=== PATIENT | female | born 1950 | race Hispanic/Latino ===

== ENCOUNTER 2017-09-07 07:54 | Day surgery (SDC) | payer MEDICARE ==
[2017-09-03 07:12] VITALS: BMI 34.3
[2017-09-07 08:35] LABS: BASO # 0.03 K/mm3 (0.0-2.0); BASO % 0.4 % (0.0-3.0); EOS # 0.1 (0.0-0.7); EOS % 1.8 % (1.5-5.0); GRAN # 5.49 (1.4-6.5); GRAN % 69.8 % (50.0-68.0); HEMOGLOBIN 11.2 g/dL (12.0-16.0); LYMPH # 1.8 (1.2-3.4); LYMPH % 22.8 % (22.0-35.0); MEAN CELL VOLUME 88.3 fl (80.0-105.0); MEAN CORPUSCULAR HEMOGLOBIN 29.2 pg (25.0-35.0); MEAN CORPUSCULAR HGB CONC 33.1 g/dl (31.0-37.0); MEAN PLATELET VOLUME 10.2 fl (7.0-11.0); MONO # 0.4 (0.1-0.6); MONO % 5.2 % (1.0-6.0); RBC 3.83 10^6/uL (3.5-6.1); RED CELL DISTRIBUTION WIDTH 14.6 % (11.5-14.5); WHITE BLOOD COUNT 7.9 10^3/ul (4.5-11.0)
[2017-09-07 08:39] VITALS: TEMP 97.7
[2017-09-07 08:47] LABS: CALCIUM 9.6 mg/dL (8.4-10.5)
[2017-09-07 08:57] LABS: INR 1.03 (0.93-1.08); PARTIAL THROMBOPLASTIN TIME 46.1 Seconds (25.1-36.5); PROTHROMBIN TIME 11.8 SECONDS (9.4-12.5)
[2017-09-07] MEDS ORDERED: Lidocaine 2% Inj (20ml) ONE (10:14)
[2017-09-07] MEDS ORDERED: Midazolam 2 MG/2 ML VIAL ONE ×2 (10:15→11:12)
[2017-09-07] MEDS ORDERED: Iodixanol 320 MG/ML 100 ML BOTTLE IV ONE (10:15)
[2017-09-07] MEDS ORDERED: Oxycodone/Acetaminophen 5/325 mg Tab PO PRN (11:51)
[2017-09-07] MEDS ORDERED: Sodium Chloride 0.45% 1,000 ML IV SCH (12:00)
[2017-09-07] MEDS ORDERED: Oxycodone/Acetaminophen 5/325 mg Tab ONE (12:54)
[2017-09-07 13:09] VITALS: RESP 18
[2017-09-07 14:09] VITALS: BP 148/78; PULSE 84; O2SAT 98
--- NOTE | 2017-09-07 18:20 | VASCULAR ---
PROCEDURE: Ultrasound and fluoroscopic right internal jugular venous access port. CLINICAL HISTORY: Gallbladder carcinoma.Venous port for chemotherapy. PHYSICIAN(S): Chintan Ashley M.D. TECHNIQUE: The relative risks and indications of the procedure were explained to the patient and consent obtained. The patient was placed supine on the arteriogram table and the right neck and chest prepped and draped in the usual sterile fashion. Conscious sedation monitoring was provided throughout the procedure by a nurse. Under direct ultrasound guidance, the right internal jugular vein was punctured with a micro-puncture set. A 0.035 angled Glidewire was advanced into the IVC. A 4 cm incision was made below the right clavicle and the pocket blunted dissected. A 8 [place] single-lumen catheter, 21 cm long, was advanced to the SVC/RA junction. The catheter was trimmed and attached to the port. The port aspirates and injects easily. The port was placed in the pocket and closed in 2 layers. The patient tolerated the procedure well. IMPRESSION: Ultrasound and fluoroscopically placed right internal jugular venous access port.
== END 2017-09-07 14:30 | disposition home or self-care (01) ==
LOC: SDSVAS 07:54
PROVIDERS: ATTEND Radiology Vascular & Interventional Radiology
DX: C23 Malignant neoplasm of gallbladder (principal); I10 Essential (primary) hypertension; E11.9 Type 2 diabetes mellitus without complications
CPT/HCPCS: 36415; 36561; 76937; 77001; 80048; 85025; 85610; 85730; 99152; C1769; C1788; J1644; J2250; J2405; J3010; J7030; Q9967

== ENCOUNTER 2017-11-18 14:28 | Inpatient (IN) | payer MEDICARE ==
--- NOTE | 2017-11-18 14:58 | ED PDOC ---
Arrival/HPI - General Time Seen by Provider: 11/18/17 14:54 Historian: Patient - History of Present Illness Narrative History of Present Illness (Text): 11/18/17 14:55 67 year old female, whose past medical history includes gallbladder disease and renal stones, who presents to the ED complaining of headache, neck pain, and an unsteady gate. Patient notes associated nausea and vomiting. Patient saw PMD, Dr. Leyva, who sent her to ED for further evaluation due to worsening pain. Patient denies any chest pain, back pain, SOB, abdominal pain, or any other complaints. Symptom Onset: Gradual Symptom Course: Unchanged Activities at Onset: Light Context: Home Past Medical History - Provider Review Nursing Documentation Reviewed: Yes - Infectious Disease Hx of Infectious Diseases: None - Cardiac Hx Pacemaker: No - Pulmonary Hx Respiratory Disorders: No - Neurological Hx Paralysis: No - HEENT Hx HEENT Disorder: No - Renal Hx Kidney Stones: Yes - Endocrine/Metabolic Hx Endocrine Disorders: Yes Hx Diabetes Mellitus Type 2: Yes - Hematological/Oncological Hx Blood Transfusions: No - Integumentary Hx Dermatological Disorder: No - Musculoskeletal/Rheumatological Hx Musculoskeletal Disorders: No - Gastrointestinal Hx Gastrointestinal Disorders: Yes 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) - Genitourinary/Gynecological Hx Genitourinary Disorders: Yes (abn pap cone bx) - Psychiatric Hx Emotional Abuse: No Hx Physical Abuse: No Hx Substance Use: No - Surgical History Hx Cholecystectomy: Yes Other/Comment: cervical biopsy - Anesthesia Hx Anesthesia Reactions: No Hx Malignant Hyperthermia: No - Suicidal Assessment Feels Threatened In Home Enviroment: No Family/Social History - Physician Review Nursing Documentation Reviewed: Yes Family/Social History: Unknown Family HX Smoking Status: Never Smoked Hx Alcohol Use: No Hx Substance Use: No Allergies/Home Meds Allergies/Adverse Reactions: Allergies Penicillins Allergy (Severe, Verified 08/05/17 12:09) RASH Home Medications: Home Meds Medication Instructions Recorded Confirmed GlipiZIDE [Glucotrol] 5 mg PO DAILY 08/05/17 09/06/17 Losartan [Cozaar] 25 mg PO DAILY 08/05/17 09/07/17 Docusate [Colace] 100 mg PO DAILY 09/06/17 09/07/17 levoFLOXacin [Levaquin] 500 mg PO DAILY 09/06/17 09/07/17 Review of Systems - Physician Review All systems were reviewed & negative as marked: Yes - Review of Systems Constitutional: Normal Eyes: Normal ENT: Normal Respiratory: Normal. absent: SOB, Cough Cardiovascular: Normal. absent: Chest Pain Gastrointestinal: Nausea, Vomiting. absent: Abdominal Pain Genitourinary Female: Normal. absent: Dysuria, Frequency Musculoskeletal: Neck Pain. absent: Back Pain Skin: Normal. absent: Rash Neurological: Headache Endocrine: Normal Hemo/Lymphatic: Normal Psychiatric: Normal Physical Exam Vital Signs Temp Pulse Resp BP Pulse Ox 11/18/17 17:55 98.2 F 78 18 99 11/18/17 16:05 98.2 F 90 18 130/80 97 11/18/17 14:35 98.1 F 97 H 18 139/70 98 - Systems Exam Head: Present: Atraumatic, Normocephalic Pupils: Present: PERRL Extroacular Muscles: Present: EOMI Conjunctiva: Present: Normal Mouth: Present: Moist Mucous Membranes Neck: Present: Normal Range of Motion Respiratory/Chest: Present: Clear to Auscultation, Good Air Exchange. No: Respiratory Distress, Accessory Muscle Use Cardiovascular: Present: Regular Rate and Rhythm, Normal S1, S2. No: Murmurs Abdomen: No: Tenderness, Distention, Peritoneal Signs Back: Present: Normal Inspection Upper Extremity: Present: Normal Inspection. No: Cyanosis, Edema Lower Extremity: Present: Normal Inspection. No: Edema Neurological: Present: GCS=15, CN II-XII Intact, Speech Normal Skin: Present: Warm, Dry, Normal Color. No: Rashes Psychiatric: Present: Alert, Oriented x 3, Normal Insight, Normal Concentration Medical Decision Making ED Course and Treatment: 11/18/17 14:58 Impression: 67 y/o female presents to the ED c/o headache, neck pain, unsteady gate, nausea , and vomiting. Plan: -- CT Head -- CT Neck -- Reglan -- Benadryl Progress Notes: 11/18/17 18:21: On re-evaluation, patient's headache is better, but is still complaining of neck pain. Pending MRI results. 11/18/17 18:58: Case discussed in detail with Dr. Leyva who wants patient to be admitted for observation. MR Angiography Head Without Intravenous Contrast Dictated and Authenticated by: Milton Prieto MD 11/18/2017 6:39 PM Eastern Time ([place] & [place]) IMPRESSION: Normal head/brain MRA. MR Head Without Intravenous Contrast Dictated and Authenticated by: Milton Prieto MD 11/18/2017 6:37 PM Eastern Time ([place] & [place]) IMPRESSION: Age-related atrophy and chronic white matter ischemic changes, with no evidence of an acute intracranial abnormality. 11/18/17 19:09: Case discussed in detail with Dr. Wm Matta who accepts patient to his service. - Lab Interpretations Lab Results: 11/19/17 06:30 11/19/17 06:30 Lab Results 11/19/17 11:30: POC Glucose (mg/dL) 235 H 11/19/17 06:35: POC Glucose (mg/dL) 185 H 11/19/17 06:30: Carcinoembryonic Ag 26.6 H 11/19/17 06:30: Hemoglobin A1c 5.8 11/19/17 06:30: Sodium 138, Potassium 4.4, Chloride 98, Carbon Dioxide 27, Anion Gap 17, BUN 19, Creatinine 0.9, Est GFR ( Amer) > 60, Est GFR (Non- Af Amer) > 60, Random Glucose 196 H, Calcium 9.5, Total Bilirubin 1.3, AST 24, ALT 30, Alkaline Phosphatase 78, Total Protein 7.4, Albumin 4.4, Globulin 3.0, Albumin/Globulin Ratio 1.5, CA 19-9 Antigen 134 H 11/19/17 06:30: WBC 14.0 H D, RBC 3.51, Hgb 10.7 L, Hct 31.9 L, MCV 90.9, MCH 30.5, MCHC 33.5, RDW 16.7 H, Plt Count 252, MPV 9.9, Gran % 91.9 H, Lymph % ( Auto) 5.9 L, [place] % (Auto) 2.1, Eos % (Auto) 0.0 L, Baso % (Auto) 0.1, Gran # 12.83 H, Lymph # (Auto) 0.8 L, [place] # (Auto) 0.3, Eos # (Auto) 0.0, Baso # (Auto ) 0.01 11/18/17 21:24: POC Glucose (mg/dL) 175 H - RAD Interpretation Radiology Orders: 11/18/17 15:24 MRA HEAD WITHOUT CONTRAST [MRI] Stat 11/18/17 15:28 BRAIN WITHOUT CONTRAST [MRI] Stat 11/19/17 09:45 BRAIN W & WO CONTRAST [MRI] Stat 11/19/17 13:27 SPINAL CANAL CERVICAL W/WO LINDA [MRI] Stat - Medication Orders Current Medication Orders: Acetaminophen (Tylenol 325mg Tab) 650 mg PO Q4H PRN PRN Reason: Mild pain (1-3) or temp > 100F Last Admin: 11/20/17 13:25 Dose: 650 mg Amlodipine Besylate (Norvasc) 5 mg PO DAILY [facility] Last Admin: 11/21/17 14:26 Dose: Not Given Non-Admin Reason: Allergy Clonidine HCl (Catapres) 0.1 mg PO Q6 PRN PRN Reason: Systolic Blood Pressure > 160 Last Admin: 11/20/17 13:24 Dose: 0.1 mg MAR Pulse and Blood Pressure Document 11/20/17 13:24 MV (Rec: 11/20/17 13:24 MV [facility] Pulse Pulse Rate (60-90 beats/min) 78 Blood Pressure Blood Pressure (100/60-150/90 mm Hg) 190/83 Heparin Sodium (Porcine) (Heparin) 5,000 units SC Q12 [facility] PRN Reason: Protocol Last Admin: 11/23/17 10:06 Dose: 5,000 units Subcutaneous Administrations Document 11/23/17 10:06 RAMOM (Rec: 11/23/17 10:06 RAMOM [id number]) Injection Site MAR Injection Site Right Abdomen Charges for Administration # of Subcutaneous Administrations 1 Hydralazine HCl (Apresoline) 10 mg IVP Q6 PRN PRN Reason: for sbp greater than 160 Last Admin: 11/20/17 06:12 Dose: 10 mg IVP Administration Document 11/20/17 06:12 RM (Rec: 11/20/17 06:12 RM BMCKOSTENDORFLP) Charges for Administration # of IVP Administrations 1 MAR Pulse and Blood Pressure Document 11/20/17 06:12 RM (Rec: 11/20/17 06:12 RM BMCKOSTENDORFLP) Blood Pressure Blood Pressure (100/60-150/90 mm Hg) 195/95 Hydrocortisone Sodium Succinate (Solu-Cortef) 50 mg IVP Q6H LEMUEL Last Admin: 11/23/17 14:17 Dose: 50 mg IVP Administration Document 11/23/17 14:17 RAMOM (Rec: 11/23/17 14:17 RAMOM [id number]) Charges for Administration # of IVP Administrations 1 Hydromorphone HCl (Dilaudid) 0.5 mg IVP Q4H PRN PRN Reason: Pain, severe (8-10) Last Admin: 11/21/17 03:08 Dose: 0.5 mg [facility] Pain Assessment Document 11/21/17 03:08 B.P (Rec: 11/21/17 03:09 B.P [id number]) Pain Reassessment Is this a pain reassessment? No Presence of Pain Presence of Pain Yes Description Intensity of Pain at present 8 IVP Administration Document 11/21/17 03:08 B.P (Rec: 11/21/17 03:09 B.P [id number]) Charges for Administration # of IVP Administrations 1 Re-Assess: [facility] Pain Assessment Document 11/21/17 04:08 B.P (Rec: 11/21/17 05:17 B.P [id number]) Pain Reassessment Is this a pain reassessment? Yes Sleep Is patient sleeping during reassessment? Yes Nicardipine HCl (Cardene Iv Premix) 20 mg in 200 mls @ 50 mls/hr IV .Q4H PRN; Protocol; 5 MG/HR PRN Reason: TITRATE PER MD ORDER Last Titration: 11/21/17 09:00 Dose: 0 mg/hr, 0 mls/hr Titration Intervention Document 11/21/17 09:00 IGOR (Rec: 11/21/17 11:15 IGOR [facility] [id number]) Titration Intake Titration Intake 140 Cumulative Intake 185 Cumulative Intake (Rx) 585 Waste Amount 0 Container Volume 15 Titration Dosing Titration Dose 0 IV Rate 0 Intake/Decrease Paused Cumulative Dose 58.5 Midazolam 100 mg/100ml in NS (Midazolam 100 Mg/100ml In Ns) 100 mg in 100 mls @ 1 mls/hr IV .Q24H PRN; Protocol; 1 MG/HR PRN Reason: Seizure activity Last Titration: 11/22/17 14:00 Dose: 0 mg/hr, 0 mls/hr Ma Agitation Sedation Document 11/22/17 14:00 [facility] (Rec: 11/22/17 20:28 [facility] [id number]) Ma Agitation Sedation Scale Ma Agitation Sedation Scale Score -5 Unarousable: No response to voice or physical stimulation Titration Intervention Document 11/22/17 14:00 KEITH (Rec: 11/22/17 20:28 [facility] [id number]) Titration Intake Titration Intake 24 Cumulative Intake 24 Cumulative Intake (Rx) 24 Waste Amount 0 Container Volume 76 Titration Dosing Titration Dose 0 IV Rate 0 Intake/Decrease Paused Cumulative Dose 24 Valproate Sodium 1,000 mg/ (Sodium Chloride) 110 mls @ 100 mls/hr IVPB 0700, 1900 LEMUEL Last Admin: 11/23/17 09:00 Dose: 100 mls/hr eMAR Start Stop Document 11/23/17 09:00 RAMOM (Rec: 11/23/17 09:42 RAMOM [id number]) Intravenous Solution Start Date 11/23/17 Start Time 09:00 End Date 11/23/17 End time 10:00 Total Infusion Time 60 Norepinephrine Bitartrate 8 mg (/ Sodium Chloride) 258 mls @ 48.37 mls/hr IV .Q5H21M PRN; Protocol; 25 MCG/MIN PRN Reason: TITRATE PER MD ORDER Last Titration: 11/23/17 14:11 Dose: 15 mcg/min, 29.02 mls/hr Titration Intervention Document 11/23/17 14:11 RAMOM (Rec: 11/23/17 14:11 RAMOM [id number]) Titration Intake Titration Intake 38 Cumulative Intake 228 Cumulative Intake (Rx) 2,034 Waste Amount 0 Container Volume 30 Titration Dosing Titration Dose 15 IV Rate 29.02 Intake/Decrease Decreased Cumulative Dose 63.0683 Vasopressin 20 units/ Sodium (Chloride) 101 mls @ 9.09 mls/hr IV .Q11H7M LEMUEL; 0.03 U/MIN PRN Reason: Protocol Last Admin: 11/23/17 01:44 Dose: 0.03 u/min, 9.09 mls/hr eMAR Start Stop Document 11/23/17 01:44 PD (Rec: 11/23/17 01:45 PD [facility] [id number]) Intravenous Solution Start Date 11/23/17 Start Time 01:45 [facility] Blood Pressure Document 11/23/17 01:44 PD (Rec: 11/23/17 01:45 PD [facility] [place]-RENW) Blood Pressure Blood Pressure (100/60-150/90 mm Hg) 103/56 Titration Intervention Document 11/23/17 01:44 PD (Rec: 11/23/17 01:45 PD [facility] [place]-R[facility]) Titration Intake Waste Amount 0 Container Volume 101 Titration Dosing Titration Dose 0.03 IV Rate 9.09 Intake/Decrease Started Acetaminophen (Ofirmev) 1,000 mg in 100 mls @ 0 mls/hr IVPB Q6H PRN; Titrate PRN Reason: Temperature Stop: 11/25/17 04:31 Last Admin: 11/23/17 05:33 Dose: 400 mls/hr eMAR Start Stop Document 11/23/17 05:33 PD (Rec: 11/23/17 05:38 PD [facility] [place]-[facility]) Intravenous Solution Start Date 11/23/17 Start Time 05:33 [facility] Pain Assessment Document 11/23/17 05:33 PD (Rec: 11/23/17 05:38 PD [facility] [place]) Pain Reassessment Is this a pain reassessment? No Sleep Is patient sleeping during reassessment? No Presence of Pain Presence of Pain No Pain Scale Used Pain Scale Used Numeric Re-Assess: [facility] Pain Assessment Document 11/23/17 06:33 PD (Rec: 11/23/17 07:26 PD [facility] [place]) Pain Reassessment Is this a pain reassessment? No Presence of Pain Presence of Pain No Cefepime HCl 0.5 gm/ Sodium (Chloride) 100 mls @ 100 mls/hr IVPB Q12H LEMUEL PRN Reason: Protocol Stop: 12/02/17 13:01 Last Admin: 11/23/17 15:02 Dose: 100 mls/hr eMAR Start Stop Document 11/23/17 15:02 RAMOM (Rec: 11/23/17 15:03 RAMOM [id number]) Intravenous Solution Start Date 11/23/17 Start Time 15:00 End Date 11/23/17 End time 16:00 Total Infusion Time 60 Acyclovir 250 mg/ Sodium (Chloride) 100 mls @ 100 mls/hr IV Q12 LEMUEL PRN Reason: Protocol Stop: 01/07/19 22:01 Ibuprofen (Motrin Tab) 600 mg PO Q8H PRN PRN Reason: Pain, moderate (4-7) Last Admin: 11/20/17 10:44 Dose: 600 mg Insulin Human Regular (Humulin R Low) 0 units SC Q4H LEMUEL PRN Reason: Protocol Last Admin: 11/23/17 17:53 Dose: Losartan Potassium (Cozaar) 100 mg PO DAILY [facility] Last Admin: 11/21/17 11:16 Dose: Not Given Non-Admin Reason: BP Parameters Not Met Ondansetron HCl (Zofran Inj) 4 mg IVP Q8H PRN PRN Reason: Nausea/Vomiting Last Admin: 11/20/17 15:00 Dose: 4 mg IVP Administration Document 11/20/17 15:00 MV (Rec: 11/20/17 16:28 MV [id number]) Charges for Administration # of IVP Administrations 1 Pantoprazole Sodium (Protonix Inj) 40 mg IVP Q12 [facility] Last Admin: 11/23/17 10:06 Dose: 40 mg IVP Administration Document 11/23/17 10:06 RAMOM (Rec: 11/23/17 10:06 RAMOM [id number]) Charges for Administration # of IVP Administrations 1 Sucralfate (Carafate Oral Susp) 1 gm PO 0600,1600 [facility] Last Admin: 11/23/17 15:03 Dose: Not Given Non-Admin Reason: NPO Discontinued Medications Clonidine HCl (Catapres) 0.1 mg PO ONCE ONE Stop: 11/20/17 06:02 Last Admin: 11/20/17 06:12 Dose: 0.1 mg MAR Pulse and Blood Pressure Document 11/20/17 06:12 RM (Rec: 11/20/17 06:12 BMCKOSTENDORFLP) Blood Pressure Blood Pressure (100/60-150/90 mm Hg) 195/95 Cyclobenzaprine HCl (Flexeril) 15 mg PO STAT STA Stop: 11/19/17 13:27 Last Admin: 11/19/17 13:59 Dose: 15 mg Diazepam (Valium) 5 mg PO ONCE ONE PRN Reason: Protocol Stop: 11/18/17 15:24 Last Admin: 11/18/17 16:49 Dose: 5 mg Diphenhydramine HCl (Benadryl) 25 mg IVP STAT STA Stop: 11/18/17 15:24 Last Admin: 11/18/17 16:50 Dose: 25 mg IVP Administration Document 11/18/17 16:50 [email or web address] (Rec: 11/18/17 16:50 [email or web address] [id number]) Charges for Administration # of IVP Administrations 1 Diphenhydramine HCl (Benadryl) 25 mg IVP STAT STA Stop: 11/19/17 04:23 Last Admin: 11/19/17 04:39 Dose: Not Given Non-Admin Reason: Patient Refused Comments: Patient earlier agreed, then refused Hydralazine HCl (Apresoline) 10 mg IVP ONCE ONE Stop: 11/19/17 15:04 Last Admin: 11/19/17 15:26 Dose: 10 mg IVP Administration Document 11/19/17 15:26 SES (Rec: 11/19/17 15:27 [id number]) Charges for Administration # of IVP Administrations 1 MAR Pulse and Blood Pressure Document 11/19/17 15:26 SES (Rec: 11/19/17 15:27 SES [facility] [id number]) Pulse Pulse Rate (60-90 beats/min) 72 Blood Pressure Blood Pressure (100/60-150/90 mm Hg) 198/85 Hydralazine HCl (Apresoline) 10 mg IVP Q6 LEMUEL Hydralazine HCl (Apresoline) 10 mg IVP ONCE ONE Stop: 11/20/17 02:42 Last Admin: 11/20/17 02:55 Dose: 10 mg IVP Administration Document 11/20/17 02:55 RM (Rec: 11/20/17 02:56 [facility] Charges for Administration # of IVP Administrations 1 MAR Pulse and Blood Pressure Document 11/20/17 02:55 RM (Rec: 11/20/17 02:56 RM [facility]) Blood Pressure Blood Pressure (100/60-150/90 mm Hg) 195/91 Hydromorphone HCl (Dilaudid) 0.5 mg IVP ONCE ONE Stop: 11/19/17 19:01 Last Admin: 11/19/17 19:08 Dose: 0.5 mg MAR Pain Assessment Document 11/19/17 19:08 SOUSV (Rec: 11/19/17 19:08 SOUSV BMCKOSTENDORFLP) Pain Reassessment Is this a pain reassessment? No Presence of Pain Presence of Pain Yes Pain Scale Used Pain Scale Used Numeric Location Pain Location Body Site Neck Description Description Constant Intensity of Pain at present 12 Alleviating Factors Medication IVP Administration Document 11/19/17 19:08 SOUSV (Rec: 11/19/17 19:08 SOUSV BMCKOSTENDORFLP) Charges for Administration # of IVP Administrations 1 Re-Assess: MAR Pain Assessment Document 11/19/17 20:08 RM (Rec: 11/19/17 21:34 RM [id number]) Pain Reassessment Is this a pain reassessment? Yes Sleep Is patient sleeping during reassessment? Yes Hydromorphone HCl (Dilaudid) 0.5 mg IVP ONCE ONE Stop: 11/20/17 01:19 Last Admin: 11/20/17 01:38 Dose: 0.5 mg DAR Pain Assessment Document 11/20/17 01:38 RM (Rec: 11/20/17 01:38 RM BMCKOSTENDORFLP) Pain Reassessment Is this a pain reassessment? No Sleep Is patient sleeping during reassessment? No Presence of Pain Presence of Pain Yes IVP Administration Document 11/20/17 01:38 RM (Rec: 11/20/17 01:38 RM BMCKOSTENDORFLP) Charges for Administration # of IVP Administrations 1 Sodium Chloride (Sodium Chloride 0.9%) 1,000 mls @ 80 mls/hr IV .[id number] ONE Stop: 11/19/17 09:57 Last Admin: 11/18/17 22:45 Dose: 80 mls/hr eMAR Start Stop Document 11/18/17 22:45 MAD (Rec: 11/18/17 22:45 MAD [id number]) Intravenous Solution Start Date 11/18/17 Start Time 22:45 Sodium Chloride (Sodium Chloride 0.45%) 1,000 mls @ 80 mls/hr IV .[id number] [facility] Last Admin: 11/19/17 11:26 Dose: 80 mls/hr eMAR Start Stop Document 11/19/17 11:26 SES (Rec: 11/19/17 11:26 SES [id number]) Intravenous Solution Start Date 11/19/17 Start Time 11:26 Sodium Chloride (Sodium Chloride 0.45%) 1,000 mls @ 140 mls/hr IV .Q7H9M LEMUEL Sodium Chloride (Sodium Chloride 0.45%) 1,000 mls @ 80 mls/hr IV .[id number] LEMUEL Fosaprepitant 150 mg/ Sodium (Chloride) 150 mls @ 290 mls/hr IVPB ONCE ONE Stop: 11/19/17 19:17 Last Admin: 11/19/17 20:16 Dose: 290 mls/hr eMAR Start Stop Document 11/19/17 20:16 RM (Rec: 11/19/17 20:17 [facility] Intravenous Solution Start Date 11/19/17 Start Time 20:16 End Date 11/19/17 End time 20:47 Total Infusion Time 31 Valproate Sodium / Sodium (Chloride) 100 mls @ 100 mls/hr IVPB Q8 LEMUEL Valproate Sodium 1,000 mg/ (Sodium Chloride) 110 mls @ 100 mls/hr IVPB 0300, 1100,1900 LEMUEL Valproate Sodium 1,000 mg/ (Sodium Chloride) 110 mls @ 100 mls/hr IVPB 0300, 1100,1900 LEMUEL Valproate Sodium 750 mg/ (Sodium Chloride) 107.5 mls @ 100 mls/hr IVPB 0700, 1900 LEMUEL Last Admin: 11/21/17 06:07 Dose: 100 mls/hr eMAR Start Stop Document 11/21/17 06:07 B.P (Rec: 11/21/17 06:08 B.P [id number]) Intravenous Solution Start Date 11/21/17 Start Time 06:08 Valproate Sodium 1,000 mg/ (Sodium Chloride) 110 mls @ 100 mls/hr IVPB 0300, 1100,1900 ONE Stop: 11/20/17 20:06 Valproate Sodium 1,000 mg/ (Sodium Chloride) 110 mls @ 100 mls/hr IVPB ONCE ONE Stop: 11/20/17 20:09 Last Admin: 11/20/17 20:23 Dose: 100 mls/hr eMAR Start Stop Document 11/20/17 20:23 B.P (Rec: 11/20/17 20:23 B.P [id number]) Intravenous Solution Start Date 11/20/17 Start Time 20:23 Potassium Chloride (Potassium Chloride 10 Meq/100 Ml) 10 meq in 100 mls @ 50 mls/hr IVPB Q2H LEMUEL Stop: 11/21/17 10:44 Last Admin: 11/21/17 08:31 Dose: 50 mls/hr eMAR Start Stop Document 11/21/17 08:31 JFG (Rec: 11/21/17 08:31 JFG [facility] [id number]) Intravenous Solution Start Date 11/21/17 Start Time 08:31 End Date 11/21/17 End time 10:31 Total Infusion Time 120 Meropenem (Merrem Iv 1 Gm Premix) 50 mls @ 100 mls/hr IVPB Q8 LEMUEL PRN Reason: Protocol Stop: 11/30/17 08:05 Last Admin: 11/22/17 05:14 Dose: 100 mls/hr eMAR Start Stop Document 11/22/17 05:14 B.P (Rec: 11/22/17 05:14 B.P [facility] [id number]) Intravenous Solution Start Date 11/22/17 Start Time 05:14 Vancomycin HCl (Vancomycin 1gm) 1 gm in 250 mls @ 167 mls/hr IVPB DAILY LEMUEL PRN Reason: Protocol Stop: 11/30/17 10:01 Last Admin: 11/23/17 10:06 Dose: 167 mls/hr eMAR Start Stop Document 11/23/17 10:06 RAMOM (Rec: 11/23/17 10:06 RAMOM [id number]) Intravenous Solution Start Date 11/23/17 Start Time 12:00 End Date 11/23/17 End time 13:30 Total Infusion Time 90 Levetiracetam 1,000 mg/ Sodium (Chloride) 110 mls @ 440 mls/hr IV ONCE ONE Stop: 11/21/17 09:55 Last Admin: 11/21/17 12:06 Dose: 440 mls/hr Comments: just got back from CT scan and MRI eMAR Start Stop Document 11/21/17 12:06 JFG (Rec: 11/21/17 12:06 JFG [id number]) Intravenous Solution Start Date 11/21/17 Start Time 12:06 End Date 11/21/17 End time 12:21 Total Infusion Time 15 Sodium Chloride (Sodium Chloride 0.9%) 1,000 mls @ 999 mls/hr IV .Q1H1M STA Stop: 11/21/17 13:10 Last Admin: 11/21/17 12:10 Dose: 999 mls/hr eMAR Start Stop Document 11/21/17 12:10 JFG (Rec: 11/21/17 14:28 [id number]-[id number]) Intravenous Solution Start Date 11/21/17 Start Time 12:10 End Date 11/21/17 End time 13:11 Total Infusion Time 61 NOREPINEPHRINE BIT/0.9 % NACL (Levophed 4 Mg/ 250 Ml Ns Premixed) 4 mg in 250 mls @ 15 mls/hr IV .[id number] PRN; Protocol; 4 MCG/MIN PRN Reason: TITRATE PER MD ORDER NOREPINEPHRINE BIT/0.9 % NACL (Levophed 4 Mg/ 250 Ml Ns Premixed) 4 mg in 250 mls @ 15 mls/hr IV .H37S95O PRN; Protocol; 4 MCG/MIN PRN Reason: TITRATE PER MD ORDER Last Admin: 11/21/17 18:56 Dose: 25 mcg/min, 93.75 mls/hr eMAR Start Stop Document 11/21/17 18:56 JFG (Rec: 11/21/17 18:57 [id number]) Intravenous Solution Start Date 11/21/17 Start Time 18:57 Titration Intervention Document 11/21/17 18:56 IGOR (Rec: 11/21/17 18:57 [facility]) Titration Intake Cumulative Intake (Rx) 750 Waste Amount 0 Container Volume 250 Titration Dosing Titration Dose 25 IV Rate 93.75 Intake/Decrease Started/Running Cumulative Dose 12 Sodium Chloride (Sodium Chloride 0.9%) 1,000 mls @ 999 mls/hr IV .Q1H1M STA Stop: 11/21/17 10:07 Last Admin: 11/21/17 09:07 Dose: 999 mls/hr eMAR Start Stop Document 11/21/17 09:07 KEITHG (Rec: 11/21/17 14:21 [facility]-[id number]) Intravenous Solution Start Date 11/21/17 Start Time 09:07 End Date 11/21/17 End time 10:07 Total Infusion Time 60 Acyclovir 750 mg/ Sodium (Chloride) 100 mls @ 100 mls/hr IV Q12 LEMUEL PRN Reason: Protocol Last Admin: 11/22/17 09:31 Dose: 100 mls/hr eMAR Start Stop Document 11/22/17 09:31 JFG (Rec: 11/22/17 09:31 JFG [id number]) Intravenous Solution Start Date 11/22/17 Start Time 09:31 End Date 11/22/17 End time 10:31 Total Infusion Time 60 Levetiracetam 1,000 mg/ Sodium (Chloride) 110 mls @ 440 mls/hr IV BID ONE Stop: 11/21/17 18:14 Last Admin: 11/21/17 18:31 Dose: 440 mls/hr eMAR Start Stop Document 11/21/17 18:31 JFG (Rec: 11/21/17 18:31 JFG [id number]) Intravenous Solution Start Date 11/21/17 Start Time 18:31 End Date 11/21/17 End time 18:46 Total Infusion Time 15 Potassium Chloride (Potassium Chloride 20 Meq/100 Ml) 20 meq in 100 mls @ 50 mls/hr IVPB Q2H LEMUEL Stop: 11/22/17 00:59 Last Admin: 11/21/17 22:41 Dose: 50 mls/hr eMAR Start Stop Document 11/21/17 22:41 B.P (Rec: 11/21/17 22:41 B.P [id number]) Intravenous Solution Start Date 11/21/17 Start Time 22:41 Sodium Chloride (Sodium Chloride 0.9%) 1,000 mls @ 175 mls/hr IV .Q5H43M LEMUEL Last Admin: 11/22/17 03:43 Dose: 175 mls/hr eMAR Start Stop Document 11/22/17 03:43 B.P (Rec: 11/22/17 03:43 B.P [id number]) Intravenous Solution Start Date 11/22/17 Start Time 03:43 Vasopressin 20 units/ Sodium (Chloride) 101 mls @ 9.09 mls/hr IV .Q11H7M LEMUEL; 0.03 U/MIN PRN Reason: Protocol Last Admin: 11/22/17 04:04 Dose: 9.09 mls/hr eMAR Start Stop Document 11/22/17 04:04 B.P (Rec: 11/22/17 04:05 B.P [id number] [id number]) Intravenous Solution Start Date 11/22/17 Start Time 04:04 MAR Blood Pressure Document 11/22/17 04:04 B.P (Rec: 11/22/17 04:05 B.P [id number]) Blood Pressure Blood Pressure (100/60-150/90 mm Hg) 85/48 Sodium Chloride (Sodium Chloride 0.9%) 1,000 mls @ 175 mls/hr IV .[id number] LEMUEL Last Admin: 11/22/17 05:55 Dose: 175 mls/hr eMAR Start Stop Document 11/22/17 05:55 B.P (Rec: 11/22/17 05:55 B.P [id number]) Intravenous Solution Start Date 11/22/17 Start Time 05:55 Meropenem (Merrem Iv 1 Gm Premix) 50 mls @ 100 mls/hr IVPB Q12 LEMUEL PRN Reason: Protocol Stop: 12/01/17 22:01 Last Admin: 11/23/17 10:05 Dose: 100 mls/hr eMAR Start Stop Document 11/23/17 10:05 RAMOM (Rec: 11/23/17 10:05 RAMOM [id number]) Intravenous Solution Start Date 11/23/17 Start Time 11:30 End Date 11/23/17 End time 12:00 Total Infusion Time 30 Sodium Chloride (Hypertonic Saline 3%) 500 mls @ 30 mls/hr IV .[id number] [facility] Last Admin: 11/22/17 13:35 Dose: 30 mls/hr eMAR Start Stop Document 11/22/17 13:35 JFG (Rec: 11/22/17 14:47 JFG [id number]) Intravenous Solution Start Date 11/22/17 Start Time 13:35 End Date 11/23/17 Doxycycline Hyclate 100 mg/ (Sodium Chloride) 100 mls @ 100 mls/hr IVPB Q12 LEMUEL PRN Reason: Protocol Last Admin: 11/23/17 09:59 Dose: 100 mls/hr eMAR Start Stop Document 11/23/17 09:59 RAMOM (Rec: 11/23/17 10:00 RAMOM [id number]) Intravenous Solution Start Date 11/23/17 Start Time 10:00 End Date 11/23/17 End time 11:00 Total Infusion Time 60 Acyclovir 750 mg/ Sodium (Chloride) 250 mls @ 100 mls/hr IV Q12 LEMUEL PRN Reason: Protocol Last Admin: 11/23/17 10:02 Dose: 100 mls/hr eMAR Start Stop Document 11/23/17 10:02 RAMOM (Rec: 11/23/17 10:03 RAMOM [id number]) Intravenous Solution Start Date 11/23/17 Start Time 11:00 End Date 11/23/17 End time 13:30 Total Infusion Time 150 Trimethoprim/Sulfamethoxazole (300 mg/ Dextrose) 500 mls @ 250 mls/hr IVPB Q6 LEMUEL Trimethoprim/Sulfamethoxazole (160 mg/ Dextrose) 250 mls @ 250 mls/hr IVPB Q6 LEMUEL Trimethoprim/Sulfamethoxazole (160 mg/ Dextrose) 250 mls @ 250 mls/hr IVPB Q6 LEMUEL Last Admin: 11/23/17 12:31 Dose: 250 mls/hr eMAR Start Stop Document 11/23/17 12:31 RAMOM (Rec: 11/23/17 12:31 RAMOM [id number]) Intravenous Solution Start Date 11/23/17 Start Time 13:30 End Date 11/23/17 End time 14:30 Total Infusion Time 60 Ganciclovir 200 mg/ Sodium (Chloride) 100 mls @ 100 mls/hr IV DAILY LEMUEL PRN Reason: Protocol Ganciclovir 200 mg/ Sodium (Chloride) 100 mls @ 100 mls/hr IV DAILY LEMUEL Last Admin: 11/23/17 10:00 Dose: 100 mls/hr eMAR Start Stop Document 11/23/17 10:00 RAMOM (Rec: 11/23/17 10:00 RAMOM [id number]) Intravenous Solution Start Date 11/23/17 Start Time 10:30 End Date 11/23/17 End time 11:30 Total Infusion Time 60 Amphotericin B 300 mg/ (Dextrose) 250 mls @ 125 mls/hr IV ONCE ONE Stop: 11/22/17 17:29 Last Admin: 11/22/17 19:02 Dose: 125 mls/hr eMAR Start Stop Document 11/22/17 19:02 JF (Rec: 11/22/17 19:03 [id number]) Intravenous Solution Start Date 11/22/17 Start Time 19:03 End Date 11/22/17 End time 21:03 Total Infusion Time 120 Sodium Chloride (Hypertonic Saline 3%) 500 mls @ 30 mls/hr IV .[id number] [facility] Last Admin: 11/23/17 02:50 Dose: 30 mls/hr eMAR Start Stop Document 11/23/17 02:50 PD (Rec: 11/23/17 02:51 PD [facility]-RENW) Intravenous Solution Start Date 11/23/17 Start Time 02:51 End Date 11/23/17 End time 15:00 Total Infusion Time 729 Insulin Human Regular (Humulin R Low) 0 units SC ACHS LEMUEL PRN Reason: Protocol Last Admin: 11/22/17 22:01 Dose: 2 units Subcutaneous Administrations Document 11/22/17 22:01 PD (Rec: 11/22/17 22:01 PD [facility]-W) Charges for Administration # of Subcutaneous Administrations 1 Lorazepam (Ativan) 3 mg IVP ONCE ONE PRN Reason: Protocol Stop: 11/21/17 12:12 Last Admin: 11/21/17 12:11 Dose: 3 mg IVP Administration Document 11/21/17 12:11 [facility] (Rec: 11/21/17 14:24 [id number]) Charges for Administration # of IVP Administrations 1 Behavioural Document 11/21/17 12:11 KEITH (Rec: 11/21/17 14:24 [facility]-W) Maintenance Maintenance Dose No Nonmedicinal Nonmedicinal Interventions See nurse's notes Behavior Behavior for Medication: Dangers to self/others Behavior Comment per neurologist give for seizures Losartan Potassium (Cozaar) 25 mg PO DAILY [facility] Last Admin: 11/19/17 14:38 Dose: Losartan Potassium (Cozaar) 25 mg PO STAT STA Stop: 11/18/17 22:20 Last Admin: 11/18/17 22:42 Dose: 25 mg MAR Pulse and Blood Pressure Document 11/18/17 22:42 MAD (Rec: 11/18/17 22:43 MAD [id number]) Pulse Pulse Rate (60-90 beats/min) 73 Blood Pressure Blood Pressure (100/60-150/90 mm Hg) 180/82 Losartan Potassium (Cozaar) 25 mg PO STAT STA Stop: 11/19/17 10:45 Last Admin: 11/19/17 11:25 Dose: 25 mg MAR Pulse and Blood Pressure Document 11/19/17 11:25 SES (Rec: 11/19/17 11:26 SES [id number]) Blood Pressure Blood Pressure (100/60-150/90 mm Hg) 182/88 Losartan Potassium (Cozaar) 50 mg PO DAILY LEMUEL Mannitol (Mannitol) 25 gm IV ONCE ONE Stop: 11/21/17 09:43 Last Admin: 11/21/17 16:01 Dose: 25 gm Comments: give now per servicenow administrator. mannitol was on hold earlier per ICU doctor eMAR Start Stop Document 11/21/17 16:01 KEITH (Rec: 11/21/17 16:01 [id number]) Intravenous Solution Start Date 11/21/17 Start Time 16:01 End Date 11/21/17 Mannitol (Mannitol) 25 gm IV Q12 LEMUEL Last Admin: 11/21/17 22:12 Dose: 25 gm Metoclopramide HCl (Reglan) 10 mg IVP STAT STA Stop: 11/18/17 15:23 Last Admin: 11/18/17 16:50 Dose: 10 mg IVP Administration Document 11/18/17 16:50 CASTS1 (Rec: 11/18/17 16:50 [email or web address] [id number]) Charges for Administration # of IVP Administrations 1 Morphine Sulfate (Morphine) 4 mg IVP STAT STA Stop: 11/18/17 15:25 Last Admin: 11/18/17 16:49 Dose: 4 mg MAR Pain Assessment Document 11/18/17 16:49 CASTS1 (Rec: 11/18/17 16:50 [email or web address] [id number]) Pain Reassessment Is this a pain reassessment? No Sleep Is patient sleeping during reassessment? No Presence of Pain Presence of Pain Yes Pain Scale Used Pain Scale Used Numeric Location Pain Location [employer] Officer Description Description Constant Intensity of Pain at present 7 Pain Behavior Facial Grimacing Aggravating Factors Changing Position Alleviating Factors/Management Medication Techniques Alleviating Factors Medication IVP Administration Document 11/18/17 16:49 CASTS1 (Rec: 11/18/17 16:50 [email or web address] [id number]) Charges for Administration # of IVP Administrations 1 Morphine Sulfate (Morphine) 4 mg IVP STAT STA Stop: 11/18/17 15:53 Last Admin: 11/18/17 16:50 Dose: Morphine Sulfate (Morphine) 2 mg IVP STAT STA Stop: 11/23/17 17:52 Naloxone HCl (Narcan) 0.4 mg IVP ONCE ONE Stop: 11/20/17 17:49 Last Admin: 11/20/17 18:21 Dose: 0.4 mg IVP Administration Document 11/20/17 18:21 MMA (Rec: 11/20/17 18:21 MMA [id number]) Charges for Administration # of IVP Administrations 1 Naloxone HCl (Narcan) 0.4 mg IVP ONCE ONE Stop: 11/21/17 05:14 Last Admin: 11/21/17 05:20 Dose: 0.4 mg IVP Administration Document 11/21/17 05:20 B.P (Rec: 11/21/17 05:21 B.P [id number]) Charges for Administration # of IVP Administrations 1 Naloxone HCl (Narcan) 0.4 mg IVP ONCE ONE Stop: 11/21/17 05:25 Last Admin: 11/21/17 05:40 Dose: 0.4 mg IVP Administration Document 11/21/17 05:40 B.P (Rec: 11/21/17 05:40 B.P [id number]) Charges for Administration # of IVP Administrations 1 Naloxone HCl (Narcan) 0.04 mg IV ONCE ONE Stop: 11/21/17 05:30 Naloxone HCl (Narcan) 0.4 mg IV ONCE ONE Stop: 11/21/17 05:30 Last Admin: 11/21/17 05:48 Dose: 0.4 mg eMAR Start Stop Document 11/21/17 05:48 B.P (Rec: 11/21/17 05:48 B.P [id number]) Intravenous Solution Start Date 11/21/17 Start Time 05:48 Naloxone HCl (Narcan) 0.4 mg IVP ONCE ONE Stop: 11/21/17 10:24 Last Admin: 11/21/17 10:30 Dose: 0.4 mg IVP Administration Document 11/21/17 10:30 JUR (Rec: 11/21/17 13:58 JUR [id number]) Charges for Administration # of IVP Administrations 1 Ondansetron HCl (Zofran Inj) 4 mg IVP STAT STA Stop: 11/19/17 13:27 Last Admin: 11/19/17 13:37 Dose: 4 mg IVP Administration Document 11/19/17 13:37 SES (Rec: 11/19/17 13:37 SES [id number]) Charges for Administration # of IVP Administrations 1 Oxycodone/Acetaminophen (Percocet 5/325 Mg Tab) 2 tab PO STAT STA Stop: 11/18/17 18:41 Last Admin: 11/18/17 19:15 Dose: 2 tab [facility] Pain Assessment Document 11/18/17 19:15 [email or web address] (Rec: 11/18/17 19:19 [email or web address] [id number]) Pain Reassessment Is this a pain reassessment? No Sleep Is patient sleeping during reassessment? No Presence of Pain Presence of Pain Yes Pain Scale Used Pain Scale Used Numeric Location Pain Location [employer] Officer Description Description Constant Intensity of Pain at present 7 Pain Behavior Facial Grimacing Aggravating Factors Changing Position Alleviating Factors/Management Medication Techniques Alleviating Factors Medication Re-Assess: [facility] Pain Assessment Document 11/18/17 20:15 MAD (Rec: 11/19/17 06:15 MAD [id number]) Pain Reassessment Is this a pain reassessment? Yes Sleep Is patient sleeping during reassessment? Yes Oxycodone/Acetaminophen (Percocet 5/325 Mg Tab) 1 tab PO Q4H PRN PRN Reason: Pain, severe (8-10) Stop: 11/21/17 21:29 Oxycodone/Acetaminophen (Percocet 5/325 Mg Tab) 1 tab PO Q4H PRN PRN Reason: Pain, severe (8-10) Stop: 11/21/17 21:29 Last Admin: 11/19/17 09:38 Dose: 1 tab [facility] Pain Assessment Document 11/19/17 09:38 SES (Rec: 11/19/17 09:39 SES [id number]) Pain Reassessment Is this a pain reassessment? No Sleep Is patient sleeping during reassessment? No Presence of Pain Presence of Pain Yes Pain Scale Used Pain Scale Used Numeric Location Pain Location Body Site Neck Description Intensity of Pain at present 10 Pain Behavior Guarding Alleviating Factors/Management Medication Techniques Alleviating Factors Medication Pantoprazole Sodium (Protonix Ec Tab) 20 mg PO 0600 LEMUEL Last Admin: 11/19/17 06:13 Dose: 20 mg Sodium Chloride (Hypertonic Saline 3%) 150 ml IV STAT STA Stop: 11/22/17 18:27 Last Admin: 11/22/17 18:30 Dose: 150 ml eMAR Start Stop Document 11/22/17 18:30 PD (Rec: 11/23/17 02:47 PD [id number]) Intravenous Solution Start Date 11/22/17 Start Time 18:30 Sucralfate (Carafate Oral Susp) 1 gm PO STAT STA Stop: 11/19/17 15:05 Last Admin: 11/19/17 15:20 Dose: 1 gm Sumatriptan Succinate (Imitrex Inj) 6 mg SC STAT STA Stop: 11/18/17 18:39 Last Admin: 11/18/17 19:19 Dose: 6 mg Subcutaneous Administrations Document 11/18/17 19:19 [email or web address] (Rec: 11/18/17 19:19 [email or web address] [id number]) Injection Site MAR Injection Site Left Deltoid Charges for Administration # of Subcutaneous Administrations 1 Tramadol HCl (Ultram) 50 mg PO TID PRN PRN Reason: Pain, moderate (4-7) Last Admin: 11/18/17 22:44 Dose: 50 mg MAR Pain Assessment Document 11/18/17 22:44 MAD (Rec: 11/18/17 22:45 MAD [id number]) Pain Reassessment Is this a pain reassessment? Yes Sleep Is patient sleeping during reassessment? No Presence of Pain Presence of Pain Yes Pain Scale Used Pain Scale Used Numeric Location Pain Location Body Site Neck Description Description Constant Intensity of Pain at present 9 Acceptable Level of Pain 3 Alleviating Factors/Management Medication Techniques Alleviating Factors Medication Re-Assess: DAR Pain Assessment Document 11/18/17 23:44 MAD (Rec: 11/19/17 01:09 MAD [id number]) Pain Reassessment Is this a pain reassessment? Yes Sleep Is patient sleeping during reassessment? Yes - Scribe Statement The provider has reviewed the documentation as recorded by the Mary Alice Charles All medical record entries made by the Mary Alice were at my direction and personally dictated by me. I have reviewed the chart and agree that the record accurately reflects my personal performance of the history, physical exam, medical decision making, and the department course for this patient. I have also personally directed, reviewed, and agree with the discharge instructions and disposition. Disposition/Present on Arrival - Present on Arrival Any Indicators Present on Arrival: No History of DVT/PE: No History of Uncontrolled Diabetes: No Urinary Catheter: No History Surgical Site Infection Following: None - Disposition Have Diagnosis and Disposition been Completed?: Yes Diagnosis: Intractable headache Disposition: HOSPITALIZED Disposition Time: 19:06 Condition: GOOD
[2017-11-18 15:22] VITALS: BMI 32.5
[2017-11-18] MEDS ORDERED: DiphenhydrAMINE 50 mg/ml Inj IVP STA (15:23)
[2017-11-18] MEDS ORDERED: Morphine 4 mg/ml ISec IVP STA ×2 (15:24→15:52)
--- NOTE | 2017-11-18 18:22 | MRI ---
Date of service: 11/18/2017 PROCEDURE: MRI BRAIN WITHOUT CONTRAST HISTORY: headache COMPARISON: None. TECHNIQUE: Multiplanar, multisequence MR images of the brain were obtained without intravenous contrast enhancement. FINDINGS: HEMORRHAGE: None DWI: No evidence of an acute or early subacute infarction. BRAIN PARENCHYMA: No mass effect or edema. Xxoy-gv-gcfkznwp atrophy is noted. Mild periventricular white matter changes likely represent chronic microvascular ischemic disease. VENTRICLES: The ventricles are dilated out of proportion of the dilated sulci which could be due to central atrophy or mild normal pressure hydrocephalus. CRANIUM: Unremarkable. ORBITS: Grossly unremarkable. PARANASAL SINUSES/MASTOIDS: Clear VASCULAR SYSTEM: Skull base flow voids intact. OTHER FINDINGS: None. IMPRESSION: No evidence of acute infarction or acute intracranial hemorrhage. No evidence of mass lesion mass effect or midline shift. Uwou-uf-zrryqhhd atrophy and mild chronic microvascular white matter ischemic disease.
[2017-11-18] MEDS ORDERED: Oxycodone/Acetaminophen 5/325 mg Tab PO STA (18:40)
[2017-11-18] MEDS ORDERED: Sodium Chloride 0.9% 1,000 ML IV ONE (21:28)
[2017-11-18] MEDS ORDERED: Oxycodone/Acetaminophen 5/325 mg Tab PO PRN ×2 (21:28→21:31)
[2017-11-18] MEDS ORDERED: Morphine 4 mg/ml ISec IVP PRN (21:31)
[2017-11-18] MEDS: Insulin Reg-LOW-Coverage SC SCH (22:00)
--- NOTE | 2017-11-18 23:44 | HP ---
This is [facility] admission to the medical floor. For Dr. Leyva. CHIEF COMPLAINT: Severe headache, neck pain. HISTORY OF PRESENT ILLNESS: The patient is a 67-year-old female seen lying awake in bed, admitted by the emergency room by Dr. Leyva after she was evaluated here in the office earlier today with report of severe headache for the past 3 days, reporting that the pain is 10/10 with the patient also complaining of nausea and vomiting, unable to keep foods down. She was then advised to come to the emergency room for which she was given medicines will be listed and now is seen on the medical floor. 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 She had a subtotal cholecystectomy done on 08/05/[address] Khan with Dr. Cain, her attending doctor at that time. The patient has recently been treated here by Dr. Leyva with 2 cycles of carboplatin, Gemzar with a PET scan done on 11/04/2017 at [facility] showing progression in some areas with dilatation with possible colitis. With this, the patient now is reporting that her headache in the frontal part of her head is now significantly improved; however, her posterior neck pain is still present with ice alternating with moist heat helping her pain. In the emergency room, she received morphine 4 mg 2 doses, which caused her weakness of her legs. Percocet was also given without significant improvement in her posterior neck pain. She was also given Reglan, Valium, Benadryl and Imitrex, all without relief of her posterior neck pain; however, her head pain is now improved. At present, the patient reports that her nauseous sensation and vomiting are now gone; however, she is not hungry. The patient is otherwise resting comfortably with a Neurology consult pending. She reports she has not taken her blood pressure pills nor her diabetic medication recently. She was scheduled for surgical evaluation again to gallbladder as the original procedure was not definitive with her cholecystectomy at that time with Dr. Christina with recommendation to have Dr. Christina do her surgery on Wednesday, which is n 5 days' time. However, she is now admitted for above findings. ALLERGIES: TO PENICILLIN. MEDICATIONS: The patient's medicines include Cozaar, metformin which is not taking due to loose stool prescribed by Dr. Mary Jo Sanders and Matt sanders. PAST MEDICAL HISTORY: The patient's past medical history is that of locally advanced cancer of the gallbladder, hyperuricemia, diabetes mellitus, recent kidney stones, hypertension. 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 The tumor is pT3, pNX, pMX. FAMILY HISTORY AND SOCIAL HISTORY: The patient is a nonsmoker, nonethanol. She has one daughter alive and well. 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 REVIEW OF SYSTEMS: A 12-point review of systems is done, which was negative to questioning except for items mentioned in the history of present illness. PHYSICAL EXAMINATION: HEENT: Unremarkable; however, there is neck stiffness with tenderness to gentle palpation of the posterior neck. Tongue is dry. HEART: Regular rate. LUNGS: Clear. ABDOMEN: Obese, soft, nontender. EXTREMITIES: No edema. SKIN: Warm and dry. NEUROLOGIC: Awake, alert and oriented x3. LABORATORY DATA: The patient's labs were done in the office today. White blood cell count of 11.1, hemoglobin 11.1, hematocrit 33.5, platelet count of 269,000 with a chem metabolic panel showing a normal chem panel with a nonfasting glucose of 177, T bili of 1.4, iron percent saturation of 11%. The patient did have an MRI of her brain, originally ordered with contrast; however, it was done without contrast. The MRI of the brain was read as no evidence of acute infarction or acute intracranial hemorrhage. No evidence of mass lesion, mass effect reva midline shift, mild to moderate atrophy, mild chronic microvascular white matter ischemic disease. MRA of the head was also done, it has not been read yet. ASSESSMENT: The assessment for this patient is that of severe headache, intractable pain of the neck, recent surgery for gallbladder, porcelain gallbladder with mucinous signet ring cell carcinoma moderate to poorly differentiated, diabetes mellitus, hypertension, recent hyperuricemia, kidney stones. PLAN: Plan for this patient will be to ask for a consult with Dr. Broussard, Neurology with considerations for evaluation for meningismus with lumbar puncture should be indicated. We will also ask for consult with Dr. Martinez for her nausea and vomiting, which is modest to have been improved. We will restart her hypertensive medication, Cozaar as the blood pressure was reported to be elevated with vital signs taken earlier today, temperature 98.2, pulse 73, respirations 18, blood pressure 132/72 with a repeat of 180/82, pulse ox is 100% on room air. The plan will also be to have a consult with Dr. Martinez, gastrointestinal sr solutions consultant. We will give IV fluids in the interim, 80 mL an hour of normal saline. We will check her labs again in the morning. We will offer tramadol for her pain as she reports the Percocet did not help. Nonsteroidals are contraindicated. She reports that she was anticipating surgery, so we will not give those medications at present. Her morphine caused weakness of her legs, this way we will not renew her morphine as reports it did not help her headache and neck pain. We will ask for her CA and CA 19-9 to be done in the morning with her other labs. We will ask for fingerstick blood testing to be done with sliding scale insulin coverage should it be necessary. We will also offer ice versus warm compresses for her posterior neck discomfort as she reports this does help her pain. We will also check a glycosylated hemoglobin A1c. This is a complex patient with a comprehensive medically necessary and appropriate visit carried out in excess of 90 minutes in [id number]-[id number] time with the patient. She was also evaluated by emergency room doctor, also with nursing staff discussing her case with recommendations as above. Prognosis for this patient is guarded and further workup as per Dr. Broussard, Neurology as indicated. Kenny Matta MD
[2017-11-19] MEDS: Oxycodone/Acetaminophen 5/325 mg Tab PO PRN ×2 (03:42→09:38)
[2017-11-19] MEDS ORDERED: DiphenhydrAMINE 50 mg/ml Inj IVP PRN (04:22)
[2017-11-19] MEDS ORDERED: DiphenhydrAMINE 50 mg/ml Inj IVP STA (04:22)
[2017-11-19] MEDS ORDERED: Pantoprazole 20 mg EC Tab PO SCH (06:00)
[2017-11-19 06:59] LABS: ALB/GLOB RATIO 1.5 (1.1-1.8); ALBUMIN 4.4 g/dL (3.0-4.8); ALT/SGPT 30 U/L (7-56); AST/SGOT 24 U/L (14-36); BASO # 0.01 K/mm3 (0.0-2.0); BASO % 0.1 % (0.0-3.0); BLOOD UREA NITROGEN 19 mg/dL (7-21); CALCIUM 9.5 mg/dL (8.4-10.5); GFR AFRICAN-AMERICAN > 60; GFR NON-AFRICAN AMERICAN > 60; GRAN # 12.83 (1.4-6.5); GRAN % 91.9 % (50.0-68.0); HEMOGLOBIN 10.7 g/dL (12.0-16.0); LYMPH # 0.8 (1.2-3.4); LYMPH % 5.9 % (22.0-35.0); MEAN CELL VOLUME 90.9 fl (80.0-105.0); MEAN CORPUSCULAR HEMOGLOBIN 30.5 pg (25.0-35.0); MEAN CORPUSCULAR HGB CONC 33.5 g/dl (31.0-37.0); MEAN PLATELET VOLUME 9.9 fl (7.0-11.0); MONO # 0.3 (0.1-0.6); MONO % 2.1 % (1.0-6.0); RBC 3.51 10^6/uL (3.5-6.1); RED CELL DISTRIBUTION WIDTH 16.7 % (11.5-14.5)
--- NOTE | 2017-11-19 07:52 | CP.PCM.PN ---
Subjective - Date & Time of Evaluation Date of Evaluation: 11/19/17 Time of Evaluation: 07:25 - Subjective Subjective: Sil Kapoor DO, PGY-2: Hematology and Oncology Progress Note for Dr. Leyva Patient was seen and examined at bedside. She reports having two episodes of vomiting overnight. She was unable to sleep overnight. She reports the headache is improved, but the neck pain is worse. She reports intermittent blurry vision that she attributes to her sugar. She was refusing her insulin, but after discussing the need for her to take insulin as an inpatient she agreed to taking it. We also discussed the case with infectious disease. Patient was unable to tolerate the MRI. Neurology was consulted and recommended MRI brain with contrast and MRI of the cervical spine with and without contrast. Objective - Vital Signs/Intake and Output Vital Signs (last 24 hours): Temp Pulse Resp BP Pulse Ox 97.8 F 67 20 182/88 H 98 11/19/17 06:00 11/19/17 06:31 11/19/17 06:00 11/19/17 06:31 11/19/17 06:00 Intake and Output: 11/19/17 11/19/17 06:59 18:59 Intake Total 120 Output Total 400 Balance -280 - Medications Medications: Current Medications Acetaminophen (Tylenol 325mg Tab) 650 mg PO Q4H PRN PRN Reason: Mild pain (1-3) or temp > 100F Sodium Chloride (Sodium Chloride 0.9%) 1,000 mls @ 80 mls/hr IV .[id number] Stop: 11/19/17 09:57 Last Admin: 11/18/17 22:45 Dose: 80 mls/hr Insulin Human Regular (Humulin R Low) 0 units SC ACHS [facility] PRN Reason: Protocol Last Admin: 11/18/17 22:00 Dose: Not Given Losartan Potassium (Cozaar) 25 mg PO DAILY [facility] Last Admin: 11/19/17 06:31 Dose: 25 mg Ondansetron HCl (Zofran Inj) 4 mg IVP Q8H PRN PRN Reason: Nausea/Vomiting Last Admin: 11/19/17 01:08 Dose: 4 mg Oxycodone/Acetaminophen (Percocet 5/325 Mg Tab) 1 tab PO Q4H PRN PRN Reason: Pain, severe (8-10) Stop: 11/21/17 21:29 Last Admin: 11/19/17 03:42 Dose: 1 tab Pantoprazole Sodium (Protonix Ec Tab) 20 mg PO 0600 [facility] Last Admin: 11/19/17 06:13 Dose: 20 mg Tramadol HCl (Ultram) 50 mg PO TID PRN PRN Reason: Pain, moderate (4-7) Last Admin: 11/18/17 22:44 Dose: 50 mg - Labs Labs: 11/19/17 06:30 11/19/17 06:30 - Head Exam Head Exam: ATRAUMATIC, NORMOCEPHALIC - Eye Exam Eye Exam: EOMI, Normal appearance - ENT Exam ENT Exam: Mucous Membranes Moist - Neck Exam Neck Exam: Tenderness Additional comments: at insertion of the posterior strap muscles - Respiratory Exam Respiratory Exam: Clear to Ausculation Bilateral, NORMAL BREATHING PATTERN - Cardiovascular Exam Cardiovascular Exam: RRR, +S1, +S2 - GI/Abdominal Exam GI & Abdominal Exam: Soft, Normal Bowel Sounds - Extremities Exam Extremities Exam: Normal Inspection. 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 She underwent MRI of the brain without contrast showed that the ventricles are dilated out of proportion of the dilated sulci which could be due to central atrophy or mild normal pressure hydrocephalus. MRA of the head and neck was interpreted as unremarkable. Neurology was consulted and recommended Flexeril and Zofran and to discontinue Tramadol and Percocet. We will continue her current medications and follow up with consultants recommendations. Also, given her blood pressure is elevated despite being on her home medications she is will be getting Hydralazine 10 mg IVP q6h PRN for SBP greater than 160. She is on insulin sliding scale for her diabetes with fingerstick blood glucose ACHS. Her HgbA1c was 5.8, CEA 26.6, and Ca 19-9 was 134. She is pending MRI of the brain with contrast and MRI of the cervical spine with and without contrast. We are keeping the patient on 1/2 NS to prevent any sort of Contrast associated nephropathy.
[2017-11-19] MEDS: Insulin Reg-LOW-Coverage SC SCH ×4 (08:07→22:12)
--- NOTE | 2017-11-19 09:56 | MRI ---
Date of service: 11/18/2017 PROCEDURE: Magnetic Resonance Angiography Brain HISTORY: headache COMPARISON: None available. TECHNIQUE: 3D time of flight MR angiography of the intracranial arteries was performed. Rotating maximum intensity projection images were generated. FINDINGS: INTERNAL CAROTID ARTERIES: Unremarkable. The skull base, petrous, cavernous and supraclinoid segments are bilaterally widely patient. ANTERIOR CEREBRAL ARTERIES: Unremarkable. A1 and A2 segments are widely patent. Smaller distal branches unremarkable, as visualized. MIDDLE CEREBRAL ARTERIES: Unremarkable. M1 and M2 segments are widely patent. Perisylvian branches grossly symmetric. POSTERIOR CIRCULATION: Basilar Artery: Unremarkable. Distal Vertebral Arteries: Unremarkable. Posterior Cerebral Arteries: Unremarkable. Posterior Inferior Cerebellar Arteries: Unremarkable. ANEURYSM/ VASCULAR MALFORMATIONS: None. OTHER FINDINGS: The report concurs with the preliminary [facility] report IMPRESSION: Unremarkable MR angiography of the brain.
[2017-11-19] MEDS ORDERED: Sodium Chloride 0.9% 1,000 ML IV SCH (10:30)
[2017-11-19] MEDS ORDERED: Sodium Chloride 0.45% 1,000 ML IV SCH ×4 (10:45→17:15)
--- NOTE | 2017-11-19 11:19 | CP.PCM.CON ---
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) - INTEGUMENTARY Hx Dermatological Problems: No - MUSCULOSKELETAL/RHEUMATOLOGICAL Hx Falls: Yes - GASTROINTESTINAL Hx Gastrointestinal Disorders: Yes 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) - GENITOURINARY/GYNECOLOGICAL Hx Genitourinary Disorders: Yes (abn pap cone bx) - PSYCHIATRIC Hx Emotional Abuse: No Hx Physical Abuse: No Hx Substance Use: No - SURGICAL HISTORY Hx Surgeries: Yes Hx Cholecystectomy: Yes Other/Comment: cervical biopsy - ANESTHESIA Hx Anesthesia Reactions: No Hx Malignant Hyperthermia: No Meds Allergies/Adverse Reactions: Allergies Allergy/AdvReac Type Severity Reaction Status Date / Time Penicillins Allergy Severe RASH Verified 08/05/17 12:09 - Medications Medications: Current Medications Acetaminophen (Tylenol 325mg Tab) 650 mg PO Q4H PRN PRN Reason: Mild pain (1-3) or temp > 100F Sodium Chloride (Sodium Chloride 0.45%) 1,000 mls @ 80 mls/hr IV .[id number] [facility] Insulin Human Regular (Humulin R Low) 0 units SC ACHS [facility] PRN Reason: Protocol Last Admin: 11/19/17 08:07 Dose: Not Given Losartan Potassium (Cozaar) 25 mg PO DAILY [facility] Last Admin: 11/19/17 06:31 Dose: 25 mg Ondansetron HCl (Zofran Inj) 4 mg IVP Q8H PRN PRN Reason: Nausea/Vomiting Last Admin: 11/19/17 09:32 Dose: 4 mg Oxycodone/Acetaminophen (Percocet 5/325 Mg Tab) 1 tab PO Q4H PRN PRN Reason: Pain, severe (8-10) Stop: 11/21/17 21:29 Last Admin: 11/19/17 09:38 Dose: 1 tab Pantoprazole Sodium (Protonix Ec Tab) 20 mg PO 0600 [facility] Last Admin: 11/19/17 06:13 Dose: 20 mg Tramadol HCl (Ultram) 50 mg PO TID PRN PRN Reason: Pain, moderate (4-7) Last Admin: 11/18/17 22:44 Dose: 50 mg Results - Vital Signs Recent Vital Signs: Last Vital Signs Temp 97.8 F 11/19/17 06:00 Pulse 67 11/19/17 06:31 Resp 20 11/19/17 06:00 BP 182/88 H 11/19/17 06:31 Pulse Ox 98 11/19/17 06:00 - Labs Result Diagrams: 11/19/17 06:30 11/19/17 06:30 Labs: Laboratory Results - last 24 hr 11/18/17 11/19/17 11/19/17 21:24 06:30 06:30 WBC 14.0 H D RBC 3.51 Hgb 10.7 L Hct 31.9 L MCV 90.9 MCH 30.5 MCHC 33.5 RDW 16.7 H Plt Count 252 MPV 9.9 Gran % 91.9 H Lymph % (Auto) 5.9 L [place] % (Auto) 2.1 Eos % (Auto) 0.0 L Baso % (Auto) 0.1 Gran # 12.83 H Lymph # (Auto) 0.8 L [place] # (Auto) 0.3 Eos # (Auto) 0.0 Baso # (Auto) 0.01 Sodium 138 Potassium 4.4 Chloride 98 Carbon Dioxide 27 Anion Gap 17 BUN 19 Creatinine 0.9 Est GFR ( Amer) > 60 Est GFR (Non-Af Amer) > 60 POC Glucose (mg/dL) 175 H Random Glucose 196 H Calcium 9.5 Total Bilirubin 1.3 AST 24 ALT 30 Alkaline Phosphatase 78 Total Protein 7.4 Albumin 4.4 Globulin 3.0 Albumin/Globulin Ratio 1.5 Carcinoembryonic Ag 11/19/17 11/19/17 06:30 06:35 WBC RBC Hgb Hct MCV MCH MCHC RDW Plt Count MPV Gran % Lymph % (Auto) [place] % (Auto) Eos % (Auto) Baso % (Auto) Gran # Lymph # (Auto) [place] # (Auto) Eos # (Auto) Baso # (Auto) Sodium Potassium Chloride Carbon Dioxide Anion Gap BUN Creatinine Est GFR ( Amer) Est GFR (Non-Af Amer) POC Glucose (mg/dL) 185 H Random Glucose Calcium Total Bilirubin AST ALT Alkaline Phosphatase Total Protein Albumin Globulin Albumin/Globulin Ratio Carcinoembryonic Ag 26.6 H
--- NOTE | 2017-11-19 11:50 | CP.PCM.CON ---
<Dany Oh - Last Filed: 11/19/17 13:07> Meds Allergies/Adverse Reactions: Allergies Allergy/AdvReac Type Severity Reaction Status Date / Time Penicillins Allergy Severe RASH Verified 08/05/17 12:09 - Medications Medications: Current Medications Acetaminophen (Tylenol 325mg Tab) 650 mg PO Q4H PRN PRN Reason: Mild pain (1-3) or temp > 100F Sodium Chloride (Sodium Chloride 0.45%) 1,000 mls @ 80 mls/hr IV .[id number] [facility] Last Admin: 11/19/17 11:26 Dose: 80 mls/hr Insulin Human Regular (Humulin R Low) 0 units SC ACHS [facility] PRN Reason: Protocol Last Admin: 11/19/17 08:07 Dose: Not Given Losartan Potassium (Cozaar) 25 mg PO DAILY [facility] Last Admin: 11/19/17 06:31 Dose: 25 mg Ondansetron HCl (Zofran Inj) 4 mg IVP Q8H PRN PRN Reason: Nausea/Vomiting Last Admin: 11/19/17 09:32 Dose: 4 mg Oxycodone/Acetaminophen (Percocet 5/325 Mg Tab) 1 tab PO Q4H PRN PRN Reason: Pain, severe (8-10) Stop: 11/21/17 21:29 Last Admin: 11/19/17 09:38 Dose: 1 tab Pantoprazole Sodium (Protonix Ec Tab) 20 mg PO 0600 [facility] Last Admin: 11/19/17 06:13 Dose: 20 mg Tramadol HCl (Ultram) 50 mg PO TID PRN PRN Reason: Pain, moderate (4-7) Last Admin: 11/18/17 22:44 Dose: 50 mg Results - Vital Signs Recent Vital Signs: Last Vital Signs Temp 97.8 F 11/19/17 06:00 Pulse 67 11/19/17 06:31 Resp 20 11/19/17 06:00 BP 182/88 H 11/19/17 11:25 Pulse Ox 98 11/19/17 06:00 - Labs Result Diagrams: 11/19/17 06:30 11/19/17 06:30 Labs: Laboratory Results - last 24 hr 11/18/17 11/19/17 11/19/17 21:24 06:30 06:30 WBC 14.0 H D RBC 3.51 Hgb 10.7 L Hct 31.9 L MCV 90.9 MCH 30.5 MCHC 33.5 RDW 16.7 H Plt Count 252 MPV 9.9 Gran % 91.9 H Lymph % (Auto) 5.9 L [place] % (Auto) 2.1 Eos % (Auto) 0.0 L Baso % (Auto) 0.1 Gran # 12.83 H Lymph # (Auto) 0.8 L [place] # (Auto) 0.3 Eos # (Auto) 0.0 Baso # (Auto) 0.01 Sodium 138 Potassium 4.4 Chloride 98 Carbon Dioxide 27 Anion Gap 17 BUN 19 Creatinine 0.9 Est GFR ( Amer) > 60 Est GFR (Non-Af Amer) > 60 POC Glucose (mg/dL) 175 H Random Glucose 196 H Hemoglobin A1c Calcium 9.5 Total Bilirubin 1.3 AST 24 ALT 30 Alkaline Phosphatase 78 Total Protein 7.4 Albumin 4.4 Globulin 3.0 Albumin/Globulin Ratio 1.5 Carcinoembryonic Ag CA 19-9 Antigen 134 H 11/19/17 11/19/17 11/19/17 06:30 06:30 06:35 WBC RBC Hgb Hct MCV MCH MCHC RDW Plt Count MPV Gran % Lymph % (Auto) [place] % (Auto) Eos % (Auto) Baso % (Auto) Gran # Lymph # (Auto) [place] # (Auto) Eos # (Auto) Baso # (Auto) Sodium Potassium Chloride Carbon Dioxide Anion Gap BUN Creatinine Est GFR ( Amer) Est GFR (Non-Af Amer) POC Glucose (mg/dL) 185 H Random Glucose Hemoglobin A1c 5.8 Calcium Total Bilirubin AST ALT Alkaline Phosphatase Total Protein Albumin Globulin Albumin/Globulin Ratio Carcinoembryonic Ag 26.6 H CA 19-9 Antigen 11/19/17 11:30 WBC RBC Hgb Hct MCV MCH MCHC RDW Plt Count MPV Gran % Lymph % (Auto) [place] % (Auto) Eos % (Auto) Baso % (Auto) Gran # Lymph # (Auto) [place] # (Auto) Eos # (Auto) Baso # (Auto) Sodium Potassium Chloride Carbon Dioxide Anion Gap BUN Creatinine Est GFR ( Amer) Est GFR (Non-Af Amer) POC Glucose (mg/dL) 235 H Random Glucose Hemoglobin A1c Calcium Total Bilirubin AST ALT Alkaline Phosphatase Total Protein Albumin Globulin Albumin/Globulin Ratio Carcinoembryonic Ag CA 19-9 Antigen <Gene Doran - Last Filed: 11/19/17 14:30> History of Present Illness - History of Present Illness History of Present Illness: Rodger Doran PGY2 - Neurology Consult Note for Dr. Oh Consultation reason: HPI: Patient is a 67 year old female with past medical history of DM2, HTN, dyslipidemia, nephrolithiasis, porcelain gallbladder s/p chemotherapy and cholecystectomy who presented to [facility] for intractable nausea, vomiting, and neck pain. Patient indicates she has been having these symptoms starting about 5-6 days prior to admission. Patient indicates headache is located on the top of her head with associated neck pain. She described pain as dull and constant without changes in vision or mentation. She indicates her neck pain is on both sides starting at C5-C6 to T1-T2. Patient indicates her headache is improved since admission. She describes her nausea and vomiting as being associated with her neck/back pain as well as her inability to tolerate PO intake. She denies any numbness, tingling, focal weakness, fever, chills. She does admit to limited ROM with lateral turning of her head and indicates some discomfort with flexion and extension of neck for which she accredits to the tightness and pain associated with her paraspinal muscles of her mid to upper back. Patient denies sick contacts, elevated temperature, history of IVDA. Patient has been evaluated since admission 11/18 with MRI without contrast of head showed mild to moderate atrophy and chronic microvascular white matter changes. Denies chest pain, shortness of breath, abdominal pain. PMH: As above PSH: Cholecystectomy, SOChx: Tobacco: negative ETOH: negative ID: negative, denies IVDA - Works as nurse in Psych department at [employer] ALL: PCN MEDS: - Cozaar 25mg PO Daily - Colace 100mg PO Daily - Glipizide 5mg PO Daily - Levaquin 500mg PO Daily Pharmacy: [facility] - [facility] Oncologist: Dr. Leyva Review of Systems - Review of Systems All systems: reviewed and no additional remarkable complaints except (as mentioned in HPI) 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) - INTEGUMENTARY Hx Dermatological Problems: No - MUSCULOSKELETAL/RHEUMATOLOGICAL Hx Falls: Yes - GASTROINTESTINAL Hx Gastrointestinal Disorders: Yes 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) - GENITOURINARY/GYNECOLOGICAL Hx Genitourinary Disorders: Yes (abn pap cone bx) - PSYCHIATRIC Hx Emotional Abuse: No Hx Physical Abuse: No Hx Substance Use: No - SURGICAL HISTORY Hx Surgeries: Yes Hx Cholecystectomy: Yes Other/Comment: cervical biopsy - ANESTHESIA Hx Anesthesia Reactions: No Hx Malignant Hyperthermia: No Meds - Medications Medications: Current Medications Acetaminophen (Tylenol 325mg Tab) 650 mg PO Q4H PRN PRN Reason: Mild pain (1-3) or temp > 100F Sodium Chloride (Sodium Chloride 0.45%) 1,000 mls @ 80 mls/hr IV .[id number] [facility] Last Admin: 11/19/17 11:26 Dose: 80 mls/hr Insulin Human Regular (Humulin R Low) 0 units SC ACHS [facility] PRN Reason: Protocol Last Admin: 11/19/17 08:07 Dose: Not Given Losartan Potassium (Cozaar) 25 mg PO DAILY [facility] Last Admin: 11/19/17 06:31 Dose: 25 mg Ondansetron HCl (Zofran Inj) 4 mg IVP Q8H PRN PRN Reason: Nausea/Vomiting Last Admin: 11/19/17 09:32 Dose: 4 mg Oxycodone/Acetaminophen (Percocet 5/325 Mg Tab) 1 tab PO Q4H PRN PRN Reason: Pain, severe (8-10) Stop: 11/21/17 21:29 Last Admin: 11/19/17 09:38 Dose: 1 tab Pantoprazole Sodium (Protonix Ec Tab) 20 mg PO 0600 [facility] Last Admin: 11/19/17 06:13 Dose: 20 mg Tramadol HCl (Ultram) 50 mg PO TID PRN PRN Reason: Pain, moderate (4-7) Last Admin: 11/18/17 22:44 Dose: 50 mg Physical Exam - Constitutional Appears: No Acute Distress - Head Exam Head Exam: ATRAUMATIC, NORMAL INSPECTION, NORMOCEPHALIC - Eye Exam Eye Exam: EOMI, PERRL. absent: Conjunctival injection, Nystagmus, Scleral icterus Pupil Exam: absent: Irregular, Unequal - ENT Exam ENT Exam: Mucous Membranes Dry - Neck Exam Neck exam: Positive for: Tenderness (posterior neck bilaterally to palpation C5- T3,). Negative for: Full Rom (Limited lateral rotation and flexion, extension ) , Lymphadenopathy, Meningismus - Respiratory Exam Respiratory Exam: Clear to Auscultation Bilateral, NORMAL BREATHING PATTERN - Cardiovascular Exam Cardiovascular Exam: REGULAR RHYTHM, +S1, +S2 - GI/Abdominal Exam GI & Abdominal Exam: Soft. absent: Distended, Firm, Guarding - Extremities Exam Extremities exam: Positive for: normal capillary refill. Negative for: calf tenderness, pedal edema, tenderness - Back Exam Additional comments: pain associated with neck flexion and lateral movement, patient noted to be gaurding during exam process, unable to completely relax secondary to pain - Neurological Exam Neurological exam: Alert, CN II-XII Intact, Oriented x3, Reflexes Normal Additional comments: AAOx3, normal speech pattern, no difficulty understanding conversation Coordination intact, no dysmetria Strength 5/5 in all four extremities DTR 2/4 Negative Rhomberg Negative Brudzinski and Kernig sign - Expanded Neurological Exam Expanded Patient oriented to: person, place, time Speech: Fluid Speech Cranial nerves: EOM's Intact: Normal, Facial Palsey w/Forehead Movement: Normal , Facial Palsey w/o Forehead Movement: Normal, Facial Sensation: Normal, Gag Reflex: Normal, Nystagmus: Normal, Tongue Deviation: Normal Ataxia: No Cerebellar Function: Finger to Nose: Normal, Heel to [place]: Normal, Romberg: Normal Upper motor neuron: Babinski Sign: Normal, Pronator Drift: Normal Neuro motor strength exam: Left Upper Extremity: 5, Right Upper Extremity: 5, Left Lower Extremity: 5, Right Lower Extremity: 5 DTR: Bicep Left: 2+, Bicep Right: 2+, Patellar Left: 2+, Patellar Right: 2+ Coma Scale Eye Opening: SPONTANEOUS Coma Scale Motor Response: OBEYS COMMANDS Coma Scale Verbal: Oriented Coma Scale Total: 15 - Psychiatric Exam Psychiatric exam: Normal Affect, Normal Mood - Skin Skin Exam: Dry, Intact Results - Vital Signs Recent Vital Signs: Last Vital Signs Temp 97.8 F 11/19/17 06:00 Pulse 67 11/19/17 06:31 Resp 20 11/19/17 06:00 BP 182/88 H 11/19/17 11:25 Pulse Ox 98 11/19/17 06:00 - Labs Result Diagrams: 11/19/17 06:30 11/19/17 06:30 Labs: Laboratory Results - last 24 hr 11/18/17 11/19/17 11/19/17 21:24 06:30 06:30 WBC 14.0 H D RBC 3.51 Hgb 10.7 L Hct 31.9 L MCV 90.9 MCH 30.5 MCHC 33.5 RDW 16.7 H Plt Count 252 MPV 9.9 Gran % 91.9 H Lymph % (Auto) 5.9 L [place] % (Auto) 2.1 Eos % (Auto) 0.0 L Baso % (Auto) 0.1 Gran # 12.83 H Lymph # (Auto) 0.8 L [place] # (Auto) 0.3 Eos # (Auto) 0.0 Baso # (Auto) 0.01 Sodium 138 Potassium 4.4 Chloride 98 Carbon Dioxide 27 Anion Gap 17 BUN 19 Creatinine 0.9 Est GFR ( Amer) > 60 Est GFR (Non-Af Amer) > 60 POC Glucose (mg/dL) 175 H Random Glucose 196 H Calcium 9.5 Total Bilirubin 1.3 AST 24 ALT 30 Alkaline Phosphatase 78 Total Protein 7.4 Albumin 4.4 Globulin 3.0 Albumin/Globulin Ratio 1.5 Carcinoembryonic Ag 11/19/17 11/19/17 06:30 06:35 WBC RBC Hgb Hct MCV MCH MCHC RDW Plt Count MPV Gran % Lymph % (Auto) [place] % (Auto) Eos % (Auto) Baso % (Auto) Gran # Lymph # (Auto) [place] # (Auto) Eos # (Auto) Baso # (Auto) Sodium Potassium Chloride Carbon Dioxide Anion Gap BUN Creatinine Est GFR ( Amer) Est GFR (Non-Af Amer) POC Glucose (mg/dL) 185 H Random Glucose Calcium Total Bilirubin AST ALT Alkaline Phosphatase Total Protein Albumin Globulin Albumin/Globulin Ratio Carcinoembryonic Ag 26.6 H Assessment & Plan - Assessment and Plan (Free Text) Assessment: 67 year old female with past medical history of DM2, nephrolithiasis, porcelain gallbladder s/p chemotherapy and cholecystectomy who presented to [facility] for intractable nausea, vomiting, and neck pain. Patient has been stabilized and evaluated with MRA head found to be negative, MRI head without contrast found to have no acute intracranial abnormalties. Patient continues to complain of headache, nausea, vomiting. Plan: Headache associated with neck/mid thoracic pain and nausea, vomiting - Likely etiology Cluster headache - Other possible etiologies: cervical herniated disc vs. normal pressure hydrocephalus vs. migraine vs. tension headache - Less likely etiology: Meningitis vs. encephalitis - Brain MRI w/o contrast: Mild to moderate atrophy and chronic microvascular white matter changes, dilation of ventricles out of proportion of the dilated sulci - Afebrile, no change in mentation - Negative Brudzinski, Kernig sign - Leukocytosis 14, no change in vision, associated nausea and vomiting - Given Valium, benadryl, morphine, percocet, imitrex and tramadol or symptoms with some improvement in headache - Patient refusing lumbar puncture at this time - MRI brain with contrast to evaluate for midbrain lesions - Cervical spine with contrast to evaluate for herniated discs - Flexeril 15mg PO Stat for neck pain, add 5mg PO TID standing starting tomorrow - Zofran Q4h PRN nausea - Discontinue Percocet and tramadol at this time - PT - Further recs per Dr. Oh Case and plan discussed with attending, Dr. Adriano Doran PGY2 - Date & Time Date: 11/19/17 Time: 09:30
[2017-11-19] MEDS ORDERED: Sucralfate 1 gm/10 ml Oral Susp UD PO STA (15:04)
--- NOTE | 2017-11-19 15:08 | CP.PCM.CON ---
<Ashley Doyle - Last Filed: 11/19/17 15:06> History of Present Illness - History of Present Illness History of Present Illness: Seen and examined at bedside, chart reviewed. Request for GI consult is for N/V headache. 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 She is scheduled for further surgery with Dr. Christina in [place] next week. She was sent to the ER by her oncologist Dr. Leyva for severe headache with c/o N/V. She last had chemotherapy October 15, 2017. Patient states that she started having nausea 1 1/2 weeks after chemo, she had intermittent times of being able to tolerated oral intake and not. Had 2 episodes of vomiting last night, but denies hematemesis. She denies symptoms of heartburn, endorses a 3-4 lbs weight loss the past 6 days. She reports that the headache had been for 3 days now, she complaint more of neck pain and at times radiates to her shoulders. She does report some blurry vision contributing it to her blood surgar. MRI brain did not show acute infarct, bleeding or shifting. Showed mild to moderate atrophy , mild chronic microvascular white matter changes. Patient has had EGD/colon in the past 2007 most recent and found to have gastritis and 2 colon polyps, this was done at [facility] by Dr. Elizabeth. Currently she has been able to tolerated some clear liquid, headache is a bit better except for neck pain. She reports that she has occasional loose Bm, but more so now without her gallbladder and contributes it to post chemo, but states that she has always had some loose BM. PMH: Advanced gallbladder cancer, diabetes mellitus,HTN, renal stones PSH: subtotal cholecystectomy, denies cardiac procedure Family HX: brother: Pancreatic cancer, dx 7 years ago,had Whipple ,doing well. Social HX: denies tobacco, etoh, illicit drugs, Nurse at [employer] Allergies: PCN Meds:reviewed was per JUN ROS: systems reviewed with positive findings, see HPI 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) - INTEGUMENTARY Hx Dermatological Problems: No - MUSCULOSKELETAL/RHEUMATOLOGICAL Hx Falls: Yes - GASTROINTESTINAL Hx Gastrointestinal Disorders: Yes 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) - GENITOURINARY/GYNECOLOGICAL Hx Genitourinary Disorders: Yes (abn pap cone bx) - PSYCHIATRIC Hx Emotional Abuse: No Hx Physical Abuse: No Hx Substance Use: No - SURGICAL HISTORY Hx Surgeries: Yes Hx Cholecystectomy: Yes Other/Comment: cervical biopsy - ANESTHESIA Hx Anesthesia Reactions: No Hx Malignant Hyperthermia: No Meds Allergies/Adverse Reactions: Allergies Allergy/AdvReac Type Severity Reaction Status Date / Time Penicillins Allergy Severe RASH Verified 08/05/17 12:09 - Medications Medications: Current Medications Acetaminophen (Tylenol 325mg Tab) 650 mg PO Q4H PRN PRN Reason: Mild pain (1-3) or temp > 100F Sodium Chloride (Sodium Chloride 0.45%) 1,000 mls @ 80 mls/hr IV .[id number] [facility] Last Admin: 11/19/17 11:26 Dose: 80 mls/hr Insulin Human Regular (Humulin R Low) 0 units SC ACHS [facility] PRN Reason: Protocol Last Admin: 11/19/17 08:07 Dose: Not Given Losartan Potassium (Cozaar) 25 mg PO DAILY [facility] Last Admin: 11/19/17 06:31 Dose: 25 mg Ondansetron HCl (Zofran Inj) 4 mg IVP Q8H PRN PRN Reason: Nausea/Vomiting Last Admin: 11/19/17 09:32 Dose: 4 mg Oxycodone/Acetaminophen (Percocet 5/325 Mg Tab) 1 tab PO Q4H PRN PRN Reason: Pain, severe (8-10) Stop: 11/21/17 21:29 Last Admin: 11/19/17 09:38 Dose: 1 tab Pantoprazole Sodium (Protonix Ec Tab) 20 mg PO 0600 [facility] Last Admin: 11/19/17 06:13 Dose: 20 mg Tramadol HCl (Ultram) 50 mg PO TID PRN PRN Reason: Pain, moderate (4-7) Last Admin: 11/18/17 22:44 Dose: 50 mg Physical Exam - Constitutional Appears: No Acute Distress - Head Exam Head Exam: NORMOCEPHALIC - Eye Exam Eye Exam: Normal appearance. absent: Scleral icterus - ENT Exam ENT Exam: Mucous Membranes Moist - Respiratory Exam Respiratory Exam: Clear to Auscultation Bilateral, NORMAL BREATHING PATTERN. absent: Respiratory Distress - Cardiovascular Exam Cardiovascular Exam: +S1, +S2 - GI/Abdominal Exam GI & Abdominal Exam: Normal Bowel Sounds, Soft. absent: Guarding, Rebound, Tenderness - Extremities Exam Extremities exam: Positive for: pedal pulses present. Negative for: calf tenderness, pedal edema - Neurological Exam Neurological exam: Alert, Oriented x3 - Skin Skin Exam: Dry, Warm Results - Vital Signs Recent Vital Signs: Last Vital Signs Temp 97.8 F 11/19/17 06:00 Pulse 67 11/19/17 06:31 Resp 20 11/19/17 06:00 BP 182/88 H 11/19/17 11:25 Pulse Ox 98 11/19/17 06:00 - Labs Result Diagrams: 11/19/17 06:30 11/19/17 06:30 Labs: Laboratory Results - last 24 hr 11/18/17 11/19/17 11/19/17 21:24 06:30 06:30 WBC 14.0 H D RBC 3.51 Hgb 10.7 L Hct 31.9 L MCV 90.9 MCH 30.5 MCHC 33.5 RDW 16.7 H Plt Count 252 MPV 9.9 Gran % 91.9 H Lymph % (Auto) 5.9 L [place] % (Auto) 2.1 Eos % (Auto) 0.0 L Baso % (Auto) 0.1 Gran # 12.83 H Lymph # (Auto) 0.8 L [place] # (Auto) 0.3 Eos # (Auto) 0.0 Baso # (Auto) 0.01 Sodium 138 Potassium 4.4 Chloride 98 Carbon Dioxide 27 Anion Gap 17 BUN 19 Creatinine 0.9 Est GFR ( Amer) > 60 Est GFR (Non-Af Amer) > 60 POC Glucose (mg/dL) 175 H Random Glucose 196 H Calcium 9.5 Total Bilirubin 1.3 AST 24 ALT 30 Alkaline Phosphatase 78 Total Protein 7.4 Albumin 4.4 Globulin 3.0 Albumin/Globulin Ratio 1.5 Carcinoembryonic Ag 11/19/17 11/19/17 06:30 06:35 WBC RBC Hgb Hct MCV MCH MCHC RDW Plt Count MPV Gran % Lymph % (Auto) [place] % (Auto) Eos % (Auto) Baso % (Auto) Gran # Lymph # (Auto) [place] # (Auto) Eos # (Auto) Baso # (Auto) Sodium Potassium Chloride Carbon Dioxide Anion Gap BUN Creatinine Est GFR ( Amer) Est GFR (Non-Af Amer) POC Glucose (mg/dL) 185 H Random Glucose Calcium Total Bilirubin AST ALT Alkaline Phosphatase Total Protein Albumin Globulin Albumin/Globulin Ratio Carcinoembryonic Ag 26.6 H Assessment & Plan - Assessment and Plan (Free Text) Assessment: ASSESSMENT: Severe headache with N/V, differential to consider is esophagitis/gastritis Neck Pain Advanced Cholangiocarcinoma, 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 Seen and discussed w/ Dr. Martinez. <Florecita Martinez V - Last Filed: 11/21/17 19:09> Meds - Medications Medications: Current Medications Acetaminophen (Tylenol 325mg Tab) 650 mg PO Q4H PRN PRN Reason: Mild pain (1-3) or temp > 100F Hydralazine HCl (Apresoline) 10 mg IVP Q6 PRN PRN Reason: for sbp greater than 160 Last Admin: 11/19/17 23:49 Dose: 10 mg Hydromorphone HCl (Dilaudid) 0.5 mg IVP Q4H PRN PRN Reason: Pain, severe (8-10) Last Admin: 11/19/17 23:59 Dose: 0.5 mg Sodium Chloride (Sodium Chloride 0.45%) 1,000 mls @ 80 mls/hr IV .[id number] [facility] Ibuprofen (Motrin Tab) 600 mg PO Q8H PRN PRN Reason: Pain, moderate (4-7) Insulin Human Regular (Humulin R Low) 0 units SC ACHS [facility] PRN Reason: Protocol Last Admin: 11/19/17 22:12 Dose: Not Given Losartan Potassium (Cozaar) 25 mg PO DAILY [facility] Last Admin: 11/19/17 14:38 Dose: Not Given Losartan Potassium (Cozaar) 50 mg PO DAILY [facility] Ondansetron HCl (Zofran Inj) 4 mg IVP Q8H PRN PRN Reason: Nausea/Vomiting Last Admin: 11/19/17 09:32 Dose: 4 mg Pantoprazole Sodium (Protonix Inj) 40 mg IVP Q12 [facility] Last Admin: 11/19/17 22:12 Dose: 40 mg Sucralfate (Carafate Oral Susp) 1 gm PO 0600,1600 [facility] Last Admin: 11/19/17 16:24 Dose: Not Given Results - Vital Signs Recent Vital Signs: Last Vital Signs Temp 98.6 F 11/19/17 19:44 Pulse 83 11/19/17 23:49 Resp 19 11/19/17 19:44 BP 192/87 H 11/19/17 23:49 Pulse Ox 97 11/19/17 19:44 - Labs Result Diagrams: 11/21/17 06:00 11/21/17 06:00 Labs: Laboratory Results - last 24 hr 11/19/17 11/19/17 16:21 18:56 POC Glucose (mg/dL) 228 H Procalcitonin < 0.05 L Attending/Attestation - Attestation I have personally seen and examined this patient.: Yes I have fully participated in the care of the patient.: Yes I have reviewed all pertinent clinical information: Yes Notes (Text): This is an addendum to GI consult report dictated by the Ashley Doyle APN. .The patient was seen and examined earlier. Medical records, lab studies, imagings were reviewed. Last 24 hours events reviewed. Agreed with the above treatment plan as outlined in Ashley Doyle's 's notes the with the addition of the following this 67-year-old patient awaiting for surgery for cholangiocarcinoma now admitted with nausea vomiting dizziness Status post chemo The cause for symptoms most likely appear to be neurological rather than GI etiology however in view of the patid a recent chemo possibility of esophagitis andtritis to be considered at as an additional contributory factor Would recommend Carafate and also PPI. Zofran when necessary Would avoid Reglan 11/20/17 00:46 11/21/17 19:06
--- NOTE | 2017-11-19 15:44 | CP.PCM.CON ---
History of Present Illness - History of Present Illness History of Present Illness: 67 year old female with PMH of cholangiocarcinoma S/P subtotal cholecystectomy, DM, HTN, nephrolithiasis, obesity with BMI [address] Leyva because of headache for the past 3-4 days, associated with nausea and vomiting. She is also complaining of neck pain worsened by movement. Her headache is mostly frontal and is worsened by straining. She denies photophobia, denies blurring of vision, no cough, no fever or chills, no rhinorrhea, no sore throat , no chest pain or palpitations, no diarrhea, no dysuria. She was given opioid meds yesterday which improved her headache but worsened her nausea. CBC is showing leukocytosis and Infectious diseases consult is requested to further evaluate and manage. Review of Systems - Review of Systems All systems: reviewed and no additional remarkable complaints except (as per HPI ) 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) - INTEGUMENTARY Hx Dermatological Problems: No - MUSCULOSKELETAL/RHEUMATOLOGICAL Hx Falls: Yes - GASTROINTESTINAL Hx Gastrointestinal Disorders: Yes 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) - GENITOURINARY/GYNECOLOGICAL Hx Genitourinary Disorders: Yes (abn pap cone bx) - PSYCHIATRIC Hx Emotional Abuse: No Hx Physical Abuse: No Hx Substance Use: No - SURGICAL HISTORY Hx Surgeries: Yes Hx Cholecystectomy: Yes Other/Comment: cervical biopsy - ANESTHESIA Hx Anesthesia Reactions: No Hx Malignant Hyperthermia: No Meds Allergies/Adverse Reactions: Allergies Allergy/AdvReac Type Severity Reaction Status Date / Time Penicillins Allergy Severe RASH Verified 08/05/17 12:09 - Medications Medications: Current Medications Acetaminophen (Tylenol 325mg Tab) 650 mg PO Q4H PRN PRN Reason: Mild pain (1-3) or temp > 100F Cyclobenzaprine HCl (Flexeril) 5 mg PO TID [facility] Hydralazine HCl (Apresoline) 10 mg IVP Q6 [facility] Sodium Chloride (Sodium Chloride 0.45%) 1,000 mls @ 140 mls/hr IV .Q7H9M [facility] Insulin Human Regular (Humulin R Low) 0 units SC ACHS [facility] PRN Reason: Protocol Last Admin: 11/19/17 14:37 Dose: Not Given Losartan Potassium (Cozaar) 25 mg PO DAILY [facility] Last Admin: 11/19/17 14:38 Dose: Not Given Losartan Potassium (Cozaar) 50 mg PO DAILY [facility] Ondansetron HCl (Zofran Inj) 4 mg IVP Q8H PRN PRN Reason: Nausea/Vomiting Last Admin: 11/19/17 09:32 Dose: 4 mg Pantoprazole Sodium (Protonix Ec Tab) 20 mg PO 0600 [facility] Last Admin: 11/19/17 06:13 Dose: 20 mg Sucralfate (Carafate Oral Susp) 1 gm PO 0600,1600 [facility] Physical Exam - Constitutional Appears: Chronically Ill - Head Exam Head Exam: NORMAL INSPECTION - ENT Exam ENT Exam: Mucous Membranes Moist - Neck Exam Neck exam: Negative for: Lymphadenopathy, Meningismus Additional comments: negative Brudzinski and negative Kernig skin - Respiratory Exam Respiratory Exam: Decreased Breath Sounds - Cardiovascular Exam Cardiovascular Exam: +S1, +S2 - GI/Abdominal Exam GI & Abdominal Exam: Soft. absent: Tenderness Results - Vital Signs Recent Vital Signs: Last Vital Signs Temp 97.7 F 11/19/17 14:00 Pulse 72 11/19/17 15:26 Resp 20 11/19/17 14:00 BP 198/85 H 11/19/17 15:26 Pulse Ox 95 11/19/17 14:00 - Labs Result Diagrams: 11/19/17 06:30 11/19/17 06:30 Labs: Laboratory Results - last 24 hr 11/18/17 11/19/17 11/19/17 21:24 06:30 06:30 WBC 14.0 H D RBC 3.51 Hgb 10.7 L Hct 31.9 L MCV 90.9 MCH 30.5 MCHC 33.5 RDW 16.7 H Plt Count 252 MPV 9.9 Gran % 91.9 H Lymph % (Auto) 5.9 L [place] % (Auto) 2.1 Eos % (Auto) 0.0 L Baso % (Auto) 0.1 Gran # 12.83 H Lymph # (Auto) 0.8 L [place] # (Auto) 0.3 Eos # (Auto) 0.0 Baso # (Auto) 0.01 Sodium 138 Potassium 4.4 Chloride 98 Carbon Dioxide 27 Anion Gap 17 BUN 19 Creatinine 0.9 Est GFR ( Amer) > 60 Est GFR (Non-Af Amer) > 60 POC Glucose (mg/dL) 175 H Random Glucose 196 H Hemoglobin A1c Calcium 9.5 Total Bilirubin 1.3 AST 24 ALT 30 Alkaline Phosphatase 78 Total Protein 7.4 Albumin 4.4 Globulin 3.0 Albumin/Globulin Ratio 1.5 Carcinoembryonic Ag CA 19-9 Antigen 134 H 11/19/17 11/19/17 11/19/17 06:30 06:30 06:35 WBC RBC Hgb Hct MCV MCH MCHC RDW Plt Count MPV Gran % Lymph % (Auto) [place] % (Auto) Eos % (Auto) Baso % (Auto) Gran # Lymph # (Auto) [place] # (Auto) Eos # (Auto) Baso # (Auto) Sodium Potassium Chloride Carbon Dioxide Anion Gap BUN Creatinine Est GFR ( Amer) Est GFR (Non-Af Amer) POC Glucose (mg/dL) 185 H Random Glucose Hemoglobin A1c 5.8 Calcium Total Bilirubin AST ALT Alkaline Phosphatase Total Protein Albumin Globulin Albumin/Globulin Ratio Carcinoembryonic Ag 26.6 H CA 19-9 Antigen 11/19/17 11:30 WBC RBC Hgb Hct MCV MCH MCHC RDW Plt Count MPV Gran % Lymph % (Auto) [place] % (Auto) Eos % (Auto) Baso % (Auto) Gran # Lymph # (Auto) [place] # (Auto) Eos # (Auto) Baso # (Auto) Sodium Potassium Chloride Carbon Dioxide Anion Gap BUN Creatinine Est GFR ( Amer) Est GFR (Non-Af Amer) POC Glucose (mg/dL) 235 H Random Glucose Hemoglobin A1c Calcium Total Bilirubin AST ALT Alkaline Phosphatase Total Protein Albumin Globulin Albumin/Globulin Ratio Carcinoembryonic Ag CA 19-9 Antigen Assessment & Plan - Assessment and Plan (Free Text) Plan: Assessment systemic inflammatory response syndrome probably due to headache, etiology to be determined, more likely migraine or cluster headache and is less likely meningitis (since the patient does not have fever or meningeal signs on physical exam), R/O intra-cranial mass cholangiocarcinoma S/P subtotal cholecystectomy DM HTN nephrolithiasis obesity with BMI 33 Plan follow up blood cx; reviewed MRI brain which does not show acute pathology - will need MRI brain with IV contrast - discussed with Dr. Oh (Neurology) and we both agree that this is unlikely meningitis - will monitor off antibiotics and patient to be given pain meds for headache discussed with Dr. Leyva will monitor clinically
[2017-11-19] MEDS: Sucralfate 1 gm/10 ml Oral Susp UD PO SCH (16:24)
[2017-11-19] MEDS ORDERED: HYDROmorphone 0.5 mg/0.5 ml ISec IVP ONE (19:00)
[2017-11-19] MEDS ORDERED: Iohexol 350 MG/100 ML VIAL ONE (20:53)
[2017-11-19] MEDS: HYDROmorphone 0.5 mg/0.5 ml ISec IVP PRN (23:59)
[2017-11-20] MEDS ORDERED: HYDROmorphone 0.5 mg/0.5 ml ISec IVP ONE (01:18)
[2017-11-20] MEDS: Sucralfate 1 gm/10 ml Oral Susp UD PO SCH ×2 (06:12→16:21)
[2017-11-20 06:36] LABS: GRAN # 21.32 (1.4-6.5); GRAN % 93.6 % (50.0-68.0); HEMOGLOBIN 11.6 g/dL (12.0-16.0); LYMPH # 0.6 (1.2-3.4); LYMPH % 2.8 % (22.0-35.0); MEAN CELL VOLUME 90.3 fl (80.0-105.0); MEAN CORPUSCULAR HEMOGLOBIN 30.5 pg (25.0-35.0); MEAN CORPUSCULAR HGB CONC 33.8 g/dl (31.0-37.0); MONO # 0.8 (0.1-0.6); MONO % 3.6 % (1.0-6.0); PLATELET COUNT 306 10^3/uL (120.0-450.0); RED CELL DISTRIBUTION WIDTH 16.8 % (11.5-14.5); WHITE BLOOD COUNT 22.8 10^3/ul (4.5-11.0)
[2017-11-20] MEDS: Insulin Reg-LOW-Coverage SC SCH ×4 (07:30→22:35)
[2017-11-20 07:34] LABS: ALB/GLOB RATIO 1.4 (1.1-1.8); ALBUMIN 4.3 g/dL (3.0-4.8); ALT/SGPT 25 U/L (7-56); AST/SGOT 33 U/L (14-36); BLOOD UREA NITROGEN 17 mg/dL (7-21); CALCIUM 9.3 mg/dL (8.4-10.5); GFR AFRICAN-AMERICAN > 60; GFR NON-AFRICAN AMERICAN > 60
--- NOTE | 2017-11-20 09:22 | CT ---
Date of service: 11/19/2017 PROCEDURE: CT Cervical Spine without contrast HISTORY: headache COMPARISON: None available. TECHNIQUE: Axial computed tomography images were obtained of the cervical spine without the use of intravenous contrast. Coronal and sagittal reformatted images were created and reviewed. Radiation dose: Total exam DLP = 509.94 mGy-cm. This CT exam was performed using one or more of the following dose reduction techniques: Automated exposure control, adjustment of the mA and/or kV according to patient size, and/or use of iterative reconstruction technique. FINDINGS: VERTEBRAE: No fracture. Rotary scoliosis, mild. No destructive bony lesion. DISCS/SPINAL CANAL/NEURAL FORAMINA: No significant central canal or neural foraminal stenosis. Multilevel cervical spondylotic change from C3-4 to C6-7. PARASPINAL SOFT TISSUES: Unremarkable. OTHER FINDINGS: None. IMPRESSION: No acute findings related to/accounting for the clinical presentation. Additional benign and/or incidental findings described above. Concordant results (preliminary interpretation) provided by [facility]. Procedure Completed: 21:57. Preliminary ([facility]) Report: Dictated and Authenticated: 22:37. Final Interpretation: 09:20. November 20, 2017.
--- NOTE | 2017-11-20 10:00 | PN ---
DATE: 11/20/2017 SUBJECTIVE: The patient is in bed, in no acute distress, nontoxic. PHYSICAL EXAMINATION: VITAL SIGNS: Temperature is 98, blood pressure is 170/80, respiratory rate of 18, heart rate of 91. HEENT: Examination of HEENT is unremarkable. NECK: Supple. LUNGS: Have decreased breath sounds. HEART: Normal S1, S2. ABDOMEN: Soft, nontender. LABORATORY DATA: Laboratory examination reveals a white count of 22. Chemistries reveals a BUN of 17, creatinine of 0.8, procalcitonin is 0.05. Microbiology is pending. Review of orders reveals the patient to be on no antibiotics. The patient had been on no antibiotics . CT of the head and spine were done and pending. ASSESSMENT AND PLAN: This is a 67-year-old female with past history of cholangiocarcinoma, subtotal cholecystectomy, diabetes, hypertension, nephrolithiasis, obesity, body mass index of 33, admitted with nausea and vomiting, neck pain and found to have leukocytosis. #1 is systemic inflammatory response syndrome, headache, migraine versus cluster headache, less likely meningitis and diabetic. Will need MRI of the head. Currently off of antibiotics. The patient has been afebrile and the patient's white count of 22,000 this morning. Clinically nontoxic. We will check on the laboratories. The patient is allergic to penicillin. Dr. Kenny Matta's note is reviewed. Ike Ramirez MD
[2017-11-20 10:01] LABS: ANISOCYTOSIS 1+; BAND 1 % (0-2); HYPOCHROMIA 1+; LYMPHOCYTE 4 % (22.0-35.0); MONOCYTE 1 % (1.0-6.0); NEUTROPHIL 94 % (50.0-70.0); PLATELET ESTIMATE NORMAL (NORMAL)
--- NOTE | 2017-11-20 10:37 | CT ---
Date of service: 11/19/2017 PROCEDURE: CT HEAD WITH CONTRAST HISTORY: unrelenting headache COMPARISON: None available. TECHNIQUE: Axial computed tomography images were obtained through the head/brain with intravenous contrast. Contrast dose: 100 cc Omnipaque 300. Radiation dose: Total exam DLP = 953.32 mGy-cm. This CT exam was performed using one or more of the following dose reduction techniques: Automated exposure control, adjustment of the mA and/or kV according to patient size, and/or use of iterative reconstruction technique. FINDINGS: HEMORRHAGE: No intracranial hemorrhage. BRAIN: No mass, mass effect or edema. No abnormal intracranial enhancement. No atrophy or chronic microvascular ischemic changes. VENTRICLES: Unremarkable. No hydrocephalus. CALVARIUM: Unremarkable. PARANASAL SINUSES: Unremarkable as visualized. No significant inflammatory changes. MASTOID AIR CELLS: Unremarkable as visualized. No mastoid effusion. OTHER FINDINGS: None. IMPRESSION: Normal contrast enhanced CT of the head. Concordant results (preliminary interpretation) provided by [facility]. Procedure Completed: 22:00 Preliminary ([facility]) Report: Dictated and Authenticated: 22:39. Final Interpretation: 10:35. November 20, 2017.
--- NOTE | 2017-11-20 13:25 | CP.PCM.PN ---
<Flaca Leon - Last Filed: 11/20/17 13:26> Subjective - Date & Time of Evaluation Date of Evaluation: 11/20/17 Time of Evaluation: 07:30 - Subjective Subjective: PGY5 GI Consult Note Pt seen and examined bedside denies any abd pain tolerating diet no overnight events ROS: 12 pointROS conducted, neg other than above Objective - Vital Signs/Intake and Output Vital Signs (last 24 hours): Temp Pulse Resp BP Pulse Ox 98.3 F 81 18 182/80 H 94 L 11/20/17 08:24 11/20/17 10:57 11/20/17 08:24 11/20/17 10:57 11/20/17 08:24 Intake and Output: 11/20/17 11/20/17 06:59 18:59 Intake Total 380 Output Total 250 Balance 130 - Medications Medications: Current Medications Acetaminophen (Tylenol 325mg Tab) 650 mg PO Q4H PRN PRN Reason: Mild pain (1-3) or temp > 100F Amlodipine Besylate (Norvasc) 5 mg PO DAILY [facility] Last Admin: 11/20/17 10:57 Dose: 5 mg Clonidine HCl (Catapres) 0.1 mg PO Q6 PRN PRN Reason: Systolic Blood Pressure > 160 Last Admin: 11/20/17 02:56 Dose: 0.1 mg Hydralazine HCl (Apresoline) 10 mg IVP Q6 PRN PRN Reason: for sbp greater than 160 Last Admin: 11/20/17 06:12 Dose: 10 mg Hydromorphone HCl (Dilaudid) 0.5 mg IVP Q4H PRN PRN Reason: Pain, severe (8-10) Last Admin: 11/19/17 23:59 Dose: 0.5 mg Sodium Chloride (Sodium Chloride 0.45%) 1,000 mls @ 80 mls/hr IV .[id number] [facility] Ibuprofen (Motrin Tab) 600 mg PO Q8H PRN PRN Reason: Pain, moderate (4-7) Last Admin: 11/20/17 10:44 Dose: 600 mg Insulin Human Regular (Humulin R Low) 0 units SC ACHS [facility] PRN Reason: Protocol Last Admin: 11/20/17 07:30 Dose: 2 units Losartan Potassium (Cozaar) 100 mg PO DAILY [facility] Ondansetron HCl (Zofran Inj) 4 mg IVP Q8H PRN PRN Reason: Nausea/Vomiting Last Admin: 11/19/17 09:32 Dose: 4 mg Pantoprazole Sodium (Protonix Inj) 40 mg IVP Q12 [facility] Last Admin: 11/20/17 10:44 Dose: 40 mg Sucralfate (Carafate Oral Susp) 1 gm PO 0600,1600 [facility] Last Admin: 11/20/17 06:12 Dose: 1 gm - Labs Labs: 11/20/17 05:30 11/20/17 05:30 - Constitutional Appears: Well, No Acute Distress - Head Exam Head Exam: ATRAUMATIC, NORMOCEPHALIC - Eye Exam Eye Exam: Normal appearance - ENT Exam ENT Exam: Mucous Membranes Moist, Normal Exam - Neck Exam Neck Exam: Normal Inspection - Respiratory Exam Respiratory Exam: Clear to Ausculation Bilateral, NORMAL BREATHING PATTERN. absent: Rhonchi, Wheezes, Respiratory Distress - Cardiovascular Exam Cardiovascular Exam: REGULAR RHYTHM, +S1, +S2 - GI/Abdominal Exam GI & Abdominal Exam: Soft, Normal Bowel Sounds. 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 Seen and discussed w/ Dr. Martinez. <Florecita Martinez V - Last Filed: 11/20/17 21:09> Objective - Vital Signs/Intake and Output Vital Signs (last 24 hours): Temp Pulse Resp BP Pulse Ox 98.3 F 83 18 189/84 H 94 L 11/20/17 08:24 11/20/17 15:03 11/20/17 08:24 11/20/17 15:03 11/20/17 08:24 Intake and Output: 11/20/17 11/21/17 18:59 06:59 Intake Total 50.0 30 Balance 50.0 30 - Medications Medications: Current Medications Acetaminophen (Tylenol 325mg Tab) 650 mg PO Q4H PRN PRN Reason: Mild pain (1-3) or temp > 100F Last Admin: 11/20/17 13:25 Dose: 650 mg Amlodipine Besylate (Norvasc) 5 mg PO DAILY [facility] Last Admin: 11/20/17 10:57 Dose: 5 mg Clonidine HCl (Catapres) 0.1 mg PO Q6 PRN PRN Reason: Systolic Blood Pressure > 160 Last Admin: 11/20/17 13:24 Dose: 0.1 mg Hydralazine HCl (Apresoline) 10 mg IVP Q6 PRN PRN Reason: for sbp greater than 160 Last Admin: 11/20/17 06:12 Dose: 10 mg Hydromorphone HCl (Dilaudid) 0.5 mg IVP Q4H PRN PRN Reason: Pain, severe (8-10) Last Admin: 11/20/17 15:00 Dose: 0.5 mg Sodium Chloride (Sodium Chloride 0.45%) 1,000 mls @ 80 mls/hr IV .[id number] [facility] Nicardipine HCl (Cardene Iv Premix) 20 mg in 200 mls @ 50 mls/hr IV .Q4H PRN; Protocol; 5 MG/HR PRN Reason: TITRATE PER MD ORDER Last Titration: 11/20/17 20:00 Dose: 4.5 mg/hr, 45 mls/hr Valproate Sodium 750 mg/ (Sodium Chloride) 107.5 mls @ 100 mls/hr IVPB 0700, 1900 [facility] Ibuprofen (Motrin Tab) 600 mg PO Q8H PRN PRN Reason: Pain, moderate (4-7) Last Admin: 11/20/17 10:44 Dose: 600 mg Insulin Human Regular (Humulin R Low) 0 units SC ACHS [facility] PRN Reason: Protocol Last Admin: 11/20/17 18:24 Dose: Not Given Losartan Potassium (Cozaar) 100 mg PO DAILY [facility] Ondansetron HCl (Zofran Inj) 4 mg IVP Q8H PRN PRN Reason: Nausea/Vomiting Last Admin: 11/20/17 15:00 Dose: 4 mg Pantoprazole Sodium (Protonix Inj) 40 mg IVP Q12 [facility] Last Admin: 11/20/17 10:44 Dose: 40 mg Sucralfate (Carafate Oral Susp) 1 gm PO 0600,1600 [facility] Last Admin: 11/20/17 16:21 Dose: Not Given - Labs Labs: 11/20/17 05:30 11/20/17 05:30 PT 11.6 SECONDS (9.4-12.5) 11/20/17 14:40 INR 1.02 (0.93-1.08) 11/20/17 14:40 APTT 32.8 Seconds (25.1-36.5) 11/20/17 14:40 Attending/Attestation - Attestation I have personally seen and examined this patient.: Yes I have fully participated in the care of the patient.: Yes I have reviewed all pertinent clinical information, including history, physical exam and plan: Yes Notes (Text): This is an addendum to GI progress report dictated by the GI Fellow.The patient was seen and examined earlier. Medical records, lab studies, imagings were reviewed. Last 24 hours events reviewed. Agreed with the above treatment plan as outlined in GI Fellow 's notes the with the addition of the following this patient was seen earlier today Symptoms more attributable to neurological rather than GI Would however continue Carafate and PPI for possible esophagitis and peptic ulcer disease h/o recent chemo Would avoid Reglan Rec to use Zofran if needed continue clear liquid diet As per neurology Later events noted 11/20/17 21:04
[2017-11-20] MEDS: HYDROmorphone 0.5 mg/0.5 ml ISec IVP PRN ×2 (15:00→21:39)
[2017-11-20 15:15] LABS: INR 1.02 (0.93-1.08); PARTIAL THROMBOPLASTIN TIME 32.8 Seconds (25.1-36.5); PROTHROMBIN TIME 11.6 SECONDS (9.4-12.5)
--- NOTE | 2017-11-20 16:32 | CP.PCM.CON ---
<Marcus Plascencia - Last Filed: 11/20/17 17:04> History of Present Illness - History of Present Illness History of Present Illness: Marcus Plascencia, PGY1 ICU Consult Note for Dr. Sidhu Patient is a 67 y/o F with PMHx of Porcelain gallbladder (s/p chemo and cholecystectomy), DM, HTN, and Nephrolithiasis who presented to the ED on 11/18 for headache, neck pain, and weakness for 5 days in duration. Patient also had associated nausea and vomiting. Patient has limited ROM of the neck, with lateral neck turning. Patient has denied fevers and sick contacts. Patient was following up with Dr. Galvan (heme/onc) who sent her to the ED for further evaluation. MRA brain showed mild-mod atrophy and chronic microvascular white matter changes. Brain MRI showed no evidence of infarct or acute intracranial hemorrhage. Patient also has limited ROM of the neck, with lateral turning. Patient has denied fevers and sick contacts. On the floor, patient had episodes of hypertension. As per nurse, patient's BP was 190/83, patient given clonidine , however, repeat BP was still elevated and patient had severe headache. ICU consulted. Patient was examined at bedside; she was covering her eyes with a piece of cloth; she said her left eye was aching. Patient said that she was having 10/10 pain at the frontal region with pain at her left orbital region. Now, her pain level has dropped to 8/10. It is associated with neck pain. She also feels nauseous and is sensitive to loud noise and and bright lights. Manual blood pressure was repeated and it was 190/90. A Full 12 point ROS was conducted and unremarkable except as stated above. PMHx: Porcelain gallbladder (s/p chemo and cholecystectomy), DM, HTN, Nephrolithiasis PSHx: cholecystectomy Allergies: Penicillins Meds: cozaar, colace, glipizide, levaquin SocialHx: negative for EtOH, tobacco, drug use. Works as nurse in psych department of [employer] FamilyHx: non-contributory Review of Systems - Review of Systems All systems: reviewed and no additional remarkable complaints except (as per HPI.) Past Patient History - Infectious Disease Hx of Infectious Diseases: None - Past Medical History & Family History Past Medical History?: Yes Past Family History: Reviewed and not pertinent - Past Social History Smoking Status: Never Smoked - CARDIAC Hx Cardiac Disorders: Yes Hx Hypertension: Yes Hx Pacemaker: No - PULMONARY Hx Respiratory Disorders: No - NEUROLOGICAL Hx Neurological Disorder: No - HEENT Hx HEENT Problems: No - RENAL Hx Kidney Stones: Yes - ENDOCRINE/METABOLIC Hx Endocrine Disorders: Yes Hx Diabetes Mellitus Type 2: Yes - HEMATOLOGICAL/ONCOLOGICAL Hx Blood Disorders: Yes 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) - INTEGUMENTARY Hx Dermatological Problems: No - MUSCULOSKELETAL/RHEUMATOLOGICAL Hx Falls: Yes - GASTROINTESTINAL Hx Gastrointestinal Disorders: Yes 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) - GENITOURINARY/GYNECOLOGICAL Hx Genitourinary Disorders: Yes (abn pap cone bx) - PSYCHIATRIC Hx Emotional Abuse: No Hx Physical Abuse: No Hx Substance Use: No - SURGICAL HISTORY Hx Surgeries: Yes Hx Cholecystectomy: Yes Other/Comment: cervical biopsy - ANESTHESIA Hx Anesthesia Reactions: No Hx Malignant Hyperthermia: No Meds Allergies/Adverse Reactions: Allergies Allergy/AdvReac Type Severity Reaction Status Date / Time Penicillins Allergy Severe RASH Verified 08/05/17 12:09 - Medications Medications: Current Medications Acetaminophen (Tylenol 325mg Tab) 650 mg PO Q4H PRN PRN Reason: Mild pain (1-3) or temp > 100F Last Admin: 11/20/17 13:25 Dose: 650 mg Amlodipine Besylate (Norvasc) 5 mg PO DAILY [facility] Last Admin: 11/20/17 10:57 Dose: 5 mg Clonidine HCl (Catapres) 0.1 mg PO Q6 PRN PRN Reason: Systolic Blood Pressure > 160 Last Admin: 11/20/17 13:24 Dose: 0.1 mg Hydralazine HCl (Apresoline) 10 mg IVP Q6 PRN PRN Reason: for sbp greater than 160 Last Admin: 11/20/17 06:12 Dose: 10 mg Hydromorphone HCl (Dilaudid) 0.5 mg IVP Q4H PRN PRN Reason: Pain, severe (8-10) Last Admin: 11/19/17 23:59 Dose: 0.5 mg Sodium Chloride (Sodium Chloride 0.45%) 1,000 mls @ 80 mls/hr IV .[id number] [facility] Ibuprofen (Motrin Tab) 600 mg PO Q8H PRN PRN Reason: Pain, moderate (4-7) Last Admin: 11/20/17 10:44 Dose: 600 mg Insulin Human Regular (Humulin R Low) 0 units SC ACHS [facility] PRN Reason: Protocol Last Admin: 11/20/17 13:24 Dose: 2 units Losartan Potassium (Cozaar) 100 mg PO DAILY [facility] Ondansetron HCl (Zofran Inj) 4 mg IVP Q8H PRN PRN Reason: Nausea/Vomiting Last Admin: 11/19/17 09:32 Dose: 4 mg Pantoprazole Sodium (Protonix Inj) 40 mg IVP Q12 [facility] Last Admin: 11/20/17 10:44 Dose: 40 mg Sucralfate (Carafate Oral Susp) 1 gm PO 0600,1600 [facility] Last Admin: 11/20/17 06:12 Dose: 1 gm Physical Exam - Constitutional Appears: Other (Weak) - Head Exam Head Exam: ATRAUMATIC, NORMOCEPHALIC - Eye Exam Additional comments: Patient experiencing photophobia: unable to examine eyes. Covering eyes with a piece of cloth. - ENT Exam ENT Exam: Normal Exam - Neck Exam Neck exam: Positive for: Normal Inspection, Tenderness. Negative for: Full Rom Additional comments: Limited range of motion to side bending. No nuchal rigidity. Negative Brudzinski sign. - Respiratory Exam Respiratory Exam: Clear to Auscultation Bilateral. absent: Accessory Muscle Use , Chest Wall Tenderness, Decreased Breath Sounds, Rales, Rhonchi, Wheezes, Respiratory Distress, Stridor - Cardiovascular Exam Cardiovascular Exam: RRR, +S1, +S2 - GI/Abdominal Exam GI & Abdominal Exam: Normal Bowel Sounds, Soft. absent: Hernia, Hypoactive Bowel Sounds, Mass, Organomegaly, Pulsatile Mass, Rebound, Rigid - Extremities Exam Extremities exam: Positive for: full ROM, normal capillary refill, normal inspection, pedal pulses present. Negative for: joint swelling, pedal edema, tenderness - Back Exam Back exam: NORMAL INSPECTION - Neurological Exam Neurological exam: Alert, Oriented x3 - Skin Skin Exam: Normal Color Results - Vital Signs Recent Vital Signs: Last Vital Signs Temp 98.3 F 11/20/17 08:24 Pulse 83 11/20/17 15:03 Resp 18 11/20/17 08:24 BP 189/84 H 11/20/17 15:03 Pulse Ox 94 L 07/28/18 08:24 - Labs Result Diagrams: 11/20/17 05:30 11/20/17 05:30 Labs: Laboratory Results - last 24 hr 11/19/17 11/19/17 11/19/17 16:21 18:56 21:33 WBC RBC Hgb Hct MCV MCH MCHC RDW Plt Count MPV Gran % Lymph % (Auto) Norman % (Auto) Eos % (Auto) Baso % (Auto) Gran # Lymph # (Auto) Norman # (Auto) Eos # (Auto) Baso # (Auto) Neutrophils % (Manual) Band Neutrophils % Lymphocytes % (Manual) Monocytes % (Manual) Platelet Evaluation Hypochromasia Anisocytosis (manual) PT INR APTT Sodium Potassium Chloride Carbon Dioxide Anion Gap BUN Creatinine Est GFR ( Amer) Est GFR (Non-Af Amer) POC Glucose (mg/dL) 228 H 213 H Random Glucose Calcium Total Bilirubin AST ALT Alkaline Phosphatase Total Protein Albumin Globulin Albumin/Globulin Ratio Procalcitonin < 0.05 L 11/20/17 11/20/17 11/20/17 05:30 05:30 14:40 WBC 22.8 H D RBC 3.80 Hgb 11.6 L Hct 34.3 L MCV 90.3 MCH 30.5 MCHC 33.8 RDW 16.8 H Plt Count 306 MPV 10.0 Gran % 93.6 H Lymph % (Auto) 2.8 L Norman % (Auto) 3.6 Eos % (Auto) 0.0 L Baso % (Auto) 0.0 Gran # 21.32 H Lymph # (Auto) 0.6 L Norman # (Auto) 0.8 H Eos # (Auto) 0.0 Baso # (Auto) 0.00 Neutrophils % (Manual) 94 H Band Neutrophils % 1 Lymphocytes % (Manual) 4 L Monocytes % (Manual) 1 Platelet Evaluation Normal Hypochromasia 1+ Anisocytosis (manual) 1+ PT 11.6 INR 1.02 APTT 32.8 Sodium 133 Potassium 4.0 Chloride 94 L Carbon Dioxide 27 Anion Gap 17 BUN 17 Creatinine 0.8 Est GFR ( Amer) > 60 Est GFR (Non-Af Amer) > 60 POC Glucose (mg/dL) Random Glucose 280 H Calcium 9.3 Total Bilirubin 1.7 H AST 33 ALT 25 Alkaline Phosphatase 83 Total Protein 7.4 Albumin 4.3 Globulin 3.0 Albumin/Globulin Ratio 1.4 Procalcitonin Assessment & Plan - Assessment and Plan (Free Text) Assessment: Patient is a 67 y/o F with PMHx of Porcelain gallbladder (s/p chemo and cholecystectomy), DM, HTN, and Nephrolithiasis who presented to the ED on 11/18 for headache, neck pain, and weakness for 5 days in duration. Patient was following up with heme/onc (Dr. Galvan) and she started having mod-severe headache, as a result, she arrived to the ED. Patient's MRA Brain and Brain MRI were unremarkable. On the floor, patient was experiencing episodes of hypertension: BP noted to be 190/83 as per floor nurse. She also had worsening of her headache. ICU consulted for management. Patient's BP was repeated and was still elevated. She will be admitted to the unit for monitoring. Plan: 1. Hypertension - started on cardene gtt - BP was 190/93 on manual exam - Will continue to monitor for BP changes - No chest pain or shortness of breath on exam - Cardiology following, appreciate recs 2. Headache likely due to Migraine vs tension headache - Defer to neurology for plan/management - Frontal headache with unilateral ocular pain, associated with blurry vision, sensitive to bright lights and loud noises - c/w pain control - Low suspicion for meningitis: chronicity of headache (5-6 days), afebrile, no nuchal rigidity, infection etiology less likely - ID following case; appreciate recs - Neurology is following, appreciate recs - MRA brain: mild-mod atrophy and chronic microvascular white matter changes. - Brain MRI: no evidence of infarct or acute intracranial hemorrhage. 3. DM - Maintain euglycemia - ISS - Accucheks 4. Porcelain Gallbladder - f/u with Heme/onc (Dr. Galvan Dispo: Patient will be monitored in the ICU. Case was discussed and reviewed with Attending Physician Dr. Sidhu. <Sudeep Sidhu - Last Filed: 11/20/17 17:33> Meds - Medications Medications: Current Medications Acetaminophen (Tylenol 325mg Tab) 650 mg PO Q4H PRN PRN Reason: Mild pain (1-3) or temp > 100F Last Admin: 11/20/17 13:25 Dose: 650 mg Amlodipine Besylate (Norvasc) 5 mg PO DAILY [facility] Last Admin: 11/20/17 10:57 Dose: 5 mg Clonidine HCl (Catapres) 0.1 mg PO Q6 PRN PRN Reason: Systolic Blood Pressure > 160 Last Admin: 11/20/17 13:24 Dose: 0.1 mg Hydralazine HCl (Apresoline) 10 mg IVP Q6 PRN PRN Reason: for sbp greater than 160 Last Admin: 11/20/17 06:12 Dose: 10 mg Hydromorphone HCl (Dilaudid) 0.5 mg IVP Q4H PRN PRN Reason: Pain, severe (8-10) Last Admin: 11/20/17 15:00 Dose: 0.5 mg Sodium Chloride (Sodium Chloride 0.45%) 1,000 mls @ 80 mls/hr IV .[id number] [facility] Nicardipine HCl (Cardene Iv Premix) 20 mg in 200 mls @ 50 mls/hr IV .Q4H PRN; Protocol; 5 MG/HR PRN Reason: TITRATE PER MD ORDER Last Titration: 11/20/17 17:11 Dose: 7.5 mg/hr, 75 mls/hr Ibuprofen (Motrin Tab) 600 mg PO Q8H PRN PRN Reason: Pain, moderate (4-7) Last Admin: 11/20/17 10:44 Dose: 600 mg Insulin Human Regular (Humulin R Low) 0 units SC ACHS [facility] PRN Reason: Protocol Last Admin: 11/20/17 13:24 Dose: 2 units Losartan Potassium (Cozaar) 100 mg PO DAILY [facility] Ondansetron HCl (Zofran Inj) 4 mg IVP Q8H PRN PRN Reason: Nausea/Vomiting Last Admin: 11/20/17 15:00 Dose: 4 mg Pantoprazole Sodium (Protonix Inj) 40 mg IVP Q12 [facility] Last Admin: 11/20/17 10:44 Dose: 40 mg Sucralfate (Carafate Oral Susp) 1 gm PO 0600,1600 [facility] Last Admin: 11/20/17 16:21 Dose: Not Given Results - Vital Signs Recent Vital Signs: Last Vital Signs Temp 98.3 F 11/20/17 08:24 Pulse 83 11/20/17 15:03 Resp 18 11/20/17 08:24 BP 189/84 H 11/20/17 15:03 Pulse Ox 94 L 11/20/17 08:24 - Labs Result Diagrams: 11/20/17 05:30 11/20/17 05:30 Labs: Laboratory Results - last 24 hr 11/19/17 11/19/17 11/20/17 18:56 21:33 05:30 WBC 22.8 H D RBC 3.80 Hgb 11.6 L Hct 34.3 L MCV 90.3 MCH 30.5 MCHC 33.8 RDW 16.8 H Plt Count 306 MPV 10.0 Gran % 93.6 H Lymph % (Auto) 2.8 L Norman % (Auto) 3.6 Eos % (Auto) 0.0 L Baso % (Auto) 0.0 Gran # 21.32 H Lymph # (Auto) 0.6 L Norman # (Auto) 0.8 H Eos # (Auto) 0.0 Baso # (Auto) 0.00 Neutrophils % (Manual) 94 H Band Neutrophils % 1 Lymphocytes % (Manual) 4 L Monocytes % (Manual) 1 Platelet Evaluation Normal Hypochromasia 1+ Anisocytosis (manual) 1+ PT INR APTT Sodium Potassium Chloride Carbon Dioxide Anion Gap BUN Creatinine Est GFR ( Amer) Est GFR (Non-Af Amer) POC Glucose (mg/dL) 213 H Random Glucose Calcium Total Bilirubin AST ALT Alkaline Phosphatase Total Protein Albumin Globulin Albumin/Globulin Ratio Procalcitonin < 0.05 L 11/20/17 11/20/17 11/20/17 05:30 07:34 11:25 WBC RBC Hgb Hct MCV MCH MCHC RDW Plt Count MPV Gran % Lymph % (Auto) Norman % (Auto) Eos % (Auto) Baso % (Auto) Gran # Lymph # (Auto) Norman # (Auto) Eos # (Auto) Baso # (Auto) Neutrophils % (Manual) Band Neutrophils % Lymphocytes % (Manual) Monocytes % (Manual) Platelet Evaluation Hypochromasia Anisocytosis (manual) PT INR APTT Sodium 133 Potassium 4.0 Chloride 94 L Carbon Dioxide 27 Anion Gap 17 BUN 17 Creatinine 0.8 Est GFR ( Amer) > 60 Est GFR (Non-Af Amer) > 60 POC Glucose (mg/dL) 230 H 250 H Random Glucose 280 H Calcium 9.3 Total Bilirubin 1.7 H AST 33 ALT 25 Alkaline Phosphatase 83 Total Protein 7.4 Albumin 4.3 Globulin 3.0 Albumin/Globulin Ratio 1.4 Procalcitonin 11/20/17 14:40 WBC RBC Hgb Hct MCV MCH MCHC RDW Plt Count MPV Gran % Lymph % (Auto) Norman % (Auto) Eos % (Auto) Baso % (Auto) Gran # Lymph # (Auto) Norman # (Auto) Eos # (Auto) Baso # (Auto) Neutrophils % (Manual) Band Neutrophils % Lymphocytes % (Manual) Monocytes % (Manual) Platelet Evaluation Hypochromasia Anisocytosis (manual) PT 11.6 INR 1.02 APTT 32.8 Sodium Potassium Chloride Carbon Dioxide Anion Gap BUN Creatinine Est GFR ( Amer) Est GFR (Non-Af Amer) POC Glucose (mg/dL) Random Glucose Calcium Total Bilirubin AST ALT Alkaline Phosphatase Total Protein Albumin Globulin Albumin/Globulin Ratio Procalcitonin Assessment & Plan - Assessment and Plan (Free Text) Plan: Patient seen and examined on rounds with resident, agree with note with following additions/exceptions: Patient is 67yo female with PMHx of Porcelain gallbladder (s/p chemo and cholecystectomy), DM, HTN, and Nephrolithiasis who presented to the ED on 11/18 for headache, neck pain, and weakness for 5 days in duration. Currently the patient is hypertensive on cardene drip. BP readings reviewed, imaging, labs, chart reviewed. Persistent refractory headache, in setting of elevated BP, which I do not believe is cause of the headaches. Pt denies fever, chills, photophobia, nuchal rigidity. ID and neurology following. LP when BP is more acceptable, although doubt meningitis. MRI Brain with contrast. BP control, Cardene Follow neuro and ID, heme Onc GI ppx DVT ppx Monitor in MICU
--- NOTE | 2017-11-20 16:52 | CP.PCM.PN ---
Subjective - Date & Time of Evaluation Date of Evaluation: 11/20/17 Time of Evaluation: 16:00 - Subjective Subjective: Patient is slumped in bed, having received dilaudid recently and is now extremely hypertensive at 200/100. There is no meningismus, no Kernigs or Brudszinskis sign, and the patient has no signs of increased intracranial pressure. She is quite lethargic but opens eyes, follows commands, and is able to withdraw hand from sternal rub, with corneals, dolls eyes, and gag present. In addition, her crm architect is 5/5 bilaterally. In brief, Miss Lo has a pmh of cholangiocarcinoma, DM, severe migraine history and cervical disc disease as well. During this hospital admission, she is afebrile, hypertensive (most likely secondary to pain), and now is mounting a white count. However, we have not investigated the urine and blood cultures at this time, which are being done today. On exam: AAOX3. PERRL. CN 2-12 normal. speech slurred but patient has been given dilaudid. However, she can follow commands, name and repeat. Moving all extremities equally. Sensory exam is not accurate. Gait not tested. + 2 dtr ul and ll bl. Toes downgoing. No clonus. Objective - Vital Signs/Intake and Output Vital Signs (last 24 hours): Temp Pulse Resp BP Pulse Ox 98.3 F 83 18 189/84 H 94 L 11/20/17 08:24 11/20/17 15:03 11/20/17 08:24 11/20/17 15:03 11/20/17 08:24 Intake and Output: 11/20/17 11/20/17 06:59 18:59 Intake Total 380 Output Total 250 Balance 130 - Medications Medications: Current Medications Acetaminophen (Tylenol 325mg Tab) 650 mg PO Q4H PRN PRN Reason: Mild pain (1-3) or temp > 100F Last Admin: 11/20/17 13:25 Dose: 650 mg Amlodipine Besylate (Norvasc) 5 mg PO DAILY [facility] Last Admin: 11/20/17 10:57 Dose: 5 mg Clonidine HCl (Catapres) 0.1 mg PO Q6 PRN PRN Reason: Systolic Blood Pressure > 160 Last Admin: 11/20/17 13:24 Dose: 0.1 mg Hydralazine HCl (Apresoline) 10 mg IVP Q6 PRN PRN Reason: for sbp greater than 160 Last Admin: 11/20/17 06:12 Dose: 10 mg Hydromorphone HCl (Dilaudid) 0.5 mg IVP Q4H PRN PRN Reason: Pain, severe (8-10) Last Admin: 11/19/17 23:59 Dose: 0.5 mg Sodium Chloride (Sodium Chloride 0.45%) 1,000 mls @ 80 mls/hr IV .[id number] [facility] Nicardipine HCl (Cardene Iv Premix) 20 mg in 200 mls @ 50 mls/hr IV .Q4H PRN; Protocol; 5 MG/HR PRN Reason: TITRATE PER MD ORDER Ibuprofen (Motrin Tab) 600 mg PO Q8H PRN PRN Reason: Pain, moderate (4-7) Last Admin: 11/20/17 10:44 Dose: 600 mg Insulin Human Regular (Humulin R Low) 0 units SC ACHS [facility] PRN Reason: Protocol Last Admin: 11/20/17 13:24 Dose: 2 units Losartan Potassium (Cozaar) 100 mg PO DAILY [facility] Ondansetron HCl (Zofran Inj) 4 mg IVP Q8H PRN PRN Reason: Nausea/Vomiting Last Admin: 11/19/17 09:32 Dose: 4 mg Pantoprazole Sodium (Protonix Inj) 40 mg IVP Q12 [facility] Last Admin: 11/20/17 10:44 Dose: 40 mg Sucralfate (Carafate Oral Susp) 1 gm PO 0600,1600 [facility] Last Admin: 11/20/17 16:21 Dose: Not Given - Labs Labs: 11/20/17 05:30 11/20/17 05:30 PT 11.6 SECONDS (9.4-12.5) 11/20/17 14:40 INR 1.02 (0.93-1.08) 11/20/17 14:40 APTT 32.8 Seconds (25.1-36.5) 11/20/17 14:40 Assessment and Plan - Assessment and Plan (Free Text) Assessment: 67 yr old woman with probable severe migraine, with history of cholangiocarcinoma, and now white count, who presented without fever initially, and no cranial nerve deficits. For these reasons, combined with her lack of meningismus and in agreement with ID, meningitis is unlikely. However, LP was attempted today but due to high blood pressure that required transfer to the ICU , it could nto be done. LP would have elevated bp to more than 200 systolic which would have put her at risk for intracranial hemorrhage. Neurology recommendations are as follows: 1. MRI Brain with haydee when patient can tolerate 2. After blood pressure is controlled, LP can be done 3. MRI C spine with haydee to assess spondlylosis. 4. Transfer to ICU for blood pressure management. 5. Migraine management with toradol, benadryl, and magnesium. Thank you Dr. dickens
[2017-11-20] MEDS: Nicardipine 20 MG/200 ML 20 MG/200 ML BAG IV PRN ×2 (16:57→23:51)
[2017-11-20] MEDS ORDERED: Naloxone 0.4 mg/ml Inj (Adult) ONE (17:47)
[2017-11-20] MEDS ORDERED: Naloxone 0.4 mg/ml Inj (Adult) IVP ONE (17:48)
[2017-11-20] MEDS ORDERED: Valproate 1,000 MG in Sodium Chloride 0.9% 100 ML IVPB SCH ×2 (18:32→19:00)
--- NOTE | 2017-11-20 18:33 | CP.PCM.PN ---
Subjective - Date & Time of Evaluation Date of Evaluation: 11/20/17 Time of Evaluation: 18:29 - Subjective Subjective: EVENT NOTE Called by house staff for AMS. Upon arrival, patient was obtunded, diaphoretic, with mild twitching of the R arm, L arm, NO tonic clonic activityFS 239 Given Narcan 0.4mg x 1, with no response Physical exam, minimal response to sternal rub, +corneal reflex , + dolls eyes STAT CT head without contrast, prelim read, no acute ischemic/hemorrhagic stroke , midline shift (formal radiology read pending) Dr Oh contacted via phone, recommended Depakote 1000mg x 1, then 750mg BID starting tomorrow After 15 minutes patient became more responsive, currently opening eyes, protecting airway Will continue to monitor MRI Brain with contrast Objective - Vital Signs/Intake and Output Vital Signs (last 24 hours): Temp Pulse Resp BP Pulse Ox 98.3 F 83 18 189/84 H 94 L 11/20/17 08:24 11/20/17 15:03 11/20/17 08:24 11/20/17 15:03 11/20/17 08:24 Intake and Output: 11/20/17 11/20/17 06:59 18:59 Intake Total 380 50.0 Output Total 250 Balance 130 50.0 - Medications Medications: Current Medications Acetaminophen (Tylenol 325mg Tab) 650 mg PO Q4H PRN PRN Reason: Mild pain (1-3) or temp > 100F Last Admin: 11/20/17 13:25 Dose: 650 mg Amlodipine Besylate (Norvasc) 5 mg PO DAILY [facility] Last Admin: 11/20/17 10:57 Dose: 5 mg Clonidine HCl (Catapres) 0.1 mg PO Q6 PRN PRN Reason: Systolic Blood Pressure > 160 Last Admin: 11/20/17 13:24 Dose: 0.1 mg Hydralazine HCl (Apresoline) 10 mg IVP Q6 PRN PRN Reason: for sbp greater than 160 Last Admin: 11/20/17 06:12 Dose: 10 mg Hydromorphone HCl (Dilaudid) 0.5 mg IVP Q4H PRN PRN Reason: Pain, severe (8-10) Last Admin: 11/20/17 15:00 Dose: 0.5 mg Sodium Chloride (Sodium Chloride 0.45%) 1,000 mls @ 80 mls/hr IV .[id number] [facility] Nicardipine HCl (Cardene Iv Premix) 20 mg in 200 mls @ 50 mls/hr IV .Q4H PRN; Protocol; 5 MG/HR PRN Reason: TITRATE PER MD ORDER Last Titration: 11/20/17 18:21 Dose: 0 mg/hr, 0 mls/hr Valproate Sodium 1,000 mg/ (Sodium Chloride) 110 mls @ 100 mls/hr IVPB Q8 [facility] Ibuprofen (Motrin Tab) 600 mg PO Q8H PRN PRN Reason: Pain, moderate (4-7) Last Admin: 11/20/17 10:44 Dose: 600 mg Insulin Human Regular (Humulin R Low) 0 units SC ACHS [facility] PRN Reason: Protocol Last Admin: 11/20/17 18:24 Dose: Not Given Losartan Potassium (Cozaar) 100 mg PO DAILY [facility] Ondansetron HCl (Zofran Inj) 4 mg IVP Q8H PRN PRN Reason: Nausea/Vomiting Last Admin: 11/20/17 15:00 Dose: 4 mg Pantoprazole Sodium (Protonix Inj) 40 mg IVP Q12 [facility] Last Admin: 11/20/17 10:44 Dose: 40 mg Sucralfate (Carafate Oral Susp) 1 gm PO 0600,1600 [facility] Last Admin: 11/20/17 16:21 Dose: Not Given - Labs Labs: 11/20/17 05:30 11/20/17 05:30 PT 11.6 SECONDS (9.4-12.5) 11/20/17 14:40 INR 1.02 (0.93-1.08) 11/20/17 14:40 APTT 32.8 Seconds (25.1-36.5) 11/20/17 14:40
[2017-11-20] MEDS ORDERED: Valproate 1,000 MG in Sodium Chloride 0.9% 100 ML IVPB ONE ×2 (19:04→19:06)
[2017-11-20] MEDS ORDERED: Valproate 0 MG in Sodium Chloride 0.9% 100 ML IVPB SCH (22:00)
--- NOTE | 2017-11-20 23:56 | CON ---
DATE: 11/20/2017 REASON FOR CONSULTATION: Hypertensive urgency. 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 The patient also complains of nausea and vomiting at home. She was advised to come to the emergency room from Dr. Leyva's office. 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 The patient denies any history of hypertension. She was on Cozaar 25 mg daily for renal protection. At the time of consultation, the patient is still complaining of severe headache and back pain, neck pain. She denies any vomiting today. She has some nausea. Her latest blood pressure is 177/85. Her latest WBC count is 23,000, it was 14,000 at the time of presentation with 94% polys and 1 band. PAST MEDICAL AND SURGICAL HISTORY: NIDDM; nephrolithiasis; subtotal cholecystectomy; cholangiocarcinoma, poorly differentiated, recent chemotherapy. FAMILY HISTORY: Noncontributory. SOCIAL HISTORY: No smoking, no alcohol use, no IV drug abuse. ALLERGIES: PENICILLIN. MEDICATIONS: Levaquin 500, Cozaar 25, glipizide 5, Colace 100 at home. REVIEW OF SYSTEMS: All systems are reviewed, pertinent positives as mentioned in the history of presenting illness, rest unremarkable. PHYSICAL EXAMINATION: GENERAL: Elderly lady, lying in bed. VITAL SIGNS: Blood pressure 177/85, heart rate 91, respiratory rate 18, temperature 98.3. HEENT: Normocephalic, atraumatic, positive pallor. NECK: Supple, no JVD. LUNGS: Bilateral equal entry, bilaterally equal expansion. CARDIAC: S1 and S2, regular rate rhythm, no murmur, no rub. ABDOMEN: Obese, distended, soft, nontender, bowel sounds present. EXTREMITIES: No lower extremity edema. INTAKE AND OUTPUT: Not charted. LABORATORY DATA: WBC 22.8, hemoglobin 11.6, hematocrit 34, platelets 306, neutrophils 94%, band 1%. Sodium 133, potassium 4, chloride 94, CO2 of 27, BUN 17, creatinine 0.8, glucose 280, calcium 9.3, total bili 1.7. CURRENT MEDICATIONS: 1. Hydralazine 10 mg IV push every 6 p.r.n. systolic blood pressure greater than 160. 2. Carafate. 3. Clonidine 0.1 mg p.o. every 6 p.r.n. 4. Cozaar 100, increased from 50 today. 5. Dilaudid. 6. Insulin. 7. Motrin. 8. Norvasc 5, 9. Protonix 40 every 12, 10. Half normal saline at 80. 11. Tylenol. 12. Zofran. ASSESSMENT: 1. Severe headache. 2. Hypertensive emergency. 3. Leukocytosis with bandemia. 4. ? meningitis. 5. Fxe-yyhmjjq-tttogovpm diabetes mellitus. 6. History of cholangiocarcinoma. 7. Recent chemotherapy with carboplatin and Gemzar. PLAN: 1. Increase losartan to 100 mg daily. 2. Add amlodipine 10 mg daily. 3. Continue 10 mg of hydralazine IV push every 6 hours p.r.n. for blood pressure greater than 160. 4. Continue clonidine p.r.n. 5. ? consider spinal taps. 6. ICU evaluation. Ivone Garcia MD
[2017-11-21] MEDS: HYDROmorphone 0.5 mg/0.5 ml ISec IVP PRN (03:08)
[2017-11-21] MEDS: Nicardipine 20 MG/200 ML 20 MG/200 ML BAG IV PRN (04:12)
[2017-11-21] MEDS ORDERED: Naloxone 0.4 mg/ml Inj (Adult) IVP ONE ×3 (05:13→10:23)
[2017-11-21] MEDS ORDERED: Naloxone 0.4 mg/ml Inj (Adult) IV ONE (05:29)
[2017-11-21] MEDS ORDERED: Naloxone 0.02 mg/ml Inj (Neonatal) IV ONE (05:29)
[2017-11-21 05:40] LABS: ARTERIAL BLOOD GAS HCO3 27.7 mmol/L (21-28); ARTERIAL BLOOD GAS O2 SAT 96.3 % (95-98); ARTERIAL BLOOD GAS PCO2 49 mm/Hg (35-45); ARTERIAL BLOOD GAS PH 7.36 (7.35-7.45); ARTERIAL BLOOD GAS TCO2 29.2 mmol.L (22-28)
[2017-11-21 06:17] LABS: GRAN # 22.28 (1.4-6.5); GRAN % 93.5 % (50.0-68.0); HEMOGLOBIN 11.5 g/dL (12.0-16.0); LYMPH # 0.6 (1.2-3.4); LYMPH % 2.4 % (22.0-35.0); MEAN CELL VOLUME 89.5 fl (80.0-105.0); MEAN CORPUSCULAR HEMOGLOBIN 30.8 pg (25.0-35.0); MEAN CORPUSCULAR HGB CONC 34.4 g/dl (31.0-37.0); MEAN PLATELET VOLUME 9.4 fl (7.0-11.0); MONO % 4.1 % (1.0-6.0); RBC 3.73 10^6/uL (3.5-6.1); RED CELL DISTRIBUTION WIDTH 16.6 % (11.5-14.5); WHITE BLOOD COUNT 23.8 10^3/ul (4.5-11.0)
[2017-11-21] MEDS: Sucralfate 1 gm/10 ml Oral Susp UD PO SCH ×2 (06:24→17:09)
[2017-11-21 06:35] LABS: ALB/GLOB RATIO 1.5 (1.1-1.8); CALCIUM 9.2 mg/dL (8.4-10.5)
[2017-11-21] MEDS ORDERED: Valproate 750 MG in Sodium Chloride 0.9% 100 ML IVPB SCH (07:00)
[2017-11-21 07:31] LABS: URINE BILIRUBIN NEGATIVE (NEGATIVE); URINE BLOOD MODERATE (NEGATIVE); URINE GLUCOSE (UA) >=1000 mg/dL (NEGATIVE); URINE LEUKOCYTE ESTERASE MODERATE Leu/uL (NEGATIVE); URINE PROTEIN 100 mg/dL (<30 mg/dL); URINE UROBILINOGEN 0.2 E.U./dL (<1 E.U./dL)
[2017-11-21 08:02] LABS: URINE APPEARANCE CLOUDY (CLEAR); URINE COLOR YELLOW (YELLOW)
[2017-11-21] MEDS ORDERED: Iohexol 240 (50 ml) ONE (08:09)
[2017-11-21 08:16] LABS: URINE WBC TNTC /hpf (0-6)
[2017-11-21 08:17] LABS: URINE BACTERIA MANY (NEG); URINE EPITHELIAL CELLS 0 - 2 /hpf (0-5); URINE URIC ACID CRYSTALS MOD /hpf
[2017-11-21] MEDS: Insulin Reg-LOW-Coverage SC SCH ×4 (08:23→22:23)
[2017-11-21] MEDS: Meropenem IV 1 gm in NS 50 ML IVPB SCH ×3 (08:32→22:14)
[2017-11-21] MEDS ORDERED: Etomidate 20 mg/10ml Inj IV ONE (08:59)
[2017-11-21] MEDS ORDERED: Sodium Chloride 0.9% 1,000 ML IV STA ×2 (09:07→12:10)
[2017-11-21] MEDS ORDERED: NOREPINEPHRINE BIT/0.9 % NACL 4 MG/250 ML BAG IV ONE ×2 (09:12→13:03)
[2017-11-21] MEDS: NOREPINEPHRINE BIT/0.9 % NACL 4 MG/250 ML BAG IV PRN ×4 (09:12→18:56)
[2017-11-21] MEDS ORDERED: Iohexol 350 MG/100 ML VIAL ONE (09:37)
[2017-11-21] MEDS ORDERED: levETIRAcetam 1,000 MG in Sodium Chloride 0.9% 100 ML IV ONE ×2 (09:41→18:00)
[2017-11-21] MEDS ORDERED: Mannitol 12.5 gm/50 ml Inj IV ONE (09:42)
--- NOTE | 2017-11-21 10:03 | CT ---
Date of service: 11/20/2017 PROCEDURE: CT HEAD WITHOUT CONTRAST. HISTORY: possible stroke COMPARISON: 11/19/2017 CT head. 11/18/2017 MRI brain and MRA head TECHNIQUE: Axial computed tomography images were obtained through the head/brain without intravenous contrast. Coronal and sagittal reconstructed images. Radiation dose: Total exam DLP = 1012.31 mGy-cm. This CT exam was performed using one or more of the following dose reduction techniques: Automated exposure control, adjustment of the mA and/or kV according to patient size, and/or use of iterative reconstruction technique. FINDINGS: HEMORRHAGE: No intracranial hemorrhage. BRAIN: No mass effect or edema. No atrophy or chronic microvascular ischemic changes. VENTRICLES: Unremarkable. No hydrocephalus. CALVARIUM: Unremarkable. PARANASAL SINUSES: Unremarkable as visualized. No significant inflammatory changes. MASTOID AIR CELLS: Unremarkable as visualized. No inflammatory changes. OTHER FINDINGS: None. IMPRESSION: No acute intracranial abnormalities. No significant findings to account for the clinical presentation. No significant interval change compared to the prior examination(s). Concordant results (preliminary interpretation) provided by [employer]. Procedure Completed: 18:03 Preliminary ([facility]) Report: Dictated and Authenticated: 18:13 Final Interpretation: 10:02. November 21, 2017.
--- NOTE | 2017-11-21 10:11 | CT ---
Date of service: 11/21/2017 PROCEDURE: CT HEAD WITH AND WITHOUT CONTRAST HISTORY: r/o stroke COMPARISON: None available. TECHNIQUE: Axial computed tomography images were obtained through the head/brain with and without intravenous contrast enhancement. Contrast dose: 100 cc Omnipaque 350 Radiation dose: Total exam DLP = mGy-cm. This CT exam was performed using one or more of the following dose reduction techniques: Automated exposure control, adjustment of the mA and/or kV according to patient size, and/or use of iterative reconstruction technique. FINDINGS: HEMORRHAGE: No intracranial hemorrhage. BRAIN: No mass, mass effect or edema. No abnormal intracranial enhancement. No atrophy or chronic microvascular ischemic changes. VENTRICLES: Unremarkable. No hydrocephalus. CALVARIUM: Unremarkable. SINUSES: Unremarkable as visualized. No significant inflammatory changes. MASTOID AIR CELLS: Unremarkable as visualized. No mastoid effusion. OTHER FINDINGS: None. IMPRESSION: Normal pre and post contrast enhanced CT of the head. No significant interval change compared to the prior examination(s).
[2017-11-21] MEDS ORDERED: Naloxone 0.4 mg/ml Inj (Adult) ONE (10:25)
--- NOTE | 2017-11-21 10:44 | CP.PCM.PN ---
Subjective - Date & Time of Evaluation Date of Evaluation: 11/21/17 Time of Evaluation: 07:30 - Subjective Subjective: On morning rounds, patient found to be obtunded, unresponsive, FS 330, desaturating pulse ox 80%. Patient was intubated emergently using glidescope (please see procedure note), confirmed with B/L breath sounds, capnography. On exam patient obtunded, non responsive to painful/verbal stimuli, pupils 5mm bilateral fixed, no corneal reflex Seizure, vs Meningitis vs CVA (?brainstem, ?ICH) Patient became hypotensive, SBP 70s, given 2L NS Bolus, placed on Levophed drip. BP improved 120/59 P 100, sinus Patient went down for STAT CT Head with/without contrast MRI Brain to be done Will perform LP once imaging completed. Will start on broad spectrum antibiotics. Case d/w Dr Leyva who spoke to family, and Dr Oh. Will load with Keppra 1g x 1 Will discuss with family Continue to monitor closely Objective - Vital Signs/Intake and Output Vital Signs (last 24 hours): Temp Pulse Resp BP Pulse Ox 98.3 F 123 H 21 152/84 H 100 11/20/17 08:24 11/21/17 09:19 11/21/17 09:12 11/21/17 09:19 11/21/17 09:02 Intake and Output: 11/21/17 11/21/17 06:59 18:59 Intake Total 815 Output Total 800 Balance 15 - Medications Medications: Current Medications Acetaminophen (Tylenol 325mg Tab) 650 mg PO Q4H PRN PRN Reason: Mild pain (1-3) or temp > 100F Last Admin: 11/20/17 13:25 Dose: 650 mg Amlodipine Besylate (Norvasc) 5 mg PO DAILY [facility] Last Admin: 11/20/17 10:57 Dose: 5 mg Clonidine HCl (Catapres) 0.1 mg PO Q6 PRN PRN Reason: Systolic Blood Pressure > 160 Last Admin: 11/20/17 13:24 Dose: 0.1 mg Hydralazine HCl (Apresoline) 10 mg IVP Q6 PRN PRN Reason: for sbp greater than 160 Last Admin: 11/20/17 06:12 Dose: 10 mg Hydromorphone HCl (Dilaudid) 0.5 mg IVP Q4H PRN PRN Reason: Pain, severe (8-10) Last Admin: 11/21/17 03:08 Dose: 0.5 mg Sodium Chloride (Sodium Chloride 0.45%) 1,000 mls @ 80 mls/hr IV .[id number] COUNTS [facility]CLUDE 234 BEDS AT THE [facility] Nicardipine HCl (Cardene Iv Premix) 20 mg in 200 mls @ 50 mls/hr IV .Q4H PRN; Protocol; 5 MG/HR PRN Reason: TITRATE PER MD ORDER Last Titration: 11/21/17 05:00 Dose: 3.5 mg/hr, 35 mls/hr Valproate Sodium 750 mg/ (Sodium Chloride) 107.5 mls @ 100 mls/hr IVPB 0700, 1900 COUNTS INCLUDE 234 BEDS AT THE [facility] Last Admin: 11/21/17 06:07 Dose: 100 mls/hr Potassium Chloride (Potassium Chloride 10 Meq/100 Ml) 10 meq in 100 mls @ 50 mls/hr IVPB Q2H COUNTS INCLUDE 234 BEDS AT THE [facility] Stop: 11/21/17 10:44 Last Admin: 11/21/17 08:31 Dose: 50 mls/hr Meropenem (Merrem Iv 1 Gm Premix) 50 mls @ 100 mls/hr IVPB Q8 [facility] PRN Reason: Protocol Stop: 11/30/17 08:05 Last Admin: 11/21/17 08:32 Dose: 100 mls/hr Vancomycin HCl (Vancomycin 1gm) 1 gm in 250 mls @ 167 mls/hr IVPB DAILY [facility] PRN Reason: Protocol Stop: 11/30/17 10:01 Ibuprofen (Motrin Tab) 600 mg PO Q8H PRN PRN Reason: Pain, moderate (4-7) Last Admin: 11/20/17 10:44 Dose: 600 mg Insulin Human Regular (Humulin R Low) 0 units SC ACHS [facility] PRN Reason: Protocol Last Admin: 11/21/17 08:23 Dose: 4 units Losartan Potassium (Cozaar) 100 mg PO DAILY [facility]S [facility]CLUDE 234 BEDS AT [facility] Ondansetron HCl (Zofran Inj) 4 mg IVP Q8H PRN PRN Reason: Nausea/Vomiting Last Admin: 11/20/17 15:00 Dose: 4 mg Pantoprazole Sodium (Protonix Inj) 40 mg IVP Q12 [facility] Last Admin: 11/20/17 21:35 Dose: 40 mg Sucralfate (Carafate Oral Susp) 1 gm PO 0600,1600 [facility] Last Admin: 11/21/17 06:24 Dose: Not Given - Labs Labs: 11/21/17 06:00 11/21/17 06:00 PT 11.6 SECONDS (9.4-12.5) 11/20/17 14:40 INR 1.02 (0.93-1.08) 11/20/17 14:40 APTT 32.8 Seconds (25.1-36.5) 11/20/17 14:40
--- NOTE | 2017-11-21 10:44 | PCM.PROC ---
Procedures Attestation:: I certify that I have explained the specified Operation(s) or Procedure(s), risks, benefits and reasonable alternatives to the Patient and/or other person responsible. The opportunity was given to ask questions and all questions answered - Intubation Time Out Performed: Yes Sedative: None Laryngoscope: Glidescope ET Tube Size: 7.5 ET Tube Secured at Depth: 23 ET Tube Secured Locarion: Teeth ET Tube Placement Confirmation: Visualized Passing Through Cords, Breath Sounds Equal Bilaterally, No Breath Sounds Over Epigastrum, Confirmation w/Capnometry Patient Tolerated Procedure: Well Procedure Immediate Complications: None
[2017-11-21] MEDS ORDERED: Gadodiamide 287 MG/ML VIAL (15ML) IV ONE (10:53)
--- NOTE | 2017-11-21 11:02 | RAD ---
Date of service: 11/21/2017 HISTORY: s/p intubated; check ET tube COMPARISON: No prior. FINDINGS: LUNGS: No active pulmonary disease. PLEURA: No significant pleural effusion identified, no pneumothorax apparent. CARDIOVASCULAR: No radiographic findings to suggest acute or significant cardiovascular disease. Venous access catheter in satisfactory position. OSSEOUS STRUCTURES: No significant abnormalities. VISUALIZED UPPER ABDOMEN: Normal. OTHER FINDINGS: Satisfactory position of recently placed endotracheal tube. IMPRESSION: No active pulmonary disease. Satisfactory position of support apparatus.
[2017-11-21] MEDS ORDERED: Midazolam 100 mg/100ml in NS 100 MG/100 ML SOL IV PRN (12:11)
--- NOTE | 2017-11-21 12:18 | PN ---
DATE: 11/21/2017 SUBJECTIVE: The patient is seen this morning. The patient was transferred to the unit yesterday. This morning, I am unable to speak to the patient. The patient was awake and alert yesterday; in fact, nurse states that the patient was awake and alert earlier today. She was given Dilaudid for pain and nurse states that the patient was completely awake and alert until up to the time that Dilaudid was given. At this time, I am unable to awake the patient. She is not arousable this morning. I had a discussion with the nurse. The nurse states that the patient was completely awake and alert before the Dilaudid. PHYSICAL EXAMINATION: VITAL SIGNS: On exam, temperature is 98, blood pressure is 170/60, respiratory rate of 18, heart rate of 102. HEENT: Examination is unremarkable. NECK: Supple. LUNGS: Have decreased breath sounds. HEART: Normal S1, S2. ABDOMEN: Soft, nontender. DATA: Laboratory examination reveals the white count of 23,800, hemoglobin 11, platelets of 280. The patient has 93% granulocytes and no bandemia. Coagulation is noted. BUN of 29, creatinine of 1.1. Procalcitonin is less than 0.05. Microbiology reveals the blood cultures are negative. Review of orders reveals the patient to be off of antibiotics. The patient is scheduled for MRI of the brain with contrast. The patient had a cervical spine CAT scan on 11/19/2017. As noted, the patient also had a CAT scan of the head on 11/19/2017, which is normal. The patient had an MRI of the brain on 11/18/2017 without any contrast, which was negative. Dr. Oh's progress note from yesterday is reviewed and Dr. Oh states in brief that the patient has cholangiocarcinoma, diabetes, severe migraine history, cervical disk disease, however, she has been afebrile, hypertensive. She the patient's hypertension is most likely secondary to pain and with leukocytosis. ASSESSMENT AND PLAN: This is a 67-year-old female with history of cholangiocarcinoma, status post subtotal cholecystectomy with diabetes mellitus, hypertension, nephrolithiasis, obesity and was admitted with systemic inflammatory response syndrome, headaches may be secondary to migraine headache since she has a history of migraine headaches, however, the leukocytosis is not accounted for. Thus far, the blood cultures are negative. Urine cultures are pending and we do need a spinal tap, we will discuss with Oncology, had extensive discussion with Dr. Leyva yesterday. I have ordered a serum cryptococcal antigen. We will check on the final blood cultures. The urine cultures are pending and review of previous admission reveals the patient had a CAT scan of the abdomen and pelvis on 08/05/2017. This showed a calculous obstruction in distal ureter gallbladder, partially calcified and sludge. The patient had the surgery on 09/08/2017, insertion of a venous port and the patient had surgery by Dr. Milagros Buenrostro, cystoscopy and removal of ureteral stent and also had robotic subtotal cholecystectomy done on 08/06/2017. We will order a CAT scan of the abdomen and pelvis, agree with a spinal tap. If unable to do, would recommend Interventional Radiology-guided spinal tap. Initial blood cultures are negative. We will give a dose of vancomycin. The patient has had renal insufficiency in the past and start meropenem and check on the cryptococcal antigen. We will make further recommendations, pending initial workup results. Since the patient is compromised, the patient's presentation may vary both for sepsis and meningitis and central nervous system involvement, must rule out opportunistic infections. We will follow with you. Ike Ramirez MD
[2017-11-21 12:22] LABS: ARTERIAL BLOOD GAS HCO3 18.4 mmol/L (21-28); ARTERIAL BLOOD GAS HEMOGLOBIN 10.6 g/dL (11.7-17.4); ARTERIAL BLOOD GAS O2 CAPACITY 15.5 mL/dl (16-24); ARTERIAL BLOOD GAS O2 CONTENT 15.2 ML/dl (15-23); ARTERIAL BLOOD GAS O2 SAT 98.1 % (95-98); ARTERIAL BLOOD GAS PCO2 23 mm/Hg (35-45); ARTERIAL BLOOD GAS PH 7.51 (7.35-7.45); ARTERIAL BLOOD GAS TCO2 19.1 mmol.L (22-28)
--- NOTE | 2017-11-21 13:14 | CP.PCM.PN ---
<Flaca Leon - Last Filed: 11/21/17 13:15> Subjective - Date & Time of Evaluation Date of Evaluation: 11/21/17 Time of Evaluation: 07:30 - Subjective Subjective: PGY5 GI Follow-up Pt seen and examined bedside obtunded transfered to ICU overnight for uncontrolled HTN and AMS ROS: could not be conducted 2/2 AMS Objective - Vital Signs/Intake and Output Vital Signs (last 24 hours): Temp Pulse Resp BP Pulse Ox 98.3 F 86 21 152/84 H 100 11/20/17 08:24 11/21/17 09:30 11/21/17 09:12 11/21/17 09:19 11/21/17 09:02 Intake and Output: 11/21/17 11/21/17 06:59 18:59 Intake Total 815 140 Output Total 800 Balance 15 140 - Medications Medications: Current Medications Acetaminophen (Tylenol 325mg Tab) 650 mg PO Q4H PRN PRN Reason: Mild pain (1-3) or temp > 100F Last Admin: 11/20/17 13:25 Dose: 650 mg Amlodipine Besylate (Norvasc) 5 mg PO DAILY [facility] Last Admin: 11/20/17 10:57 Dose: 5 mg Clonidine HCl (Catapres) 0.1 mg PO Q6 PRN PRN Reason: Systolic Blood Pressure > 160 Last Admin: 11/20/17 13:24 Dose: 0.1 mg Hydralazine HCl (Apresoline) 10 mg IVP Q6 PRN PRN Reason: for sbp greater than 160 Last Admin: 11/20/17 06:12 Dose: 10 mg Hydromorphone HCl (Dilaudid) 0.5 mg IVP Q4H PRN PRN Reason: Pain, severe (8-10) Last Admin: 11/21/17 03:08 Dose: 0.5 mg Sodium Chloride (Sodium Chloride 0.45%) 1,000 mls @ 80 mls/hr IV .[id number] [facility] Nicardipine HCl (Cardene Iv Premix) 20 mg in 200 mls @ 50 mls/hr IV .Q4H PRN; Protocol; 5 MG/HR PRN Reason: TITRATE PER MD ORDER Last Titration: 11/21/17 09:00 Dose: 0 mg/hr, 0 mls/hr Valproate Sodium 750 mg/ (Sodium Chloride) 107.5 mls @ 100 mls/hr IVPB 0700, 1900 [facility] Last Admin: 11/21/17 06:07 Dose: 100 mls/hr Meropenem (Merrem Iv 1 Gm Premix) 50 mls @ 100 mls/hr IVPB Q8 [facility] PRN Reason: Protocol Stop: 11/30/17 08:05 Last Admin: 11/21/17 08:32 Dose: 100 mls/hr Vancomycin HCl (Vancomycin 1gm) 1 gm in 250 mls @ 167 mls/hr IVPB DAILY [facility] PRN Reason: Protocol Stop: 11/30/17 10:01 Midazolam 100 mg/100ml in NS (Midazolam 100 Mg/100ml In Ns) 100 mg in 100 mls @ 1 mls/hr IV .Q24H PRN; Protocol; 1 MG/HR PRN Reason: Seizure activity Ibuprofen (Motrin Tab) 600 mg PO Q8H PRN PRN Reason: Pain, moderate (4-7) Last Admin: 11/20/17 10:44 Dose: 600 mg Insulin Human Regular (Humulin R Low) 0 units SC ACHS [facility] PRN Reason: Protocol Last Admin: 11/21/17 08:23 Dose: 4 units Losartan Potassium (Cozaar) 100 mg PO DAILY [facility] Last Admin: 11/21/17 11:16 Dose: Not Given Ondansetron HCl (Zofran Inj) 4 mg IVP Q8H PRN PRN Reason: Nausea/Vomiting Last Admin: 11/20/17 15:00 Dose: 4 mg Pantoprazole Sodium (Protonix Inj) 40 mg IVP Q12 [facility] Last Admin: 11/20/17 21:35 Dose: 40 mg Sucralfate (Carafate Oral Susp) 1 gm PO 0600,1600 [facility] Last Admin: 11/21/17 06:24 Dose: Not Given - Labs Labs: 11/21/17 06:00 11/21/17 06:00 PT 11.6 SECONDS (9.4-12.5) 11/20/17 14:40 INR 1.02 (0.93-1.08) 11/20/17 14:40 APTT 32.8 Seconds (25.1-36.5) 11/20/17 14:40 - Constitutional Appears: No Acute Distress - Head Exam Head Exam: ATRAUMATIC, NORMOCEPHALIC - Eye Exam Eye Exam: Normal appearance - ENT Exam ENT Exam: Mucous Membranes Moist, Normal Exam - Neck Exam Neck Exam: Normal Inspection. absent: Tenderness - Respiratory Exam Respiratory Exam: Clear to Ausculation Bilateral, NORMAL BREATHING PATTERN. absent: Prolonged Expiratory Phase, Rales, Rhonchi, Wheezes, Respiratory Distress - Cardiovascular Exam Cardiovascular Exam: REGULAR RHYTHM, +S1, +S2 - GI/Abdominal Exam GI & Abdominal Exam: Soft, Normal Bowel Sounds. absent: Distended, Firm, Guarding, Rigid, Tenderness, Organomegaly, Rebound - Extremities Exam Extremities Exam: absent: Joint Swelling - Neurological Exam Neurological Exam: Altered - Psychiatric Exam Additional comments: could not assess 2/2 AMS - Skin Skin Exam: Dry, Intact, Normal Color, Warm Assessment and Plan - Assessment and Plan (Free Text) Assessment: Severe headache with N/V, differential to consider is esophagitis/gastritis ( improved) AMS, 2/2 narcotics? 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 Seen and discussed w/ Dr. Martinez. <Florecita Martinez V - Last Filed: 11/21/17 18:19> Objective - Vital Signs/Intake and Output Vital Signs (last 24 hours): Temp Pulse Resp BP Pulse Ox 97 F L 125 H 16 133/75 94 L 11/21/17 18:00 11/21/17 17:20 11/21/17 17:20 11/21/17 17:20 11/21/17 17:20 Intake and Output: 11/21/17 11/21/17 06:59 18:59 Intake Total 815 640 Output Total 800 Balance 15 640 - Medications Medications: Current Medications Acetaminophen (Tylenol 325mg Tab) 650 mg PO Q4H PRN PRN Reason: Mild pain (1-3) or temp > 100F Last Admin: 11/20/17 13:25 Dose: 650 mg Amlodipine Besylate (Norvasc) 5 mg PO DAILY [facility] Last Admin: 11/21/17 14:26 Dose: Not Given Clonidine HCl (Catapres) 0.1 mg PO Q6 PRN PRN Reason: Systolic Blood Pressure > 160 Last Admin: 11/20/17 13:24 Dose: 0.1 mg Hydralazine HCl (Apresoline) 10 mg IVP Q6 PRN PRN Reason: for sbp greater than 160 Last Admin: 11/20/17 06:12 Dose: 10 mg Hydromorphone HCl (Dilaudid) 0.5 mg IVP Q4H PRN PRN Reason: Pain, severe (8-10) Last Admin: 11/21/17 03:08 Dose: 0.5 mg Sodium Chloride (Sodium Chloride 0.45%) 1,000 mls @ 80 mls/hr IV .[id number] [facility] Nicardipine HCl (Cardene Iv Premix) 20 mg in 200 mls @ 50 mls/hr IV .Q4H PRN; Protocol; 5 MG/HR PRN Reason: TITRATE PER MD ORDER Last Titration: 11/21/17 09:00 Dose: 0 mg/hr, 0 mls/hr Meropenem (Merrem Iv 1 Gm Premix) 50 mls @ 100 mls/hr IVPB Q8 [facility] PRN Reason: Protocol Stop: 11/30/17 08:05 Last Admin: 11/21/17 15:42 Dose: 100 mls/hr Vancomycin HCl (Vancomycin 1gm) 1 gm in 250 mls @ 167 mls/hr IVPB DAILY [facility] PRN Reason: Protocol Stop: 11/30/17 10:01 Last Admin: 11/21/17 14:28 Dose: 167 mls/hr Midazolam 100 mg/100ml in NS (Midazolam 100 Mg/100ml In Ns) 100 mg in 100 mls @ 1 mls/hr IV .Q24H PRN; Protocol; 1 MG/HR PRN Reason: Seizure activity Last Admin: 11/21/17 13:51 Dose: 1 mg/hr, 1 mls/hr NOREPINEPHRINE BIT/0.9 % NACL (Levophed 4 Mg/ 250 Ml Ns Premixed) 4 mg in 250 mls @ 15 mls/hr IV .[id number] PRN; Protocol; 4 MCG/MIN PRN Reason: TITRATE PER MD ORDER Last Admin: 11/21/17 16:00 Dose: 25 mcg/min, 93.75 mls/hr Acyclovir 750 mg/ Sodium (Chloride) 100 mls @ 100 mls/hr IV Q12 [facility] PRN Reason: Protocol Last Admin: 11/21/17 17:13 Dose: 100 mls/hr Valproate Sodium 1,000 mg/ (Sodium Chloride) 110 mls @ 100 mls/hr IVPB 0700, 1900 [facility] Ibuprofen (Motrin Tab) 600 mg PO Q8H PRN PRN Reason: Pain, moderate (4-7) Last Admin: 11/20/17 10:44 Dose: 600 mg Insulin Human Regular (Humulin R Low) 0 units SC ACHS [facility] PRN Reason: Protocol Last Admin: 11/21/17 14:48 Dose: 3 units Losartan Potassium (Cozaar) 100 mg PO DAILY [facility] Last Admin: 11/21/17 11:16 Dose: Not Given Mannitol (Mannitol) 25 gm IV Q12 [facility] Ondansetron HCl (Zofran Inj) 4 mg IVP Q8H PRN PRN Reason: Nausea/Vomiting Last Admin: 11/20/17 15:00 Dose: 4 mg Pantoprazole Sodium (Protonix Inj) 40 mg IVP Q12 [facility] Last Admin: 11/21/17 14:25 Dose: 40 mg Sucralfate (Carafate Oral Susp) 1 gm PO 0600,1600 [facility] Last Admin: 11/21/17 17:09 Dose: Not Given - Labs Labs: 11/21/17 06:00 11/21/17 06:00 PT 11.6 SECONDS (9.4-12.5) 11/20/17 14:40 INR 1.02 (0.93-1.08) 11/20/17 14:40 APTT 32.8 Seconds (25.1-36.5) 11/20/17 14:40 Attending/Attestation - Attestation I have personally seen and examined this patient.: Yes I have fully participated in the care of the patient.: Yes I have reviewed all pertinent clinical information, including history, physical exam and plan: Yes Notes (Text): This is an addendum to GI progress report dictated by the GI Fellow.The patient was seen and examined earlier. Medical records, lab studies, imagings were reviewed. Last 24 hours events reviewed. Agreed with the above treatment plan as outlined in GI Fellow 's notes the with the addition of the following Previous events noted ICU care in neurological follow-up Nausea probably secondary to neurological etiology However we will continue IV Protonix in view of the possible PUD ER esophagitis secondary to status post chemo Avoid Reglan 11/21/17 18:17
--- NOTE | 2017-11-21 13:41 | CP.PCM.PN ---
Subjective - Date & Time of Evaluation Date of Evaluation: 11/21/17 Time of Evaluation: 12:30 - Subjective Subjective: Josse was responsive and following commands with some lethargy at 8:20 am, and then at 9 am, she was found to have fixed and dilated pupils with no brainstem reflexes. MRI with haydee was done immediately and 1 gm keppra IV, mannitol weight based, and ativan was ordered. At 12:30 pm, MRI haydee results showed that the patient has meningoencephaitis with cerebral edema, compared to initial MRI brain that did not show this finding. Of note, patient and family refused MRI brain repeatedly yesterday. LP was attempted and it was not able to be done to habitus and djd. Patient is now intubated, on versed drip, on keppra 1000 mg iv and mannitol about 200 grams iv stat. Transfer has been arranged to [facility] for continous video EEG monitoring, and ICP monitoring. DR rust and DR montilla epileptologist are accepting physicians. Plan discussed with family. on exam: Pupils 6mm fixed and dilated. no corneals, no gag, no spontaneous movement. prognosis: poor. dr dickens Objective - Vital Signs/Intake and Output Vital Signs (last 24 hours): Temp Pulse Resp BP Pulse Ox 98.3 F 86 21 152/84 H 100 11/20/17 08:24 11/21/17 09:30 11/21/17 09:12 11/21/17 09:19 11/21/17 09:02 Intake and Output: 11/21/17 11/21/17 06:59 18:59 Intake Total 815 140 Output Total 800 Balance 15 140 - Medications Medications: Current Medications Acetaminophen (Tylenol 325mg Tab) 650 mg PO Q4H PRN PRN Reason: Mild pain (1-3) or temp > 100F Last Admin: 11/20/17 13:25 Dose: 650 mg Amlodipine Besylate (Norvasc) 5 mg PO DAILY [facility] Last Admin: 11/20/17 10:57 Dose: 5 mg Clonidine HCl (Catapres) 0.1 mg PO Q6 PRN PRN Reason: Systolic Blood Pressure > 160 Last Admin: 11/20/17 13:24 Dose: 0.1 mg Hydralazine HCl (Apresoline) 10 mg IVP Q6 PRN PRN Reason: for sbp greater than 160 Last Admin: 11/20/17 06:12 Dose: 10 mg Hydromorphone HCl (Dilaudid) 0.5 mg IVP Q4H PRN PRN Reason: Pain, severe (8-10) Last Admin: 11/21/17 03:08 Dose: 0.5 mg Sodium Chloride (Sodium Chloride 0.45%) 1,000 mls @ 80 mls/hr IV .[id number] [facility] Nicardipine HCl (Cardene Iv Premix) 20 mg in 200 mls @ 50 mls/hr IV .Q4H PRN; Protocol; 5 MG/HR PRN Reason: TITRATE PER MD ORDER Last Titration: 11/21/17 09:00 Dose: 0 mg/hr, 0 mls/hr Valproate Sodium 750 mg/ (Sodium Chloride) 107.5 mls @ 100 mls/hr IVPB 0700, 1900 [facility] Last Admin: 11/21/17 06:07 Dose: 100 mls/hr Meropenem (Merrem Iv 1 Gm Premix) 50 mls @ 100 mls/hr IVPB Q8 [facility] PRN Reason: Protocol Stop: 11/30/17 08:05 Last Admin: 11/21/17 08:32 Dose: 100 mls/hr Vancomycin HCl (Vancomycin 1gm) 1 gm in 250 mls @ 167 mls/hr IVPB DAILY [facility] PRN Reason: Protocol Stop: 11/30/17 10:01 Sodium Chloride (Sodium Chloride 0.9%) 1,000 mls @ 999 mls/hr IV .Q1H1M [facility] Stop: 11/21/17 13:10 Midazolam 100 mg/100ml in NS (Midazolam 100 Mg/100ml In Ns) 100 mg in 100 mls @ 1 mls/hr IV .Q24H PRN; Protocol; 1 MG/HR PRN Reason: Seizure activity Ibuprofen (Motrin Tab) 600 mg PO Q8H PRN PRN Reason: Pain, moderate (4-7) Last Admin: 11/20/17 10:44 Dose: 600 mg Insulin Human Regular (Humulin R Low) 0 units SC ACHS [facility] PRN Reason: Protocol Last Admin: 11/21/17 08:23 Dose: 4 units Losartan Potassium (Cozaar) 100 mg PO DAILY [facility] Last Admin: 11/21/17 11:16 Dose: Not Given Ondansetron HCl (Zofran Inj) 4 mg IVP Q8H PRN PRN Reason: Nausea/Vomiting Last Admin: 11/20/17 15:00 Dose: 4 mg Pantoprazole Sodium (Protonix Inj) 40 mg IVP Q12 [facility] Last Admin: 11/20/17 21:35 Dose: 40 mg Sucralfate (Carafate Oral Susp) 1 gm PO 0600,1600 [facility] Last Admin: 11/21/17 06:24 Dose: Not Given - Labs Labs: 11/21/17 06:00 11/21/17 06:00 PT 11.6 SECONDS (9.4-12.5) 11/20/17 14:40 INR 1.02 (0.93-1.08) 11/20/17 14:40 APTT 32.8 Seconds (25.1-36.5) 11/20/17 14:40
--- NOTE | 2017-11-21 13:43 | MRI ---
Date of service: 11/21/2017 PROCEDURE: MRI BRAIN WITH AND WITHOUT CONTRAST HISTORY: Headache COMPARISON: None. TECHNIQUE: Multiplanar, multisequence MR images of the brain were obtained with and without intravenous contrast enhancement. FINDINGS: HEMORRHAGE: None DWI: No evidence of an acute or early subacute infarction. BRAIN PARENCHYMA: No mass,mass effect or edema. No atrophy or chronic microvascular ischemic changes. ENHANCEMENT: No abnormal intracranial enhancement. VENTRICLES: Unremarkable. No hydrocephalus. CRANIUM: Unremarkable. ORBITS: Grossly unremarkable. PARANASAL SINUSES/MASTOIDS: Clear VASCULAR SYSTEM: Skull base flow voids intact. OTHER FINDINGS: None . IMPRESSION: Unremarkable pre and post contrast enhanced MRI of the brain.
[2017-11-21] MEDS ORDERED: NOREPINEPHRINE BIT/0.9 % NACL 4 MG/250 ML BAG IV PRN (13:45)
--- NOTE | 2017-11-21 14:03 | PN ---
DATE: 11/21/2017 SUBJECTIVE: The patient is seen in the ICU, she is on mechanical ventilation. Events of early this morning are noted. The patient was found to be unresponsive this morning. She had received Dilaudid for pain prior to that. Subsequently, she was unresponsive. Subsequently, the patient was intubated. The patient had been transferred to the ICU yesterday because of hypertensive emergency. The patient was started on a Cardizem drip. Overnight, the blood pressure has been very labile. Pressure was 177/85 at the time of initial consultation. The patient was sent to the ICU. She was started on a Cardizem drip. Early this morning, pressure dropped to 106/60 and it went as low as 60/32. The patient has remained afebrile. Her WBC count has risen to 24,000 from 14,000 at initial presentation. She is currently undergoing a spinal tap. The thought is that she has meningoencephalitis. PHYSICAL EXAMINATION: GENERAL: Obese elderly lady lying in bed on mechanical ventilation. VITAL SIGNS: Blood pressure 152/84, heart rate 123, respiratory rate 20-21, temperature 98.3. HEENT: Normocephalic, atraumatic, pupils fixed, not reactive to light. NECK: Supple, no JVD. LUNGS: Bilateral equal air entry, bilateral equal expansion, no rales appreciated. CARDIAC: S1 and S2, regular rate and rhythm, no murmur, no rub. ABDOMEN: Obese, distended, soft, nontender, bowel sounds present. EXTREMITIES: No lower extremity edema. INTAKE AND OUTPUT: 865/800. LABORATORY DATA: WBC 24, hemoglobin 11.5, hematocrit 33, platelets 280. Sodium 130, potassium 3.4, chloride 90, CO2 of 23, BUN 29, creatinine 1.1, glucose 368, calcium 9.2, phosphorus 3.7, magnesium 1.9, total bili 1.7, ammonia less than 9, albumin is 4. Urinalysis: Yellow, cloudy, pH 6, specific gravity greater than 1.030, protein 100, glucose greater than 1000, blood moderate, leukocyte esterase moderate. CT scan of the cervical spine: No acute findings. MRI of the brain from 11/18/2017 showed no acute infarction or intracranial hemorrhage, no evidence of mass lesion or midline shift. CT of the head from yesterday: No acute intracranial abnormalities. CT of the head from this morning: Normal pre and postcontrast enhanced CT. No significant interval change. CURRENT MEDICATIONS: Carafate 5 mg/hour, Catapres, Cozaar 100 not given today, Dilaudid 0.5 given at 03:00 a.m., Merrem 1 g every 8, ibuprofen, valproate 750 given at 06:00 a.m., Zofran. 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 Leyva's office because of elevated blood pressure. The patient was found to have hypertensive urgency. The patient was transferred to the Intensive Care Unit yesterday because of severe hypertension, hypertensive emergency. The patient was started on IV Cardene. Subsequently, the patient was thought to have seizures. This morning, the patient received a dose of Dilaudid at 03:00 a.m. After that, she became unresponsive?, obtunded. She was intubated. She became hypotensive. Her WBC count has risen from 14,000 to 24,000. Multiple imaging from the brain has shown no intracranial abnormalities. At this time, she appears to be In shock. Suspicion is meningoencephalitis. Spinal tap was done. The patient is being followed by ID and Neurology. She remains on a Cardene drip. Blood pressure is improved. At this time, continue Cardene. Continue antibiotics to cover for meningoencephalitis. Continue to monitor in the ICU. The patient remains critically ill. Case is discussed with Dr. Leyva, Dr. Oh and Dr. Sidhu. More than 35 minutes spent in the care of this critically ill patient. Ivone Garica MD
[2017-11-21] MEDS: Vancomycin 1gm in NS 250ml 1 GM/250 ML BAG IVPB SCH (14:28)
--- NOTE | 2017-11-21 15:51 | CP.PCM.PN ---
Subjective - Date & Time of Evaluation Date of Evaluation: 11/21/17 Time of Evaluation: 08:40 - Subjective Subjective: Patient seen and examined. On initial examination today patient was obtunded, non responsive to painful, intubated for airway protection. Patient then had CT brain with and without contrast which was rnomal, MRI brain showed meningeoencephalitis Multiple attempts at LP was attempted with no success 2/2 body habitus and djd Neurlogy, ID following Dr Leyva informed family of updates Objective - Vital Signs/Intake and Output Vital Signs (last 24 hours): Temp Pulse Resp BP Pulse Ox 98.3 F 86 20 152/84 H 100 11/20/17 08:24 11/21/17 09:30 11/21/17 09:30 11/21/17 09:19 11/21/17 09:30 Intake and Output: 11/21/17 11/21/17 06:59 18:59 Intake Total 815 140 Output Total 800 Balance 15 140 - Medications Medications: Current Medications Acetaminophen (Tylenol 325mg Tab) 650 mg PO Q4H PRN PRN Reason: Mild pain (1-3) or temp > 100F Last Admin: 11/20/17 13:25 Dose: 650 mg Amlodipine Besylate (Norvasc) 5 mg PO DAILY [facility] Last Admin: 11/21/17 14:26 Dose: Not Given Clonidine HCl (Catapres) 0.1 mg PO Q6 PRN PRN Reason: Systolic Blood Pressure > 160 Last Admin: 11/20/17 13:24 Dose: 0.1 mg Hydralazine HCl (Apresoline) 10 mg IVP Q6 PRN PRN Reason: for sbp greater than 160 Last Admin: 11/20/17 06:12 Dose: 10 mg Hydromorphone HCl (Dilaudid) 0.5 mg IVP Q4H PRN PRN Reason: Pain, severe (8-10) Last Admin: 11/21/17 03:08 Dose: 0.5 mg Sodium Chloride (Sodium Chloride 0.45%) 1,000 mls @ 80 mls/hr IV .[id number] [facility] Nicardipine HCl (Cardene Iv Premix) 20 mg in 200 mls @ 50 mls/hr IV .Q4H PRN; Protocol; 5 MG/HR PRN Reason: TITRATE PER MD ORDER Last Titration: 11/21/17 09:00 Dose: 0 mg/hr, 0 mls/hr Valproate Sodium 750 mg/ (Sodium Chloride) 107.5 mls @ 100 mls/hr IVPB 0700, 1900 [facility] Last Admin: 11/21/17 06:07 Dose: 100 mls/hr Meropenem (Merrem Iv 1 Gm Premix) 50 mls @ 100 mls/hr IVPB Q8 [facility] PRN Reason: Protocol Stop: 11/30/17 08:05 Last Admin: 11/21/17 08:32 Dose: 100 mls/hr Vancomycin HCl (Vancomycin 1gm) 1 gm in 250 mls @ 167 mls/hr IVPB DAILY [facility] PRN Reason: Protocol Stop: 11/30/17 10:01 Last Admin: 11/21/17 14:28 Dose: 167 mls/hr Midazolam 100 mg/100ml in NS (Midazolam 100 Mg/100ml In Ns) 100 mg in 100 mls @ 1 mls/hr IV .Q24H PRN; Protocol; 1 MG/HR PRN Reason: Seizure activity Last Admin: 11/21/17 13:51 Dose: 1 mg/hr, 1 mls/hr NOREPINEPHRINE BIT/0.9 % NACL (Levophed 4 Mg/ 250 Ml Ns Premixed) 4 mg in 250 mls @ 15 mls/hr IV .[id number] PRN; Protocol; 4 MCG/MIN PRN Reason: TITRATE PER MD ORDER Last Admin: 11/21/17 09:12 Dose: 4 mcg/min, 15 mls/hr Ibuprofen (Motrin Tab) 600 mg PO Q8H PRN PRN Reason: Pain, moderate (4-7) Last Admin: 11/20/17 10:44 Dose: 600 mg Insulin Human Regular (Humulin R Low) 0 units SC ACHS [facility] PRN Reason: Protocol Last Admin: 11/21/17 14:48 Dose: 3 units Losartan Potassium (Cozaar) 100 mg PO DAILY [facility] Last Admin: 11/21/17 11:16 Dose: Not Given Ondansetron HCl (Zofran Inj) 4 mg IVP Q8H PRN PRN Reason: Nausea/Vomiting Last Admin: 11/20/17 15:00 Dose: 4 mg Pantoprazole Sodium (Protonix Inj) 40 mg IVP Q12 [facility] Last Admin: 11/21/17 14:25 Dose: 40 mg Sucralfate (Carafate Oral Susp) 1 gm PO 0600,1600 [facility] Last Admin: 11/21/17 06:24 Dose: Not Given - Labs Labs: 11/21/17 06:00 11/21/17 06:00 PT 11.6 SECONDS (9.4-12.5) 11/20/17 14:40 INR 1.02 (0.93-1.08) 11/20/17 14:40 APTT 32.8 Seconds (25.1-36.5) 11/20/17 14:40 - Constitutional Appears: No Acute Distress - Head Exam Head Exam: NORMAL INSPECTION - Eye Exam Pupil Exam: Fixed Additional comments: dilated - ENT Exam ENT Exam: Mucous Membranes Moist - Respiratory Exam Respiratory Exam: Clear to Ausculation Bilateral, NORMAL BREATHING PATTERN - Cardiovascular Exam Cardiovascular Exam: REGULAR RHYTHM, +S1, +S2 - GI/Abdominal Exam GI & Abdominal Exam: Soft, Normal Bowel Sounds - Neurological Exam Neurological Exam: Altered Additional comments: pupils fixed dilated 6mm bilateral no response to verbal painful stimuli reflexes absent bilateral no gag reflex Assessment and Plan - Assessment and Plan (Free Text) Assessment: 67yo female a/w respiratory failure, headache, meningeoencephalitis [place] AMS Coma Meningeoencephalitis Hx of Cholang[place] Respiratory failure Recommend: - cont with vent support, low tidal ventilation, check daily abg, cxr - Abx Merrem, Vanco, Acyclovir - LP by IR - Check procal - BCx, UCx - ID follow up - VEEG, continuous - Neurology follow up - Tylor Marte Depakote - mannitol about 200 grams iv stat - monitor LFTs - FS control - GI ppx - DVT ppx - Patient to be transferred to [facility] patient at high risk for morbidity and mortality critical care time 60 minutes
--- NOTE | 2017-11-21 16:59 | CON ---
DATE: 11/21/2017 NEUROLOGICAL CONSULTATION - SECOND OPINION ATTENDING PHYSICIAN: Ronna Leyva MD. LOCATION: The patient's room number, ICU bed 7. Second opinion for neurology because of worsening neuro status. HISTORY OF PRESENT ILLNESS: The patient was admitted on 11/18/2017 with history of progressive headache 3 days prior to the admission. From the history, the patient was stated 10/10 scale headache presenting over her occipital region with tinnitus versus hissing sound in her both ears. The patient also stated with nausea, vomiting associating with losing balance at the time of admission. The patient was recently diagnosed gallbladder poorly differentiated tumor, being operated and chemotherapy was given (cisplatin and Gemzar). Following admission, because of her headache, the patient was seen by neurologist, Dr. Oh and symptomatically treated her with hydration, Depakote and antinausea medication. The patient was found to have significant blood pressure and the patient was given Cardizem drip to bring down the blood pressure. In spite of the treatment, the patient was not getting better. The patient was also sent for MRI of the brain, MR angiogram and CAT scan was done. All reports were showing unremarkable findings, which substantially showed any cause for her current problem. The patient was advised to have a spinal tap at this point as per Dr. Oh's statement and documentation. The patient was refused. The patient also advised to have MRI of the brain with contrast. Because of renal impairment, that was not performed. Because the blood pressure was high and persistent headache, I was called in to see her to give a second opinion for further management. This morning, the patient found to be unresponsive with pupils were dilated and fixed. The patient was brought in, immediate attention done, electively intubated without any anesthesia. Later, her blood pressure was substantially dropped down and the patient required Levophed to bring up her blood pressure. The patient did have some twitching movements and rolling eyes been documented and witnessed by the nurse and the patient was given Keppra in addition to Depakote considering the probable diagnosis of seizures. The patient was sent down for further evaluation of MRI of the brain with and without Gadolinium. PAST MEDICAL HISTORY: Poorly-controlled [id number] diabetes mellitus; hypertension; gallbladder cancer, status post cholecystectomy and chemotherapy. PERSONAL HISTORY: Denies smoking or alcohol use. ALLERGIES: PENICILLIN. REVIEW OF SYSTEMS: A 12-point systems had been reviewed. From neuro, change in mental status with headache. CURRENT MEDICATIONS: Levophed, insulin, meropenem, midazolam, ibuprofen, amlodipine, pantoprazole, acetaminophen, Depakote, vancomycin and Zofran. PHYSICAL EXAMINATION: VITAL SIGNS: Her current vital signs; BP 102/84, respiration under ventilation, the patient has normal temperature. NECK: Supple. No Brudzinski sign. No Kernig sign. The patient was comatose. The patient not on sedation at the time of the examination. NEUROLOGICAL: Mental status examination: The patient is comatose. Eyes are closed. Cranial nerve examination: On passive opening of the eyelid, pupil nonreactive, 5 mm on both sides. No corneal reflex. No oculocephalic response noted. No facial asymmetry. On manipulating the endotracheal tube, no gag is elicited. Motor examination: No spontaneous movement noted. The patient is flaccid, quadriplegic. Both lower extremities are externally rotated. Deep tendon reflexes absent throughout. Plantars are mute. Sensory examination: The patient does not show any noxious stimuli on painful stimuli. LABORATORY DATA: Her recent MRI of the brain with Gadolinium: No parenchymal lesion noted as per the report. However, the patient does show meningeal enhancement consistent with meningoencephalitis. Blood workup: WBC 23.8, hemoglobin 11.5, hematocrit 33.4, platelet 280. ABG: pH 7.51, pCO2 of 23, pO2 of 287, bicarbonate 19.1 with saturation 98.1. Sodium 130, potassium 3.4, chloride 90, bicarbonate 23, GFR 49, glucose 306. Urine shows moderate amount of blood and leukocytes. CONCLUSION: Ms. Cathryn Lo as per neurological examination presenting with global cerebral as well as brainstem dysfunction. No physiological reflexes are elicited. The patient also found to be quadriplegic with sign of upper motor neuron findings. On reviewing medical reports as well as discussing with Dr. Oh and Dr. 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 However, the other possible causes of nonconvulsive status should be ruled out. The patient is already on 3 antiepileptic drugs, which could control her sub clinical seizures. The patient should have spinal tap and cerebrospinal fluid analysis is very important at this time to rule in or out infectious sources. The patient already covered with appropriate antibiotics. I agree with Dr. Oh's recommendation at present. Because of complicated neurological status, the patient should be transferred to the [facility] for further management. The patient's condition has been well discussed with all physicians including director of digital marketing and her . Overall prognosis is poor. Marck Anderson MD MTDD
[2017-11-21] MEDS: Mannitol 12.5 gm/50 ml Inj IV SCH ×2 (18:32→22:12)
[2017-11-21 19:02] LABS: OSMOLALITY,URINE 203 mosm/kg (300-1000)
[2017-11-21 19:05] LABS: URINE BILIRUBIN NEGATIVE (NEGATIVE); URINE BLOOD SMALL (NEGATIVE); URINE GLUCOSE (UA) 100 mg/dL (NEGATIVE); URINE LEUKOCYTE ESTERASE MODERATE Leu/uL (NEGATIVE); URINE PROTEIN TRACE mg/dL (<30 mg/dL); URINE UROBILINOGEN 0.2 E.U./dL (<1 E.U./dL)
[2017-11-21 19:13] LABS: URINE APPEARANCE CLEAR (CLEAR); URINE COLOR LIGHT YELLOW (YELLOW)
[2017-11-21 19:51] LABS: ALB/GLOB RATIO 1.3 (1.1-1.8); ALBUMIN 3.5 g/dL (3.0-4.8); BILIRUBIN,DIRECT 0.1 mg/dL (0.0-0.4)
[2017-11-21 19:59] LABS: URINE WBC 20 - 25 /hpf (0-6)
[2017-11-21] MEDS: Valproate 1,000 MG in Sodium Chloride 0.9% 100 ML IVPB SCH (20:00)
[2017-11-21 20:01] LABS: URINE EPITHELIAL CELLS 0 - 2 /hpf (0-5)
[2017-11-21 20:02] LABS: URINE BACTERIA MOD (NEG); URINE URIC ACID CRYSTALS SMALL /hpf
[2017-11-21] MEDS ORDERED: Sodium Chloride 0.9% 1,000 ML IV SCH (20:30)
[2017-11-22] MEDS ORDERED: Sodium Chloride 0.9% 1,000 ML IV SCH ×2 (03:30→05:48)
[2017-11-22] MEDS: Sucralfate 1 gm/10 ml Oral Susp UD PO SCH ×2 (05:14→16:31)
[2017-11-22] MEDS: Meropenem IV 1 gm in NS 50 ML IVPB SCH ×2 (05:14→22:01)
[2017-11-22] MEDS: Valproate 1,000 MG in Sodium Chloride 0.9% 100 ML IVPB SCH ×2 (06:01→20:41)
[2017-11-22] MEDS: Insulin Reg-LOW-Coverage SC SCH ×4 (06:31→22:01)
[2017-11-22 07:29] LABS: BASO # 0.01 K/mm3 (0.0-2.0); EOS # 0.1 (0.0-0.7); EOS % 0.2 % (1.5-5.0); GRAN # 20.2 (1.4-6.5); GRAN % 89.2 % (50.0-68.0); HEMOGLOBIN 11.4 g/dL (12.0-16.0); LYMPH % 4.5 % (22.0-35.0); MEAN CORPUSCULAR HEMOGLOBIN 30.8 pg (25.0-35.0); MEAN CORPUSCULAR HGB CONC 33.2 g/dl (31.0-37.0); MEAN PLATELET VOLUME 9.8 fl (7.0-11.0); MONO # 1.4 (0.1-0.6); MONO % 6.1 % (1.0-6.0); RBC 3.7 10^6/uL (3.5-6.1); RED CELL DISTRIBUTION WIDTH 16.9 % (11.5-14.5); WHITE BLOOD COUNT 22.7 10^3/ul (4.5-11.0)
[2017-11-22 08:08] LABS: MEAN CELL VOLUME 92.7 fl (80.0-105.0)
--- NOTE | 2017-11-22 08:37 | PN ---
DATE: 11/21/2017 SUBJECTIVE: The patient is seen sitting in chair. She is awake, she is alert, and she is comfortable. She denies any fever, chills. PHYSICAL EXAMINATION: GENERAL: Elderly lady sitting in bed. VITAL SIGNS: Blood pressure 139/80, heart rate 76, respiratory rate 18, and temperature 99.3. HEENT: Normocephalic, atraumatic, positive pallor. NECK: Supple, no JVD. LUNGS: Bilateral equal air entry, bilateral equal expansion. EXTREMITIES: No lower extremity edema. LABORATORY DATA: WBC 9, hemoglobin 12, hematocrit 37, and platelets 265. Sodium 143, potassium 3.7, chloride 107, CO2 of 26. BUN 14, creatinine 1. Glucose 80. INR 1.2. MEDICATIONS: List reviewed. ASSESSMENT: 1. Hypertension, well controlled. 2. Systemic lupus erythematosus. 3. History of deep venous thrombosis, restarted on Coumadin. 4. Mild hypokalemia. 5. Mild hypernatremia. PLAN: 1. Monitor INR. 2. Continue Coumadin. 3. Continue cyclosporin and prednisone. 4. Continue current antihypertensives. 5. Discharge planning. Ivone Garcia MD
--- NOTE | 2017-11-22 08:45 | PN ---
DATE: 11/21/2017 LOCATION: The patient is in ICU, bed 7. PROBLEM: This is a 67-year-old female, who was admitted on 11/19/2017 with progressively worsening and intractable headaches initiated initially in the nape of the neck, radiating forward to involve by the entire head, associated with some vertigo, some changes in the ears consisting of whooshing sounds in ears, associated with nausea and vomiting. The patient was seen in the office and advised admission. At that point in time, the working diagnosis was to rule out intracranial pathology. The patient rapidly had MRI of the brain and MRA done without contrast, but we are waiting for contrast kidney functions to be ascertained with blood work. MRI failed to reveal any major pathology such as space occupying lesion or intracerebral bleed a this time. The patient was admitted on the floor and was being monitored for headaches. Pain got worse by Wednesday, which was yesterday on 11/20/2017. The patient is yet to receive IV Dilaudid for relief of pain. She could not even lay down because of the headaches, and persistent nausea and vomiting. She got Emend IV to help up with the nausea and vomiting. Neurology was consulted at that time. The patient was also noted to have now fluctuating hypertension, for which she was put on multiple medicines, Nephrology was called to make sure the pressure could be better controlled. During this time, the patient felt a little bit better with the headaches, still had headache in the frontal aspect of the head, on the scale of 0 to 10, pain was at least 9/10, and pain in the nape of the neck had gone down to 5/10. She also had intermittent episodes of nausea, was unable to keep anything down. She is getting IV fluids, which had to cut back because the pressure was elevated. The patient received medications on the floor to keep the pressure down below 160 systolic and at least diastolic to be less than 85. The patient received Dilaudid 0.5 mg IV for the pain in the head. Neurology had also seen her and had started her on a combination of medicines, for her headaches at that point in time, she also received Imitrex and also she received Flexeril for the headaches, none of which really helped her. Because her pressures were fluctuating and on the high side, after speaking to the various exceptionalities teacher, we planned to transfer the patient down to the ICU for closer management. Also we felt that if the pressure came down, the patient may be amenable for a spinal tap. During this whole process, the patient's white count was also steadily rising. The patient's urine analysis showed bacteria but she dose have history of urinary stones and stents in the past for which she had to have both the laser treatment for the stones, she has had stent placed in the right kidney in the recent past. The patient was sent to the ICU on 11/19/2017, early in the evening of 11/19/2017 she had an episode where she became unresponsive, thought was she may have had a seizure, she was started on antiseizure medicines. She improved as per my last talk with the steam conditioner operator last night on 11/20/2017. The patient was relatively well till the morning of 11/21/2017 and she became again unresponsive for a brief moment when the pressure also dropped into the 70s. The patient was given IV fluid challenge. She was started on Levophed drip, went on to have another CAT scan of the head, which revealed no major pathology, and she was set up for an MRI of the brain with and without contrast. In the meantime, blood work showed that the white blood count had risen to 24,000 from 14,000 at initial presentation. We started her on a Cardizem drip and over the night, the patient's blood pressure was very labile, and at the initial time of evaluation by Nephrology, pressure was 177/85. Plans were made for the patient to be evaluated for a spinal tap, while we were also assessing the patient to be transferred to [facility]. The patient was also seen in consultation in second opinion by Dr. Anderson upon my request and she was also seen by a primary doctor, Dr. Cain, and they made a special trip to come and see her at [facility]. Both were of the feeling that the patient definitely had an acute [employer] event that will be best managed in a tertiary center. One of the differential diagnosis was evolving meningoencephalitis that could be another possibility, especially given the fact that this MRI and the 3 CAT scans have failed to show any acute pathology such as stroke, bleed or tumor. The patient does have history of locally advanced carcinoma of the gallbladder for which she was undergoing surgery, which was planned for next Wednesday at [facility]. She is status post 2 cycles of neoadjuvant chemotherapy prior to initiation of the plans for surgery. Subjectively, the patient now currently is in the unit on a mechanical ventilator. She is unresponsive and she is not responsive to any other noxious stimuli without being on any narcotics, without being on any suppressants such as propofol or versed. Currently the patient is on vancomycin and Merrem, and she is also going to be initiated on broad spectrum antiviral drug with acyclovir. I did speak to Dr. Ramirez as well, prior to my seeing the patient in the ICU. PHYSICAL EXAMINATION GENERAL: The patient is in bed, obese lady, who is currently in bed on mechanical ventilation. VITAL SIGNS: Revealed a blood pressure of 152/84, heart rate is 123, respiration is 20 to 21, T-max is 98.3. The patient's current blood pressure is maintained on low doses of Levophed. She also got IV fluids. HEENT: Normocephalic, atraumatic. Pupils are dilated and not reactive to light. The patient does not respond to any noxious stimuli as well. Corneal reflexes appear to be absent. Examination of the oropharynx reveals no oropharyngeal lesions. Tongue is dry. NECK: Supple. There is no adenopathy. No jugular venous distention noted. LUNGS: Reveal bilateral equal air entry without any rales or rhonchi appreciated. HEART: Reveals PMI to be in the fifth intercostal space, inside of the midclavicular line. S1 and S2 are normal. No gallop or murmur is heard. ABDOMEN: Obese distended, soft, nontender. No rebound, rigidity or guarding is noted. EXTREMITIES: There was no cyanosis, clubbing or edema. SKIN: Turgor is normal. No skin lesions are noted. NEUROLOGIC: The patient has flaccid limbs, both upper and lower limbs, along with absence of refluxes which is of concerning to me that this is all related to status epilepticus while the patient in acute [employer] event in the mid brain. LABORATORY DATA: From today reveals the white count of 24, hemoglobin 11.5, hematocrit 33, platelets count of 280,000. Sodium is 130, K is 3.5, chloride is 90, CO2 is 23, BUN is 29, creatinine 1.1. Glucose is 368, calcium is 9.2, phosphorous 3.7, magnesium is 1.9, total bili is 1.7, ammonia is less than 9, albumin is 4. Urine analysis shows it to be yellow cloudy, pH is 6, specific gravity greater than 1.030. Protein is 100. Glucose greater than 100, moderate leukocyte esterase is noted. CAT scan of the cervical spine shows no acute findings. MRI of the brain showed an acute infarction with intracranial hemorrhage. No evidence of mass lesion. There is no midline shift. No intracranial abnormalities. CAT scan of the head this morning, normal pre and post 920 images. MRI is suggestive of changes in the gyri consistent with probably myeloencephalitis. CURRENT MEDICATIONS: The patient's current medications were reviewed. The patient is on Apresoline 10 mg IV every 6 hours p.r.n., Carafate 1 g oral suspension every 6 hours. She is on Cardene 20 mg in 200 mL every 4 hours for blood pressure control. She is on clonidine 0.1 mg every 6 p.r.n., losartan 100 mg daily. She is on Dilaudid 0.5 mg every 4 hours p.r.n. for severe pain which is on hold. She is on insulin coverage. She is on Levophed just to titrate to keep the blood pressure in the systolic which is on hold right now, the pressures have risen. She is on Merrem 1 g IV every 8 hours. She is on midazolam 100 mg in 100 mL of normal saline IV every 24 hours for seizure activities. She is on Norvasc 5 mg daily and Protonix 40 mg IV every 12 hours. She is on ibuprofen 600 mg every 8 hours p.r.n. for headaches which is on hold. She is on IV fluid at 80 mL an hour half normal saline. She is on valproate sodium 750 mg IV piggyback. She is on vancomycin 1 g IV one dose now and then every 12 hours. She is on Zofran 4 mg IV every 8 hours p.r.n. for nausea. The patient has been seen by all the consultants including the ID, Renal, Nephrology and Neurology as well along with the steam conditioner operator. We also had Dr. Anderson who will see the patient in second opinion from Neurology and a primary doctor who is also an steam conditioner operator, Dr. Cain. ASSESSMENT NOTES AND PLAN: The patient has multiple comorbid acute medical issues currently occurring. The patient is on a vent, had an episode of hypotension, became unresponsive, and then now pressures have normalized, but this is of concern as to why she became unresponsive. The thought was patient is status post epilepticus and she could have still minor seizures going on, which will be difficult to ascertain as bedside EEG currently is not available. After speaking to all the consultants involved and speaking to Dr. Oh, patient is being transferred to the ICU at [facility] for further management, so they can monitor her more carefully as to what needs to be done. Attempts at spinal tap x3 were unsuccessful because the patient having advanced discogenic disease and significant kyphoscoliosis as well. Suspicion is very strongly for meningoencephalitis, though hepatic encephalopathy with a West Nile virus is also in the differential diagnosis. Spinal tap may have to be done at [place] under Interventional Radiology of fluoroscopic control. The patient currently appears to have blood pressure improved, though neurologically she has not improved. Condition of the patient is guarded at best, the patient is on multiple antibiotics now. I had talk with the patient's family including the and daughter, and the various in-laws that are very close to the patient. Detailed discussion with them, explained them and appraised them of the prognosis and what we are planning to do. Plan is to transfer the patient to [facility] which is a tertiary center where she could be managed better and the patient will need possibly an IR guided interventional spinal tap to further ascertain if any other pathology could be on the spinal tap at this point in time. Even though over all prognosis is guarded I have tried to be cautiously optimist with the patient's family. Plan, the patient remains critically ill and we are planning to transfer the patient to the ICU of [facility], so that further care can be administered. Dr. Oh has been in touch with the accepting neurologist and the accepting steam conditioner operator at [facility]. Time spent with the family was greater than 2 hours, correlating all the acts, discussing with the family, discussing with the various consultants as to the management of this very complex patient with multiple comorbid medical issues. Please make a note, it took more than 2 hours to get all the facts together and put them in order and then explained to the patient and the family as to what needs to be done and what the overall prognosis is. I spoke to the steam conditioner operator at great length as well. has been very helpful in the management of this patient. Ronna Leyva MD
[2017-11-22 08:46] LABS: ALB/GLOB RATIO 1.2 (1.1-1.8); ALBUMIN 3.1 g/dL (3.0-4.8); CALCIUM 8.4 mg/dL (8.4-10.5)
--- NOTE | 2017-11-22 08:47 | PN ---
DATE: 11/20/2017 LOCATION: Patient is currently in room 378, bed 2. PROBLEM: This is a 67-year-old female was admitted on 11/19/2017 with progressive headaches mostly in the nape of the neck radiating to the frontal aspect of the head. Pain on pain scale of 0-10 being at least 10 or maybe even 12/10 associated with nausea, vomiting. The pain and the symptoms of the headache with nausea and vomiting started about five days prior to the admission. Initially thought to be probably a migraine variant even though the patient does not have prior history of migraines or cluster headaches. Patient was given Imitrex and given Valium and told to keep an eye on the headaches and if there is no improvement, then we would see her again in few days. Patient had blood cultures drawn at that time, which were negative. White count was normal at that time and she was seen in the office. Three days later on the date of admission, the patient was seen, the patient was complaining of severe headaches, now associated with nausea and vomiting, could not lay down flat in her bed, had to sleep in the long chair and even they had a fitful night with extreme episodes of nausea, retching and vomiting. Patient tells me that she threw up at least 7-10 times. In view of this, the patient was advised to come to the emergency room and be admitted. Initial testing was to make sure, the patient did not have a space occupying lesion or a bleed or a subarachnoid hemorrhage. Patient was rapidly scanned, had an MRI and MRA without contrast, did not show any significant amount of bleed or any space occupying lesion. Pain continued. In fact, the pain last night at 7:30 was excruciating. Despite patient having gotten several medicines including Reglan, Ativan, Valium and she was also given Flexeril without much improvement. She was throwing up several times. So by the time I saw her at 7:30 last night, we had end up giving her small amount of IV Dilaudid, she got 0.5 mg and then 15 minutes later, she started feeling better. She went off to sleep and she was able to lay down flat. She was also given one dose of Emend IV to help her with nausea and vomiting along with Zofran that she was getting over every 6-8 hours up to a total of 16-24 mg. Patient was also noted to be hypertensive during this whole episode with a systolic pressure being between 160 and 170, sometimes up to 180 and the diastolic between 84, 87 and even 90. Patient does have history of hypertension. Patient's recent past medical history consist of the fact that she was diagnosed to have local advanced carcinoma of the gallbladder few months ago when she was admitted to [facility] with sudden onset of abdominal pain. 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 She was told that she may need to take allopurinol for stones which were mostly uric acid and part of which was also oxalate. Patient was also recommended dietary modification at that time. Simultaneously with the kidney issue, the patient was also noted to have a porcelain gallbladder, so she had back to back surgery on the same day after removal of the stone with laser and placement of a stent. Patient also had a robotic assessment of the gallbladder for surgical resection. Unfortunately, a portion of the gallbladder was left behind and the pathology came back showing carcinoma of the gallbladder invading through and through and that she would need additional surgery. Patient actually was discharged with cholecystotomy tube several weeks went by. A month later, the patient was seen in second opinion by Dr. Christina who is the chief of the Surgical Oncology at [facility] who ordered another CAT scan of the abdomen and pelvis for surgery about a month later and found to have locally advanced disease in the form of adenopathy in the area where the gallbladder fossa would be plus in the ric hepatis plus lymph nodes in the local regional area around the peripancreatic poornima bearing area as well. It was unclear at this time whether this was reactive or persistent or progressive disease. Patient was recommended to get two cycles of neoadjuvant chemotherapy for which she came to see me. We gave her two cycles of carboplatin and gemcitabine chemotherapy which she completed and she was so being pepped for surgical assessment and resection, which was scheduled for next week at [place] when she had the above aforementioned symptoms and had to be admitted to [facility]. The most recent CAT scan done at [facility] as an outpatient does reveal that the patient has persistent disease in and around the gallbladder area and the local regional area without any distant metastatic. PET scan also does not show any distant disease. Patient is examined by the bedside. Subjectively, the patient tells me she has frontal headaches today which on a scale of 0-10 is 9, pain in the nape of the neck is at least is 4/10. Patient has been having blurring of vision in the right eye, which is new. We do a direct visual exam with face to face confrontation. It appears the upper edges of the images are being cutoff like when I was pointing my fingers towards her eye with her left eye closed. The top portions on my fingers were not properly visualized when she just tired to see with her right eye. Left eye seems to be okay. We have not done an ophthalmoscopic exam at this time for lack of the instrument. Patient also has been having intermittent nausea, though she was able to keep the jello down this morning when her came to feed her. Patient has been having no fevers or chills. She tells me that the pain is still there, but not as significant. She is able to lay down flat. PHYSICAL EXAMINATION: VITAL SIGNS: Noted. Patient's blood pressure is still running high, 189/84, mean blood pressure is 119, pulse rate is 83, pO2 sat of 94% on room air. HEENT: Head is normocephalic, atraumatic. Patient definitely has blurring vision of the right eye with upper visual mejia of vision appears to be impaired. Left eye appears to be okay. There is no paralysis of any of the muscles on gross examination of the right eye. Examination of the oropharynx reveals tongue to be coated and dry. No mucositis is noted. NECK: Supple. Patient is complaining of nuchal pain, still there is no adenopathy. No jugular venous distention noted. LUNGS: Relatively clear to percussion and auscultation. HEART: Reveals PMI to be in the fifth intercostal space inside the midclavicular line. S1 and S2 are normal. No gallop or murmur is heard. ABDOMEN: Soft, nontender. Bowel sounds are present. No rebound, rigidity or guarding is noted. EXTREMITIES: Reveals no cyanosis, clubbing or edema. GENITOURINARY: Deferred. RECTAL: Deferred. NEUROLOGIC: Patient is able to move all four extremities. Principal complaint is progressive unrelenting headaches specifically in the frontal head. In addition to that she still has pain in nape of the neck ,which on a scale of 0-10 is 4/10, frontal headaches is 9/10. Intermittent episodes of nausea and now blurring of vision in the right eye. SKIN: Turgor is normal. No skin lesions are noted. LABORATORY DATA: From today were reviewed. White count is 22.8, hemoglobin 11.6, hematocrit 34.3, platelet count of 306,000. Chemistry revealed sodium of 133, K is 4, chloride 94, CO2 of 27, BUN is 17, creatinine 0.8, creatinine clearance is greater than 60. Blood sugars have been running high at 280. Procalcitonin is less than 0.05, which was done yesterday on 11/19/2017. MEDICATIONS: Reviewed. She is on hydralazine 10 mg IV every 6 hours p.r.n. for blood pressure systolic greater than 150, diastolic greater than 90. She is on Carafate 1 g b.i.d. She is on Cardene IV premixed 20 mg in 200 mL every 4 hours p.r.n. for blood pressure. She is on clonidine 0.1 mg p.o. every 6 hours p.r.n. for blood pressure, Cozaar 100 mg p.o. daily. She is on Dilaudid 0.5 mg IV every 4 hours p.r.n. She is on insulin coverage, low dose algorithm. She is also on Motrin 600 mg every 8 hours as needed along with amlodipine 5 mg p.o. daily. ASSESSMENT NOTES AND PLAN: A 67-year-old female with history of locally advanced carcinoma of the gallbladder, being assessed recently for additional surgical resection, post two cycles of chemotherapy, now in the hospital with new onset of frontal headaches, also headaches in the base of the occiput radiating anteriorly, unable to keep food down, nausea, vomiting which is intermittent. Pain on a pain scale of 0-10 is at least 9/10, requiring IV narcotics with Dilaudid, which seems to be helping her. At this point in time with an elevated white count with normal CAT scan of the head and not much obvious pathology on the x-ray of the cervical spine of the CAT scan, one would be still concerned about underlying pathology in the central nervous system especially with the patient being compromised because of her underlying malignancy. My first differential diagnosis was still being infectious and will request Neurology to assess the patient as the patient may need to be assessed for spinal tap. Urine cultures have been drawn. PT/INR has been drawn. IV fluid is on hold right now because of the blood pressure. We will continue to monitor it. Told the patient's to give her small amounts of sips of water, so that she can keep sipping it as the mouth is very dry. Input from Neurology, input from Nephrology for blood pressure control and now input from hand brim ironer is all appreciated. Patient may need to go to the Intensive Care Unit for further intensive monitoring. Patient may need a spinal tap and we will have to keep a close eye on her. Differential diagnoses would also include subarachnoid hemorrhage, that may not be evident on the scans in addition to the possibility of an infection. The patient is very critical. Time spent with the patient was greater than an hour, out of which more than 90% of the time was spent in [id number] contact with the patient, time spent also in collating the facts and discussing with the family and also speaking to the hand brim ironer and to the other people involved in the care of the patient. Please make a note, this is a medically necessary and comprehensive visit for this patient with multiple comorbid medical issues. Time spent with the patient again is about an hour or more. Ronna Leyva MD
[2017-11-22] MEDS: Vancomycin 1gm in NS 250ml 1 GM/250 ML BAG IVPB SCH (09:31)
--- NOTE | 2017-11-22 10:51 | CP.PCM.PN ---
<Bon Barriga - Last Filed: 11/22/17 21:42> Subjective - Date & Time of Evaluation Date of Evaluation: 11/22/17 Time of Evaluation: 08:50 - Subjective Subjective: Bon Barriga PGY2 Neurology Progress Note for Dr. Daniels Patient was seen and examined at bedside in ICU. She remains intubated, and on Levophed, vasopressin and Versed drips. Patient has no response to sternal rub , no corneal or gag reflexes, and pupils are dilated and fixed. Overnight, the patient was noted to be hypothermic and is receiving a bear hugger as needed. EEG and MRI brain are planned for today. Pending transport to [facility] per ICU and prior neurology notes. ROS was limited due to intubation. [facility] transport office contacted ([phone]) and they state that request is pending bed availability. MRI of brain was done today and official reading is consistent with encephalitis. ID was strongly recommending lumbar puncture. We conducted a cisternal tap and could only retrieve less than 0.5 cc of fluid, that seemed slightly cloudy but nonbloody. Objective - Vital Signs/Intake and Output Vital Signs (last 24 hours): Temp Pulse Resp BP Pulse Ox 99.9 F H 115 H 16 85/48 L 97 11/22/17 06:00 11/22/17 07:00 11/21/17 18:40 11/22/17 04:04 11/22/17 03:10 Intake and Output: 11/22/17 11/22/17 06:59 18:59 Intake Total 3752 158 Output Total 900 Balance 2852 158 - Medications Medications: Current Medications Acetaminophen (Tylenol 325mg Tab) 650 mg PO Q4H PRN PRN Reason: Mild pain (1-3) or temp > 100F Last Admin: 11/20/17 13:25 Dose: 650 mg Amlodipine Besylate (Norvasc) 5 mg PO DAILY LEMUEL Last Admin: 11/21/17 14:26 Dose: Not Given Clonidine HCl (Catapres) 0.1 mg PO Q6 PRN PRN Reason: Systolic Blood Pressure > 160 Last Admin: 11/20/17 13:24 Dose: 0.1 mg Hydralazine HCl (Apresoline) 10 mg IVP Q6 PRN PRN Reason: for sbp greater than 160 Last Admin: 11/20/17 06:12 Dose: 10 mg Hydromorphone HCl (Dilaudid) 0.5 mg IVP Q4H PRN PRN Reason: Pain, severe (8-10) Last Admin: 11/21/17 03:08 Dose: 0.5 mg Nicardipine HCl (Cardene Iv Premix) 20 mg in 200 mls @ 50 mls/hr IV .Q4H PRN; Protocol; 5 MG/HR PRN Reason: TITRATE PER MD ORDER Last Titration: 11/21/17 09:00 Dose: 0 mg/hr, 0 mls/hr Vancomycin HCl (Vancomycin 1gm) 1 gm in 250 mls @ 167 mls/hr IVPB DAILY LEMUEL PRN Reason: Protocol Stop: 11/30/17 10:01 Last Admin: 11/22/17 09:31 Dose: 167 mls/hr Midazolam 100 mg/100ml in NS (Midazolam 100 Mg/100ml In Ns) 100 mg in 100 mls @ 1 mls/hr IV .Q24H PRN; Protocol; 1 MG/HR PRN Reason: Seizure activity Last Admin: 11/21/17 13:51 Dose: 1 mg/hr, 1 mls/hr Acyclovir 750 mg/ Sodium (Chloride) 100 mls @ 100 mls/hr IV Q12 LEMUEL PRN Reason: Protocol Last Admin: 11/22/17 09:31 Dose: 100 mls/hr Valproate Sodium 1,000 mg/ (Sodium Chloride) 110 mls @ 100 mls/hr IVPB 0700, 1900 [facility] Last Admin: 11/22/17 06:01 Dose: 100 mls/hr Norepinephrine Bitartrate 8 mg (/ Sodium Chloride) 258 mls @ 48.37 mls/hr IV .Q5H21M PRN; Protocol; 25 MCG/MIN PRN Reason: TITRATE PER MD ORDER Last Titration: 11/22/17 07:32 Dose: 30 mcg/min, 58.05 mls/hr Sodium Chloride (Sodium Chloride 0.9%) 1,000 mls @ 175 mls/hr IV .Q5H43M LEMUEL Last Admin: 11/22/17 05:55 Dose: 175 mls/hr Vasopressin 20 units/ Sodium (Chloride) 101 mls @ 9.09 mls/hr IV .Q11H7M LEMUEL; 0.03 U/MIN PRN Reason: Protocol Last Admin: 11/22/17 07:30 Dose: Not Given Meropenem (Merrem Iv 1 Gm Premix) 50 mls @ 100 mls/hr IVPB Q12 LEMUEL PRN Reason: Protocol Stop: 12/01/17 22:01 Ibuprofen (Motrin Tab) 600 mg PO Q8H PRN PRN Reason: Pain, moderate (4-7) Last Admin: 11/20/17 10:44 Dose: 600 mg Insulin Human Regular (Humulin R Low) 0 units SC ACHS LEMUEL PRN Reason: Protocol Last Admin: 11/22/17 06:31 Dose: Not Given Losartan Potassium (Cozaar) 100 mg PO DAILY [facility] Last Admin: 11/21/17 11:16 Dose: Not Given Mannitol (Mannitol) 25 gm IV Q12 [facility] Last Admin: 11/21/17 22:12 Dose: 25 gm Ondansetron HCl (Zofran Inj) 4 mg IVP Q8H PRN PRN Reason: Nausea/Vomiting Last Admin: 11/20/17 15:00 Dose: 4 mg Pantoprazole Sodium (Protonix Inj) 40 mg IVP Q12 [facility] Last Admin: 11/22/17 09:30 Dose: 40 mg Sucralfate (Carafate Oral Susp) 1 gm PO 0600,1600 [facility] Last Admin: 11/22/17 05:14 Dose: Not Given - Labs Labs: 11/22/17 07:20 11/22/17 07:20 PT 11.6 SECONDS (9.4-12.5) 11/20/17 14:40 INR 1.02 (0.93-1.08) 11/20/17 14:40 APTT 32.8 Seconds (25.1-36.5) 11/20/17 14:40 - Constitutional Appears: No Acute Distress, Other (intubated) - Head Exam Head Exam: ATRAUMATIC, NORMAL INSPECTION - Eye Exam Pupil Exam: Fixed, Mydriatic. absent: PERRL - ENT Exam Additional comments: intubated - Neck Exam Neck Exam: Normal Inspection - Respiratory Exam Respiratory Exam: absent: Rales, Rhonchi, Wheezes Additional comments: intubated, and on vent (PRVC) - Cardiovascular Exam Cardiovascular Exam: Tachycardia, +S1, +S2 - GI/Abdominal Exam GI & Abdominal Exam: Soft. absent: Distended, Guarding, Tenderness Additional comments: obese body habitus multiple small laparoscopic surgical scars present - Exam Additional comments: mars present - Extremities Exam Extremities Exam: Pedal Edema (1+ x4 extremities) - Neurological Exam Neurological Exam: Altered - Skin Additional comments: right chest port present Assessment and Plan - Assessment and Plan (Free Text) Assessment: 67-year-old female with a PMH of DM 2, HTN, HLD, porcelain gallbladder S/P chemotherapy and subtotal cholecystectomy who presented for intractable nausea/ vomiting and neck pain. Recent MRI shows meningoencephaitis with cerebral edema , compared to initial MRI brain that did not show this finding. Patient currently in ICU, with absent corneal and gag reflexes, no spontaneous movements and fixed and dilated pupils. Patient in septic shock on Levophed and vasopressin, and receiving vancomycin, meropenem and acyclovir. She is on Versed drip and valproate for questionable seizure activity. Plan: - continue seizure ppx - EEG to be completed; will f/u official reading - MRI Brain Consistent with progressive encephalitis - maintain MAP > 65 - continue ventilation weaning trials per ICU management - continue antibiotics, antivrials and antifungals per ID - CSF fluid sent for analysis (priority given to cell count, cytology and other labs, in that order per ID) - started on hypertonic saline with 150cc bolus then 40cc/hr with 24hr goal Na of 145-150 and serum Osm <320 - pending transfer to [facility] for continuous EEG monitoring - Further recs per Dr. Daniels Patient was seen and discussed with attending, Dr. Daniels <Derek Daniels - Last Filed: 11/22/17 23:42> Objective - Vital Signs/Intake and Output Vital Signs (last 24 hours): Temp Pulse Resp BP Pulse Ox 98.1 F 96 H 103 H 107/55 L 95 11/22/17 20:20 11/22/17 20:20 11/22/17 07:55 11/22/17 20:00 11/22/17 20:20 Intake and Output: 11/22/17 11/23/17 18:59 06:59 Intake Total 540 258 Output Total 400 Balance 140 258 - Medications Medications: Current Medications Acetaminophen (Tylenol 325mg Tab) 650 mg PO Q4H PRN PRN Reason: Mild pain (1-3) or temp > 100F Last Admin: 11/20/17 13:25 Dose: 650 mg Amlodipine Besylate (Norvasc) 5 mg PO DAILY [facility] Last Admin: 11/21/17 14:26 Dose: Not Given Clonidine HCl (Catapres) 0.1 mg PO Q6 PRN PRN Reason: Systolic Blood Pressure > 160 Last Admin: 11/20/17 13:24 Dose: 0.1 mg Heparin Sodium (Porcine) (Heparin) 5,000 units SC Q12 [facility] PRN Reason: Protocol Last Admin: 11/22/17 22:01 Dose: 5,000 units Hydralazine HCl (Apresoline) 10 mg IVP Q6 PRN PRN Reason: for sbp greater than 160 Last Admin: 11/20/17 06:12 Dose: 10 mg Hydrocortisone Sodium Succinate (Solu-Cortef) 50 mg IVP Q6H [facility] Last Admin: 11/22/17 20:31 Dose: 50 mg Hydromorphone HCl (Dilaudid) 0.5 mg IVP Q4H PRN PRN Reason: Pain, severe (8-10) Last Admin: 11/21/17 03:08 Dose: 0.5 mg Nicardipine HCl (Cardene Iv Premix) 20 mg in 200 mls @ 50 mls/hr IV .Q4H PRN; Protocol; 5 MG/HR PRN Reason: TITRATE PER MD ORDER Last Titration: 11/21/17 09:00 Dose: 0 mg/hr, 0 mls/hr Vancomycin HCl (Vancomycin 1gm) 1 gm in 250 mls @ 167 mls/hr IVPB DAILY [facility] PRN Reason: Protocol Stop: 11/30/17 10:01 Last Admin: 11/22/17 09:31 Dose: 167 mls/hr Midazolam 100 mg/100ml in NS (Midazolam 100 Mg/100ml In Ns) 100 mg in 100 mls @ 1 mls/hr IV .Q24H PRN; Protocol; 1 MG/HR PRN Reason: Seizure activity Last Titration: 11/22/17 14:00 Dose: 0 mg/hr, 0 mls/hr Valproate Sodium 1,000 mg/ (Sodium Chloride) 110 mls @ 100 mls/hr IVPB 0700, 1900 [facility] Last Admin: 11/22/17 20:41 Dose: 100 mls/hr Norepinephrine Bitartrate 8 mg (/ Sodium Chloride) 258 mls @ 48.37 mls/hr IV .Q5H21M PRN; Protocol; 25 MCG/MIN PRN Reason: TITRATE PER MD ORDER Last Admin: 11/22/17 23:25 Dose: 20 mcg/min, 38.7 mls/hr Vasopressin 20 units/ Sodium (Chloride) 101 mls @ 9.09 mls/hr IV .Q11H7M LEMUEL; 0.03 U/MIN PRN Reason: Protocol Last Admin: 11/22/17 07:30 Dose: Not Given Meropenem (Merrem Iv 1 Gm Premix) 50 mls @ 100 mls/hr IVPB Q12 [facility] PRN Reason: Protocol Stop: 12/01/17 22:01 Last Admin: 11/22/17 22:01 Dose: 100 mls/hr Doxycycline Hyclate 100 mg/ (Sodium Chloride) 100 mls @ 100 mls/hr IVPB Q12 [facility] PRN Reason: Protocol Last Admin: 11/22/17 21:37 Dose: 100 mls/hr Acyclovir 750 mg/ Sodium (Chloride) 250 mls @ 100 mls/hr IV Q12 [facility] PRN Reason: Protocol Last Admin: 11/22/17 21:38 Dose: 100 mls/hr Trimethoprim/Sulfamethoxazole (160 mg/ Dextrose) 250 mls @ 250 mls/hr IVPB Q6 [facility] Last Admin: 11/22/17 23:35 Dose: 250 mls/hr Ganciclovir 200 mg/ Sodium (Chloride) 100 mls @ 100 mls/hr IV DAILY [facility] Sodium Chloride (Hypertonic Saline 3%) 500 mls @ 30 mls/hr IV .[id number] [facility] Ibuprofen (Motrin Tab) 600 mg PO Q8H PRN PRN Reason: Pain, moderate (4-7) Last Admin: 11/20/17 10:44 Dose: 600 mg Insulin Human Regular (Humulin R Low) 0 units SC ACHS [facility] PRN Reason: Protocol Last Admin: 11/22/17 22:01 Dose: 2 units Losartan Potassium (Cozaar) 100 mg PO DAILY [facility] Last Admin: 11/21/17 11:16 Dose: Not Given Ondansetron HCl (Zofran Inj) 4 mg IVP Q8H PRN PRN Reason: Nausea/Vomiting Last Admin: 11/20/17 15:00 Dose: 4 mg Pantoprazole Sodium (Protonix Inj) 40 mg IVP Q12 [facility] Last Admin: 11/22/17 22:01 Dose: 40 mg Sucralfate (Carafate Oral Susp) 1 gm PO 0600,1600 [facility] Last Admin: 11/22/17 16:31 Dose: Not Given - Labs Labs: 11/22/17 07:20 11/22/17 21:05 PT 11.6 SECONDS (9.4-12.5) 11/20/17 14:40 INR 1.02 (0.93-1.08) 11/20/17 14:40 APTT 32.8 Seconds (25.1-36.5) 11/20/17 14:40 Attending/Attestation - Attestation I have personally seen and examined this patient.: Yes I have fully participated in the care of the patient.: Yes I have reviewed all pertinent clinical information, including history, physical exam and plan: Yes
--- NOTE | 2017-11-22 11:04 | US ---
Date of service: 11/22/2017 HISTORY: size of CBD COMPARISON: None. TECHNIQUE: Sonographic evaluation of the abdomen. Limited study due to body habitus. Patient is intubated FINDINGS: LIVER: Measures 20.9 cm. Increased echogenicity of the liver parenchyma. No mass. No intrahepatic bile duct dilatation. GALLBLADDER: Not visualized COMMON BILE DUCT: Measures 7.3 mm. No stones. No dilatation. PANCREAS: Unremarkable as visualized. No mass. Mild dilatation of the pancreatic duct measuring 3 mm RIGHT KIDNEY: Measures 14.3 x 5.6 x 5.6cm. Normal echogenicity. No calculus, mass, or hydronephrosis. LEFT KIDNEY: Measures 10.5 x 4.8 x 5.3cm. Normal echogenicity. No calculus, mass, or hydronephrosis. SPLEEN: Normal in size and contour. No mass. 7.8 x 5.4 x 4.2 AORTA: No aneurysmal dilatation. IVC: Unremarkable. OTHER FINDINGS: None. IMPRESSION: Unremarkable abdominal sonogram.
[2017-11-22] MEDS ORDERED: Sodium Chloride 3% 500 ML IV SCH ×2 (11:15→18:30)
--- NOTE | 2017-11-22 12:28 | CP.PCM.PN ---
<Sil Kapoor - Last Filed: 11/22/17 12:38> Subjective - Date & Time of Evaluation Date of Evaluation: 11/22/17 Time of Evaluation: 10:00 - Subjective Subjective: Sil Kapoor DO, PGY-2: GI Progress Note for Dr. Martinez Patient was seen and examined at bedside in ICU. She remains intubated, and on Levophed, vasopressin and Versed drips. Weekend events were reviewed. Patient has no response to sternal rub. Overnight, the patient was noted to be hypothermic and is receiving a bear hugger as needed EEG and MRI brain are planned for today. Patient is pending transport to [facility] per ICU and prior neurology notes. We will continue to follow the patient while in- house. Objective - Vital Signs/Intake and Output Vital Signs (last 24 hours): Temp Pulse Resp BP Pulse Ox 99.9 F H 115 H 16 85/48 L 97 11/22/17 06:00 11/22/17 07:00 11/21/17 18:40 11/22/17 04:04 11/22/17 03:10 Intake and Output: 11/22/17 11/22/17 06:59 18:59 Intake Total 3752 158 Output Total 900 Balance 2852 158 - Medications Medications: Current Medications Acetaminophen (Tylenol 325mg Tab) 650 mg PO Q4H PRN PRN Reason: Mild pain (1-3) or temp > 100F Last Admin: 11/20/17 13:25 Dose: 650 mg Amlodipine Besylate (Norvasc) 5 mg PO DAILY [facility] Last Admin: 11/21/17 14:26 Dose: Not Given Clonidine HCl (Catapres) 0.1 mg PO Q6 PRN PRN Reason: Systolic Blood Pressure > 160 Last Admin: 11/20/17 13:24 Dose: 0.1 mg Heparin Sodium (Porcine) (Heparin) 5,000 units SC Q12 [facility] PRN Reason: Protocol Hydralazine HCl (Apresoline) 10 mg IVP Q6 PRN PRN Reason: for sbp greater than 160 Last Admin: 11/20/17 06:12 Dose: 10 mg Hydromorphone HCl (Dilaudid) 0.5 mg IVP Q4H PRN PRN Reason: Pain, severe (8-10) Last Admin: 11/21/17 03:08 Dose: 0.5 mg Nicardipine HCl (Cardene Iv Premix) 20 mg in 200 mls @ 50 mls/hr IV .Q4H PRN; Protocol; 5 MG/HR PRN Reason: TITRATE PER MD ORDER Last Titration: 11/21/17 09:00 Dose: 0 mg/hr, 0 mls/hr Vancomycin HCl (Vancomycin 1gm) 1 gm in 250 mls @ 167 mls/hr IVPB DAILY [facility] PRN Reason: Protocol Stop: 11/30/17 10:01 Last Admin: 11/22/17 09:31 Dose: 167 mls/hr Midazolam 100 mg/100ml in NS (Midazolam 100 Mg/100ml In Ns) 100 mg in 100 mls @ 1 mls/hr IV .Q24H PRN; Protocol; 1 MG/HR PRN Reason: Seizure activity Last Admin: 11/21/17 13:51 Dose: 1 mg/hr, 1 mls/hr Acyclovir 750 mg/ Sodium (Chloride) 100 mls @ 100 mls/hr IV Q12 [facility] PRN Reason: Protocol Last Admin: 11/22/17 09:31 Dose: 100 mls/hr Valproate Sodium 1,000 mg/ (Sodium Chloride) 110 mls @ 100 mls/hr IVPB 0700, 1900 [facility] Last Admin: 11/22/17 06:01 Dose: 100 mls/hr Norepinephrine Bitartrate 8 mg (/ Sodium Chloride) 258 mls @ 48.37 mls/hr IV .Q5H21M PRN; Protocol; 25 MCG/MIN PRN Reason: TITRATE PER MD ORDER Last Titration: 11/22/17 07:32 Dose: 30 mcg/min, 58.05 mls/hr Sodium Chloride (Sodium Chloride 0.9%) 1,000 mls @ 175 mls/hr IV .Q5H43M [facility] Last Admin: 11/22/17 05:55 Dose: 175 mls/hr Vasopressin 20 units/ Sodium (Chloride) 101 mls @ 9.09 mls/hr IV .Q11H7M [facility]; 0.03 U/MIN PRN Reason: Protocol Last Admin: 11/22/17 07:30 Dose: Not Given Meropenem (Merrem Iv 1 Gm Premix) 50 mls @ 100 mls/hr IVPB Q12 [facility] PRN Reason: Protocol Stop: 12/01/17 22:01 Sodium Chloride (Hypertonic Saline 3%) 500 mls @ 30 mls/hr IV .[id number] [facility] Ibuprofen (Motrin Tab) 600 mg PO Q8H PRN PRN Reason: Pain, moderate (4-7) Last Admin: 11/20/17 10:44 Dose: 600 mg Insulin Human Regular (Humulin R Low) 0 units SC ACHS [facility] PRN Reason: Protocol Last Admin: 11/22/17 06:31 Dose: Not Given Losartan Potassium (Cozaar) 100 mg PO DAILY [facility] Last Admin: 11/21/17 11:16 Dose: Not Given Ondansetron HCl (Zofran Inj) 4 mg IVP Q8H PRN PRN Reason: Nausea/Vomiting Last Admin: 11/20/17 15:00 Dose: 4 mg Pantoprazole Sodium (Protonix Inj) 40 mg IVP Q12 [facility] Last Admin: 11/22/17 09:30 Dose: 40 mg Sucralfate (Carafate Oral Susp) 1 gm PO 0600,1600 [facility] Last Admin: 11/22/17 05:14 Dose: Not Given - Labs Labs: 11/22/17 07:20 11/22/17 07:20 PT 11.6 SECONDS (9.4-12.5) 11/20/17 14:40 INR 1.02 (0.93-1.08) 11/20/17 14:40 APTT 32.8 Seconds (25.1-36.5) 11/20/17 14:40 - Constitutional Appears: Other (intubated) - Head Exam Head Exam: ATRAUMATIC, NORMOCEPHALIC - Eye Exam Pupil Exam: Mydriatic - Neck Exam Neck Exam: Normal Inspection - Respiratory Exam Respiratory Exam: absent: Accessory Muscle Use, Rales, Rhonchi - Cardiovascular Exam Cardiovascular Exam: Tachycardia, +S1, +S2 - GI/Abdominal Exam GI & Abdominal Exam: Soft. absent: Guarding, Rebound - Extremities Exam Extremities Exam: Pedal Edema (1/4) - Back Exam Back Exam: NORMAL INSPECTION. 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 She underwent MRI of the brain without contrast showed that the ventricles are dilated out of proportion of the dilated sulci which could be due to central atrophy or mild normal pressure hydrocephalus. MRA of the head and neck was interpreted as unremarkable. Neurology was consulted and recommended Flexeril and Zofran and to discontinue Tramadol and Percocet. The patient deteriorated over the weekend, was found to be obtuned and was intubated. The clinical course and the etiology of the patient's deterioration remains speculative at this point. GI was consulted for headache, nausea and vomiting. The working diagnosis is possible meningoencephalitis based on the MRI findings of the brain. We will continue to follow the patient while in-house. She is being transferred to [place] for further evaluation and treatment. Case was reviewed and discussed with the attending physician, Dr. Martinez <Florecita Martinez V - Last Filed: 11/22/17 21:34> Objective - Vital Signs/Intake and Output Vital Signs (last 24 hours): Temp Pulse Resp BP Pulse Ox 98.1 F 96 H 103 H 107/55 L 95 11/22/17 20:20 11/22/17 20:20 11/22/17 07:55 11/22/17 20:00 11/22/17 20:20 Intake and Output: 11/22/17 11/23/17 18:59 06:59 Intake Total 540 Output Total 400 Balance 140 - Medications Medications: Current Medications Acetaminophen (Tylenol 325mg Tab) 650 mg PO Q4H PRN PRN Reason: Mild pain (1-3) or temp > 100F Last Admin: 11/20/17 13:25 Dose: 650 mg Amlodipine Besylate (Norvasc) 5 mg PO DAILY [facility] Last Admin: 11/21/17 14:26 Dose: Not Given Clonidine HCl (Catapres) 0.1 mg PO Q6 PRN PRN Reason: Systolic Blood Pressure > 160 Last Admin: 11/20/17 13:24 Dose: 0.1 mg Heparin Sodium (Porcine) (Heparin) 5,000 units SC Q12 [facility] PRN Reason: Protocol Last Admin: 11/22/17 12:38 Dose: 5,000 units Hydralazine HCl (Apresoline) 10 mg IVP Q6 PRN PRN Reason: for sbp greater than 160 Last Admin: 11/20/17 06:12 Dose: 10 mg Hydrocortisone Sodium Succinate (Solu-Cortef) 50 mg IVP Q6H [facility] Last Admin: 11/22/17 20:31 Dose: 50 mg Hydromorphone HCl (Dilaudid) 0.5 mg IVP Q4H PRN PRN Reason: Pain, severe (8-10) Last Admin: 11/21/17 03:08 Dose: 0.5 mg Nicardipine HCl (Cardene Iv Premix) 20 mg in 200 mls @ 50 mls/hr IV .Q4H PRN; Protocol; 5 MG/HR PRN Reason: TITRATE PER MD ORDER Last Titration: 11/21/17 09:00 Dose: 0 mg/hr, 0 mls/hr Vancomycin HCl (Vancomycin 1gm) 1 gm in 250 mls @ 167 mls/hr IVPB DAILY [facility] PRN Reason: Protocol Stop: 11/30/17 10:01 Last Admin: 11/22/17 09:31 Dose: 167 mls/hr Midazolam 100 mg/100ml in NS (Midazolam 100 Mg/100ml In Ns) 100 mg in 100 mls @ 1 mls/hr IV .Q24H PRN; Protocol; 1 MG/HR PRN Reason: Seizure activity Last Titration: 11/22/17 14:00 Dose: 0 mg/hr, 0 mls/hr Valproate Sodium 1,000 mg/ (Sodium Chloride) 110 mls @ 100 mls/hr IVPB 0700, 1900 [facility] Last Admin: 11/22/17 20:41 Dose: 100 mls/hr Norepinephrine Bitartrate 8 mg (/ Sodium Chloride) 258 mls @ 48.37 mls/hr IV .Q5H21M PRN; Protocol; 25 MCG/MIN PRN Reason: TITRATE PER MD ORDER Last Admin: 11/22/17 15:50 Dose: 20 mcg/min, 38.7 mls/hr Vasopressin 20 units/ Sodium (Chloride) 101 mls @ 9.09 mls/hr IV .Q11H7M [facility]; 0.03 U/MIN PRN Reason: Protocol Last Admin: 11/22/17 07:30 Dose: Not Given Meropenem (Merrem Iv 1 Gm Premix) 50 mls @ 100 mls/hr IVPB Q12 [facility] PRN Reason: Protocol Stop: 12/01/17 22:01 Doxycycline Hyclate 100 mg/ (Sodium Chloride) 100 mls @ 100 mls/hr IVPB Q12 [facility] PRN Reason: Protocol Last Admin: 11/22/17 14:51 Dose: 100 mls/hr Acyclovir 750 mg/ Sodium (Chloride) 250 mls @ 100 mls/hr IV Q12 [facility] PRN Reason: Protocol Trimethoprim/Sulfamethoxazole (160 mg/ Dextrose) 250 mls @ 250 mls/hr IVPB Q6 [facility] Last Admin: 11/22/17 14:43 Dose: 250 mls/hr Ganciclovir 200 mg/ Sodium (Chloride) 100 mls @ 100 mls/hr IV DAILY [facility] Sodium Chloride (Hypertonic Saline 3%) 500 mls @ 30 mls/hr IV .[id number] [facility] Ibuprofen (Motrin Tab) 600 mg PO Q8H PRN PRN Reason: Pain, moderate (4-7) Last Admin: 11/20/17 10:44 Dose: 600 mg Insulin Human Regular (Humulin R Low) 0 units SC ACHS [facility] PRN Reason: Protocol Last Admin: 11/22/17 17:12 Dose: 4 units Losartan Potassium (Cozaar) 100 mg PO DAILY [facility] Last Admin: 11/21/17 11:16 Dose: Not Given Ondansetron HCl (Zofran Inj) 4 mg IVP Q8H PRN PRN Reason: Nausea/Vomiting Last Admin: 11/20/17 15:00 Dose: 4 mg Pantoprazole Sodium (Protonix Inj) 40 mg IVP Q12 [facility] Last Admin: 11/22/17 09:30 Dose: 40 mg Sucralfate (Carafate Oral Susp) 1 gm PO 0600,1600 [facility] Last Admin: 11/22/17 16:31 Dose: Not Given - Labs Labs: 11/22/17 07:20 11/22/17 07:20 PT 11.6 SECONDS (9.4-12.5) 11/20/17 14:40 INR 1.02 (0.93-1.08) 11/20/17 14:40 APTT 32.8 Seconds (25.1-36.5) 11/20/17 14:40 Attending/Attestation - Attestation I have personally seen and examined this patient.: Yes I have fully participated in the care of the patient.: Yes I have reviewed all pertinent clinical information, including history, physical exam and plan: Yes Notes (Text): This is an addendum to GI followup report dictated by the [facility].The patient was seen an that we need to change it here d examined earlier. Medical records, lab studies, imagings were reviewed. Last 24 hours events reviewed. Agreed with the above treatment plan as outlined in [facility] 's notes the with the addition of the following Previous ICU events noted Continue present treatment as per neurology and ID Patient is on vent Discussed with ICU staff here earlier today continue ICU and oncological follow-up 11/22/17 21:31
[2017-11-22] MEDS ORDERED: Sulfamethoxazole/Trimethoprim 300 MG in Dextrose 5% In Water 500 ML IVPB SCH (12:45)
[2017-11-22] MEDS ORDERED: Tmp-Smz 16 mg-80 mg/ml Inj IVPB SCH (12:45)
[2017-11-22] MEDS ORDERED: Sulfamethoxazole/Trimethoprim 160 MG in Dextrose 5% In Water 250 ML IVPB SCH (12:53)
--- NOTE | 2017-11-22 12:54 | CP.PCM.PN ---
Subjective - Date & Time of Evaluation Date of Evaluation: 11/22/17 Time of Evaluation: 12:30 - Subjective Subjective: Patient seen and examined, on the ventilator, no fevers but patient is not responsive, hypotensive, no diarrhea, no vomiting. Objective - Vital Signs/Intake and Output Vital Signs (last 24 hours): Temp Pulse Resp BP Pulse Ox 99.9 F H 128 H 16 85/48 L 97 11/22/17 03:10 11/22/17 03:10 11/21/17 18:40 11/22/17 04:04 11/22/17 03:10 Intake and Output: 11/21/17 11/22/17 18:59 06:59 Intake Total 890 516 Output Total 750 Balance 140 516 - Medications Medications: Current Medications Acetaminophen (Tylenol 325mg Tab) 650 mg PO Q4H PRN PRN Reason: Mild pain (1-3) or temp > 100F Last Admin: 11/20/17 13:25 Dose: 650 mg Amlodipine Besylate (Norvasc) 5 mg PO DAILY [facility] Last Admin: 11/21/17 14:26 Dose: Not Given Clonidine HCl (Catapres) 0.1 mg PO Q6 PRN PRN Reason: Systolic Blood Pressure > 160 Last Admin: 11/20/17 13:24 Dose: 0.1 mg Hydralazine HCl (Apresoline) 10 mg IVP Q6 PRN PRN Reason: for sbp greater than 160 Last Admin: 11/20/17 06:12 Dose: 10 mg Hydromorphone HCl (Dilaudid) 0.5 mg IVP Q4H PRN PRN Reason: Pain, severe (8-10) Last Admin: 11/21/17 03:08 Dose: 0.5 mg Nicardipine HCl (Cardene Iv Premix) 20 mg in 200 mls @ 50 mls/hr IV .Q4H PRN; Protocol; 5 MG/HR PRN Reason: TITRATE PER MD ORDER Last Titration: 11/21/17 09:00 Dose: 0 mg/hr, 0 mls/hr Meropenem (Merrem Iv 1 Gm Premix) 50 mls @ 100 mls/hr IVPB Q8 [facility] PRN Reason: Protocol Stop: 11/30/17 08:05 Last Admin: 11/22/17 05:14 Dose: 100 mls/hr Vancomycin HCl (Vancomycin 1gm) 1 gm in 250 mls @ 167 mls/hr IVPB DAILY [facility] PRN Reason: Protocol Stop: 11/30/17 10:01 Last Admin: 11/21/17 14:28 Dose: 167 mls/hr Midazolam 100 mg/100ml in NS (Midazolam 100 Mg/100ml In Ns) 100 mg in 100 mls @ 1 mls/hr IV .Q24H PRN; Protocol; 1 MG/HR PRN Reason: Seizure activity Last Admin: 11/21/17 13:51 Dose: 1 mg/hr, 1 mls/hr Acyclovir 750 mg/ Sodium (Chloride) 100 mls @ 100 mls/hr IV Q12 [facility] PRN Reason: Protocol Last Admin: 11/21/17 22:13 Dose: 100 mls/hr Valproate Sodium 1,000 mg/ (Sodium Chloride) 110 mls @ 100 mls/hr IVPB 0700, 1900 [facility] Last Admin: 11/22/17 06:01 Dose: 100 mls/hr Norepinephrine Bitartrate 8 mg (/ Sodium Chloride) 258 mls @ 48.37 mls/hr IV .Q5H21M PRN; Protocol; 25 MCG/MIN PRN Reason: TITRATE PER MD ORDER Last Admin: 11/22/17 05:23 Dose: 40 mcg/min, 77.4 mls/hr Vasopressin 20 units/ Sodium (Chloride) 101 mls @ 9.09 mls/hr IV .Q11H7M [facility]; 0.03 U/MIN PRN Reason: Protocol Last Admin: 11/22/17 04:04 Dose: 9.09 mls/hr Sodium Chloride (Sodium Chloride 0.9%) 1,000 mls @ 175 mls/hr IV .Q5H43M [facility] Last Admin: 11/22/17 05:55 Dose: 175 mls/hr Ibuprofen (Motrin Tab) 600 mg PO Q8H PRN PRN Reason: Pain, moderate (4-7) Last Admin: 11/20/17 10:44 Dose: 600 mg Insulin Human Regular (Humulin R Low) 0 units SC ACHS [facility] PRN Reason: Protocol Last Admin: 11/22/17 06:31 Dose: Not Given Losartan Potassium (Cozaar) 100 mg PO DAILY [facility] Last Admin: 11/21/17 11:16 Dose: Not Given Mannitol (Mannitol) 25 gm IV Q12 [facility] Last Admin: 11/21/17 22:12 Dose: 25 gm Ondansetron HCl (Zofran Inj) 4 mg IVP Q8H PRN PRN Reason: Nausea/Vomiting Last Admin: 11/20/17 15:00 Dose: 4 mg Pantoprazole Sodium (Protonix Inj) 40 mg IVP Q12 [facility] Last Admin: 11/21/17 22:15 Dose: 40 mg Sucralfate (Carafate Oral Susp) 1 gm PO 0600,1600 [facility] Last Admin: 11/22/17 05:14 Dose: Not Given - Labs Labs: 11/21/17 06:00 11/21/17 06:00 PT 11.6 SECONDS (9.4-12.5) 11/20/17 14:40 INR 1.02 (0.93-1.08) 11/20/17 14:40 APTT 32.8 Seconds (25.1-36.5) 11/20/17 14:40 - Constitutional Appears: Other (intubated, not responsive) - Head Exam Head Exam: NORMAL INSPECTION - ENT Exam Additional comments: ET tube in place - Respiratory Exam Respiratory Exam: Decreased Breath Sounds, Rhonchi (scattered) - Cardiovascular Exam Cardiovascular Exam: +S1, +S2 - GI/Abdominal Exam GI & Abdominal Exam: Soft. absent: Tenderness Assessment and Plan - Assessment and Plan (Free Text) Plan: Assessment severe sepsis/septic shock due to acute meningoencephalitis as seen on MRI, etiology to be determined (viral or bacterial, but more likely viral) cholangiocarcinoma S/P subtotal cholecystectomy DM HTN nephrolithiasis obesity with BMI 33 Plan will continue Vancomycin (intermittent dosing), Merrem (renally-adjusted), Acyclovir (renally-adjusted) which were started over the weekend (Wednesday) and will add Doxycycline and Bactrim (patient has allergy to penicillin) - discussed with Dr. Oh (Neurology) and they were unable to successfully do lumbar puncture - would recommend LP if feasible reviewed MRI done over the weekend and showed meningoencephalitis which is an acute change from the MRI done on night which did not show meningoencephalitis - differential diagnoses includes exotic viruses such as [place], WEE, EEE which do not necessarily have specific treatment modalities discussed with of the patient about what has been happening and discussed that prognosis is becoming poor - patient has no specific travel outside of [facility] overall prognosis is poor awaiting plan to move patient to tertiary care center will discuss with Dr. Leyva as well
--- NOTE | 2017-11-22 13:32 | MRI ---
Date of service: 11/21/2017 PROCEDURE: MR CERVICAL SPINE WITH AND WITHOUT CONTRAST HISTORY: evaluation COMPARISON: None available. TECHNIQUE: Multiecho multiplanar sequences were performed through the cervical spine with and without the use of intravenous contrast. 15 cc of Omniscan FINDINGS: Normal lordotic curvature. Craniocervical junction unremarkable. Vertebral body heights preserved. No marrow signal abnormality. Normal cervical cord. No paraspinal abnormality. No abnormal enhancement C2-3: No disc herniation, spinal canal stenosis or neural foraminal narrowing. C3-4: No disc herniation, spinal canal stenosis or neural foraminal narrowing. C4-5: No disc herniation, spinal canal stenosis or neural foraminal narrowing. C5-C6: No disc herniation, spinal canal stenosis or neural foraminal narrowing. C6-C7: No disc herniation, spinal canal stenosis or neuroforaminal narrowing. C7-T1: No disc herniation, spinal canal stenosis or neural foraminal narrowing. OTHER FINDINGS: The report concurs with the preliminary [facility] report IMPRESSION: No evidence of myelitis or meningeal enhancement
--- NOTE | 2017-11-22 13:55 | MRI ---
Date of service: 11/22/2017 PROCEDURE: MRI BRAIN WITHOUT CONTRAST HISTORY: meningoencephalitis; edema COMPARISON: MRI 11/21/2017 and 11/18/2017 TECHNIQUE: Multiplanar, multisequence MR images of the brain were obtained without intravenous contrast enhancement. FINDINGS: HEMORRHAGE: None DWI: No evidence of an acute or early subacute infarction. BRAIN PARENCHYMA: There is diffuse cortical edema and swelling. There is loss of sulci compared to yesterday's exam. There is also a thin rim of high signal intensity surrounding the brainstem and upper cervical cord. This is best seen on sagittal image 12 series 12. Findings are most consistent with meningoencephalitis. On the current study there is also increased T1 signal within the basal ganglia. This could be due to underlying metabolic disturbance. This can be seen in various viral encephalitis conditions. Image 15 series 7. VENTRICLES: Decreased size of ventricles and sulci secondary to diffuse swelling CRANIUM: Unremarkable. ORBITS: Grossly unremarkable. PARANASAL SINUSES/MASTOIDS: Clear VASCULAR SYSTEM: Skull base flow voids intact. OTHER FINDINGS: Findings were discussed with Drs. Rosenbaum and Adriano IMPRESSION: Diffuse cortical edema and swelling with loss of the normal sulci. Findings are most consistent with encephalitis. Findings have progressed since yesterday's exam
--- NOTE | 2017-11-22 14:36 | RAD ---
Date of service: 11/22/2017 HISTORY: central line placement COMPARISON: Chest radiograph dated 11/21/2017. FINDINGS: LUNGS: Pulmonary vascular congestion. PLEURA: Small left pleural effusion. No appreciable pneumothorax. CARDIOVASCULAR: Atherosclerotic aortic calcifications. Cardiomediastinal silhouette unchanged. OSSEOUS STRUCTURES: Unchanged. VISUALIZED UPPER ABDOMEN: Normal. OTHER FINDINGS: New left internal jugular access central venous catheter with tip at the cavoatrial junction. Right internal jugular access chest port, unchanged. Endotracheal tube, unchanged. IMPRESSION: New left internal jugular access central venous catheter in satisfactory position. No appreciable pneumothorax. New small left pleural effusion.
[2017-11-22] MEDS: Sulfamethoxazole/Trimethoprim 160 MG in Dextrose 5% In Water 250 ML IVPB SCH ×2 (14:43→23:35)
--- NOTE | 2017-11-22 15:20 | CP.CCUPN ---
<Cristian Lyons - Last Filed: 11/22/17 15:50> CCU Subjective - Physician Review Subjective (Free Text): Critical Care Progress note - Dimitris Lyons PGY3 Patient seen and examined at bedside this morning. Overnight, patient was reportedly hypotensive with SBP in the 80's despite being on levophed. She was started vasopressin overnight. Otherwise, she remains unresponsive to verbal and painful stimuli. Discussed case with neurology this morning, repeat MRI and EEG were ordered. 12point ROS limited due to patient status. CCU Objective - Vital Signs / Intake & Output Intake and Output (Last 8hrs): Intake & Output 11/22/17 11/22/17 11/22/17 06:59 14:59 22:59 Intake Total 3752 158 Output Total 900 Balance 2852 158 Intake: IV 3752 158 0.9 1800 abx 300 levophed 924 mannitol 200 versed 12 Output: Urine 900 Urethral (Batista) 900 - Physical Exam Head: Positive for: Atraumatic, Normocephalic Mouth: Positive for: Moist Mucous Membranes Respiratory/Chest: Positive for: Clear to Auscultation, Good Air Exchange. Negative for: Wheezes, Rales, Rhonchi Cardiovascular: Positive for: Regular Rate and Rhythm, Normal S1, S2. Negative for: Murmurs, Rub, Gallop Abdomen: Negative for: Tenderness, Distention, Rebound, Guarding Back: Positive for: Normal Inspection Upper Extremity: Positive for: Normal Inspection. Negative for: Cyanosis, Edema Lower Extremity: Positive for: Normal Inspection. Negative for: Edema Neurological: Positive for: Other (unresponsive to verbal or painful stimuli, no gag or corneal reflex, pupils 5mm fixed, no spontaneous movement of extremities) Skin: Positive for: Warm, Dry, Normal Color. Negative for: Rashes Psychiatric: Negative for: Alert, Oriented x 3 - Medications Active Medications: Active Medications Generic Name Dose Route Start Last Admin Trade Name Freq PRN Reason Stop Dose Admin Acetaminophen 650 mg 11/18/17 21:28 11/20/17 13:25 Tylenol 325mg Tab PO 650 mg Q4H PRN Administration Mild pain (1-3) or temp > 100F Amlodipine Besylate 5 mg 11/20/17 10:45 11/21/17 14:26 Norvasc PO Not Given DAILY [facility] Clonidine HCl 0.1 mg 11/20/17 02:42 11/20/17 13:24 Catapres PO 0.1 mg Q6 PRN Administration Systolic Blood Pressure > 160 Heparin Sodium (Porcine) 5,000 units 11/22/17 11:15 11/22/17 12:38 Heparin SC 5,000 units Q12 LEMUEL Administration Protocol Hydralazine HCl 10 mg 11/19/17 16:33 11/20/17 06:12 Apresoline IVP 10 mg Q6 PRN Administration for sbp greater than 160 Hydrocortisone Sodium Succinate 50 mg 11/22/17 14:15 11/22/17 14:49 Solu-Cortef IVP 50 mg Q6H LEMUEL Administration Hydromorphone HCl 0.5 mg 11/19/17 19:48 11/21/17 03:08 Dilaudid IVP 0.5 mg Q4H PRN Administration Pain, severe (8-10) Nicardipine HCl 20 mg in 200 mls @ 50 mls/hr 11/20/17 16:05 11/21/17 09:00 Cardene Iv Premix IV 0 mg/hr .Q4H PRN 0 mls/hr TITRATE PER MD ORDER Titration Protocol 5 MG/HR Vancomycin HCl 1 gm in 250 mls @ 167 mls/hr 11/21/17 10:00 11/22/17 09:31 Vancomycin 1gm IVPB 11/30/17 10:01 167 mls/hr DAILY LEMUEL Administration Protocol Midazolam 100 mg/100ml in NS 100 mg in 100 mls @ 1 mls/hr 11/21/17 12:11 13:51 Midazolam 100 Mg/100ml In Ns IV 1 mg/hr .Q24H PRN 1 mls/hr Seizure activity Administration Protocol 1 MG/HR Valproate Sodium 1,000 mg/ 110 mls @ 100 mls/hr 11/21/17 19:00 11/22/17 06:01 Sodium Chloride IVPB 100 mls/hr 0700,1900 LEMUEL Administration Norepinephrine Bitartrate 8 mg 258 mls @ 48.37 mls/hr 11/21/17 21:32 07:32 / Sodium Chloride IV 30 mcg/min .Q5H21M PRN 58.05 mls/hr TITRATE PER MD ORDER Titration Protocol 25 MCG/MIN Sodium Chloride 1,000 mls @ 175 mls/hr 11/22/17 05:48 11/22/17 05:55 Sodium Chloride 0.9% IV 175 mls/hr .Q5H43M LEMUEL Administration Vasopressin 20 units/ Sodium 101 mls @ 9.09 mls/hr 11/22/17 06:52 11/22/17 07 :30 Chloride IV Not Given .Q11H7M LEMUEL Protocol 0.03 U/MIN Meropenem 50 mls @ 100 mls/hr 11/22/17 22:00 Merrem Iv 1 Gm Premix IVPB 12/01/17 22:01 Q12 LEMUEL Protocol Sodium Chloride 500 mls @ 30 mls/hr 11/22/17 11:15 11/22/17 13:35 Hypertonic Saline 3% IV 30 mls/hr .[id number] LEMUEL Administration Doxycycline Hyclate 100 mg/ 100 mls @ 100 mls/hr 11/22/17 12:45 11/22/17 14: 51 Sodium Chloride IVPB 100 mls/hr Q12 LEMUEL Administration Protocol Acyclovir 750 mg/ Sodium 250 mls @ 100 mls/hr 11/22/17 22:00 Chloride IV Q12 LEMUEL Protocol Trimethoprim/Sulfamethoxazole 250 mls @ 250 mls/hr 11/22/17 12:45 11/22/17 14 :43 160 mg/ Dextrose IVPB 250 mls/hr Q6 LEMUEL Administration Ganciclovir 200 mg/ Sodium 100 mls @ 100 mls/hr 11/23/17 10:00 Chloride IV DAILY [facility] Ibuprofen 600 mg 11/19/17 19:21 11/20/17 10:44 Motrin Tab PO 600 mg Q8H PRN Administration Pain, moderate (4-7) Insulin Human Regular 0 units 11/18/17 22:00 11/22/17 12:37 Humulin R Low SC 3 units ACHS LEMUEL Administration Protocol Losartan Potassium 100 mg 11/20/17 10:43 11/21/17 11:16 Cozaar PO Not Given DAILY [facility] Ondansetron HCl 4 mg 11/18/17 21:14 11/20/17 15:00 Zofran Inj IVP 4 mg Q8H PRN Administration Nausea/Vomiting Pantoprazole Sodium 40 mg 11/19/17 22:00 11/22/17 09:30 Protonix Inj IVP 40 mg Q12 LEMUEL Administration Sucralfate 1 gm 11/19/17 16:00 11/22/17 05:14 Carafate Oral Susp PO Not Given 0600,1600 [facility] - Patient Studies Lab Studies: Microbiology Studies 11/21/17 06:30 Urine Culture - Preliminary Urine,Batista Gram Negative Nick Gram Positive Cocci 11/20/17 17:20 MRSA Culture (Admit) - Final Naris MRSA NOT DETECTED 11/19/17 18:56 Blood Culture - Preliminary Blood-Venous NO GROWTH AFTER 48 HOURS 11/19/17 18:56 Blood Culture - Preliminary Blood-Venous NO GROWTH AFTER 48 HOURS Lab Studies 11/22/17 11/22/17 11/22/17 Range/Units 12:31 08:30 07:21 WBC (4.5-11.0) 10^3/ul RBC (3.5-6.1) 10^6/uL Hgb (12.0-16.0) g/dL Hct (36.0-48.0) % MCV (80.0-105.0) fl MCH (25.0-35.0) pg MCHC (31.0-37.0) g/dl RDW (11.5-14.5) % Plt Count (120.0-450.0) 10^3/uL MPV (7.0-11.0) fl Gran % (50.0-68.0) % Lymph % (Auto) (22.0-35.0) % Green % (Auto) (1.0-6.0) % Eos % (Auto) (1.5-5.0) % Baso % (Auto) (0.0-3.0) % Gran # (1.4-6.5) Lymph # (Auto) (1.2-3.4) Green # (Auto) (0.1-0.6) Eos # (Auto) (0.0-0.7) Baso # (Auto) (0.0-2.0) K/mm3 Sodium (132-148) mmol/L Potassium (3.6-5.0) mmol/L Chloride (98-107) mmol/L Carbon Dioxide (21-33) mmol/L Anion Gap (10-20) BUN (7-21) mg/dL Creatinine (0.7-1.2) mg/dl Est GFR ( Amer) Est GFR (Non-Af Amer) POC Glucose (mg/dL) 266 H 174 H (65-110) mg/dL Random Glucose (70-110) mg/dL Serum Osmolality 307 H (272-300) mosm/kg Calcium (8.4-10.5) mg/dL Phosphorus (2.5-4.5) mg/dL Magnesium (1.7-2.2) mg/dL Total Bilirubin (0.2-1.3) mg/dL Direct Bilirubin (0.0-0.4) mg/dL AST (14-36) U/L ALT (7-56) U/L Alkaline Phosphatase (38-126) U/L Ammonia (9-33) umol/L Total Protein (5.8-8.3) g/dL Albumin (3.0-4.8) g/dL Globulin gm/dL Albumin/Globulin Ratio (1.1-1.8) Procalcitonin (0.19-0.49) NG/ML Cortisol AM Sample (4.46-22.7) ug/dL Urine Color (YELLOW) Urine Appearance (CLEAR) Urine pH (4.7-8.0) Ur Specific Richardson (1.005-1.035) Urine Protein (<30 mg/dL) mg/dL Urine Glucose (UA) (NEGATIVE) mg/dL Urine Ketones (NEGATIVE) mg/dL Urine Blood (NEGATIVE) Urine Nitrate (NEGATIVE) Urine Bilirubin (NEGATIVE) Urine Urobilinogen (<1 E.U./dL) E.U./dL Ur Leukocyte Esterase (NEGATIVE) Benita/uL Urine RBC (0-2) /hpf Urine WBC (0-6) /hpf Ur Epithelial Cells (0-5) /hpf Uric Acid Crystals /hpf Urine Bacteria (NEG) Urine Osmolality (300-1000) mosm/kg Ur Random Sodium meq/L 11/22/17 11/22/17 11/22/17 Range/Units 07:20 07:20 07:20 WBC 22.7 H (4.5-11.0) 10^3/ul RBC 3.70 (3.5-6.1) 10^6/uL Hgb 11.4 L (12.0-16.0) g/dL Hct 34.3 L (36.0-48.0) % MCV 92.7 D (80.0-105.0) fl MCH 30.8 (25.0-35.0) pg MCHC 33.2 (31.0-37.0) g/dl RDW 16.9 H (11.5-14.5) % Plt Count 206 (120.0-450.0) 10^3/uL MPV 9.8 (7.0-11.0) fl Gran % 89.2 H (50.0-68.0) % Lymph % (Auto) 4.5 L (22.0-35.0) % Green % (Auto) 6.1 H (1.0-6.0) % Eos % (Auto) 0.2 L (1.5-5.0) % Baso % (Auto) 0.0 (0.0-3.0) % Gran # 20.20 H (1.4-6.5) Lymph # (Auto) 1.0 L (1.2-3.4) Green # (Auto) 1.4 H (0.1-0.6) Eos # (Auto) 0.1 (0.0-0.7) Baso # (Auto) 0.01 (0.0-2.0) K/mm3 Sodium 140 (132-148) mmol/L Potassium 3.7 (3.6-5.0) mmol/L Chloride 109 H D (98-107) mmol/L Carbon Dioxide 20 L (21-33) mmol/L Anion Gap 15 (10-20) BUN 31 H (7-21) mg/dL Creatinine 1.6 H (0.7-1.2) mg/dl Est GFR ( Amer) 39 Est GFR (Non-Af Amer) 32 POC Glucose (mg/dL) (65-110) mg/dL Random Glucose 196 H (70-110) mg/dL Serum Osmolality (272-300) mosm/kg Calcium 8.4 (8.4-10.5) mg/dL Phosphorus 4.5 (2.5-4.5) mg/dL Magnesium 2.0 (1.7-2.2) mg/dL Total Bilirubin 0.8 (0.2-1.3) mg/dL Direct Bilirubin (0.0-0.4) mg/dL AST 23 (14-36) U/L ALT 14 (7-56) U/L Alkaline Phosphatase 69 (38-126) U/L Ammonia (9-33) umol/L Total Protein 5.7 L (5.8-8.3) g/dL Albumin 3.1 (3.0-4.8) g/dL Globulin 2.6 gm/dL Albumin/Globulin Ratio 1.2 (1.1-1.8) Procalcitonin (0.19-0.49) NG/ML Cortisol AM Sample 8.3 (4.46-22.7) ug/dL Urine Color (YELLOW) Urine Appearance (CLEAR) Urine pH (4.7-8.0) Ur Specific Richardson (1.005-1.035) Urine Protein (<30 mg/dL) mg/dL Urine Glucose (UA) (NEGATIVE) mg/dL Urine Ketones (NEGATIVE) mg/dL Urine Blood (NEGATIVE) Urine Nitrate (NEGATIVE) Urine Bilirubin (NEGATIVE) Urine Urobilinogen (<1 E.U./dL) E.U./dL Ur Leukocyte Esterase (NEGATIVE) Benita/uL Urine RBC (0-2) /hpf Urine WBC (0-6) /hpf Ur Epithelial Cells (0-5) /hpf Uric Acid Crystals /hpf Urine Bacteria (NEG) Urine Osmolality (300-1000) mosm/kg Ur Random Sodium meq/L 11/22/17 11/21/17 11/21/17 Range/Units 06:26 21:58 19:00 WBC (4.5-11.0) 10^3/ul RBC (3.5-6.1) 10^6/uL Hgb (12.0-16.0) g/dL Hct (36.0-48.0) % MCV (80.0-105.0) fl MCH (25.0-35.0) pg MCHC (31.0-37.0) g/dl RDW (11.5-14.5) % Plt Count (120.0-450.0) 10^3/uL MPV (7.0-11.0) fl Gran % (50.0-68.0) % Lymph % (Auto) (22.0-35.0) % Green % (Auto) (1.0-6.0) % Eos % (Auto) (1.5-5.0) % Baso % (Auto) (0.0-3.0) % Gran # (1.4-6.5) Lymph # (Auto) (1.2-3.4) Green # (Auto) (0.1-0.6) Eos # (Auto) (0.0-0.7) Baso # (Auto) (0.0-2.0) K/mm3 Sodium (132-148) mmol/L Potassium (3.6-5.0) mmol/L Chloride (98-107) mmol/L Carbon Dioxide (21-33) mmol/L Anion Gap (10-20) BUN (7-21) mg/dL Creatinine (0.7-1.2) mg/dl Est GFR ( Amer) Est GFR (Non-Af Amer) POC Glucose (mg/dL) 182 H 293 H (65-110) mg/dL Random Glucose (70-110) mg/dL Serum Osmolality (272-300) mosm/kg Calcium (8.4-10.5) mg/dL Phosphorus (2.5-4.5) mg/dL Magnesium (1.7-2.2) mg/dL Total Bilirubin 1.3 (0.2-1.3) mg/dL Direct Bilirubin 0.1 (0.0-0.4) mg/dL AST 25 (14-36) U/L ALT 27 (7-56) U/L Alkaline Phosphatase 71 (38-126) U/L Ammonia (9-33) umol/L Total Protein 6.1 (5.8-8.3) g/dL Albumin 3.5 (3.0-4.8) g/dL Globulin 2.6 gm/dL Albumin/Globulin Ratio 1.3 (1.1-1.8) Procalcitonin (0.19-0.49) NG/ML Cortisol AM Sample (4.46-22.7) ug/dL Urine Color (YELLOW) Urine Appearance (CLEAR) Urine pH (4.7-8.0) Ur Specific Richardson (1.005-1.035) Urine Protein (<30 mg/dL) mg/dL Urine Glucose (UA) (NEGATIVE) mg/dL Urine Ketones (NEGATIVE) mg/dL Urine Blood (NEGATIVE) Urine Nitrate (NEGATIVE) Urine Bilirubin (NEGATIVE) Urine Urobilinogen (<1 E.U./dL) E.U./dL Ur Leukocyte Esterase (NEGATIVE) Benita/uL Urine RBC (0-2) /hpf Urine WBC (0-6) /hpf Ur Epithelial Cells (0-5) /hpf Uric Acid Crystals /hpf Urine Bacteria (NEG) Urine Osmolality (300-1000) mosm/kg Ur Random Sodium meq/L 11/21/17 11/21/17 11/21/17 Range/Units 19:00 19:00 19:00 WBC (4.5-11.0) 10^3/ul RBC (3.5-6.1) 10^6/uL Hgb (12.0-16.0) g/dL Hct (36.0-48.0) % MCV (80.0-105.0) fl MCH (25.0-35.0) pg MCHC (31.0-37.0) g/dl RDW (11.5-14.5) % Plt Count (120.0-450.0) 10^3/uL MPV (7.0-11.0) fl Gran % (50.0-68.0) % Lymph % (Auto) (22.0-35.0) % Green % (Auto) (1.0-6.0) % Eos % (Auto) (1.5-5.0) % Baso % (Auto) (0.0-3.0) % Gran # (1.4-6.5) Lymph # (Auto) (1.2-3.4) Green # (Auto) (0.1-0.6) Eos # (Auto) (0.0-0.7) Baso # (Auto) (0.0-2.0) K/mm3 Sodium (132-148) mmol/L Potassium (3.6-5.0) mmol/L Chloride (98-107) mmol/L Carbon Dioxide (21-33) mmol/L Anion Gap (10-20) BUN (7-21) mg/dL Creatinine (0.7-1.2) mg/dl Est GFR ( Amer) Est GFR (Non-Af Amer) POC Glucose (mg/dL) (65-110) mg/dL Random Glucose (70-110) mg/dL Serum Osmolality 301 H (272-300) mosm/kg Calcium (8.4-10.5) mg/dL Phosphorus (2.5-4.5) mg/dL Magnesium (1.7-2.2) mg/dL Total Bilirubin (0.2-1.3) mg/dL Direct Bilirubin (0.0-0.4) mg/dL AST (14-36) U/L ALT (7-56) U/L Alkaline Phosphatase (38-126) U/L Ammonia < 9 L (9-33) umol/L Total Protein (5.8-8.3) g/dL Albumin (3.0-4.8) g/dL Globulin gm/dL Albumin/Globulin Ratio (1.1-1.8) Procalcitonin 0.12 L (0.19-0.49) NG/ML Cortisol AM Sample (4.46-22.7) ug/dL Urine Color (YELLOW) Urine Appearance (CLEAR) Urine pH (4.7-8.0) Ur Specific Richardson (1.005-1.035) Urine Protein (<30 mg/dL) mg/dL Urine Glucose (UA) (NEGATIVE) mg/dL Urine Ketones (NEGATIVE) mg/dL Urine Blood (NEGATIVE) Urine Nitrate (NEGATIVE) Urine Bilirubin (NEGATIVE) Urine Urobilinogen (<1 E.U./dL) E.U./dL Ur Leukocyte Esterase (NEGATIVE) Benita/uL Urine RBC (0-2) /hpf Urine WBC (0-6) /hpf Ur Epithelial Cells (0-5) /hpf Uric Acid Crystals /hpf Urine Bacteria (NEG) Urine Osmolality (300-1000) mosm/kg Ur Random Sodium meq/L 11/21/17 11/21/17 11/21/17 Range/Units 18:43 17:30 17:30 WBC (4.5-11.0) 10^3/ul RBC (3.5-6.1) 10^6/uL Hgb (12.0-16.0) g/dL Hct (36.0-48.0) % MCV (80.0-105.0) fl MCH (25.0-35.0) pg MCHC (31.0-37.0) g/dl RDW (11.5-14.5) % Plt Count (120.0-450.0) 10^3/uL MPV (7.0-11.0) fl Gran % (50.0-68.0) % Lymph % (Auto) (22.0-35.0) % Green % (Auto) (1.0-6.0) % Eos % (Auto) (1.5-5.0) % Baso % (Auto) (0.0-3.0) % Gran # (1.4-6.5) Lymph # (Auto) (1.2-3.4) Green # (Auto) (0.1-0.6) Eos # (Auto) (0.0-0.7) Baso # (Auto) (0.0-2.0) K/mm3 Sodium (132-148) mmol/L Potassium (3.6-5.0) mmol/L Chloride (98-107) mmol/L Carbon Dioxide (21-33) mmol/L Anion Gap (10-20) BUN (7-21) mg/dL Creatinine (0.7-1.2) mg/dl Est GFR ( Amer) Est GFR (Non-Af Amer) POC Glucose (mg/dL) 280 H (65-110) mg/dL Random Glucose (70-110) mg/dL Serum Osmolality (272-300) mosm/kg Calcium (8.4-10.5) mg/dL Phosphorus (2.5-4.5) mg/dL Magnesium (1.7-2.2) mg/dL Total Bilirubin (0.2-1.3) mg/dL Direct Bilirubin (0.0-0.4) mg/dL AST (14-36) U/L ALT (7-56) U/L Alkaline Phosphatase (38-126) U/L Ammonia (9-33) umol/L Total Protein (5.8-8.3) g/dL Albumin (3.0-4.8) g/dL Globulin gm/dL Albumin/Globulin Ratio (1.1-1.8) Procalcitonin (0.19-0.49) NG/ML Cortisol AM Sample (4.46-22.7) ug/dL Urine Color Light yellow (YELLOW) Urine Appearance Clear (CLEAR) Urine pH 6.0 (4.7-8.0) Ur Specific Richardson <= 1.005 (1.005-1.035) Urine Protein Trace H (<30 mg/dL) mg/dL Urine Glucose (UA) 100 H (NEGATIVE) mg/dL Urine Ketones Negative (NEGATIVE) mg/dL Urine Blood Small H (NEGATIVE) Urine Nitrate Negative (NEGATIVE) Urine Bilirubin Negative (NEGATIVE) Urine Urobilinogen 0.2 (<1 E.U./dL) E.U./dL Ur Leukocyte Esterase Moderate H (NEGATIVE) Benita/uL Urine RBC 5 - 10 (0-2) /hpf Urine WBC 20 - 25 (0-6) /hpf Ur Epithelial Cells 0 - 2 (0-5) /hpf Uric Acid Crystals Small /hpf Urine Bacteria Mod (NEG) Urine Osmolality 203 L (300-1000) mosm/kg Ur Random Sodium < 5 meq/L 11/21/17 11/21/17 Range/Units 16:22 13:37 WBC (4.5-11.0) 10^3/ul RBC (3.5-6.1) 10^6/uL Hgb (12.0-16.0) g/dL Hct (36.0-48.0) % MCV (80.0-105.0) fl MCH (25.0-35.0) pg MCHC (31.0-37.0) g/dl RDW (11.5-14.5) % Plt Count (120.0-450.0) 10^3/uL MPV (7.0-11.0) fl Gran % (50.0-68.0) % Lymph % (Auto) (22.0-35.0) % Green % (Auto) (1.0-6.0) % Eos % (Auto) (1.5-5.0) % Baso % (Auto) (0.0-3.0) % Gran # (1.4-6.5) Lymph # (Auto) (1.2-3.4) Green # (Auto) (0.1-0.6) Eos # (Auto) (0.0-0.7) Baso # (Auto) (0.0-2.0) K/mm3 Sodium (132-148) mmol/L Potassium (3.6-5.0) mmol/L Chloride (98-107) mmol/L Carbon Dioxide (21-33) mmol/L Anion Gap (10-20) BUN (7-21) mg/dL Creatinine (0.7-1.2) mg/dl Est GFR ( Amer) Est GFR (Non-Af Amer) POC Glucose (mg/dL) 306 H 293 H (65-110) mg/dL Random Glucose (70-110) mg/dL Serum Osmolality (272-300) mosm/kg Calcium (8.4-10.5) mg/dL Phosphorus (2.5-4.5) mg/dL Magnesium (1.7-2.2) mg/dL Total Bilirubin (0.2-1.3) mg/dL Direct Bilirubin (0.0-0.4) mg/dL AST (14-36) U/L ALT (7-56) U/L Alkaline Phosphatase (38-126) U/L Ammonia (9-33) umol/L Total Protein (5.8-8.3) g/dL Albumin (3.0-4.8) g/dL Globulin gm/dL Albumin/Globulin Ratio (1.1-1.8) Procalcitonin (0.19-0.49) NG/ML Cortisol AM Sample (4.46-22.7) ug/dL Urine Color (YELLOW) Urine Appearance (CLEAR) Urine pH (4.7-8.0) Ur Specific Richardson (1.005-1.035) Urine Protein (<30 mg/dL) mg/dL Urine Glucose (UA) (NEGATIVE) mg/dL Urine Ketones (NEGATIVE) mg/dL Urine Blood (NEGATIVE) Urine Nitrate (NEGATIVE) Urine Bilirubin (NEGATIVE) Urine Urobilinogen (<1 E.U./dL) E.U./dL Ur Leukocyte Esterase (NEGATIVE) Benita/uL Urine RBC (0-2) /hpf Urine WBC (0-6) /hpf Ur Epithelial Cells (0-5) /hpf Uric Acid Crystals /hpf Urine Bacteria (NEG) Urine Osmolality (300-1000) mosm/kg Ur Random Sodium meq/L Laboratory Results - last 24 hr 11/21/17 11/21/17 11/21/17 13:37 16:22 17:30 WBC RBC Hgb Hct MCV MCH MCHC RDW Plt Count MPV Gran % Lymph % (Auto) Green % (Auto) Eos % (Auto) Baso % (Auto) Gran # Lymph # (Auto) Green # (Auto) Eos # (Auto) Baso # (Auto) Sodium Potassium Chloride Carbon Dioxide Anion Gap BUN Creatinine Est GFR ( Amer) Est GFR (Non-Af Amer) POC Glucose (mg/dL) 293 H 306 H Random Glucose Serum Osmolality Calcium Phosphorus Magnesium Total Bilirubin Direct Bilirubin AST ALT Alkaline Phosphatase Ammonia Total Protein Albumin Globulin Albumin/Globulin Ratio Procalcitonin Cortisol AM Sample Urine Color Urine Appearance Urine pH Ur Specific Richardson Urine Protein Urine Glucose (UA) Urine Ketones Urine Blood Urine Nitrate Urine Bilirubin Urine Urobilinogen Ur Leukocyte Esterase Urine RBC Urine WBC Ur Epithelial Cells Uric Acid Crystals Urine Bacteria Urine Osmolality 203 L Ur Random Sodium < 5 11/21/17 11/21/17 11/21/17 17:30 18:43 19:00 WBC RBC Hgb Hct MCV MCH MCHC RDW Plt Count MPV Gran % Lymph % (Auto) Green % (Auto) Eos % (Auto) Baso % (Auto) Gran # Lymph # (Auto) Green # (Auto) Eos # (Auto) Baso # (Auto) Sodium Potassium Chloride Carbon Dioxide Anion Gap BUN Creatinine Est GFR ( Amer) Est GFR (Non-Af Amer) POC Glucose (mg/dL) 280 H Random Glucose Serum Osmolality Calcium Phosphorus Magnesium Total Bilirubin Direct Bilirubin AST ALT Alkaline Phosphatase Ammonia Total Protein Albumin Globulin Albumin/Globulin Ratio Procalcitonin 0.12 L Cortisol AM Sample Urine Color Light yellow Urine Appearance Clear Urine pH 6.0 Ur Specific Richardson <= 1.005 Urine Protein Trace H Urine Glucose (UA) 100 H Urine Ketones Negative Urine Blood Small H Urine Nitrate Negative Urine Bilirubin Negative Urine Urobilinogen 0.2 Ur Leukocyte Esterase Moderate H Urine RBC 5 - 10 Urine WBC 20 - 25 Ur Epithelial Cells 0 - 2 Uric Acid Crystals Small Urine Bacteria Mod Urine Osmolality Ur Random Sodium 11/21/17 11/21/17 11/21/17 19:00 19:00 19:00 WBC RBC Hgb Hct MCV MCH MCHC RDW Plt Count MPV Gran % Lymph % (Auto) Green % (Auto) Eos % (Auto) Baso % (Auto) Gran # Lymph # (Auto) Green # (Auto) Eos # (Auto) Baso # (Auto) Sodium Potassium Chloride Carbon Dioxide Anion Gap BUN Creatinine Est GFR ( Amer) Est GFR (Non-Af Amer) POC Glucose (mg/dL) Random Glucose Serum Osmolality 301 H Calcium Phosphorus Magnesium Total Bilirubin 1.3 Direct Bilirubin 0.1 AST 25 ALT 27 Alkaline Phosphatase 71 Ammonia < 9 L Total Protein 6.1 Albumin 3.5 Globulin 2.6 Albumin/Globulin Ratio 1.3 Procalcitonin Cortisol AM Sample Urine Color Urine Appearance Urine pH Ur Specific Richardson Urine Protein Urine Glucose (UA) Urine Ketones Urine Blood Urine Nitrate Urine Bilirubin Urine Urobilinogen Ur Leukocyte Esterase Urine RBC Urine WBC Ur Epithelial Cells Uric Acid Crystals Urine Bacteria Urine Osmolality Ur Random Sodium 11/21/17 11/22/17 11/22/17 21:58 06:26 07:20 WBC 22.7 H RBC 3.70 Hgb 11.4 L Hct 34.3 L MCV 92.7 D MCH 30.8 MCHC 33.2 RDW 16.9 H Plt Count 206 MPV 9.8 Gran % 89.2 H Lymph % (Auto) 4.5 L Green % (Auto) 6.1 H Eos % (Auto) 0.2 L Baso % (Auto) 0.0 Gran # 20.20 H Lymph # (Auto) 1.0 L Green # (Auto) 1.4 H Eos # (Auto) 0.1 Baso # (Auto) 0.01 Sodium Potassium Chloride Carbon Dioxide Anion Gap BUN Creatinine Est GFR ( Amer) Est GFR (Non-Af Amer) POC Glucose (mg/dL) 293 H 182 H Random Glucose Serum Osmolality Calcium Phosphorus Magnesium Total Bilirubin Direct Bilirubin AST ALT Alkaline Phosphatase Ammonia Total Protein Albumin Globulin Albumin/Globulin Ratio Procalcitonin Cortisol AM Sample Urine Color Urine Appearance Urine pH Ur Specific Richardson Urine Protein Urine Glucose (UA) Urine Ketones Urine Blood Urine Nitrate Urine Bilirubin Urine Urobilinogen Ur Leukocyte Esterase Urine RBC Urine WBC Ur Epithelial Cells Uric Acid Crystals Urine Bacteria Urine Osmolality Ur Random Sodium 11/22/17 11/22/17 11/22/17 07:20 07:20 07:21 WBC RBC Hgb Hct MCV MCH MCHC RDW Plt Count MPV Gran % Lymph % (Auto) Green % (Auto) Eos % (Auto) Baso % (Auto) Gran # Lymph # (Auto) Green # (Auto) Eos # (Auto) Baso # (Auto) Sodium 140 Potassium 3.7 Chloride 109 H D Carbon Dioxide 20 L Anion Gap 15 BUN 31 H Creatinine 1.6 H Est GFR ( Amer) 39 Est GFR (Non-Af Amer) 32 POC Glucose (mg/dL) 174 H Random Glucose 196 H Serum Osmolality Calcium 8.4 Phosphorus 4.5 Magnesium 2.0 Total Bilirubin 0.8 Direct Bilirubin AST 23 ALT 14 Alkaline Phosphatase 69 Ammonia Total Protein 5.7 L Albumin 3.1 Globulin 2.6 Albumin/Globulin Ratio 1.2 Procalcitonin Cortisol AM Sample 8.3 Urine Color Urine Appearance Urine pH Ur Specific Richardson Urine Protein Urine Glucose (UA) Urine Ketones Urine Blood Urine Nitrate Urine Bilirubin Urine Urobilinogen Ur Leukocyte Esterase Urine RBC Urine WBC Ur Epithelial Cells Uric Acid Crystals Urine Bacteria Urine Osmolality Ur Random Sodium 11/22/17 11/22/17 08:30 12:31 WBC RBC Hgb Hct MCV MCH MCHC RDW Plt Count MPV Gran % Lymph % (Auto) Green % (Auto) Eos % (Auto) Baso % (Auto) Gran # Lymph # (Auto) Green # (Auto) Eos # (Auto) Baso # (Auto) Sodium Potassium Chloride Carbon Dioxide Anion Gap BUN Creatinine Est GFR ( Amer) Est GFR (Non-Af Amer) POC Glucose (mg/dL) 266 H Random Glucose Serum Osmolality 307 H Calcium Phosphorus Magnesium Total Bilirubin Direct Bilirubin AST ALT Alkaline Phosphatase Ammonia Total Protein Albumin Globulin Albumin/Globulin Ratio Procalcitonin Cortisol AM Sample Urine Color Urine Appearance Urine pH Ur Specific Richardson Urine Protein Urine Glucose (UA) Urine Ketones Urine Blood Urine Nitrate Urine Bilirubin Urine Urobilinogen Ur Leukocyte Esterase Urine RBC Urine WBC Ur Epithelial Cells Uric Acid Crystals Urine Bacteria Urine Osmolality Ur Random Sodium Fingerstick Blood Sugar Results: 266 Critical Care Progress Note - Nutrition Nutrition: Nutrition Category Date Time Status NPO Diet [DIET] Diets 11/21/17 Dinner Ordered Assessment/Plan - Assessment and Plan (Free Text) Plan: 67yo female with history of DM type 2, HTN, HLD, 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 Neuro: -Repeat MRI Brain was obtained this morning which showed progressing encephalitis; Diffuse cortical edema and swelling with loss of normal sulci. -Repeat EEG was ordered and completed pending read -Consent obtained for TLC placement and she will be started on 3% NS for treatment of edema -Mannitol was discontinued and she is on valproate per neurology recommendations ; previously received keppra -Spinal tap was attempted multiple times but unfortunately unsuccessful -She is pending transfer to [facility] for continuous EEG monitoring -Case was discussed with ID and she is on broad spectrum abx and antiviral therapy -Pending infectious workup as ordered including TB, RPR, HIV, cryptococcus -Neurosurgery was consulted - Dr. Sage -Neurology consulted - Dr. Oh Cardio: -Monitor and maintain MAP > 65 -She is presently on levophed and vasopressin Pulm: -Monitor and maintain SaO2 > 90% -Presently she in on vent support with PRVC -ABG were reviewed GI: -GI prophlaxis with protonix -NPO -GI following - Dr. Martinez Renal: -Monitor and correct/replete electrolytes as indicated -Creatinine elevated likely secondary to DHAVAL due to prerenal etiology/ hypotension -She is on IVF and pressor support -Nephrology consulted - Dr. Garcia Endo: -Presently NPO -Monitor and maintain euglycemia with BG 140-180's Heme: -DVT prophylaxis with heparin ID: -Infectious workup pending including HIV, RPR, Cryptococcus, TB -Spinal tap was previously unsuccessful -She is on broad spectrum abx and antiviral agents as per ID recommendations -Case discussed with ID this morning -Blood cultures have been negative for past 48hrs -Urine culture growing gram negative rods and gram positive cocci Patient was seen and case discussed/reviewed with attending, Dr. Rosenbaum <Wu Rosenbaum - Last Filed: 11/22/17 17:25> CCU Objective - Vital Signs / Intake & Output Vital Signs (Last 4 hours): Vital Signs Temp Pulse BP Pulse Ox 11/22/17 15:20 96.1 F L 93 H 94 L 11/22/17 15:10 96.1 F L 94 H 95 11/22/17 15:00 96.3 F L 95 H 109/59 L 96 11/22/17 14:50 96.4 F L 95 H 97 11/22/17 14:40 96.4 F L 92 H 97 11/22/17 14:34 104/56 L 11/22/17 14:33 96.6 F L 95 H 98 11/22/17 14:30 96.6 F L 94 H 106/56 L 98 11/22/17 14:28 96.8 F L 94 H 106/62 98 11/22/17 14:25 96.8 F L 92 H 88/50 L 98 11/22/17 14:20 96.8 F L 92 H 91/49 L 98 11/22/17 14:19 73/43 L 11/22/17 14:18 96.8 F L 92 H 98 11/22/17 14:15 96.8 F L 93 H 81/48 L 98 11/22/17 14:14 96.8 F L 93 H 80/47 L 98 11/22/17 14:10 97.0 F L 95 H 87/48 L 97 11/22/17 14:05 97.0 F L 98 H 89/48 L 98 11/22/17 14:00 97 H 105/37 L 99 11/22/17 13:55 97 H 98/52 L 99 11/22/17 13:50 96 H 102/54 L 99 11/22/17 13:45 92 H 94/51 L 99 11/22/17 13:40 92 H 90/53 L 100 11/22/17 13:35 93 H 90/53 L 99 11/22/17 13:33 95 H 80/48 L 98 11/22/17 13:30 93 H 80/42 L 97 11/22/17 13:25 100 H 92/44 L 98 Intake and Output (Last 8hrs): Intake & Output 11/22/17 11/22/17 11/22/17 06:59 14:59 22:59 Intake Total 3752 466 50 Output Total 900 Balance 2852 466 50 Intake: IV 3752 466 50 0.9 1800 abx 300 levophed 924 mannitol 200 versed 12 Output: Urine 900 Urethral (Batista) 900 - Medications Active Medications: Active Medications Generic Name Dose Route Start Last Admin Trade Name Freq PRN Reason Stop Dose Admin Acetaminophen 650 mg 11/18/17 21:28 11/20/17 13:25 Tylenol 325mg Tab PO 650 mg Q4H PRN Administration Mild pain (1-3) or temp > 100F Amlodipine Besylate 5 mg 11/20/17 10:45 11/21/17 14:26 Norvasc PO Not Given DAILY LEMUEL Clonidine HCl 0.1 mg 11/20/17 02:42 11/20/17 13:24 Catapres PO 0.1 mg Q6 PRN Administration Systolic Blood Pressure > 160 Heparin Sodium (Porcine) 5,000 units 11/22/17 11:15 11/22/17 12:38 Heparin SC 5,000 units Q12 LEMUEL Administration Protocol Hydralazine HCl 10 mg 11/19/17 16:33 11/20/17 06:12 Apresoline IVP 10 mg Q6 PRN Administration for sbp greater than 160 Hydrocortisone Sodium Succinate 50 mg 11/22/17 14:15 11/22/17 14:49 Solu-Cortef IVP 50 mg Q6H LEMUEL Administration Hydromorphone HCl 0.5 mg 11/19/17 19:48 11/21/17 03:08 Dilaudid IVP 0.5 mg Q4H PRN Administration Pain, severe (8-10) Nicardipine HCl 20 mg in 200 mls @ 50 mls/hr 11/20/17 16:05 11/21/17 09:00 Cardene Iv Premix IV 0 mg/hr .Q4H PRN 0 mls/hr TITRATE PER MD ORDER Titration Protocol 5 MG/HR Vancomycin HCl 1 gm in 250 mls @ 167 mls/hr 11/21/17 10:00 11/22/17 09:31 Vancomycin 1gm IVPB 11/30/17 10:01 167 mls/hr DAILY L[facility]UEL Administration Protocol Midazolam 100 mg/100ml in NS 100 mg in 100 mls @ 1 mls/hr 11/21/17 12:11 13:51 Midazolam 100 Mg/100ml In Ns IV 1 mg/hr .Q24H PRN 1 mls/hr Seizure activity Administration Protocol 1 MG/HR Valproate Sodium 1,000 mg/ 110 mls @ 100 mls/hr 11/21/17 19:00 11/22/17 06:01 Sodium Chloride IVPB 100 mls/hr 0700,1900 LEMUEL Administration Norepinephrine Bitartrate 8 mg 258 mls @ 48.37 mls/hr 11/21/17 21:32 15:50 / Sodium Chloride IV 20 mcg/min .Q5H21M PRN 38.7 mls/hr TITRATE PER MD ORDER Administration Protocol 25 MCG/MIN Sodium Chloride 1,000 mls @ 175 mls/hr 11/22/17 05:48 11/22/17 05:55 Sodium Chloride 0.9% IV 175 mls/hr .Q5H43M [facility]UEL Administration Vasopressin 20 units/ Sodium 101 mls @ 9.09 mls/hr 11/22/17 06:52 11/22/17 07 :30 Chloride IV Not Given .Q11H7M [facility] Protocol 0.03 U/MIN Meropenem 50 mls @ 100 mls/hr 11/22/17 22:00 Merrem Iv 1 Gm Premix IVPB 12/01/17 22:01 Q12 [facility] Protocol Sodium Chloride 500 mls @ 30 mls/hr 11/22/17 11:15 11/22/17 13:35 Hypertonic Saline 3% IV 30 mls/hr .[id number] [facility]UEL Administration Doxycycline Hyclate 100 mg/ 100 mls @ 100 mls/hr 11/22/17 12:45 11/22/17 14: 51 Sodium Chloride IVPB 100 mls/hr Q12 [facility] Administration Protocol Acyclovir 750 mg/ Sodium 250 mls @ 100 mls/hr 11/22/17 22:00 Chloride IV Q12 [facility] Protocol Trimethoprim/Sulfamethoxazole 250 mls @ 250 mls/hr 11/22/17 12:45 11/22/17 14 :43 160 mg/ Dextrose IVPB 250 mls/hr Q6 [facility] Administration Ganciclovir 200 mg/ Sodium 100 mls @ 100 mls/hr 11/23/17 10:00 Chloride IV DAILY [facility] Amphotericin B 300 mg/ 250 mls @ 125 mls/hr 11/22/17 15:30 Dextrose IV 11/22/17 17:29 ONCE ONE Ibuprofen 600 mg 11/19/17 19:21 11/20/17 10:44 Motrin Tab PO 600 mg Q8H PRN Administration Pain, moderate (4-7) Insulin Human Regular 0 units 11/18/17 22:00 11/22/17 17:12 Humulin R Low SC 4 units ACHS L[facility]UEL Administration Protocol Losartan Potassium 100 mg 11/20/17 10:43 11/21/17 11:16 Cozaar PO Not Given DAILY [facility] Ondansetron HCl 4 mg 11/18/17 21:14 11/20/17 15:00 Zofran Inj IVP 4 mg Q8H PRN Administration Nausea/Vomiting Pantoprazole Sodium 40 mg 11/19/17 22:00 11/22/17 09:30 Protonix Inj IVP 40 mg Q12 L[facility]UEL Administration Sucralfate 1 gm 11/19/17 16:00 11/22/17 16:31 Carafate Oral Susp PO Not Given 0600,1600 LEMUEL - Patient Studies Lab Studies: Microbiology Studies 11/21/17 06:30 Urine Culture - Preliminary Urine,Batista Gram Negative Nick Gram Positive Cocci 11/20/17 17:20 MRSA Culture (Admit) - Final Naris MRSA NOT DETECTED 11/19/17 18:56 Blood Culture - Preliminary Blood-Venous NO GROWTH AFTER 48 HOURS 11/19/17 18:56 Blood Culture - Preliminary Blood-Venous NO GROWTH AFTER 48 HOURS Lab Studies 11/22/17 11/22/17 11/22/17 Range/Units 16:04 12:31 08:30 WBC (4.5-11.0) 10^3/ul RBC (3.5-6.1) 10^6/uL Hgb (12.0-16.0) g/dL Hct (36.0-48.0) % MCV (80.0-105.0) fl MCH (25.0-35.0) pg MCHC (31.0-37.0) g/dl RDW (11.5-14.5) % Plt Count (120.0-450.0) 10^3/uL MPV (7.0-11.0) fl Gran % (50.0-68.0) % Lymph % (Auto) (22.0-35.0) % Green % (Auto) (1.0-6.0) % Eos % (Auto) (1.5-5.0) % Baso % (Auto) (0.0-3.0) % Gran # (1.4-6.5) Lymph # (Auto) (1.2-3.4) Green # (Auto) (0.1-0.6) Eos # (Auto) (0.0-0.7) Baso # (Auto) (0.0-2.0) K/mm3 Sodium (132-148) mmol/L Potassium (3.6-5.0) mmol/L Chloride (98-107) mmol/L Carbon Dioxide (21-33) mmol/L Anion Gap (10-20) BUN (7-21) mg/dL Creatinine (0.7-1.2) mg/dl Est GFR ( Amer) Est GFR (Non-Af Amer) POC Glucose (mg/dL) 309 H 266 H (65-110) mg/dL Random Glucose (70-110) mg/dL Serum Osmolality 307 H (272-300) mosm/kg Calcium (8.4-10.5) mg/dL Phosphorus (2.5-4.5) mg/dL Magnesium (1.7-2.2) mg/dL Total Bilirubin (0.2-1.3) mg/dL Direct Bilirubin (0.0-0.4) mg/dL AST (14-36) U/L ALT (7-56) U/L Alkaline Phosphatase (38-126) U/L Ammonia (9-33) umol/L Total Protein (5.8-8.3) g/dL Albumin (3.0-4.8) g/dL Globulin gm/dL Albumin/Globulin Ratio (1.1-1.8) Procalcitonin (0.19-0.49) NG/ML Cortisol AM Sample (4.46-22.7) ug/dL Urine Color (YELLOW) Urine Appearance (CLEAR) Urine pH (4.7-8.0) Ur Specific Richardson (1.005-1.035) Urine Protein (<30 mg/dL) mg/dL Urine Glucose (UA) (NEGATIVE) mg/dL Urine Ketones (NEGATIVE) mg/dL Urine Blood (NEGATIVE) Urine Nitrate (NEGATIVE) Urine Bilirubin (NEGATIVE) Urine Urobilinogen (<1 E.U./dL) E.U./dL Ur Leukocyte Esterase (NEGATIVE) Benita/uL Urine RBC (0-2) /hpf Urine WBC (0-6) /hpf Ur Epithelial Cells (0-5) /hpf Uric Acid Crystals /hpf Urine Bacteria (NEG) Urine Osmolality (300-1000) mosm/kg Ur Random Sodium meq/L 11/22/17 11/22/17 11/22/17 Range/Units 07:21 07:20 07:20 WBC (4.5-11.0) 10^3/ul RBC (3.5-6.1) 10^6/uL Hgb (12.0-16.0) g/dL Hct (36.0-48.0) % MCV (80.0-105.0) fl MCH (25.0-35.0) pg MCHC (31.0-37.0) g/dl RDW (11.5-14.5) % Plt Count (120.0-450.0) 10^3/uL MPV (7.0-11.0) fl Gran % (50.0-68.0) % Lymph % (Auto) (22.0-35.0) % Green % (Auto) (1.0-6.0) % Eos % (Auto) (1.5-5.0) % Baso % (Auto) (0.0-3.0) % Gran # (1.4-6.5) Lymph # (Auto) (1.2-3.4) Green # (Auto) (0.1-0.6) Eos # (Auto) (0.0-0.7) Baso # (Auto) (0.0-2.0) K/mm3 Sodium 140 (132-148) mmol/L Potassium 3.7 (3.6-5.0) mmol/L Chloride 109 H D (98-107) mmol/L Carbon Dioxide 20 L (21-33) mmol/L Anion Gap 15 (10-20) BUN 31 H (7-21) mg/dL Creatinine 1.6 H (0.7-1.2) mg/dl Est GFR ( Amer) 39 Est GFR (Non-Af Amer) 32 POC Glucose (mg/dL) 174 H (65-110) mg/dL Random Glucose 196 H (70-110) mg/dL Serum Osmolality (272-300) mosm/kg Calcium 8.4 (8.4-10.5) mg/dL Phosphorus 4.5 (2.5-4.5) mg/dL Magnesium 2.0 (1.7-2.2) mg/dL Total Bilirubin 0.8 (0.2-1.3) mg/dL Direct Bilirubin (0.0-0.4) mg/dL AST 23 (14-36) U/L ALT 14 (7-56) U/L Alkaline Phosphatase 69 (38-126) U/L Ammonia (9-33) umol/L Total Protein 5.7 L (5.8-8.3) g/dL Albumin 3.1 (3.0-4.8) g/dL Globulin 2.6 gm/dL Albumin/Globulin Ratio 1.2 (1.1-1.8) Procalcitonin (0.19-0.49) NG/ML Cortisol AM Sample 8.3 (4.46-22.7) ug/dL Urine Color (YELLOW) Urine Appearance (CLEAR) Urine pH (4.7-8.0) Ur Specific Richardson (1.005-1.035) Urine Protein (<30 mg/dL) mg/dL Urine Glucose (UA) (NEGATIVE) mg/dL Urine Ketones (NEGATIVE) mg/dL Urine Blood (NEGATIVE) Urine Nitrate (NEGATIVE) Urine Bilirubin (NEGATIVE) Urine Urobilinogen (<1 E.U./dL) E.U./dL Ur Leukocyte Esterase (NEGATIVE) Benita/uL Urine RBC (0-2) /hpf Urine WBC (0-6) /hpf Ur Epithelial Cells (0-5) /hpf Uric Acid Crystals /hpf Urine Bacteria (NEG) Urine Osmolality (300-1000) mosm/kg Ur Random Sodium meq/L 11/22/17 11/22/17 11/21/17 Range/Units 07:20 06:26 21:58 WBC 22.7 H (4.5-11.0) 10^3/ul RBC 3.70 (3.5-6.1) 10^6/uL Hgb 11.4 L (12.0-16.0) g/dL Hct 34.3 L (36.0-48.0) % MCV 92.7 D (80.0-105.0) fl MCH 30.8 (25.0-35.0) pg MCHC 33.2 (31.0-37.0) g/dl RDW 16.9 H (11.5-14.5) % Plt Count 206 (120.0-450.0) 10^3/uL MPV 9.8 (7.0-11.0) fl Gran % 89.2 H (50.0-68.0) % Lymph % (Auto) 4.5 L (22.0-35.0) % Green % (Auto) 6.1 H (1.0-6.0) % Eos % (Auto) 0.2 L (1.5-5.0) % Baso % (Auto) 0.0 (0.0-3.0) % Gran # 20.20 H (1.4-6.5) Lymph # (Auto) 1.0 L (1.2-3.4) Green # (Auto) 1.4 H (0.1-0.6) Eos # (Auto) 0.1 (0.0-0.7) Baso # (Auto) 0.01 (0.0-2.0) K/mm3 Sodium (132-148) mmol/L Potassium (3.6-5.0) mmol/L Chloride (98-107) mmol/L Carbon Dioxide (21-33) mmol/L Anion Gap (10-20) BUN (7-21) mg/dL Creatinine (0.7-1.2) mg/dl Est GFR ( Amer) Est GFR (Non-Af Amer) POC Glucose (mg/dL) 182 H 293 H (65-110) mg/dL Random Glucose (70-110) mg/dL Serum Osmolality (272-300) mosm/kg Calcium (8.4-10.5) mg/dL Phosphorus (2.5-4.5) mg/dL Magnesium (1.7-2.2) mg/dL Total Bilirubin (0.2-1.3) mg/dL Direct Bilirubin (0.0-0.4) mg/dL AST (14-36) U/L ALT (7-56) U/L Alkaline Phosphatase (38-126) U/L Ammonia (9-33) umol/L Total Protein (5.8-8.3) g/dL Albumin (3.0-4.8) g/dL Globulin gm/dL Albumin/Globulin Ratio (1.1-1.8) Procalcitonin (0.19-0.49) NG/ML Cortisol AM Sample (4.46-22.7) ug/dL Urine Color (YELLOW) Urine Appearance (CLEAR) Urine pH (4.7-8.0) Ur Specific Richardson (1.005-1.035) Urine Protein (<30 mg/dL) mg/dL Urine Glucose (UA) (NEGATIVE) mg/dL Urine Ketones (NEGATIVE) mg/dL Urine Blood (NEGATIVE) Urine Nitrate (NEGATIVE) Urine Bilirubin (NEGATIVE) Urine Urobilinogen (<1 E.U./dL) E.U./dL Ur Leukocyte Esterase (NEGATIVE) Benita/uL Urine RBC (0-2) /hpf Urine WBC (0-6) /hpf Ur Epithelial Cells (0-5) /hpf Uric Acid Crystals /hpf Urine Bacteria (NEG) Urine Osmolality (300-1000) mosm/kg Ur Random Sodium meq/L 11/21/17 11/21/17 11/21/17 Range/Units 19:00 19:00 19:00 WBC (4.5-11.0) 10^3/ul RBC (3.5-6.1) 10^6/uL Hgb (12.0-16.0) g/dL Hct (36.0-48.0) % MCV (80.0-105.0) fl MCH (25.0-35.0) pg MCHC (31.0-37.0) g/dl RDW (11.5-14.5) % Plt Count (120.0-450.0) 10^3/uL MPV (7.0-11.0) fl Gran % (50.0-68.0) % Lymph % (Auto) (22.0-35.0) % Green % (Auto) (1.0-6.0) % Eos % (Auto) (1.5-5.0) % Baso % (Auto) (0.0-3.0) % Gran # (1.4-6.5) Lymph # (Auto) (1.2-3.4) Green # (Auto) (0.1-0.6) Eos # (Auto) (0.0-0.7) Baso # (Auto) (0.0-2.0) K/mm3 Sodium (132-148) mmol/L Potassium (3.6-5.0) mmol/L Chloride (98-107) mmol/L Carbon Dioxide (21-33) mmol/L Anion Gap (10-20) BUN (7-21) mg/dL Creatinine (0.7-1.2) mg/dl Est GFR ( Amer) Est GFR (Non-Af Amer) POC Glucose (mg/dL) (65-110) mg/dL Random Glucose (70-110) mg/dL Serum Osmolality 301 H (272-300) mosm/kg Calcium (8.4-10.5) mg/dL Phosphorus (2.5-4.5) mg/dL Magnesium (1.7-2.2) mg/dL Total Bilirubin 1.3 (0.2-1.3) mg/dL Direct Bilirubin 0.1 (0.0-0.4) mg/dL AST 25 (14-36) U/L ALT 27 (7-56) U/L Alkaline Phosphatase 71 (38-126) U/L Ammonia < 9 L (9-33) umol/L Total Protein 6.1 (5.8-8.3) g/dL Albumin 3.5 (3.0-4.8) g/dL Globulin 2.6 gm/dL Albumin/Globulin Ratio 1.3 (1.1-1.8) Procalcitonin (0.19-0.49) NG/ML Cortisol AM Sample (4.46-22.7) ug/dL Urine Color (YELLOW) Urine Appearance (CLEAR) Urine pH (4.7-8.0) Ur Specific Richardson (1.005-1.035) Urine Protein (<30 mg/dL) mg/dL Urine Glucose (UA) (NEGATIVE) mg/dL Urine Ketones (NEGATIVE) mg/dL Urine Blood (NEGATIVE) Urine Nitrate (NEGATIVE) Urine Bilirubin (NEGATIVE) Urine Urobilinogen (<1 E.U./dL) E.U./dL Ur Leukocyte Esterase (NEGATIVE) Benita/uL Urine RBC (0-2) /hpf Urine WBC (0-6) /hpf Ur Epithelial Cells (0-5) /hpf Uric Acid Crystals /hpf Urine Bacteria (NEG) Urine Osmolality (300-1000) mosm/kg Ur Random Sodium meq/L 11/21/17 11/21/17 11/21/17 Range/Units 19:00 18:43 17:30 WBC (4.5-11.0) 10^3/ul RBC (3.5-6.1) 10^6/uL Hgb (12.0-16.0) g/dL Hct (36.0-48.0) % MCV (80.0-105.0) fl MCH (25.0-35.0) pg MCHC (31.0-37.0) g/dl RDW (11.5-14.5) % Plt Count (120.0-450.0) 10^3/uL MPV (7.0-11.0) fl Gran % (50.0-68.0) % Lymph % (Auto) (22.0-35.0) % Green % (Auto) (1.0-6.0) % Eos % (Auto) (1.5-5.0) % Baso % (Auto) (0.0-3.0) % Gran # (1.4-6.5) Lymph # (Auto) (1.2-3.4) Green # (Auto) (0.1-0.6) Eos # (Auto) (0.0-0.7) Baso # (Auto) (0.0-2.0) K/mm3 Sodium (132-148) mmol/L Potassium (3.6-5.0) mmol/L Chloride (98-107) mmol/L Carbon Dioxide (21-33) mmol/L Anion Gap (10-20) BUN (7-21) mg/dL Creatinine (0.7-1.2) mg/dl Est GFR ( Amer) Est GFR (Non-Af Amer) POC Glucose (mg/dL) 280 H (65-110) mg/dL Random Glucose (70-110) mg/dL Serum Osmolality (272-300) mosm/kg Calcium (8.4-10.5) mg/dL Phosphorus (2.5-4.5) mg/dL Magnesium (1.7-2.2) mg/dL Total Bilirubin (0.2-1.3) mg/dL Direct Bilirubin (0.0-0.4) mg/dL AST (14-36) U/L ALT (7-56) U/L Alkaline Phosphatase (38-126) U/L Ammonia (9-33) umol/L Total Protein (5.8-8.3) g/dL Albumin (3.0-4.8) g/dL Globulin gm/dL Albumin/Globulin Ratio (1.1-1.8) Procalcitonin 0.12 L (0.19-0.49) NG/ML Cortisol AM Sample (4.46-22.7) ug/dL Urine Color Light yellow (YELLOW) Urine Appearance Clear (CLEAR) Urine pH 6.0 (4.7-8.0) Ur Specific Richardson <= 1.005 (1.005-1.035) Urine Protein Trace H (<30 mg/dL) mg/dL Urine Glucose (UA) 100 H (NEGATIVE) mg/dL Urine Ketones Negative (NEGATIVE) mg/dL Urine Blood Small H (NEGATIVE) Urine Nitrate Negative (NEGATIVE) Urine Bilirubin Negative (NEGATIVE) Urine Urobilinogen 0.2 (<1 E.U./dL) E.U./dL Ur Leukocyte Esterase Moderate H (NEGATIVE) Benita/uL Urine RBC 5 - 10 (0-2) /hpf Urine WBC 20 - 25 (0-6) /hpf Ur Epithelial Cells 0 - 2 (0-5) /hpf Uric Acid Crystals Small /hpf Urine Bacteria Mod (NEG) Urine Osmolality (300-1000) mosm/kg Ur Random Sodium meq/L 11/21/17 Range/Units 17:30 WBC (4.5-11.0) 10^3/ul RBC (3.5-6.1) 10^6/uL Hgb (12.0-16.0) g/dL Hct (36.0-48.0) % MCV (80.0-105.0) fl MCH (25.0-35.0) pg MCHC (31.0-37.0) g/dl RDW (11.5-14.5) % Plt Count (120.0-450.0) 10^3/uL MPV (7.0-11.0) fl Gran % (50.0-68.0) % Lymph % (Auto) (22.0-35.0) % Green % (Auto) (1.0-6.0) % Eos % (Auto) (1.5-5.0) % Baso % (Auto) (0.0-3.0) % Gran # (1.4-6.5) Lymph # (Auto) (1.2-3.4) Green # (Auto) (0.1-0.6) Eos # (Auto) (0.0-0.7) Baso # (Auto) (0.0-2.0) K/mm3 Sodium (132-148) mmol/L Potassium (3.6-5.0) mmol/L Chloride (98-107) mmol/L Carbon Dioxide (21-33) mmol/L Anion Gap (10-20) BUN (7-21) mg/dL Creatinine (0.7-1.2) mg/dl Est GFR ( Amer) Est GFR (Non-Af Amer) POC Glucose (mg/dL) (65-110) mg/dL Random Glucose (70-110) mg/dL Serum Osmolality (272-300) mosm/kg Calcium (8.4-10.5) mg/dL Phosphorus (2.5-4.5) mg/dL Magnesium (1.7-2.2) mg/dL Total Bilirubin (0.2-1.3) mg/dL Direct Bilirubin (0.0-0.4) mg/dL AST (14-36) U/L ALT (7-56) U/L Alkaline Phosphatase (38-126) U/L Ammonia (9-33) umol/L Total Protein (5.8-8.3) g/dL Albumin (3.0-4.8) g/dL Globulin gm/dL Albumin/Globulin Ratio (1.1-1.8) Procalcitonin (0.19-0.49) NG/ML Cortisol AM Sample (4.46-22.7) ug/dL Urine Color (YELLOW) Urine Appearance (CLEAR) Urine pH (4.7-8.0) Ur Specific Richardson (1.005-1.035) Urine Protein (<30 mg/dL) mg/dL Urine Glucose (UA) (NEGATIVE) mg/dL Urine Ketones (NEGATIVE) mg/dL Urine Blood (NEGATIVE) Urine Nitrate (NEGATIVE) Urine Bilirubin (NEGATIVE) Urine Urobilinogen (<1 E.U./dL) E.U./dL Ur Leukocyte Esterase (NEGATIVE) Benita/uL Urine RBC (0-2) /hpf Urine WBC (0-6) /hpf Ur Epithelial Cells (0-5) /hpf Uric Acid Crystals /hpf Urine Bacteria (NEG) Urine Osmolality 203 L (300-1000) mosm/kg Ur Random Sodium < 5 meq/L Laboratory Results - last 24 hr 11/21/17 11/21/17 11/21/17 17:30 17:30 18:43 WBC RBC Hgb Hct MCV MCH MCHC RDW Plt Count MPV Gran % Lymph % (Auto) Green % (Auto) Eos % (Auto) Baso % (Auto) Gran # Lymph # (Auto) Green # (Auto) Eos # (Auto) Baso # (Auto) Sodium Potassium Chloride Carbon Dioxide Anion Gap BUN Creatinine Est GFR ( Amer) Est GFR (Non-Af Amer) POC Glucose (mg/dL) 280 H Random Glucose Serum Osmolality Calcium Phosphorus Magnesium Total Bilirubin Direct Bilirubin AST ALT Alkaline Phosphatase Ammonia Total Protein Albumin Globulin Albumin/Globulin Ratio Procalcitonin Cortisol AM Sample Urine Color Light yellow Urine Appearance Clear Urine pH 6.0 Ur Specific Richardson <= 1.005 Urine Protein Trace H Urine Glucose (UA) 100 H Urine Ketones Negative Urine Blood Small H Urine Nitrate Negative Urine Bilirubin Negative Urine Urobilinogen 0.2 Ur Leukocyte Esterase Moderate H Urine RBC 5 - 10 Urine WBC 20 - 25 Ur Epithelial Cells 0 - 2 Uric Acid Crystals Small Urine Bacteria Mod Urine Osmolality 203 L Ur Random Sodium < 5 11/21/17 11/21/17 11/21/17 19:00 19:00 19:00 WBC RBC Hgb Hct MCV MCH MCHC RDW Plt Count MPV Gran % Lymph % (Auto) Green % (Auto) Eos % (Auto) Baso % (Auto) Gran # Lymph # (Auto) Green # (Auto) Eos # (Auto) Baso # (Auto) Sodium Potassium Chloride Carbon Dioxide Anion Gap BUN Creatinine Est GFR ( Amer) Est GFR (Non-Af Amer) POC Glucose (mg/dL) Random Glucose Serum Osmolality 301 H Calcium Phosphorus Magnesium Total Bilirubin Direct Bilirubin AST ALT Alkaline Phosphatase Ammonia < 9 L Total Protein Albumin Globulin Albumin/Globulin Ratio Procalcitonin 0.12 L Cortisol AM Sample Urine Color Urine Appearance Urine pH Ur Specific Richardson Urine Protein Urine Glucose (UA) Urine Ketones Urine Blood Urine Nitrate Urine Bilirubin Urine Urobilinogen Ur Leukocyte Esterase Urine RBC Urine WBC Ur Epithelial Cells Uric Acid Crystals Urine Bacteria Urine Osmolality Ur Random Sodium 11/21/17 11/21/17 11/22/17 19:00 21:58 06:26 WBC RBC Hgb Hct MCV MCH MCHC RDW Plt Count MPV Gran % Lymph % (Auto) Green % (Auto) Eos % (Auto) Baso % (Auto) Gran # Lymph # (Auto) Green # (Auto) Eos # (Auto) Baso # (Auto) Sodium Potassium Chloride Carbon Dioxide Anion Gap BUN Creatinine Est GFR ( Amer) Est GFR (Non-Af Amer) POC Glucose (mg/dL) 293 H 182 H Random Glucose Serum Osmolality Calcium Phosphorus Magnesium Total Bilirubin 1.3 Direct Bilirubin 0.1 AST 25 ALT 27 Alkaline Phosphatase 71 Ammonia Total Protein 6.1 Albumin 3.5 Globulin 2.6 Albumin/Globulin Ratio 1.3 Procalcitonin Cortisol AM Sample Urine Color Urine Appearance Urine pH Ur Specific Richardson Urine Protein Urine Glucose (UA) Urine Ketones Urine Blood Urine Nitrate Urine Bilirubin Urine Urobilinogen Ur Leukocyte Esterase Urine RBC Urine WBC Ur Epithelial Cells Uric Acid Crystals Urine Bacteria Urine Osmolality Ur Random Sodium 11/22/17 11/22/17 11/22/17 07:20 07:20 07:20 WBC 22.7 H RBC 3.70 Hgb 11.4 L Hct 34.3 L MCV 92.7 D MCH 30.8 MCHC 33.2 RDW 16.9 H Plt Count 206 MPV 9.8 Gran % 89.2 H Lymph % (Auto) 4.5 L Green % (Auto) 6.1 H Eos % (Auto) 0.2 L Baso % (Auto) 0.0 Gran # 20.20 H Lymph # (Auto) 1.0 L Green # (Auto) 1.4 H Eos # (Auto) 0.1 Baso # (Auto) 0.01 Sodium 140 Potassium 3.7 Chloride 109 H D Carbon Dioxide 20 L Anion Gap 15 BUN 31 H Creatinine 1.6 H Est GFR ( Amer) 39 Est GFR (Non-Af Amer) 32 POC Glucose (mg/dL) Random Glucose 196 H Serum Osmolality Calcium 8.4 Phosphorus 4.5 Magnesium 2.0 Total Bilirubin 0.8 Direct Bilirubin AST 23 ALT 14 Alkaline Phosphatase 69 Ammonia Total Protein 5.7 L Albumin 3.1 Globulin 2.6 Albumin/Globulin Ratio 1.2 Procalcitonin Cortisol AM Sample 8.3 Urine Color Urine Appearance Urine pH Ur Specific Richardson Urine Protein Urine Glucose (UA) Urine Ketones Urine Blood Urine Nitrate Urine Bilirubin Urine Urobilinogen Ur Leukocyte Esterase Urine RBC Urine WBC Ur Epithelial Cells Uric Acid Crystals Urine Bacteria Urine Osmolality Ur Random Sodium 11/22/17 11/22/17 11/22/17 07:21 08:30 12:31 WBC RBC Hgb Hct MCV MCH MCHC RDW Plt Count MPV Gran % Lymph % (Auto) Green % (Auto) Eos % (Auto) Baso % (Auto) Gran # Lymph # (Auto) Green # (Auto) Eos # (Auto) Baso # (Auto) Sodium Potassium Chloride Carbon Dioxide Anion Gap BUN Creatinine Est GFR ( Amer) Est GFR (Non-Af Amer) POC Glucose (mg/dL) 174 H 266 H Random Glucose Serum Osmolality 307 H Calcium Phosphorus Magnesium Total Bilirubin Direct Bilirubin AST ALT Alkaline Phosphatase Ammonia Total Protein Albumin Globulin Albumin/Globulin Ratio Procalcitonin Cortisol AM Sample Urine Color Urine Appearance Urine pH Ur Specific Richardson Urine Protein Urine Glucose (UA) Urine Ketones Urine Blood Urine Nitrate Urine Bilirubin Urine Urobilinogen Ur Leukocyte Esterase Urine RBC Urine WBC Ur Epithelial Cells Uric Acid Crystals Urine Bacteria Urine Osmolality Ur Random Sodium 11/22/17 16:04 WBC RBC Hgb Hct MCV MCH MCHC RDW Plt Count MPV Gran % Lymph % (Auto) Green % (Auto) Eos % (Auto) Baso % (Auto) Gran # Lymph # (Auto) Green # (Auto) Eos # (Auto) Baso # (Auto) Sodium Potassium Chloride Carbon Dioxide Anion Gap BUN Creatinine Est GFR ( Amer) Est GFR (Non-Af Amer) POC Glucose (mg/dL) 309 H Random Glucose Serum Osmolality Calcium Phosphorus Magnesium Total Bilirubin Direct Bilirubin AST ALT Alkaline Phosphatase Ammonia Total Protein Albumin Globulin Albumin/Globulin Ratio Procalcitonin Cortisol AM Sample Urine Color Urine Appearance Urine pH Ur Specific Richardson Urine Protein Urine Glucose (UA) Urine Ketones Urine Blood Urine Nitrate Urine Bilirubin Urine Urobilinogen Ur Leukocyte Esterase Urine RBC Urine WBC Ur Epithelial Cells Uric Acid Crystals Urine Bacteria Urine Osmolality Ur Random Sodium Critical Care Progress Note - Nutrition Nutrition: Nutrition Category Date Time Status NPO Diet [DIET] Diets 11/21/17 Dinner Ordered Attending/Attestation - Attestation I have personally seen and examined this patient.: Yes I have fully participated in the care of the patient.: Yes I have reviewed all pertinent clinical information: Yes Notes (Text): 11/22/17 17:[address] Rosenbaum note
[2017-11-22] MEDS ORDERED: WATER IV ONE (15:30)
[2017-11-22] MEDS ORDERED: DEXTROSE 5% IV ONE (15:30)
[2017-11-22] MEDS ORDERED: AMPHOTERICIN B LIPOSOME IV ONE ×2 (15:30)
--- NOTE | 2017-11-22 16:56 | PN ---
DATE: 11/22/2017 SUBJECTIVE: The patient is seen in the ICU. She is on mechanical ventilation. She is on norepinephrine at 30 mcg/minute, normal saline at 175 mL/hour, valproate at 100 mL/hour. The patient also received Solu-Cortef 50 mg, vasopressin 0.03 units per minute. Her intake and output for the last 24 hours have been 4642/1650. Her blood pressure has ranged from 136/75 to as low as 62/42. PHYSICAL EXAMINATION: GENERAL: Elderly lady, lying in bed on mechanical ventilation, unresponsive. HEENT: Normocephalic, atraumatic, pupils fixed, not reactive to light. Positive pallor. NECK: Supple, no JVD. LUNGS: Bilateral equal air entry, bilaterally equal expansion anteriorly, no rales appreciated. CARDIAC: S1 and S2, regular rate and rhythm, no murmur, no rub. ABDOMEN: Obese, distended, soft, distended, bowel sounds sluggish. EXTREMITIES: 3+ pitting edema of the lower extremities. INTAKE AND OUTPUT: 4640/1650. LABORATORY DATA: WBC 22.7, hemoglobin 11, hematocrit 34, platelets 206, polys 89%, lymphs 4.5%. ABG from yesterday showed a pH of 7.5, pO2 of 287, pCO2 of 23. Sodium 140, potassium 3.7, chloride 109, CO2 of 20, BUN 31, creatinine 1.6, glucose 196, calcium 8.4, phosphorus 4.5, magnesium 2, albumin 3.1. Serum osmolality 307. A.m. cortisol 8.3. Urine osmolality 203. Urine sodium less than 5. Urine culture, gram-positive cocci and gram-negative rods. Blood culture, no growth so far. Brain MRI from this morning: Diffuse cortical edema and swelling, loss of sulci compared to yesterday's exam, thin rim of high signal intensity surrounding the brainstem and upper cervical cord consistent with encephalitis. Chest x-ray: No acute disease. CURRENT MEDICATIONS: Acyclovir 750 every 12, Apresoline, Carafate, Cardene 5 mg per hour on hold, Catapres on hold, losartan not given, doxycycline 100 every 12, insulin 3 units, hypertonic saline to be started at 30 mL, Merrem 1 g every 12, norepinephrine at 30 mcg/minute, was on normal saline at 175, Bactrim every 6, valproate, vancomycin 1 g daily. ASSESSMENT: 1. Severe sepsis, septic shock, acute meningoencephalitis. 2. Status post hypertensive emergency. 3. Acute kidney injury in the setting of acute severe sepsis. 4. Resolved hypokalemia. 5. Cholangiocarcinoma. 6. Gmk-[id number]-uwzyjxlkl diabetes mellitus. 7. History of nephrolithiasis. 8. Recent carboplatin and Gemzar based chemotherapy in September. PLAN: 1. Continue antibiotics and antivirals to cover for meningoencephalitis. 2. Spinal tap was done yesterday, but it was a dry tap. 3. Continue insulin drip to maintain euglycemia. 4. Agree with steroids and hypertonic saline to reduce brain edema. 5. Case discussed at length with storage worker, case discussed with ICU nursing staff, case discussed with family yesterday at length at bedside. More than 35 minutes spent in the care of this critically ill patient. Ivone Garcia MD
[2017-11-22 18:36] LABS: FLUID TYPE SPINAL FLUID
--- NOTE | 2017-11-22 18:56 | CP.PCM.PN ---
Subjective - Date & Time of Evaluation Date of Evaluation: 11/22/17 Time of Evaluation: 18:56 - Subjective Subjective: Britney Archuleta, PGY2, Heme-Onc Progress Note for Dr Leyva: Patient seen and examined at bedside. No acute events overnight. Patient remains , intubated, unreponsive, on versed, levophed drips. Pupils dilated. ROS unobtainable due patient's mental status/intubated. Objective - Vital Signs/Intake and Output Vital Signs (last 24 hours): Temp Pulse Resp BP Pulse Ox 96.1 F L 93 H 103 H 109/59 L 94 L 11/22/17 15:20 11/22/17 15:20 11/22/17 07:55 11/22/17 15:00 11/22/17 15:20 Intake and Output: 11/22/17 11/22/17 06:59 18:59 Intake Total 3752 516 Output Total 900 Balance 2852 516 - Medications Medications: Current Medications Acetaminophen (Tylenol 325mg Tab) 650 mg PO Q4H PRN PRN Reason: Mild pain (1-3) or temp > 100F Last Admin: 11/20/17 13:25 Dose: 650 mg Amlodipine Besylate (Norvasc) 5 mg PO DAILY [facility] Last Admin: 11/21/17 14:26 Dose: Not Given Clonidine HCl (Catapres) 0.1 mg PO Q6 PRN PRN Reason: Systolic Blood Pressure > 160 Last Admin: 11/20/17 13:24 Dose: 0.1 mg Heparin Sodium (Porcine) (Heparin) 5,000 units SC Q12 LEMUEL PRN Reason: Protocol Last Admin: 11/22/17 12:38 Dose: 5,000 units Hydralazine HCl (Apresoline) 10 mg IVP Q6 PRN PRN Reason: for sbp greater than 160 Last Admin: 11/20/17 06:12 Dose: 10 mg Hydrocortisone Sodium Succinate (Solu-Cortef) 50 mg IVP Q6H [facility] Last Admin: 11/22/17 14:49 Dose: 50 mg Hydromorphone HCl (Dilaudid) 0.5 mg IVP Q4H PRN PRN Reason: Pain, severe (8-10) Last Admin: 11/21/17 03:08 Dose: 0.5 mg Nicardipine HCl (Cardene Iv Premix) 20 mg in 200 mls @ 50 mls/hr IV .Q4H PRN; Protocol; 5 MG/HR PRN Reason: TITRATE PER MD ORDER Last Titration: 11/21/17 09:00 Dose: 0 mg/hr, 0 mls/hr Vancomycin HCl (Vancomycin 1gm) 1 gm in 250 mls @ 167 mls/hr IVPB DAILY LEMUEL PRN Reason: Protocol Stop: 11/30/17 10:01 Last Admin: 11/22/17 09:31 Dose: 167 mls/hr Midazolam 100 mg/100ml in NS (Midazolam 100 Mg/100ml In Ns) 100 mg in 100 mls @ 1 mls/hr IV .Q24H PRN; Protocol; 1 MG/HR PRN Reason: Seizure activity Last Admin: 11/21/17 13:51 Dose: 1 mg/hr, 1 mls/hr Valproate Sodium 1,000 mg/ (Sodium Chloride) 110 mls @ 100 mls/hr IVPB 0700, 1900 LEMUEL Last Admin: 11/22/17 06:01 Dose: 100 mls/hr Norepinephrine Bitartrate 8 mg (/ Sodium Chloride) 258 mls @ 48.37 mls/hr IV .Q5H21M PRN; Protocol; 25 MCG/MIN PRN Reason: TITRATE PER MD ORDER Last Admin: 11/22/17 15:50 Dose: 20 mcg/min, 38.7 mls/hr Vasopressin 20 units/ Sodium (Chloride) 101 mls @ 9.09 mls/hr IV .Q11H7M LEMUEL; 0.03 U/MIN PRN Reason: Protocol Last Admin: 11/22/17 07:30 Dose: Not Given Meropenem (Merrem Iv 1 Gm Premix) 50 mls @ 100 mls/hr IVPB Q12 LEMUEL PRN Reason: Protocol Stop: 12/01/17 22:01 Doxycycline Hyclate 100 mg/ (Sodium Chloride) 100 mls @ 100 mls/hr IVPB Q12 LEMUEL PRN Reason: Protocol Last Admin: 11/22/17 14:51 Dose: 100 mls/hr Acyclovir 750 mg/ Sodium (Chloride) 250 mls @ 100 mls/hr IV Q12 LEMUEL PRN Reason: Protocol Trimethoprim/Sulfamethoxazole (160 mg/ Dextrose) 250 mls @ 250 mls/hr IVPB Q6 [facility] Last Admin: 11/22/17 14:43 Dose: 250 mls/hr Ganciclovir 200 mg/ Sodium (Chloride) 100 mls @ 100 mls/hr IV DAILY [facility] Sodium Chloride (Hypertonic Saline 3%) 500 mls @ 30 mls/hr IV .[id number] [facility] Ibuprofen (Motrin Tab) 600 mg PO Q8H PRN PRN Reason: Pain, moderate (4-7) Last Admin: 11/20/17 10:44 Dose: 600 mg Insulin Human Regular (Humulin R Low) 0 units SC ACHS LEMUEL PRN Reason: Protocol Last Admin: 11/22/17 17:12 Dose: 4 units Losartan Potassium (Cozaar) 100 mg PO DAILY [facility] Last Admin: 11/21/17 11:16 Dose: Not Given Ondansetron HCl (Zofran Inj) 4 mg IVP Q8H PRN PRN Reason: Nausea/Vomiting Last Admin: 11/20/17 15:00 Dose: 4 mg Pantoprazole Sodium (Protonix Inj) 40 mg IVP Q12 [facility] Last Admin: 11/22/17 09:30 Dose: 40 mg Sucralfate (Carafate Oral Susp) 1 gm PO 0600,1600 [facility] Last Admin: 11/22/17 16:31 Dose: Not Given - Labs Labs: 11/22/17 07:20 11/22/17 07:20 PT 11.6 SECONDS (9.4-12.5) 11/20/17 14:40 INR 1.02 (0.93-1.08) 11/20/17 14:40 APTT 32.8 Seconds (25.1-36.5) 11/20/17 14:40 - Head Exam Head Exam: ATRAUMATIC, NORMOCEPHALIC Assessment and Plan - Assessment and Plan (Free Text) Assessment: 67 year old female with PMH DM II, hypertension, and porcelain gall bladder, 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 Over the hospital course, patient's mental status worsened. Repeat brain MRI shows worsening meningoencephalitis: - C/w Acyclovir, Merrem. Appeciate ID recs. Started Ganciclovir - C/w 3%NS, solucortef - Neurology on board. F/u recs. F/u CSF fluid results - C/w ICU management - Awaiting transfer to a comprehensive care center - poor prognosis Case seen and discussed with Dr Leyva.
[2017-11-22 21:33] LABS: CALCIUM 8.2 mg/dL (8.4-10.5)
--- NOTE | 2017-11-22 23:41 | PCM.PROC ---
Procedures Attestation:: I certify that I have explained the specified Operation(s) or Procedure(s), risks, benefits and reasonable alternatives to the Patient and/or other person responsible. The opportunity was given to ask questions and all questions answered - Lumbar Puncture Consent Obtained: Written Consent Time Out Performed: Yes Patient Position: Upright Skin Prep: 0.5% Chlorhexidine/Alcohol Local Anesthetic Used: Lidocaine 1% Spinal Needle Gauge: 22G Interspace Used: Other (C1) Fluid Initially Obtained: Clear Complications: None
--- NOTE | 2017-11-23 02:12 | OP ---
PROCEDURE DATE: 11/22/2017 PROCEDURE: Left internal jugular vein CVC. INDICATION: IV access for 3% sodium chloride. DESCRIPTION OF PROCEDURE: After obtaining informed consent, the operation area was sterilized. Maximum barrier precautions were used. Left IJ vein was cannulated by sterile Seldinger technique. Guidewire removed. Hemostasis achieved. Sterile dressing applied. Chest x-ray showed normal pneumothorax and correct position of the CVC. Wu Rosenbaum MD [facility]
[2017-11-23 02:57] LABS: CALCIUM 7.9 mg/dL (8.4-10.5)
[2017-11-23] MEDS: Sucralfate 1 gm/10 ml Oral Susp UD PO SCH ×2 (04:59→15:03)
[2017-11-23] MEDS: Sulfamethoxazole/Trimethoprim 160 MG in Dextrose 5% In Water 250 ML IVPB SCH ×2 (05:00→12:31)
[2017-11-23 05:59] LABS: EOS % 0.1 % (1.5-5.0); GRAN # 25.32 (1.4-6.5); GRAN % 95.2 % (50.0-68.0); HEMOGLOBIN 9.1 g/dL (12.0-16.0); LYMPH # 0.7 (1.2-3.4); LYMPH % 2.7 % (22.0-35.0); MEAN CELL VOLUME 96.9 fl (80.0-105.0); MEAN CORPUSCULAR HEMOGLOBIN 31.3 pg (25.0-35.0); MEAN CORPUSCULAR HGB CONC 32.3 g/dl (31.0-37.0); MEAN PLATELET VOLUME 10.4 fl (7.0-11.0); MONO # 0.5 (0.1-0.6); PLATELET COUNT 136 10^3/uL (120.0-450.0); RBC 2.91 10^6/uL (3.5-6.1); RED CELL DISTRIBUTION WIDTH 17.2 % (11.5-14.5)
[2017-11-23 06:13] LABS: WHITE BLOOD COUNT 26.6 10^3/ul (4.5-11.0)
[2017-11-23 06:26] LABS: ALBUMIN 2.6 g/dL (3.0-4.8)
[2017-11-23] MEDS: Insulin Reg-LOW-Coverage SC SCH ×3 (07:36→17:53)
--- NOTE | 2017-11-23 08:06 | PN ---
DATE: 11/22/2017 SUBJECTIVE: The patient is seen and examined at bedside. She is intubated and currently is on PRVC 400/12/5/50%. She is not on any sedation. She is on norepinephrine 23 mcg per kg per minute and vasopressin 0.03 units per minute. PHYSICAL EXAMINATION: VITAL SIGNS: Heart rate 93, oxygen saturation 98%, end-tidal CO2 on the monitor 90, temperature 96.8, blood pressure 105/37. HEENT: Head and neck atraumatic. LUNGS: Clear to auscultation bilaterally. HEART: Regular rate and rhythm. S1 and S2 normal. ABDOMEN: Soft, nontender, nondistended. MUSCULOSKELETAL: No C/C/E. NEUROLOGIC: The patient is not moving any extremities and not following commands. SKIN: Moist. PSYCHIATRIC: The patient appears to be comfortable. LABORATORY DATA: WBC 22.7, hemoglobin 11.4, platelet count 206. Sodium 140, potassium 3.7, chloride 109, carbon dioxide 20, BUN 31, creatinine 1.6 up from 1.1, glucose 266, osmolality of 307, calcium 8.4, AST 23, ALT 14, ammonia level is less than 9, total protein 5.7. INR 1.02. MEDICATIONS: Tylenol p.r.n., acyclovir, doxycycline, hydrocortisone 50 mg IV every 6 hours, Motrin p.r.n, regular insulin sliding scale low protocol, meropenem, nicardipine, norepinephrine, Zofran p.r.n., Protonix, normal saline 175 mL per hour, sodium chloride 30 mL per hour, sucralfate, Bactrim, Depakote, vancomycin, vasopressin. MRI of the brain today showed diffuse cortical edema and swelling with loss of normal sulci. Findings are most consistent with encephalitis, findings are progressed since yesterday's exam. ASSESSMENT AND PLAN: This is a 67-year-old lady who presented with rapidly progressing encephalitis with subsequent inability to protect her airways and hemodynamic compromise. The patient is intubated and on vasopressor support as well as mechanical ventilatory support. MRI of the brain confirmed rapidly progressing encephalitis. Differential diagnosis is broad and includes infectious and noninfectious etiology. Among infectious etiology, viral pathogens are on the top differential diagnosis list including Eastern equine encephalitis, West Nile encephalitis. Involvement of lepto meninges expands differential diagnosis to tuberculosis, listeriosis; however, other bacterial pathogens cannot be ruled out at present time as her lumbar puncture was unsuccessful. Those more typical bacterial pathogens are covered with broad-spectrum antibiotics. Bactrim was started to cover for Listeria monocytogenes. Ganciclovir and acyclovir are ordered. ID service is following the patient as well. Of note, I spoke with Dr. Padilla about doing C-arm guided LP, but we both agreed that the risks of intrahospital transfer to Radiology department will be prohibitely high due to patient's high requirement for pressor support and ventilatory support. Possibility of noninfectious etiologies are also there including paraneoplastic syndrome, leukoencephalopathy, leptomeningeal carcinomatosis. On the other note, the patient is in distributive shock and currently supported with vasopressin, Levophed and stress dose steroids. We will continue with protective lung ventilation strategy, head of bed elevated >35 degrees, oral hygiene, DVT and GI prophylaxis. Maintain euvolemia, euglycemia, normothermia, and oxygen saturation more than 90%. ccm time 40 min Wu Rosenbaum MD [facility]
[2017-11-23 08:51] LABS: BAND 0 % (0-2); LYMPHOCYTE 3 % (22.0-35.0); MONOCYTE 2 % (1.0-6.0); NEUTROPHIL 95 % (50.0-70.0); PLATELET ESTIMATE NORMAL (NORMAL)
[2017-11-23] MEDS: Valproate 1,000 MG in Sodium Chloride 0.9% 100 ML IVPB SCH (09:00)
--- NOTE | 2017-11-23 09:29 | MRI ---
Date of service: 11/21/2017 PROCEDURE: MRI BRAIN WITH AND WITHOUT CONTRAST HISTORY: Headache COMPARISON: MRI 11/18/2017 TECHNIQUE: Multiplanar, multisequence MR images of the brain were obtained with and without intravenous contrast enhancement. 15 cc of Omniscan FINDINGS: HEMORRHAGE: None DWI: No evidence of an acute or early subacute infarction. BRAIN PARENCHYMA: Diffuse cortical edema can be seen predominantly on FLAIR images. There is also cortical swelling with diminished sulci. The findings are most consistent with encephalitis. There is no evidence of meningeal enhancement. The report concurs with the preliminary [facility] report ENHANCEMENT: No abnormal intracranial enhancement. VENTRICLES: Unremarkable. No hydrocephalus. CRANIUM: Unremarkable. ORBITS: Grossly unremarkable. PARANASAL SINUSES/MASTOIDS: Clear VASCULAR SYSTEM: Skull base flow voids intact. OTHER FINDINGS: The findings were discussed with Dr. Rosenbaum and Adriano. IMPRESSION: Diffuse cortical edema with cortical swelling and diminished sulci. Findings most consistent with encephalitis.
[2017-11-23] MEDS: Meropenem IV 1 gm in NS 50 ML IVPB SCH (10:05)
[2017-11-23] MEDS: Vancomycin 1gm in NS 250ml 1 GM/250 ML BAG IVPB SCH (10:06)
--- NOTE | 2017-11-23 10:26 | CP.PCM.PN ---
<Bon Barriga - Last Filed: 11/23/17 15:30> Subjective - Date & Time of Evaluation Date of Evaluation: 11/23/17 Time of Evaluation: 08:00 - Subjective Subjective: Bon Barriga PGY2 Neurology Progress Note for Dr. Daniels Patient was seen and examined at bedside in ICU. She is on airborne/droplet precautions. there were no acute overnight events. the patient remains intubated /on vent and off sedation. she is on levophed gtt @ 30mcg/min, vasopressin @ .03u/min, and on 3% hypertenonic saline @ 30 mls/hr. The patient has a mars and is making urine. the patient remains non-responsive off sedation, and doesn' t respond to sternal rub or painful stimulation. her gag, corneal and pupil reflexes are absent. ROS was limited due to intubation. CSF sample was not sufficient to be spun down by machine for cell count, however , a smear was done and reviewed by pathologist. 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 ICU, ID and Heme/Onc teams were notified. Family is being notified as well. Objective - Vital Signs/Intake and Output Vital Signs (last 24 hours): Temp Pulse Resp BP Pulse Ox 100.0 F H 113 H 103 H 108/59 L 98 11/23/17 03:00 11/23/17 03:00 11/22/17 07:55 11/23/17 03:00 11/23/17 03:00 Intake and Output: 11/23/17 11/23/17 06:59 18:59 Intake Total 516 258 Balance 516 258 - Medications Medications: Current Medications Acetaminophen (Tylenol 325mg Tab) 650 mg PO Q4H PRN PRN Reason: Mild pain (1-3) or temp > 100F Last Admin: 11/20/17 13:25 Dose: 650 mg Amlodipine Besylate (Norvasc) 5 mg PO DAILY [facility] Last Admin: 11/21/17 14:26 Dose: Not Given Clonidine HCl (Catapres) 0.1 mg PO Q6 PRN PRN Reason: Systolic Blood Pressure > 160 Last Admin: 11/20/17 13:24 Dose: 0.1 mg Heparin Sodium (Porcine) (Heparin) 5,000 units SC Q12 [facility] PRN Reason: Protocol Last Admin: 11/23/17 10:06 Dose: 5,000 units Hydralazine HCl (Apresoline) 10 mg IVP Q6 PRN PRN Reason: for sbp greater than 160 Last Admin: 11/20/17 06:12 Dose: 10 mg Hydrocortisone Sodium Succinate (Solu-Cortef) 50 mg IVP Q6H [facility] Last Admin: 11/23/17 09:00 Dose: 50 mg Hydromorphone HCl (Dilaudid) 0.5 mg IVP Q4H PRN PRN Reason: Pain, severe (8-10) Last Admin: 11/21/17 03:08 Dose: 0.5 mg Nicardipine HCl (Cardene Iv Premix) 20 mg in 200 mls @ 50 mls/hr IV .Q4H PRN; Protocol; 5 MG/HR PRN Reason: TITRATE PER MD ORDER Last Titration: 11/21/17 09:00 Dose: 0 mg/hr, 0 mls/hr Vancomycin HCl (Vancomycin 1gm) 1 gm in 250 mls @ 167 mls/hr IVPB DAILY [facility] PRN Reason: Protocol Stop: 11/30/17 10:01 Last Admin: 11/23/17 10:06 Dose: 167 mls/hr Midazolam 100 mg/100ml in NS (Midazolam 100 Mg/100ml In Ns) 100 mg in 100 mls @ 1 mls/hr IV .Q24H PRN; Protocol; 1 MG/HR PRN Reason: Seizure activity Last Titration: 11/22/17 14:00 Dose: 0 mg/hr, 0 mls/hr Valproate Sodium 1,000 mg/ (Sodium Chloride) 110 mls @ 100 mls/hr IVPB 0700, 1900 [facility] Last Admin: 11/23/17 09:00 Dose: 100 mls/hr Norepinephrine Bitartrate 8 mg (/ Sodium Chloride) 258 mls @ 48.37 mls/hr IV .Q5H21M PRN; Protocol; 25 MCG/MIN PRN Reason: TITRATE PER MD ORDER Last Admin: 11/23/17 09:58 Dose: 30 mcg/min, 58.05 mls/hr Vasopressin 20 units/ Sodium (Chloride) 101 mls @ 9.09 mls/hr IV .Q11H7M [facility]; 0.03 U/MIN PRN Reason: Protocol Last Admin: 11/23/17 01:44 Dose: 0.03 u/min, 9.09 mls/hr Meropenem (Merrem Iv 1 Gm Premix) 50 mls @ 100 mls/hr IVPB Q12 [facility] PRN Reason: Protocol Stop: 12/01/17 22:01 Last Admin: 11/23/17 10:05 Dose: 100 mls/hr Doxycycline Hyclate 100 mg/ (Sodium Chloride) 100 mls @ 100 mls/hr IVPB Q12 [facility] PRN Reason: Protocol Last Admin: 11/23/17 09:59 Dose: 100 mls/hr Acyclovir 750 mg/ Sodium (Chloride) 250 mls @ 100 mls/hr IV Q12 [facility] PRN Reason: Protocol Last Admin: 11/23/17 10:02 Dose: 100 mls/hr Trimethoprim/Sulfamethoxazole (160 mg/ Dextrose) 250 mls @ 250 mls/hr IVPB Q6 [facility] Last Admin: 11/23/17 05:00 Dose: 250 mls/hr Ganciclovir 200 mg/ Sodium (Chloride) 100 mls @ 100 mls/hr IV DAILY [facility] Last Admin: 11/23/17 10:00 Dose: 100 mls/hr Sodium Chloride (Hypertonic Saline 3%) 500 mls @ 30 mls/hr IV .[id number] [facility] Last Admin: 11/23/17 02:50 Dose: 30 mls/hr Acetaminophen (Ofirmev) 1,000 mg in 100 mls @ 0 mls/hr IVPB Q6H PRN; Titrate PRN Reason: Temperature Stop: 11/25/17 04:31 Last Admin: 11/23/17 05:33 Dose: 400 mls/hr Ibuprofen (Motrin Tab) 600 mg PO Q8H PRN PRN Reason: Pain, moderate (4-7) Last Admin: 11/20/17 10:44 Dose: 600 mg Insulin Human Regular (Humulin R Low) 0 units SC Q4H [facility] PRN Reason: Protocol Last Admin: 11/23/17 07:36 Dose: 3 units Losartan Potassium (Cozaar) 100 mg PO DAILY [facility] Last Admin: 11/21/17 11:16 Dose: Not Given Ondansetron HCl (Zofran Inj) 4 mg IVP Q8H PRN PRN Reason: Nausea/Vomiting Last Admin: 11/20/17 15:00 Dose: 4 mg Pantoprazole Sodium (Protonix Inj) 40 mg IVP Q12 [facility] Last Admin: 11/23/17 10:06 Dose: 40 mg Sucralfate (Carafate Oral Susp) 1 gm PO 0600,1600 [facility] Last Admin: 11/23/17 04:59 Dose: Not Given - Labs Labs: 11/23/17 05:55 11/23/17 05:55 PT 11.6 SECONDS (9.4-12.5) 11/20/17 14:40 INR 1.02 (0.93-1.08) 11/20/17 14:40 APTT 32.8 Seconds (25.1-36.5) 11/20/17 14:40 - Additional Findings Additional findings: - Constitutional Appears: No Acute Distress, Other (intubated, does not respond to sternal rub) - Head Exam Head Exam: ATRAUMATIC, NORMAL INSPECTION - Eye Exam Pupil Exam: Fixed, Mydriatic. absent: PERRL Additional comments: Corneal reflex absent - ENT Exam Additional comments: L IJ TLC in place intubated gag reflex is absent - Neck Exam Neck Exam: Normal Inspection - Respiratory Exam Respiratory Exam: absent: Rales, Rhonchi, Wheezes Additional comments: intubated, and on vent (PRVC) - Cardiovascular Exam Cardiovascular Exam: Tachycardia, +S1, +S2 - GI/Abdominal Exam GI & Abdominal Exam: Soft. 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 Khan ) who presented for intractable nausea/vomiting and neck pain. Brain MRI (11/22 ) shows meningoencephaitis with diffuse cerebral edema, compared to initial MRI brain that did not show this finding. Patient currently in ICU, with absent corneal and gag reflexes, no spontaneous movements and fixed and dilated pupils. Patient in septic shock on Levophed and vasopressin, and receiving acyclovir, doxycycline, ganciclovir, vancomycin, meropenem, bactrim and acyclovir empirically for infectious encephalitis. She is on Versed drip and valproate for questionable seizure activity. 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 EEG showed electrocerebral silence. Prognosis is poor, the family understands and have discussed the rarity of the case and poor prognosis with Dr. Leyva, Dr. Daniels and Dr. Rosenbaum. Plan: - continue seizure ppx - Heme/Onc is following, f/u recs - maintain MAP > 65 - continue ventilation weaning trials per ICU management - continue antibiotics, antivrials and antifungals per ID - 3% NS stopped due to poor prognosis and no improvement - Further recs per Dr. Daniels Patient was seen and discussed with attending, Dr. Daniels <Derek Daniels - Last Filed: 11/23/17 18:30> Objective - Vital Signs/Intake and Output Vital Signs (last 24 hours): Temp Pulse Resp BP Pulse Ox 98.1 F 100 H 103 H 122/48 L 97 11/23/17 17:00 11/23/17 17:00 11/22/17 07:55 11/23/17 17:00 11/23/17 17:00 Intake and Output: 11/23/17 11/23/17 06:59 18:59 Intake Total 516 486 Balance 516 486 - Medications Medications: Current Medications Acetaminophen (Tylenol 325mg Tab) 650 mg PO Q4H PRN PRN Reason: Mild pain (1-3) or temp > 100F Last Admin: 11/20/17 13:25 Dose: 650 mg Amlodipine Besylate (Norvasc) 5 mg PO DAILY [facility] Last Admin: 11/21/17 14:26 Dose: Not Given Clonidine HCl (Catapres) 0.1 mg PO Q6 PRN PRN Reason: Systolic Blood Pressure > 160 Last Admin: 11/20/17 13:24 Dose: 0.1 mg Heparin Sodium (Porcine) (Heparin) 5,000 units SC Q12 [facility] PRN Reason: Protocol Last Admin: 11/23/17 10:06 Dose: 5,000 units Hydralazine HCl (Apresoline) 10 mg IVP Q6 PRN PRN Reason: for sbp greater than 160 Last Admin: 11/20/17 06:12 Dose: 10 mg Hydrocortisone Sodium Succinate (Solu-Cortef) 50 mg IVP Q6H [facility] Last Admin: 11/23/17 14:17 Dose: 50 mg Hydromorphone HCl (Dilaudid) 0.5 mg IVP Q4H PRN PRN Reason: Pain, severe (8-10) Last Admin: 11/21/17 03:08 Dose: 0.5 mg Nicardipine HCl (Cardene Iv Premix) 20 mg in 200 mls @ 50 mls/hr IV .Q4H PRN; Protocol; 5 MG/HR PRN Reason: TITRATE PER MD ORDER Last Titration: 11/21/17 09:00 Dose: 0 mg/hr, 0 mls/hr Midazolam 100 mg/100ml in NS (Midazolam 100 Mg/100ml In Ns) 100 mg in 100 mls @ 1 mls/hr IV .Q24H PRN; Protocol; 1 MG/HR PRN Reason: Seizure activity Last Titration: 11/22/17 14:00 Dose: 0 mg/hr, 0 mls/hr Valproate Sodium 1,000 mg/ (Sodium Chloride) 110 mls @ 100 mls/hr IVPB 0700, 1900 [facility] Last Admin: 11/23/17 09:00 Dose: 100 mls/hr Norepinephrine Bitartrate 8 mg (/ Sodium Chloride) 258 mls @ 48.37 mls/hr IV .Q5H21M PRN; Protocol; 25 MCG/MIN PRN Reason: TITRATE PER MD ORDER Last Titration: 11/23/17 14:11 Dose: 15 mcg/min, 29.02 mls/hr Vasopressin 20 units/ Sodium (Chloride) 101 mls @ 9.09 mls/hr IV .Q11H7M [facility]; 0.03 U/MIN PRN Reason: Protocol Last Admin: 11/23/17 01:44 Dose: 0.03 u/min, 9.09 mls/hr Acetaminophen (Ofirmev) 1,000 mg in 100 mls @ 0 mls/hr IVPB Q6H PRN; Titrate PRN Reason: Temperature Stop: 11/25/17 04:31 Last Admin: 11/23/17 05:33 Dose: 400 mls/hr Cefepime HCl 0.5 gm/ Sodium (Chloride) 100 mls @ 100 mls/hr IVPB Q12H [facility] PRN Reason: Protocol Stop: 12/02/17 13:01 Last Admin: 11/23/17 15:02 Dose: 100 mls/hr Acyclovir 250 mg/ Sodium (Chloride) 100 mls @ 100 mls/hr IV Q12 [facility] PRN Reason: Protocol Stop: 01/07/19 22:01 Ibuprofen (Motrin Tab) 600 mg PO Q8H PRN PRN Reason: Pain, moderate (4-7) Last Admin: 11/20/17 10:44 Dose: 600 mg Insulin Human Regular (Humulin R Low) 0 units SC Q4H [facility] PRN Reason: Protocol Last Admin: 11/23/17 17:53 Dose: Not Given Losartan Potassium (Cozaar) 100 mg PO DAILY [facility] Last Admin: 11/21/17 11:16 Dose: Not Given Ondansetron HCl (Zofran Inj) 4 mg IVP Q8H PRN PRN Reason: Nausea/Vomiting Last Admin: 11/20/17 15:00 Dose: 4 mg Pantoprazole Sodium (Protonix Inj) 40 mg IVP Q12 [facility] Last Admin: 11/23/17 10:06 Dose: 40 mg Sucralfate (Carafate Oral Susp) 1 gm PO 0600,1600 [facility] Last Admin: 11/23/17 15:03 Dose: Not Given - Labs Labs: 11/23/17 05:55 11/23/17 05:55 PT 11.6 SECONDS (9.4-12.5) 11/20/17 14:40 INR 1.02 (0.93-1.08) 11/20/17 14:40 APTT 32.8 Seconds (25.1-36.5) 11/20/17 14:40 Assessment and Plan - Assessment and Plan (Free Text) Assessment: The patient has a very poor prognosis. EEG showed electrosilence. No brainstem reflexes noted. Plan: Will discuss with family the recommendation for withdrawal of care. Attending/Attestation - Attestation I have personally seen and examined this patient.: Yes I have fully participated in the care of the patient.: Yes I have reviewed all pertinent clinical information, including history, physical exam and plan: Yes
--- NOTE | 2017-11-23 11:58 | CP.CCUPN ---
<Cristian Lyons - Last Filed: 11/23/17 12:10> CCU Subjective - Physician Review Subjective (Free Text): Critical Care Progress note - Dimitris Lyons PGY3 Patient seen and examined at bedside this morning. No acute overnight events or new complaints were reported by nursing staff. She remains unresponsive to verbal and painful stimuli. Per pathology, the CSF smear revealed signet ring cells, lymphocytes and epithelial cells. 12point ROS limited due to patient status. CCU Objective - Vital Signs / Intake & Output Intake and Output (Last 8hrs): Intake & Output 11/22/17 11/23/17 11/23/17 22:59 06:59 14:59 Intake Total 308 258 258 Output Total 400 Balance -92 258 258 Intake: IV 308 258 258 Output: Urine 400 Urethral (Batista) 400 - Physical Exam Head: Positive for: Atraumatic, Normocephalic Pupils: Negative for: PERRL Extroacular Muscles: Negative for: EOMI Mouth: Positive for: Moist Mucous Membranes Neck: Positive for: Normal Range of Motion Respiratory/Chest: Positive for: Clear to Auscultation. Negative for: Wheezes, Rales, Rhonchi Cardiovascular: Positive for: Regular Rate and Rhythm, Normal S1, S2. Negative for: Murmurs, Rub, Gallop Abdomen: Negative for: Tenderness, Distention, Rebound, Guarding Upper Extremity: Positive for: Normal Inspection. Negative for: Cyanosis, Edema Lower Extremity: Positive for: Normal Inspection. Negative for: Edema Neurological: Positive for: Other (unresponsive to verbal or painful stimuli, no gag or corneal reflex, pupils fixed, no spontaneous movement of extremities) Skin: Positive for: Warm, Dry, Normal Color. Negative for: Rashes Psychiatric: Negative for: Alert, Oriented x 3 - Medications Active Medications: Active Medications Generic Name Dose Route Start Last Admin Trade Name Freq PRN Reason Stop Dose Admin Acetaminophen 650 mg 11/18/17 21:28 11/20/17 13:25 Tylenol 325mg Tab PO 650 mg Q4H PRN Administration Mild pain (1-3) or temp > 100F Amlodipine Besylate 5 mg 11/20/17 10:45 11/21/17 14:26 Norvasc PO Not Given DAILY LEMUEL Clonidine HCl 0.1 mg 11/20/17 02:42 11/20/17 13:24 Catapres PO 0.1 mg Q6 PRN Administration Systolic Blood Pressure > 160 Heparin Sodium (Porcine) 5,000 units 11/22/17 11:15 11/23/17 10:06 Heparin SC 5,000 units Q12 LEMUEL Administration Protocol Hydralazine HCl 10 mg 11/19/17 16:33 11/20/17 06:12 Apresoline IVP 10 mg Q6 PRN Administration for sbp greater than 160 Hydrocortisone Sodium Succinate 50 mg 11/22/17 14:15 11/23/17 09:00 Solu-Cortef IVP 50 mg Q6H LEMUEL Administration Hydromorphone HCl 0.5 mg 11/19/17 19:48 11/21/17 03:08 Dilaudid IVP 0.5 mg Q4H PRN Administration Pain, severe (8-10) Nicardipine HCl 20 mg in 200 mls @ 50 mls/hr 11/20/17 16:05 11/21/17 09:00 Cardene Iv Premix IV 0 mg/hr .Q4H PRN 0 mls/hr TITRATE PER MD ORDER Titration Protocol 5 MG/HR Vancomycin HCl 1 gm in 250 mls @ 167 mls/hr 11/21/17 10:00 11/23/17 10:06 Vancomycin 1gm IVPB 11/30/17 10:01 167 mls/hr DAILY LEMUEL Administration Protocol Midazolam 100 mg/100ml in NS 100 mg in 100 mls @ 1 mls/hr 11/21/17 12:11 14:00 Midazolam 100 Mg/100ml In Ns IV 0 mg/hr .Q24H PRN 0 mls/hr Seizure activity Titration Protocol 1 MG/HR Valproate Sodium 1,000 mg/ 110 mls @ 100 mls/hr 11/21/17 19:00 11/23/17 09:00 Sodium Chloride IVPB 100 mls/hr 0700,1900 LEMUEL Administration Norepinephrine Bitartrate 8 mg 258 mls @ 48.37 mls/hr 11/21/17 21:32 09:58 / Sodium Chloride IV 30 mcg/min .Q5H21M PRN 58.05 mls/hr TITRATE PER MD ORDER Administration Protocol 25 MCG/MIN Vasopressin 20 units/ Sodium 101 mls @ 9.09 mls/hr 11/22/17 06:52 11/23/17 01 :44 Chloride IV 0.03 u/min .Q11H7M LEMUEL 9.09 mls/hr Protocol Administration 0.03 U/MIN Meropenem 50 mls @ 100 mls/hr 11/22/17 22:00 11/23/17 10:05 Merrem Iv 1 Gm Premix IVPB 12/01/17 22:01 100 mls/hr Q12 LEMUEL Administration Protocol Doxycycline Hyclate 100 mg/ 100 mls @ 100 mls/hr 11/22/17 12:45 11/23/17 09: 59 Sodium Chloride IVPB 100 mls/hr Q12 LEMUEL Administration Protocol Acyclovir 750 mg/ Sodium 250 mls @ 100 mls/hr 11/22/17 22:00 11/23/17 10:02 Chloride IV 100 mls/hr Q12 LEMUEL Administration Protocol Trimethoprim/Sulfamethoxazole 250 mls @ 250 mls/hr 11/22/17 12:45 11/23/17 05 :00 160 mg/ Dextrose IVPB 250 mls/hr Q6 LEMUEL Administration Ganciclovir 200 mg/ Sodium 100 mls @ 100 mls/hr 11/23/17 10:00 11/23/17 10:00 Chloride IV 100 mls/hr DAILY LEMUEL Administration Sodium Chloride 500 mls @ 30 mls/hr 11/22/17 18:30 11/23/17 02:50 Hypertonic Saline 3% IV 30 mls/hr .[id number] LEMUEL Administration Acetaminophen 1,000 mg in 100 mls @ 0 mls/hr 11/23/17 04:30 11/23/17 05:33 Ofirmev IVPB 11/25/17 04:31 400 mls/hr Q6H PRN Administration Temperature Titrate Ibuprofen 600 mg 11/19/17 19:21 11/20/17 10:44 Motrin Tab PO 600 mg Q8H PRN Administration Pain, moderate (4-7) Insulin Human Regular 0 units 11/23/17 07:05 11/23/17 07:36 Humulin R Low SC 3 units Q4H LEMUEL Administration Protocol Losartan Potassium 100 mg 11/20/17 10:43 11/21/17 11:16 Cozaar PO Not Given DAILY LEMUEL Ondansetron HCl 4 mg 11/18/17 21:14 11/20/17 15:00 Zofran Inj IVP 4 mg Q8H PRN Administration Nausea/Vomiting Pantoprazole Sodium 40 mg 11/19/17 22:00 11/23/17 10:06 Protonix Inj IVP 40 mg Q12 LEMUEL Administration Sucralfate 1 gm 11/19/17 16:00 11/23/17 04:59 Carafate Oral Susp PO Not Given 0600,1600 [facility] - Patient Studies Lab Studies: Microbiology Studies 11/21/17 06:30 Urine Culture - Final Urine,Batista Escherichia Coli Enterococcus Faecalis 11/19/17 18:56 Blood Culture - Preliminary Blood-Venous NO GROWTH AFTER 3 DAYS 11/19/17 18:56 Blood Culture - Preliminary Blood-Venous NO GROWTH AFTER 3 DAYS Lab Studies 11/23/17 11/23/17 11/23/17 Range/Units 11:41 07:49 05:55 WBC (4.5-11.0) 10^3/ul RBC (3.5-6.1) 10^6/uL Hgb (12.0-16.0) g/dL Hct (36.0-48.0) % MCV (80.0-105.0) fl MCH (25.0-35.0) pg MCHC (31.0-37.0) g/dl RDW (11.5-14.5) % Plt Count (120.0-450.0) 10^3/uL MPV (7.0-11.0) fl Gran % (50.0-68.0) % Lymph % (Auto) (22.0-35.0) % [place] % (Auto) (1.0-6.0) % Eos % (Auto) (1.5-5.0) % Baso % (Auto) (0.0-3.0) % Gran # (1.4-6.5) Lymph # (Auto) (1.2-3.4) [place] # (Auto) (0.1-0.6) Eos # (Auto) (0.0-0.7) Baso # (Auto) (0.0-2.0) K/mm3 Neutrophils % (Manual) (50.0-70.0) % Band Neutrophils % (0-2) % Lymphocytes % (Manual) (22.0-35.0) % Monocytes % (Manual) (1.0-6.0) % Platelet Evaluation (NORMAL) Sodium 147 (132-148) mmol/L Potassium 4.3 (3.6-5.0) mmol/L Chloride 114 H (98-107) mmol/L Carbon Dioxide 20 L (21-33) mmol/L Anion Gap 17 (10-20) BUN 33 H (7-21) mg/dL Creatinine 2.1 H (0.7-1.2) mg/dl Est GFR ( Amer) 28 Est GFR (Non-Af Amer) 23 POC Glucose (mg/dL) 347 H 342 H (65-110) mg/dL Random Glucose 384 H* (70-110) mg/dL Serum Osmolality (272-300) mosm/kg Calcium 8.0 L (8.4-10.5) mg/dL Total Bilirubin 0.3 (0.2-1.3) mg/dL AST 67 H D (14-36) U/L ALT 21 (7-56) U/L Alkaline Phosphatase 76 (38-126) U/L Total Protein 5.1 L (5.8-8.3) g/dL Albumin 2.6 L (3.0-4.8) g/dL Globulin 2.5 gm/dL Albumin/Globulin Ratio 1.0 L (1.1-1.8) Procalcitonin (0.19-0.49) NG/ML Fluid Type CSF Volume CSF Appearance CSF WBC CSF RBC CSF Total Cell Counted CSF Monos/Macrophages CSF Comment RPR (NONREACTIVE) 11/23/17 11/23/17 11/23/17 Range/Units 05:55 02:38 01:50 WBC 26.6 H* (4.5-11.0) 10^3/ul RBC 2.91 L (3.5-6.1) 10^6/uL Hgb 9.1 L D (12.0-16.0) g/dL Hct 28.2 L (36.0-48.0) % MCV 96.9 D (80.0-105.0) fl MCH 31.3 (25.0-35.0) pg MCHC 32.3 (31.0-37.0) g/dl RDW 17.2 H (11.5-14.5) % Plt Count 136 (120.0-450.0) 10^3/uL MPV 10.4 (7.0-11.0) fl Gran % 95.2 H (50.0-68.0) % Lymph % (Auto) 2.7 L (22.0-35.0) % [place] % (Auto) 2.0 (1.0-6.0) % Eos % (Auto) 0.1 L (1.5-5.0) % Baso % (Auto) 0.0 (0.0-3.0) % Gran # 25.32 H (1.4-6.5) Lymph # (Auto) 0.7 L (1.2-3.4) [place] # (Auto) 0.5 (0.1-0.6) Eos # (Auto) 0.0 (0.0-0.7) Baso # (Auto) 0.00 (0.0-2.0) K/mm3 Neutrophils % (Manual) 95 H (50.0-70.0) % Band Neutrophils % 0 (0-2) % Lymphocytes % (Manual) 3 L (22.0-35.0) % Monocytes % (Manual) 2 (1.0-6.0) % Platelet Evaluation Normal (NORMAL) Sodium 145 (132-148) mmol/L Potassium 4.1 (3.6-5.0) mmol/L Chloride 113 H (98-107) mmol/L Carbon Dioxide 21 (21-33) mmol/L Anion Gap 15 (10-20) BUN 33 H (7-21) mg/dL Creatinine 1.9 H (0.7-1.2) mg/dl Est GFR ( Amer) 32 Est GFR (Non-Af Amer) 26 POC Glucose (mg/dL) 333 H (65-110) mg/dL Random Glucose 339 H* (70-110) mg/dL Serum Osmolality (272-300) mosm/kg Calcium 7.9 L (8.4-10.5) mg/dL Total Bilirubin (0.2-1.3) mg/dL AST (14-36) U/L ALT (7-56) U/L Alkaline Phosphatase (38-126) U/L Total Protein (5.8-8.3) g/dL Albumin (3.0-4.8) g/dL Globulin gm/dL Albumin/Globulin Ratio (1.1-1.8) Procalcitonin (0.19-0.49) NG/ML Fluid Type CSF Volume CSF Appearance CSF WBC CSF RBC CSF Total Cell Counted CSF Monos/Macrophages CSF Comment RPR (NONREACTIVE) 11/22/17 11/22/17 11/22/17 Range/Units 21:05 16:56 16:04 WBC (4.5-11.0) 10^3/ul RBC (3.5-6.1) 10^6/uL Hgb (12.0-16.0) g/dL Hct (36.0-48.0) % MCV (80.0-105.0) fl MCH (25.0-35.0) pg MCHC (31.0-37.0) g/dl RDW (11.5-14.5) % Plt Count (120.0-450.0) 10^3/uL MPV (7.0-11.0) fl Gran % (50.0-68.0) % Lymph % (Auto) (22.0-35.0) % [place] % (Auto) (1.0-6.0) % Eos % (Auto) (1.5-5.0) % Baso % (Auto) (0.0-3.0) % Gran # (1.4-6.5) Lymph # (Auto) (1.2-3.4) [place] # (Auto) (0.1-0.6) Eos # (Auto) (0.0-0.7) Baso # (Auto) (0.0-2.0) K/mm3 Neutrophils % (Manual) (50.0-70.0) % Band Neutrophils % (0-2) % Lymphocytes % (Manual) (22.0-35.0) % Monocytes % (Manual) (1.0-6.0) % Platelet Evaluation (NORMAL) Sodium 143 (132-148) mmol/L Potassium 3.9 (3.6-5.0) mmol/L Chloride 112 H (98-107) mmol/L Carbon Dioxide 20 L (21-33) mmol/L Anion Gap 15 (10-20) BUN 32 H (7-21) mg/dL Creatinine 1.7 H (0.7-1.2) mg/dl Est GFR ( Amer) 36 Est GFR (Non-Af Amer) 30 POC Glucose (mg/dL) 309 H (65-110) mg/dL Random Glucose 303 H* D (70-110) mg/dL Serum Osmolality (272-300) mosm/kg Calcium 8.2 L (8.4-10.5) mg/dL Total Bilirubin (0.2-1.3) mg/dL AST (14-36) U/L ALT (7-56) U/L Alkaline Phosphatase (38-126) U/L Total Protein (5.8-8.3) g/dL Albumin (3.0-4.8) g/dL Globulin gm/dL Albumin/Globulin Ratio (1.1-1.8) Procalcitonin (0.19-0.49) NG/ML Fluid Type Spinal fluid CSF Volume TEST NOT PERFORMED CSF Appearance TEST NOT PERFORMED CSF WBC TEST NOT PERFORMED CSF RBC TEST NOT PERFORMED CSF Total Cell Counted TEST NOT PERFORMED CSF Monos/Macrophages TEST NOT PERFORMED CSF Comment Footnote RPR (NONREACTIVE) 11/22/17 11/22/17 11/22/17 Range/Units 12:31 08:30 08:30 WBC (4.5-11.0) 10^3/ul RBC (3.5-6.1) 10^6/uL Hgb (12.0-16.0) g/dL Hct (36.0-48.0) % MCV (80.0-105.0) fl MCH (25.0-35.0) pg MCHC (31.0-37.0) g/dl RDW (11.5-14.5) % Plt Count (120.0-450.0) 10^3/uL MPV (7.0-11.0) fl Gran % (50.0-68.0) % Lymph % (Auto) (22.0-35.0) % [place] % (Auto) (1.0-6.0) % Eos % (Auto) (1.5-5.0) % Baso % (Auto) (0.0-3.0) % Gran # (1.4-6.5) Lymph # (Auto) (1.2-3.4) [place] # (Auto) (0.1-0.6) Eos # (Auto) (0.0-0.7) Baso # (Auto) (0.0-2.0) K/mm3 Neutrophils % (Manual) (50.0-70.0) % Band Neutrophils % (0-2) % Lymphocytes % (Manual) (22.0-35.0) % Monocytes % (Manual) (1.0-6.0) % Platelet Evaluation (NORMAL) Sodium (132-148) mmol/L Potassium (3.6-5.0) mmol/L Chloride (98-107) mmol/L Carbon Dioxide (21-33) mmol/L Anion Gap (10-20) BUN (7-21) mg/dL Creatinine (0.7-1.2) mg/dl Est GFR ( Amer) Est GFR (Non-Af Amer) POC Glucose (mg/dL) 266 H (65-110) mg/dL Random Glucose (70-110) mg/dL Serum Osmolality 307 H (272-300) mosm/kg Calcium (8.4-10.5) mg/dL Total Bilirubin (0.2-1.3) mg/dL AST (14-36) U/L ALT (7-56) U/L Alkaline Phosphatase (38-126) U/L Total Protein (5.8-8.3) g/dL Albumin (3.0-4.8) g/dL Globulin gm/dL Albumin/Globulin Ratio (1.1-1.8) Procalcitonin (0.19-0.49) NG/ML Fluid Type CSF Volume CSF Appearance CSF WBC CSF RBC CSF Total Cell Counted CSF Monos/Macrophages CSF Comment RPR Nonreactive (NONREACTIVE) 11/21/17 Range/Units 19:00 WBC (4.5-11.0) 10^3/ul RBC (3.5-6.1) 10^6/uL Hgb (12.0-16.0) g/dL Hct (36.0-48.0) % MCV (80.0-105.0) fl MCH (25.0-35.0) pg MCHC (31.0-37.0) g/dl RDW (11.5-14.5) % Plt Count (120.0-450.0) 10^3/uL MPV (7.0-11.0) fl Gran % (50.0-68.0) % Lymph % (Auto) (22.0-35.0) % [place] % (Auto) (1.0-6.0) % Eos % (Auto) (1.5-5.0) % Baso % (Auto) (0.0-3.0) % Gran # (1.4-6.5) Lymph # (Auto) (1.2-3.4) [place] # (Auto) (0.1-0.6) Eos # (Auto) (0.0-0.7) Baso # (Auto) (0.0-2.0) K/mm3 Neutrophils % (Manual) (50.0-70.0) % Band Neutrophils % (0-2) % Lymphocytes % (Manual) (22.0-35.0) % Monocytes % (Manual) (1.0-6.0) % Platelet Evaluation (NORMAL) Sodium (132-148) mmol/L Potassium (3.6-5.0) mmol/L Chloride (98-107) mmol/L Carbon Dioxide (21-33) mmol/L Anion Gap (10-20) BUN (7-21) mg/dL Creatinine (0.7-1.2) mg/dl Est GFR ( Amer) Est GFR (Non-Af Amer) POC Glucose (mg/dL) (65-110) mg/dL Random Glucose (70-110) mg/dL Serum Osmolality (272-300) mosm/kg Calcium (8.4-10.5) mg/dL Total Bilirubin (0.2-1.3) mg/dL AST (14-36) U/L ALT (7-56) U/L Alkaline Phosphatase (38-126) U/L Total Protein (5.8-8.3) g/dL Albumin (3.0-4.8) g/dL Globulin gm/dL Albumin/Globulin Ratio (1.1-1.8) Procalcitonin 0.12 L (0.19-0.49) NG/ML Fluid Type CSF Volume CSF Appearance CSF WBC CSF RBC CSF Total Cell Counted CSF Monos/Macrophages CSF Comment RPR (NONREACTIVE) Laboratory Results - last 24 hr 11/21/17 11/22/17 11/22/17 19:00 08:30 08:30 WBC RBC Hgb Hct MCV MCH MCHC RDW Plt Count MPV Gran % Lymph % (Auto) [place] % (Auto) Eos % (Auto) Baso % (Auto) Gran # Lymph # (Auto) [place] # (Auto) Eos # (Auto) Baso # (Auto) Neutrophils % (Manual) Band Neutrophils % Lymphocytes % (Manual) Monocytes % (Manual) Platelet Evaluation Sodium Potassium Chloride Carbon Dioxide Anion Gap BUN Creatinine Est GFR ( Amer) Est GFR (Non-Af Amer) POC Glucose (mg/dL) Random Glucose Serum Osmolality 307 H Calcium Total Bilirubin AST ALT Alkaline Phosphatase Total Protein Albumin Globulin Albumin/Globulin Ratio Procalcitonin 0.12 L Fluid Type CSF Volume CSF Appearance CSF WBC CSF RBC CSF Total Cell Counted CSF Monos/Macrophages CSF Comment RPR Nonreactive 11/22/17 11/22/17 11/22/17 12:31 16:04 16:56 WBC RBC Hgb Hct MCV MCH MCHC RDW Plt Count MPV Gran % Lymph % (Auto) [place] % (Auto) Eos % (Auto) Baso % (Auto) Gran # Lymph # (Auto) [place] # (Auto) Eos # (Auto) Baso # (Auto) Neutrophils % (Manual) Band Neutrophils % Lymphocytes % (Manual) Monocytes % (Manual) Platelet Evaluation Sodium Potassium Chloride Carbon Dioxide Anion Gap BUN Creatinine Est GFR ( Amer) Est GFR (Non-Af Amer) POC Glucose (mg/dL) 266 H 309 H Random Glucose Serum Osmolality Calcium Total Bilirubin AST ALT Alkaline Phosphatase Total Protein Albumin Globulin Albumin/Globulin Ratio Procalcitonin Fluid Type Spinal fluid CSF Volume TEST NOT PERFORMED CSF Appearance TEST NOT PERFORMED CSF WBC TEST NOT PERFORMED CSF RBC TEST NOT PERFORMED CSF Total Cell Counted TEST NOT PERFORMED CSF Monos/Macrophages TEST NOT PERFORMED CSF Comment Footnote RPR 11/22/17 11/23/17 11/23/17 21:05 01:50 02:38 WBC RBC Hgb Hct MCV MCH MCHC RDW Plt Count MPV Gran % Lymph % (Auto) [place] % (Auto) Eos % (Auto) Baso % (Auto) Gran # Lymph # (Auto) [place] # (Auto) Eos # (Auto) Baso # (Auto) Neutrophils % (Manual) Band Neutrophils % Lymphocytes % (Manual) Monocytes % (Manual) Platelet Evaluation Sodium 143 145 Potassium 3.9 4.1 Chloride 112 H 113 H Carbon Dioxide 20 L 21 Anion Gap 15 15 BUN 32 H 33 H Creatinine 1.7 H 1.9 H Est GFR ( Amer) 36 32 Est GFR (Non-Af Amer) 30 26 POC Glucose (mg/dL) 333 H Random Glucose 303 H* D 339 H* Serum Osmolality Calcium 8.2 L 7.9 L Total Bilirubin AST ALT Alkaline Phosphatase Total Protein Albumin Globulin Albumin/Globulin Ratio Procalcitonin Fluid Type CSF Volume CSF Appearance CSF WBC CSF RBC CSF Total Cell Counted CSF Monos/Macrophages CSF Comment RPR 11/23/17 11/23/17 11/23/17 05:55 05:55 07:49 WBC 26.6 H* RBC 2.91 L Hgb 9.1 L D Hct 28.2 L MCV 96.9 D MCH 31.3 MCHC 32.3 RDW 17.2 H Plt Count 136 MPV 10.4 Gran % 95.2 H Lymph % (Auto) 2.7 L [place] % (Auto) 2.0 Eos % (Auto) 0.1 L Baso % (Auto) 0.0 Gran # 25.32 H Lymph # (Auto) 0.7 L [place] # (Auto) 0.5 Eos # (Auto) 0.0 Baso # (Auto) 0.00 Neutrophils % (Manual) 95 H Band Neutrophils % 0 Lymphocytes % (Manual) 3 L Monocytes % (Manual) 2 Platelet Evaluation Normal Sodium 147 Potassium 4.3 Chloride 114 H Carbon Dioxide 20 L Anion Gap 17 BUN 33 H Creatinine 2.1 H Est GFR ( Amer) 28 Est GFR (Non-Af Amer) 23 POC Glucose (mg/dL) 342 H Random Glucose 384 H* Serum Osmolality Calcium 8.0 L Total Bilirubin 0.3 AST 67 H D ALT 21 Alkaline Phosphatase 76 Total Protein 5.1 L Albumin 2.6 L Globulin 2.5 Albumin/Globulin Ratio 1.0 L Procalcitonin Fluid Type CSF Volume CSF Appearance CSF WBC CSF RBC CSF Total Cell Counted CSF Monos/Macrophages CSF Comment RPR 11/23/17 11:41 WBC RBC Hgb Hct MCV MCH MCHC RDW Plt Count MPV Gran % Lymph % (Auto) [place] % (Auto) Eos % (Auto) Baso % (Auto) Gran # Lymph # (Auto) [place] # (Auto) Eos # (Auto) Baso # (Auto) Neutrophils % (Manual) Band Neutrophils % Lymphocytes % (Manual) Monocytes % (Manual) Platelet Evaluation Sodium Potassium Chloride Carbon Dioxide Anion Gap BUN Creatinine Est GFR ( Amer) Est GFR (Non-Af Amer) POC Glucose (mg/dL) 347 H Random Glucose Serum Osmolality Calcium Total Bilirubin AST ALT Alkaline Phosphatase Total Protein Albumin Globulin Albumin/Globulin Ratio Procalcitonin Fluid Type CSF Volume CSF Appearance CSF WBC CSF RBC CSF Total Cell Counted CSF Monos/Macrophages CSF Comment RPR Fingerstick Blood Sugar Results: 384 Critical Care Progress Note - Nutrition Nutrition: Nutrition Category Date Time Status NPO Diet [DIET] Diets 11/21/17 Dinner Ordered Assessment/Plan - Assessment and Plan (Free Text) Plan: 67yo female with history of DM type 2, HTN, HLD, 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 Sage -Neurology consulted - Dr. Oh Cardio: -Monitor and maintain MAP > 65 -She is presently on levophed and vasopressin Pulm: -Monitor and maintain SaO2 > 90% -Presently she in on vent support with PRVC -ABG's were reviewed -HOB > 30' -Conservative ventilation strategy GI: -GI prophlaxis with protonix -NPO -GI following - Dr. Martinez Renal: -Monitor and correct/replete electrolytes as indicated -Nephrology consulted - Dr. Garcia Endo: -Presently NPO -Monitor and maintain euglycemia with BG 140-180's Heme: -DVT prophylaxis with heparin ID: -Infectious workup pending including HIV, RPR, Cryptococcus, TB -CSF smear reviewed by pathology -She is on broad spectrum abx and antiviral agents as per ID recommendations -Case discussed with ID this morning -Blood cultures have been negative for past 48hrs -Urine culture growing gram negative rods and gram positive cocci Prognosis is unfortunately poor for this critically ill patient Patient was seen and case discussed/reviewed with attending, Dr. Rosenabum <Wu Rosenbaum - Last Filed: 11/23/17 15:43> CCU Objective - Vital Signs / Intake & Output Intake and Output (Last 8hrs): Intake & Output 11/23/17 11/23/17 11/23/17 06:59 14:59 22:59 Intake Total 258 486 Balance 258 486 Intake: IV 258 486 - Medications Active Medications: Active Medications Generic Name Dose Route Start Last Admin Trade Name Freq PRN Reason Stop Dose Admin Acetaminophen 650 mg 11/18/17 21:28 11/20/17 13:25 Tylenol 325mg Tab PO 650 mg Q4H PRN Administration Mild pain (1-3) or temp > 100F Amlodipine Besylate 5 mg 11/20/17 10:45 11/21/17 14:26 Norvasc PO Not Given DAILY LEMUEL Clonidine HCl 0.1 mg 11/20/17 02:42 11/20/17 13:24 Catapres PO 0.1 mg Q6 PRN Administration Systolic Blood Pressure > 160 Heparin Sodium (Porcine) 5,000 units 11/22/17 11:15 11/23/17 10:06 Heparin SC 5,000 units Q12 LEMUEL Administration Protocol Hydralazine HCl 10 mg 11/19/17 16:33 11/20/17 06:12 Apresoline IVP 10 mg Q6 PRN Administration for sbp greater than 160 Hydrocortisone Sodium Succinate 50 mg 11/22/17 14:15 11/23/17 14:17 Solu-Cortef IVP 50 mg Q6H LEMUEL Administration Hydromorphone HCl 0.5 mg 11/19/17 19:48 11/21/17 03:08 Dilaudid IVP 0.5 mg Q4H PRN Administration Pain, severe (8-10) Nicardipine HCl 20 mg in 200 mls @ 50 mls/hr 11/20/17 16:05 11/21/17 09:00 Cardene Iv Premix IV 0 mg/hr .Q4H PRN 0 mls/hr TITRATE PER MD ORDER Titration Protocol 5 MG/HR Midazolam 100 mg/100ml in NS 100 mg in 100 mls @ 1 mls/hr 11/21/17 12:11 14:00 Midazolam 100 Mg/100ml In Ns IV 0 mg/hr .Q24H PRN 0 mls/hr Seizure activity Titration Protocol 1 MG/HR Valproate Sodium 1,000 mg/ 110 mls @ 100 mls/hr 11/21/17 19:00 11/23/17 09:00 Sodium Chloride IVPB 100 mls/hr 0700,1900 LEMUEL Administration Norepinephrine Bitartrate 8 mg 258 mls @ 48.37 mls/hr 11/21/17 21:32 14:11 / Sodium Chloride IV 15 mcg/min .Q5H21M PRN 29.02 mls/hr TITRATE PER MD ORDER Titration Protocol 25 MCG/MIN Vasopressin 20 units/ Sodium 101 mls @ 9.09 mls/hr 11/22/17 06:52 11/23/17 01 :44 Chloride IV 0.03 u/min .Q11H7M LEMUEL 9.09 mls/hr Protocol Administration 0.03 U/MIN Acetaminophen 1,000 mg in 100 mls @ 0 mls/hr 11/23/17 04:30 11/23/17 05:33 Ofirmev IVPB 11/25/17 04:31 400 mls/hr Q6H PRN Administration Temperature Titrate Cefepime HCl 0.5 gm/ Sodium 100 mls @ 100 mls/hr 11/23/17 13:00 11/23/17 15: 02 Chloride IVPB 12/02/17 13:01 100 mls/hr Q12H [facility] Administration Protocol Acyclovir 250 mg/ Sodium 100 mls @ 100 mls/hr 11/23/17 22:00 Chloride IV 01/07/19 22:01 Q12 L[facility]UEL Protocol Ibuprofen 600 mg 11/19/17 19:21 11/20/17 10:44 Motrin Tab PO 600 mg Q8H PRN Administration Pain, moderate (4-7) Insulin Human Regular 0 units 11/23/17 07:05 11/23/17 12:34 Humulin R Low SC 4 units Q4H [facility]UEL Administration Protocol Losartan Potassium 100 mg 11/20/17 10:43 11/21/17 11:16 Cozaar PO Not Given DAILY L[facility]UEL Ondansetron HCl 4 mg 11/18/17 21:14 11/20/17 15:00 Zofran Inj IVP 4 mg Q8H PRN Administration Nausea/Vomiting Pantoprazole Sodium 40 mg 11/19/17 22:00 11/23/17 10:06 Protonix Inj IVP 40 mg Q12 [facility]UEL Administration Sucralfate 1 gm 11/19/17 16:00 11/23/17 15:03 Carafate Oral Susp PO Not Given 0600,1600 [facility] - Patient Studies Lab Studies: Microbiology Studies 11/21/17 06:30 Urine Culture - Final Urine,Batista Escherichia Coli Enterococcus Faecalis 11/19/17 18:56 Blood Culture - Preliminary Blood-Venous NO GROWTH AFTER 3 DAYS 11/19/17 18:56 Blood Culture - Preliminary Blood-Venous NO GROWTH AFTER 3 DAYS Lab Studies 11/23/17 11/23/17 11/23/17 Range/Units 11:41 07:49 05:55 WBC (4.5-11.0) 10^3/ul RBC (3.5-6.1) 10^6/uL Hgb (12.0-16.0) g/dL Hct (36.0-48.0) % MCV (80.0-105.0) fl MCH (25.0-35.0) pg MCHC (31.0-37.0) g/dl RDW (11.5-14.5) % Plt Count (120.0-450.0) 10^3/uL MPV (7.0-11.0) fl Gran % (50.0-68.0) % Lymph % (Auto) (22.0-35.0) % [place] % (Auto) (1.0-6.0) % Eos % (Auto) (1.5-5.0) % Baso % (Auto) (0.0-3.0) % Gran # (1.4-6.5) Lymph # (Auto) (1.2-3.4) [place] # (Auto) (0.1-0.6) Eos # (Auto) (0.0-0.7) Baso # (Auto) (0.0-2.0) K/mm3 Neutrophils % (Manual) (50.0-70.0) % Band Neutrophils % (0-2) % Lymphocytes % (Manual) (22.0-35.0) % Monocytes % (Manual) (1.0-6.0) % Platelet Evaluation (NORMAL) Sodium 147 (132-148) mmol/L Potassium 4.3 (3.6-5.0) mmol/L Chloride 114 H (98-107) mmol/L Carbon Dioxide 20 L (21-33) mmol/L Anion Gap 17 (10-20) BUN 33 H (7-21) mg/dL Creatinine 2.1 H (0.7-1.2) mg/dl Est GFR ( Amer) 28 Est GFR (Non-Af Amer) 23 POC Glucose (mg/dL) 347 H 342 H (65-110) mg/dL Random Glucose 384 H* (70-110) mg/dL Calcium 8.0 L (8.4-10.5) mg/dL Total Bilirubin 0.3 (0.2-1.3) mg/dL AST 67 H D (14-36) U/L ALT 21 (7-56) U/L Alkaline Phosphatase 76 (38-126) U/L Total Protein 5.1 L (5.8-8.3) g/dL Albumin 2.6 L (3.0-4.8) g/dL Globulin 2.5 gm/dL Albumin/Globulin Ratio 1.0 L (1.1-1.8) Fluid Type CSF Volume CSF Appearance CSF WBC CSF RBC CSF Total Cell Counted CSF Monos/Macrophages CSF Comment RPR (NONREACTIVE) HIV 1&2 Ag/Ab, 4th Gen (Nonreactive) HIV 1&2 Antibody Screen (NEGATIVE) 11/23/17 11/23/17 11/23/17 Range/Units 05:55 02:38 01:50 WBC 26.6 H* (4.5-11.0) 10^3/ul RBC 2.91 L (3.5-6.1) 10^6/uL Hgb 9.1 L D (12.0-16.0) g/dL Hct 28.2 L (36.0-48.0) % MCV 96.9 D (80.0-105.0) fl MCH 31.3 (25.0-35.0) pg MCHC 32.3 (31.0-37.0) g/dl RDW 17.2 H (11.5-14.5) % Plt Count 136 (120.0-450.0) 10^3/uL MPV 10.4 (7.0-11.0) fl Gran % 95.2 H (50.0-68.0) % Lymph % (Auto) 2.7 L (22.0-35.0) % [place] % (Auto) 2.0 (1.0-6.0) % Eos % (Auto) 0.1 L (1.5-5.0) % Baso % (Auto) 0.0 (0.0-3.0) % Gran # 25.32 H (1.4-6.5) Lymph # (Auto) 0.7 L (1.2-3.4) [place] # (Auto) 0.5 (0.1-0.6) Eos # (Auto) 0.0 (0.0-0.7) Baso # (Auto) 0.00 (0.0-2.0) K/mm3 Neutrophils % (Manual) 95 H (50.0-70.0) % Band Neutrophils % 0 (0-2) % Lymphocytes % (Manual) 3 L (22.0-35.0) % Monocytes % (Manual) 2 (1.0-6.0) % Platelet Evaluation Normal (NORMAL) Sodium 145 (132-148) mmol/L Potassium 4.1 (3.6-5.0) mmol/L Chloride 113 H (98-107) mmol/L Carbon Dioxide 21 (21-33) mmol/L Anion Gap 15 (10-20) BUN 33 H (7-21) mg/dL Creatinine 1.9 H (0.7-1.2) mg/dl Est GFR ( Amer) 32 Est GFR (Non-Af Amer) 26 POC Glucose (mg/dL) 333 H (65-110) mg/dL Random Glucose 339 H* (70-110) mg/dL Calcium 7.9 L (8.4-10.5) mg/dL Total Bilirubin (0.2-1.3) mg/dL AST (14-36) U/L ALT (7-56) U/L Alkaline Phosphatase (38-126) U/L Total Protein (5.8-8.3) g/dL Albumin (3.0-4.8) g/dL Globulin gm/dL Albumin/Globulin Ratio (1.1-1.8) Fluid Type CSF Volume CSF Appearance CSF WBC CSF RBC CSF Total Cell Counted CSF Monos/Macrophages CSF Comment RPR (NONREACTIVE) HIV 1&2 Ag/Ab, 4th Gen (Nonreactive) HIV 1&2 Antibody Screen (NEGATIVE) 11/22/17 11/22/17 11/22/17 Range/Units 21:05 21:00 16:56 WBC (4.5-11.0) 10^3/ul RBC (3.5-6.1) 10^6/uL Hgb (12.0-16.0) g/dL Hct (36.0-48.0) % MCV (80.0-105.0) fl MCH (25.0-35.0) pg MCHC (31.0-37.0) g/dl RDW (11.5-14.5) % Plt Count (120.0-450.0) 10^3/uL MPV (7.0-11.0) fl Gran % (50.0-68.0) % Lymph % (Auto) (22.0-35.0) % [place] % (Auto) (1.0-6.0) % Eos % (Auto) (1.5-5.0) % Baso % (Auto) (0.0-3.0) % Gran # (1.4-6.5) Lymph # (Auto) (1.2-3.4) [place] # (Auto) (0.1-0.6) Eos # (Auto) (0.0-0.7) Baso # (Auto) (0.0-2.0) K/mm3 Neutrophils % (Manual) (50.0-70.0) % Band Neutrophils % (0-2) % Lymphocytes % (Manual) (22.0-35.0) % Monocytes % (Manual) (1.0-6.0) % Platelet Evaluation (NORMAL) Sodium 143 (132-148) mmol/L Potassium 3.9 (3.6-5.0) mmol/L Chloride 112 H (98-107) mmol/L Carbon Dioxide 20 L (21-33) mmol/L Anion Gap 15 (10-20) BUN 32 H (7-21) mg/dL Creatinine 1.7 H (0.7-1.2) mg/dl Est GFR ( Amer) 36 Est GFR (Non-Af Amer) 30 POC Glucose (mg/dL) (65-110) mg/dL Random Glucose 303 H* D (70-110) mg/dL Calcium 8.2 L (8.4-10.5) mg/dL Total Bilirubin (0.2-1.3) mg/dL AST (14-36) U/L ALT (7-56) U/L Alkaline Phosphatase (38-126) U/L Total Protein (5.8-8.3) g/dL Albumin (3.0-4.8) g/dL Globulin gm/dL Albumin/Globulin Ratio (1.1-1.8) Fluid Type Spinal fluid CSF Volume TEST NOT PERFORMED CSF Appearance TEST NOT PERFORMED CSF WBC TEST NOT PERFORMED CSF RBC TEST NOT PERFORMED CSF Total Cell Counted TEST NOT PERFORMED CSF Monos/Macrophages TEST NOT PERFORMED CSF Comment Footnote RPR (NONREACTIVE) HIV 1&2 Ag/Ab, 4th Gen (Nonreactive) HIV 1&2 Antibody Screen Negative (NEGATIVE) 11/22/17 11/22/17 11/21/17 Range/Units 16:04 08:30 19:00 WBC (4.5-11.0) 10^3/ul RBC (3.5-6.1) 10^6/uL Hgb (12.0-16.0) g/dL Hct (36.0-48.0) % MCV (80.0-105.0) fl MCH (25.0-35.0) pg MCHC (31.0-37.0) g/dl RDW (11.5-14.5) % Plt Count (120.0-450.0) 10^3/uL MPV (7.0-11.0) fl Gran % (50.0-68.0) % Lymph % (Auto) (22.0-35.0) % [place] % (Auto) (1.0-6.0) % Eos % (Auto) (1.5-5.0) % Baso % (Auto) (0.0-3.0) % Gran # (1.4-6.5) Lymph # (Auto) (1.2-3.4) [place] # (Auto) (0.1-0.6) Eos # (Auto) (0.0-0.7) Baso # (Auto) (0.0-2.0) K/mm3 Neutrophils % (Manual) (50.0-70.0) % Band Neutrophils % (0-2) % Lymphocytes % (Manual) (22.0-35.0) % Monocytes % (Manual) (1.0-6.0) % Platelet Evaluation (NORMAL) Sodium (132-148) mmol/L Potassium (3.6-5.0) mmol/L Chloride (98-107) mmol/L Carbon Dioxide (21-33) mmol/L Anion Gap (10-20) BUN (7-21) mg/dL Creatinine (0.7-1.2) mg/dl Est GFR ( Amer) Est GFR (Non-Af Amer) POC Glucose (mg/dL) 309 H (65-110) mg/dL Random Glucose (70-110) mg/dL Calcium (8.4-10.5) mg/dL Total Bilirubin (0.2-1.3) mg/dL AST (14-36) U/L ALT (7-56) U/L Alkaline Phosphatase (38-126) U/L Total Protein (5.8-8.3) g/dL Albumin (3.0-4.8) g/dL Globulin gm/dL Albumin/Globulin Ratio (1.1-1.8) Fluid Type CSF Volume CSF Appearance CSF WBC CSF RBC CSF Total Cell Counted CSF Monos/Macrophages CSF Comment RPR Nonreactive (NONREACTIVE) HIV 1&2 Ag/Ab, 4th Gen Nonreactive (Nonreactive) HIV 1&2 Antibody Screen (NEGATIVE) Laboratory Results - last 24 hr 11/21/17 11/22/17 11/22/17 19:00 08:30 16:04 WBC RBC Hgb Hct MCV MCH MCHC RDW Plt Count MPV Gran % Lymph % (Auto) [place] % (Auto) Eos % (Auto) Baso % (Auto) Gran # Lymph # (Auto) [place] # (Auto) Eos # (Auto) Baso # (Auto) Neutrophils % (Manual) Band Neutrophils % Lymphocytes % (Manual) Monocytes % (Manual) Platelet Evaluation Sodium Potassium Chloride Carbon Dioxide Anion Gap BUN Creatinine Est GFR ( Amer) Est GFR (Non-Af Amer) POC Glucose (mg/dL) 309 H Random Glucose Calcium Total Bilirubin AST ALT Alkaline Phosphatase Total Protein Albumin Globulin Albumin/Globulin Ratio Fluid Type CSF Volume CSF Appearance CSF WBC CSF RBC CSF Total Cell Counted CSF Monos/Macrophages CSF Comment RPR Nonreactive HIV 1&2 Ag/Ab, 4th Gen Nonreactive HIV 1&2 Antibody Screen 11/22/17 11/22/17 11/22/17 16:56 21:00 21:05 WBC RBC Hgb Hct MCV MCH MCHC RDW Plt Count MPV Gran % Lymph % (Auto) [place] % (Auto) Eos % (Auto) Baso % (Auto) Gran # Lymph # (Auto) [place] # (Auto) Eos # (Auto) Baso # (Auto) Neutrophils % (Manual) Band Neutrophils % Lymphocytes % (Manual) Monocytes % (Manual) Platelet Evaluation Sodium 143 Potassium 3.9 Chloride 112 H Carbon Dioxide 20 L Anion Gap 15 BUN 32 H Creatinine 1.7 H Est GFR ( Amer) 36 Est GFR (Non-Af Amer) 30 POC Glucose (mg/dL) Random Glucose 303 H* D Calcium 8.2 L Total Bilirubin AST ALT Alkaline Phosphatase Total Protein Albumin Globulin Albumin/Globulin Ratio Fluid Type Spinal fluid CSF Volume TEST NOT PERFORMED CSF Appearance TEST NOT PERFORMED CSF WBC TEST NOT PERFORMED CSF RBC TEST NOT PERFORMED CSF Total Cell Counted TEST NOT PERFORMED CSF Monos/Macrophages TEST NOT PERFORMED CSF Comment Footnote RPR HIV 1&2 Ag/Ab, 4th Gen HIV 1&2 Antibody Screen Negative 11/23/17 11/23/17 11/23/17 01:50 02:38 05:55 WBC 26.6 H* RBC 2.91 L Hgb 9.1 L D Hct 28.2 L MCV 96.9 D MCH 31.3 MCHC 32.3 RDW 17.2 H Plt Count 136 MPV 10.4 Gran % 95.2 H Lymph % (Auto) 2.7 L [place] % (Auto) 2.0 Eos % (Auto) 0.1 L Baso % (Auto) 0.0 Gran # 25.32 H Lymph # (Auto) 0.7 L [place] # (Auto) 0.5 Eos # (Auto) 0.0 Baso # (Auto) 0.00 Neutrophils % (Manual) 95 H Band Neutrophils % 0 Lymphocytes % (Manual) 3 L Monocytes % (Manual) 2 Platelet Evaluation Normal Sodium 145 Potassium 4.1 Chloride 113 H Carbon Dioxide 21 Anion Gap 15 BUN 33 H Creatinine 1.9 H Est GFR ( Amer) 32 Est GFR (Non-Af Amer) 26 POC Glucose (mg/dL) 333 H Random Glucose 339 H* Calcium 7.9 L Total Bilirubin AST ALT Alkaline Phosphatase Total Protein Albumin Globulin Albumin/Globulin Ratio Fluid Type CSF Volume CSF Appearance CSF WBC CSF RBC CSF Total Cell Counted CSF Monos/Macrophages CSF Comment RPR HIV 1&2 Ag/Ab, 4th Gen HIV 1&2 Antibody Screen 11/23/17 11/23/17 11/23/17 05:55 07:49 11:41 WBC RBC Hgb Hct MCV MCH MCHC RDW Plt Count MPV Gran % Lymph % (Auto) [place] % (Auto) Eos % (Auto) Baso % (Auto) Gran # Lymph # (Auto) [place] # (Auto) Eos # (Auto) Baso # (Auto) Neutrophils % (Manual) Band Neutrophils % Lymphocytes % (Manual) Monocytes % (Manual) Platelet Evaluation Sodium 147 Potassium 4.3 Chloride 114 H Carbon Dioxide 20 L Anion Gap 17 BUN 33 H Creatinine 2.1 H Est GFR ( Amer) 28 Est GFR (Non-Af Amer) 23 POC Glucose (mg/dL) 342 H 347 H Random Glucose 384 H* Calcium 8.0 L Total Bilirubin 0.3 AST 67 H D ALT 21 Alkaline Phosphatase 76 Total Protein 5.1 L Albumin 2.6 L Globulin 2.5 Albumin/Globulin Ratio 1.0 L Fluid Type CSF Volume CSF Appearance CSF WBC CSF RBC CSF Total Cell Counted CSF Monos/Macrophages CSF Comment RPR HIV 1&2 Ag/Ab, 4th Gen HIV 1&2 Antibody Screen Critical Care Progress Note - Nutrition Nutrition: Nutrition Category Date Time Status NPO Diet [DIET] Diets 11/21/17 Dinner Ordered Attending/Attestation - Attestation I have personally seen and examined this patient.: Yes I have fully participated in the care of the patient.: Yes I have reviewed all pertinent clinical information: Yes Notes (Text): 11/23/17 15:35 67 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 Distributive shock, No brainstem reflexes, except for some overbreathing vent, EEG reportedly flat line. Patient is off of sedation for more then 24 hrs. Waiting for family to talk about advance directives ccm time 40 min
[2017-11-23] MEDS ORDERED: Cefepime 0.5 GM in Sodium Chloride 0.9% 100 ML IVPB SCH (13:00)
--- NOTE | 2017-11-23 13:15 | CP.PCM.PN ---
<Britney Archuleta - Last Filed: 11/23/17 13:07> Subjective - Date & Time of Evaluation Date of Evaluation: 11/23/17 Time of Evaluation: 13:07 - Subjective Subjective: Britney Archuleta, PGY2, Heme-Onc Progress Note for Dr Leyva: Patient seen and examined at bedside. No acute events overnight. Patient remains , intubated, unreponsive, on versed, levophed drips, 3%NS. ROS unobtainable due patient's mental status/intubated. Objective - Vital Signs/Intake and Output Vital Signs (last 24 hours): Temp Pulse Resp BP Pulse Ox 100.0 F H 113 H 103 H 108/59 L 98 11/23/17 03:00 11/23/17 03:00 11/22/17 07:55 11/23/17 03:00 11/23/17 03:00 Intake and Output: 11/23/17 11/23/17 06:59 18:59 Intake Total 516 400 Balance 516 400 - Medications Medications: Current Medications Acetaminophen (Tylenol 325mg Tab) 650 mg PO Q4H PRN PRN Reason: Mild pain (1-3) or temp > 100F Last Admin: 11/20/17 13:25 Dose: 650 mg Amlodipine Besylate (Norvasc) 5 mg PO DAILY [facility] Last Admin: 11/21/17 14:26 Dose: Not Given Clonidine HCl (Catapres) 0.1 mg PO Q6 PRN PRN Reason: Systolic Blood Pressure > 160 Last Admin: 11/20/17 13:24 Dose: 0.1 mg Heparin Sodium (Porcine) (Heparin) 5,000 units SC Q12 [facility] PRN Reason: Protocol Last Admin: 11/23/17 10:06 Dose: 5,000 units Hydralazine HCl (Apresoline) 10 mg IVP Q6 PRN PRN Reason: for sbp greater than 160 Last Admin: 11/20/17 06:12 Dose: 10 mg Hydrocortisone Sodium Succinate (Solu-Cortef) 50 mg IVP Q6H [facility] Last Admin: 11/23/17 09:00 Dose: 50 mg Hydromorphone HCl (Dilaudid) 0.5 mg IVP Q4H PRN PRN Reason: Pain, severe (8-10) Last Admin: 11/21/17 03:08 Dose: 0.5 mg Nicardipine HCl (Cardene Iv Premix) 20 mg in 200 mls @ 50 mls/hr IV .Q4H PRN; Protocol; 5 MG/HR PRN Reason: TITRATE PER MD ORDER Last Titration: 11/21/17 09:00 Dose: 0 mg/hr, 0 mls/hr Midazolam 100 mg/100ml in NS (Midazolam 100 Mg/100ml In Ns) 100 mg in 100 mls @ 1 mls/hr IV .Q24H PRN; Protocol; 1 MG/HR PRN Reason: Seizure activity Last Titration: 11/22/17 14:00 Dose: 0 mg/hr, 0 mls/hr Valproate Sodium 1,000 mg/ (Sodium Chloride) 110 mls @ 100 mls/hr IVPB 0700, 1900 [facility] Last Admin: 11/23/17 09:00 Dose: 100 mls/hr Norepinephrine Bitartrate 8 mg (/ Sodium Chloride) 258 mls @ 48.37 mls/hr IV .Q5H21M PRN; Protocol; 25 MCG/MIN PRN Reason: TITRATE PER MD ORDER Last Titration: 11/23/17 12:00 Dose: 25 mcg/min, 48.37 mls/hr Vasopressin 20 units/ Sodium (Chloride) 101 mls @ 9.09 mls/hr IV .Q11H7M [facility]; 0.03 U/MIN PRN Reason: Protocol Last Admin: 11/23/17 01:44 Dose: 0.03 u/min, 9.09 mls/hr Sodium Chloride (Hypertonic Saline 3%) 500 mls @ 30 mls/hr IV .[id number] [facility] Last Admin: 11/23/17 02:50 Dose: 30 mls/hr Acetaminophen (Ofirmev) 1,000 mg in 100 mls @ 0 mls/hr IVPB Q6H PRN; Titrate PRN Reason: Temperature Stop: 11/25/17 04:31 Last Admin: 11/23/17 05:33 Dose: 400 mls/hr Cefepime HCl 0.5 gm/ Sodium (Chloride) 100 mls @ 100 mls/hr IVPB Q12H [facility] PRN Reason: Protocol Stop: 12/02/17 13:01 Acyclovir 250 mg/ Sodium (Chloride) 100 mls @ 100 mls/hr IV Q12 [facility] PRN Reason: Protocol Stop: 01/07/19 22:01 Ibuprofen (Motrin Tab) 600 mg PO Q8H PRN PRN Reason: Pain, moderate (4-7) Last Admin: 11/20/17 10:44 Dose: 600 mg Insulin Human Regular (Humulin R Low) 0 units SC Q4H [facility] PRN Reason: Protocol Last Admin: 11/23/17 12:34 Dose: 4 units Losartan Potassium (Cozaar) 100 mg PO DAILY [facility] Last Admin: 11/21/17 11:16 Dose: Not Given Ondansetron HCl (Zofran Inj) 4 mg IVP Q8H PRN PRN Reason: Nausea/Vomiting Last Admin: 11/20/17 15:00 Dose: 4 mg Pantoprazole Sodium (Protonix Inj) 40 mg IVP Q12 [facility] Last Admin: 11/23/17 10:06 Dose: 40 mg Sucralfate (Carafate Oral Susp) 1 gm PO 0600,1600 [facility] Last Admin: 11/23/17 04:59 Dose: Not Given - Labs Labs: 11/23/17 05:55 11/23/17 05:55 PT 11.6 SECONDS (9.4-12.5) 11/20/17 14:40 INR 1.02 (0.93-1.08) 11/20/17 14:40 APTT 32.8 Seconds (25.1-36.5) 11/20/17 14:40 - Constitutional Appears: Toxic, In Acute Distress - Head Exam Head Exam: ATRAUMATIC, NORMOCEPHALIC - Eye Exam Eye Exam: absent: EOMI, Nystagmus, PERRL, Scleral icterus Pupil Exam: Fixed, Mydriatic. 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 Over the hospital course, patient's mental status worsened. Repeat brain MRI shows worsening meningoencephalitis. Suboccipital tap done by Neurology, smear shows signet ring cell. 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 EEG shows no brain activity. Dr Leyva discussed findings extensively with /family, would like to pursue with making patient comfortable. Case seen and discussed with Dr Leyva. <Alfie Frazier - Last Filed: 11/24/17 15:14> Objective - Vital Signs/Intake and Output Vital Signs (last 24 hours): Temp Pulse Resp BP Pulse Ox 98.4 F 57 L 5 L 55/31 L 92 L 11/23/17 18:01 11/23/17 18:01 11/23/17 18:14 11/23/17 18:02 11/23/17 18:01 - Labs Labs: 11/23/17 05:55 11/23/17 05:55 PT 11.6 SECONDS (9.4-12.5) 11/20/17 14:40 INR 1.02 (0.93-1.08) 11/20/17 14:40 APTT 32.8 Seconds (25.1-36.5) 11/20/17 14:40
--- NOTE | 2017-11-23 14:02 | PN ---
Copied To: Ike Ramirez MD Attending MD: Ike Ramirez MD DATE: 11/23/2017 SUBJECTIVE: The patient is seen early this morning in the unit, has low-grade fevers. The patient is intubated on a ventilator, unresponsive. PHYSICAL EXAMINATION: VITAL SIGNS: Temperature is 100, blood pressure is 108/59, heart rate of 113. HEENT: Examination of HEENT is unremarkable. The ET tube is in place. NECK: Supple. LUNGS: Have decreased breath sounds. HEART: Normal S1, S2. ABDOMEN: Soft. LABORATORY DATA: Laboratory examination reveals the patient's white count of 26,000, hemoglobin of 9. Chemistries are BUN of 23, creatinine is 2.1. Urinalysis is noted. No wbc's are performed in the CSF fluid. RPR is negative. HIV is negative. Microbiology reveals there is E. coli and Enterococcus faecalis in the urine. The E. coli in the urine is pansensitive as is the Enterococcus faecalis. Blood cultures are negative. Nares MRSA is not detected. The cytology from the CSF, epithelial cells present suspicious for metastatic signet ring cells adenocarcinoma, read by Dr. Colon. Dr. Cristian Lyons's note is reviewed. ASSESSMENT AND PLAN: A 67-year-old female. 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 The patient is unresponsive. We will discontinue the Bactrim and change the meropenem to Maxipime 500 mg every 12. The patient is allergic to penicillin, is not type 1 allergy. We will also discontinue the vancomycin and the acyclovir. Acyclovir will be changed to lower dose adjusted for the renal failure at every 12. Overall prognosis is quite poor. Should consider hospice setting in this patient who now has central nervous systems metastases, unresponsive, intubated on a ventilator. We will also discontinue the acyclovir and doxycycline. Should consider discontinuing the Solu-Cortef also, not a real role in metastatic central nervous systems disease. Ike Ramirez MD [facility] # [id number]
--- NOTE | 2017-11-23 15:43 | PN ---
Copied To: Star Sierra MD Attending MD: Star Sierra MD. DATE: 11/23/2017 SUBJECTIVE: The patient is currently seen with her family in CCU, bed 7. The patient remains unresponsive on a ventilator. Her EEG study showed a flat line tracing. The patient was found to have metastatic disease to the central nervous system. MEDICATIONS: Medication list reviewed. The patient is currently on acyclovir, Carafate, IV Cardene, cefepime, subcu heparin, insulin, hypertonic saline, Motrin, Levophed, Tylenol, Protonix, Solu-Cortef, Tylenol p.r.n., valproate, vasopressin and Zofran. OBJECTIVE: INTAKE/OUTPUT: Intake is 1056, output is 400. VITAL SIGNS: Blood pressure presently is 108/59, temperature 100 degrees Fahrenheit, pulse 113, respiratory rate is 16. The patient is unresponsive on a ventilator. Family is in the room. HEENT: Pupils are fixed and nonreactive to light. Conjunctivae are pale. NECK: No neck vein distention. CHEST: Clear to auscultation and percussion with no rales, rhonchi or wheezing noted. CARDIOVASCULAR: Shows a normal S1, S2 with no murmurs, rubs or gallops. ABDOMEN: Soft. Bowel sounds normal. No tenderness. No rebound. EXTREMITIES: With her legs elevated in bed show trace to 1+ edema. NEURO: Shows her to be unresponsive. LABORATORY DATA AND IMAGING: Brain MRI done yesterday shows cortical edema and swelling. Consistent with encephalitis with progression from past exam. Chest x-ray from yesterday shows left IJ central venous catheter with a small left pleural effusion. Labs, CBC: White blood cell count 26.6 with a hemoglobin of 9.1 and a platelet count of 136,000. Chemistries today showed sodium of 147, up from 130. Potassium 4.3, chloride 114 with a CO2 of 20. BUN at 33 from a baseline of 17. Creatinine is up to 2.1 from a baseline of 0.9. Elevated glucose levels 384. Calcium is 8. Phosphorus level yesterday was 4.5 with a magnesium level of 2. Elevation of her liver enzymes as noted. Bilirubin is normal. Albumin is low at 2.6. Urines are positive for white blood cells and red blood cells. Urine sodium was low. Urine osmolality was low. Microbiology: Urines are positive for E. coli and Enterococcus. Blood cultures are negative at 3 days. ASSESSMENT: 1. 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 2. Status post hypertensive emergency. This has resolved and her blood pressures are now in the low normal range. 3. Acute renal failure in the setting of severe sepsis. The patient has a urinary tract infection, on appropriate antibiotic therapy. 4. Status post mild hyponatremia and hypokalemia. This has resolved. 5. 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 6. History of [id number] diabetes mellitus with elevated glucose levels. The patient is on insulin. PLAN: 1. Discussed with family in detail. Her renal problem concern compared to the underlying issue of metastatic cancer to the brain. The patient appears to be flat lined on EEG. She is unresponsive with pupils which are dilated and fixed. 2. Continue to support her blood pressure as necessary. 3. Continue antibiotic therapy for her urinary tract infection. 4. If hypertonic saline is being used, it is being used to reduce cerebral edema and not for correction of hyponatremia. 5. Continue to monitor glucose levels and continue insulin as ordered. 6. Discussed with the patient's family in detail. I did explain to her that the acute renal failure is likely in part secondary to sepsis and perhaps at present septic shock. I did explain to them that no further testing in regards to her renal status needs to be done other than routine lab work. 7. Case discussed with the patient's family and CCU nurse in detail. Greater than 35 minutes spent in the care of this critically ill patient. Star Sierra MD
--- NOTE | 2017-11-23 16:16 | CP.PCM.PN ---
<Sil Kapoor - Last Filed: 11/23/17 16:17> Subjective - Date & Time of Evaluation Date of Evaluation: 11/23/17 Time of Evaluation: 08:45 - Subjective Subjective: Sil Kapoor DO, PGY-2: GI progress note for Dr. Martinez Patient was seen in ICU bed 129-7. Patient is unresponsive. Interim events were noted. Prognosis remains poor. Objective - Vital Signs/Intake and Output Vital Signs (last 24 hours): Temp Pulse Resp BP Pulse Ox 100.0 F H 113 H 103 H 108/59 L 98 11/23/17 03:00 11/23/17 03:00 11/22/17 07:55 11/23/17 03:00 11/23/17 03:00 Intake and Output: 11/23/17 11/23/17 06:59 18:59 Intake Total 516 486 Balance 516 486 - Medications Medications: Current Medications Acetaminophen (Tylenol 325mg Tab) 650 mg PO Q4H PRN PRN Reason: Mild pain (1-3) or temp > 100F Last Admin: 11/20/17 13:25 Dose: 650 mg Amlodipine Besylate (Norvasc) 5 mg PO DAILY [facility] Last Admin: 11/21/17 14:26 Dose: Not Given Clonidine HCl (Catapres) 0.1 mg PO Q6 PRN PRN Reason: Systolic Blood Pressure > 160 Last Admin: 11/20/17 13:24 Dose: 0.1 mg Heparin Sodium (Porcine) (Heparin) 5,000 units SC Q12 LEMUEL PRN Reason: Protocol Last Admin: 11/23/17 10:06 Dose: 5,000 units Hydralazine HCl (Apresoline) 10 mg IVP Q6 PRN PRN Reason: for sbp greater than 160 Last Admin: 11/20/17 06:12 Dose: 10 mg Hydrocortisone Sodium Succinate (Solu-Cortef) 50 mg IVP Q6H [facility]UEL Last Admin: 11/23/17 14:17 Dose: 50 mg Hydromorphone HCl (Dilaudid) 0.5 mg IVP Q4H PRN PRN Reason: Pain, severe (8-10) Last Admin: 11/21/17 03:08 Dose: 0.5 mg Nicardipine HCl (Cardene Iv Premix) 20 mg in 200 mls @ 50 mls/hr IV .Q4H PRN; Protocol; 5 MG/HR PRN Reason: TITRATE PER MD ORDER Last Titration: 11/21/17 09:00 Dose: 0 mg/hr, 0 mls/hr Midazolam 100 mg/100ml in NS (Midazolam 100 Mg/100ml In Ns) 100 mg in 100 mls @ 1 mls/hr IV .Q24H PRN; Protocol; 1 MG/HR PRN Reason: Seizure activity Last Titration: 11/22/17 14:00 Dose: 0 mg/hr, 0 mls/hr Valproate Sodium 1,000 mg/ (Sodium Chloride) 110 mls @ 100 mls/hr IVPB 0700, 1900 [facility] Last Admin: 11/23/17 09:00 Dose: 100 mls/hr Norepinephrine Bitartrate 8 mg (/ Sodium Chloride) 258 mls @ 48.37 mls/hr IV .Q5H21M PRN; Protocol; 25 MCG/MIN PRN Reason: TITRATE PER MD ORDER Last Titration: 11/23/17 14:11 Dose: 15 mcg/min, 29.02 mls/hr Vasopressin 20 units/ Sodium (Chloride) 101 mls @ 9.09 mls/hr IV .Q11H7M LEMUEL; 0.03 U/MIN PRN Reason: Protocol Last Admin: 11/23/17 01:44 Dose: 0.03 u/min, 9.09 mls/hr Acetaminophen (Ofirmev) 1,000 mg in 100 mls @ 0 mls/hr IVPB Q6H PRN; Titrate PRN Reason: Temperature Stop: 11/25/17 04:31 Last Admin: 11/23/17 05:33 Dose: 400 mls/hr Cefepime HCl 0.5 gm/ Sodium (Chloride) 100 mls @ 100 mls/hr IVPB Q12H LEMUEL PRN Reason: Protocol Stop: 12/02/17 13:01 Last Admin: 11/23/17 15:02 Dose: 100 mls/hr Acyclovir 250 mg/ Sodium (Chloride) 100 mls @ 100 mls/hr IV Q12 LEMUEL PRN Reason: Protocol Stop: 01/07/19 22:01 Ibuprofen (Motrin Tab) 600 mg PO Q8H PRN PRN Reason: Pain, moderate (4-7) Last Admin: 11/20/17 10:44 Dose: 600 mg Insulin Human Regular (Humulin R Low) 0 units SC Q4H LEMUEL PRN Reason: Protocol Last Admin: 11/23/17 12:34 Dose: 4 units Losartan Potassium (Cozaar) 100 mg PO DAILY [facility] Last Admin: 11/21/17 11:16 Dose: Not Given Ondansetron HCl (Zofran Inj) 4 mg IVP Q8H PRN PRN Reason: Nausea/Vomiting Last Admin: 11/20/17 15:00 Dose: 4 mg Pantoprazole Sodium (Protonix Inj) 40 mg IVP Q12 LEMUEL Last Admin: 11/23/17 10:06 Dose: 40 mg Sucralfate (Carafate Oral Susp) 1 gm PO 0600,1600 [facility] Last Admin: 11/23/17 15:03 Dose: Not Given - Labs Labs: 11/23/17 05:55 11/23/17 05:55 PT 11.6 SECONDS (9.4-12.5) 11/20/17 14:40 INR 1.02 (0.93-1.08) 11/20/17 14:40 APTT 32.8 Seconds (25.1-36.5) 11/20/17 14:40 - Constitutional Appears: No Acute Distress - Head Exam Head Exam: ATRAUMATIC, NORMOCEPHALIC - Eye Exam Eye Exam: EOMI, Normal appearance - Respiratory Exam Respiratory Exam: absent: Accessory Muscle Use - Cardiovascular Exam Cardiovascular Exam: Tachycardia - GI/Abdominal Exam GI & Abdominal Exam: absent: Distended - Extremities Exam Extremities Exam: absent: Calf Tenderness - Neurological Exam Additional comments: not responsive - Skin Skin Exam: Warm Assessment and Plan - Assessment and Plan (Free Text) Assessment: 67 year old female with a past medical history of DM II, hypertension, and porcelain gall bladder, 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 She underwent MRI of the brain without contrast showed that the ventricles are dilated out of proportion of the dilated sulci which could be due to central atrophy or mild normal pressure hydrocephalus. MRA of the head and neck was interpreted as unremarkable. Neurology was consulted and recommended Flexeril and Zofran and to discontinue Tramadol and Percocet. The patient deteriorated over the weekend, was found to be obtuned and was intubated. The patient underwent a cisternal tap that showed signet ring cells. Prognosis is grave. We will sign off at this time. As always, thank you for allowing to participate in the care of this patient. Please re-consult as necessary. Case was reviewed and discussed with the attending physician, Dr. Martinez <Florecita Martinez V - Last Filed: 11/23/17 21:39> Objective - Vital Signs/Intake and Output Vital Signs (last 24 hours): Temp Pulse Resp BP Pulse Ox 98.4 F 57 L 5 L 55/31 L 92 L 11/23/17 18:01 11/23/17 18:01 11/23/17 18:14 11/23/17 18:02 11/23/17 18:01 Intake and Output: 11/23/17 11/24/17 18:59 06:59 Intake Total 2244 Output Total 1000 Balance 1244 - Medications Medications: Current Medications Acetaminophen (Tylenol 325mg Tab) 650 mg PO Q4H PRN PRN Reason: Mild pain (1-3) or temp > 100F Last Admin: 11/20/17 13:25 Dose: 650 mg Amlodipine Besylate (Norvasc) 5 mg PO DAILY [facility] Last Admin: 11/21/17 14:26 Dose: Not Given Clonidine HCl (Catapres) 0.1 mg PO Q6 PRN PRN Reason: Systolic Blood Pressure > 160 Last Admin: 11/20/17 13:24 Dose: 0.1 mg Heparin Sodium (Porcine) (Heparin) 5,000 units SC Q12 LEMUEL PRN Reason: Protocol Last Admin: 11/23/17 10:06 Dose: 5,000 units Hydralazine HCl (Apresoline) 10 mg IVP Q6 PRN PRN Reason: for sbp greater than 160 Last Admin: 11/20/17 06:12 Dose: 10 mg Hydrocortisone Sodium Succinate (Solu-Cortef) 50 mg IVP Q6H [facility] Last Admin: 11/23/17 14:17 Dose: 50 mg Hydromorphone HCl (Dilaudid) 0.5 mg IVP Q4H PRN PRN Reason: Pain, severe (8-10) Last Admin: 11/21/17 03:08 Dose: 0.5 mg Nicardipine HCl (Cardene Iv Premix) 20 mg in 200 mls @ 50 mls/hr IV .Q4H PRN; Protocol; 5 MG/HR PRN Reason: TITRATE PER MD ORDER Last Titration: 11/21/17 09:00 Dose: 0 mg/hr, 0 mls/hr Midazolam 100 mg/100ml in NS (Midazolam 100 Mg/100ml In Ns) 100 mg in 100 mls @ 1 mls/hr IV .Q24H PRN; Protocol; 1 MG/HR PRN Reason: Seizure activity Last Titration: 11/22/17 14:00 Dose: 0 mg/hr, 0 mls/hr Valproate Sodium 1,000 mg/ (Sodium Chloride) 110 mls @ 100 mls/hr IVPB 0700, 1900 [facility] Last Admin: 11/23/17 09:00 Dose: 100 mls/hr Norepinephrine Bitartrate 8 mg (/ Sodium Chloride) 258 mls @ 48.37 mls/hr IV .Q5H21M PRN; Protocol; 25 MCG/MIN PRN Reason: TITRATE PER MD ORDER Last Titration: 11/23/17 14:11 Dose: 15 mcg/min, 29.02 mls/hr Vasopressin 20 units/ Sodium (Chloride) 101 mls @ 9.09 mls/hr IV .Q11H7M LEMUEL; 0.03 U/MIN PRN Reason: Protocol Last Admin: 11/23/17 13:45 Dose: 0.03 u/min, 9.09 mls/hr Acetaminophen (Ofirmev) 1,000 mg in 100 mls @ 0 mls/hr IVPB Q6H PRN; Titrate PRN Reason: Temperature Stop: 11/25/17 04:31 Last Admin: 11/23/17 05:33 Dose: 400 mls/hr Cefepime HCl 0.5 gm/ Sodium (Chloride) 100 mls @ 100 mls/hr IVPB Q12H [facility] PRN Reason: Protocol Stop: 12/02/17 13:01 Last Admin: 11/23/17 15:02 Dose: 100 mls/hr Acyclovir 250 mg/ Sodium (Chloride) 100 mls @ 100 mls/hr IV Q12 [facility]UEL PRN Reason: Protocol Stop: 01/07/19 22:01 Ibuprofen (Motrin Tab) 600 mg PO Q8H PRN PRN Reason: Pain, moderate (4-7) Last Admin: 11/20/17 10:44 Dose: 600 mg Insulin Human Regular (Humulin R Low) 0 units SC Q4H [facility]UEL PRN Reason: Protocol Last Admin: 11/23/17 17:53 Dose: Not Given Losartan Potassium (Cozaar) 100 mg PO DAILY [facility] Last Admin: 11/21/17 11:16 Dose: Not Given Ondansetron HCl (Zofran Inj) 4 mg IVP Q8H PRN PRN Reason: Nausea/Vomiting Last Admin: 11/20/17 15:00 Dose: 4 mg Pantoprazole Sodium (Protonix Inj) 40 mg IVP Q12 [facility] Last Admin: 11/23/17 10:06 Dose: 40 mg Sucralfate (Carafate Oral Susp) 1 gm PO 0600,1600 [facility] Last Admin: 11/23/17 15:03 Dose: Not Given - Labs Labs: 11/23/17 05:55 11/23/17 05:55 PT 11.6 SECONDS (9.4-12.5) 11/20/17 14:40 INR 1.02 (0.93-1.08) 11/20/17 14:40 APTT 32.8 Seconds (25.1-36.5) 11/20/17 14:40 Attending/Attestation - Attestation I have personally seen and examined this patient.: Yes I have fully participated in the care of the patient.: Yes I have reviewed all pertinent clinical information, including history, physical exam and plan: Yes Notes (Text): This is an addendum to GI followup report dictated by the Service Delivery Director. The patient was seen an that we need to change it here d examined earlier. Medical records, lab studies, imagings were reviewed. Last 24 hours events reviewed. Agreed with the above treatment plan as outlined in Service Delivery Director 's notes with the addition of the following Metastatic cholangiocarcinoma Cisternal tap showed epithelial cells suggestive of signal ring adenocarcinoma in CSF Her early symptoms are neurologically related We will sign off and please reconsult as needed Thank you very much for allowing us to participate in the care of the patient the patient 11/23/17 21:33
[2017-11-23] MEDS ORDERED: Morphine 2 mg/ml ISec IVP STA (17:51)
[2017-11-23 18:41] VITALS: BP 55/31; PULSE 57; RESP 5; TEMP 98.4; O2SAT 92
--- NOTE | 2017-11-23 19:12 | CP.PCM.PRO ---
Pronouncement of Note - Clinical Findings Physical Exam: No Response Verbal/Painful Stimuli, Absent Peripheral Pulses{ Carotid & Femoral}, Absent Heart & Breath Sounds, No Pupillary Light Reflex, No Corneal Reflex, Pupils Fixed & Dilated, Absence of Vital Signs - Pronouncement Time Time of Pronouncement of : 18:08 - Notifications Pronouncement Notifications: Family Notified, Atending Notified Health Facilities Surveyor Notified: No - Autopsy Autopsy Requested: No - [place] [id number]
[2017-11-23] MEDS ORDERED: Acyclovir 250 MG in Sodium Chloride 0.9% 100 ML IV SCH (22:00)
--- NOTE | 2017-11-24 06:52 | PN ---
Copied To: Ronna Leyva MD Attending MD: Ronna Leyva MD DATE: 11/23/2017 ONCOLOGY NOTE: LOCATION: Patient is in TCU, room 129, bed 5. SUBJECTIVE: The patient is currently seen with the family in the TCU, bed 7, the patient remains unresponsive on the ventilator. The most recent EEG showed a flat line. I spoke to Dr. Derek Daniels, the urologist, early this morning. were submitted yesterday and was reviewed with the pathologist, Dr. Colon, and by me this afternoon and the fluid which was sent for cell count clearly shows sheets of signet ring cells consistent with metastatic disease, primarily coming from the gallbladder carcinoma that the patient is known to have. The patient's medications were reviewed; they are currently on the MAR. She is on acyclovir, Carafate, Cardene, cefepime, subcu heparin, insulin, hypertonic saline, Motrin, Levophed, Tylenol, Protonix, Solu-Cortef, Tylenol p.r.n., valproic acid, vasopressin and Zofran. The patient is currently on the ventilator. PHYSICAL EXAMINATION: VITAL SIGNS: Blood pressure is 108/59, T-max is 100, pulse is 113, respirations are 16. The patient is unresponsive on the ventilator with no reflexes at this time. HEENT: Pupils are dilated and fixed, nonreactive to light. NECK: Supple. There is no jugular venous distension. LUNGS: Clear to auscultation and percussion without any adventitious rales or rhonchi. CARDIOVASCULAR SYSTEM: Reveals PMI to be in the fifth intercostal space. S1 and S2 are normal. No gallop or murmur is heard. ABDOMEN: Soft. Mildly distended, nontender. EXTREMITIES: With her legs elevated in the bed showed trace 1+ edema. NEURO: The patient is completely unresponsive with flaccid lymphs and the patient is quadriplegic. LABORATORY DATA AND IMAGING: Showed that the MRI reveals cortical edema and swelling consistent with meningoencephalitis progression from the prior MRI. Chest x-ray showed left IJ central venous catheter, small left pleural effusion. White count is 26,000, hemoglobin of 9, platelet count of 136,000. Sodium is 147 up from 130, potassium is 4.3, chloride is 114 with CO2 of 20. BUN is 30 from baseline of 17, creatinine is up to 2.1 from baseline of 0.9. Blood sugar is elevated at 384. LFTs are elevated. Bilirubin is normal. Albumin is 2.6. Urine is positive for E. Coli and enterococcus. Blood cultures are negative for 3 days. 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 PLAN: Discussed in detail my findings with the entire family including the patient's and the daughter and the entire family including the 's siblings who was there. In view of the findings, especially with flat EEG and now meningeal involvement on the CSF fluid exam, we suggested that the patient be just maintained on supportive care. We talked about extubation and watching her as far as the pressures are concerned, let nature take its course. Family is in final agreement, they wanted to wait for all the members in the family to combine to say goodbye to the patient and in view of this, the planned to extubate her which was done in the presence of the child care centre director and was performed by the respiratory therapist assigned to the ICU and CCU. The patient passed on quietly without any significant issues. She had received morphine prior to the extubation as she was still breathing on her own and was restless. Case was discussed with the patient's family, all of them were counseled at great length. Time spent with the family during this whole process with more than 2 hours, explaining to them what was happening and why the illness could not be picked up very easily on the initial admission lab or the initial scan. 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 Diabetes mellitus, urinary tract infection, multiple urinary stones, made up of status post stenting in the right ureter with residual stones in the left kidney. Ronna Leyva MD
== END 2017-11-23 18:08 | DRG 54 ==
LOC: ED 14:28 → ERH 19:06 → 5RNO 21:04 → OBSVTOIN 11-19 15:22 → 3RSO 11-19 17:54 → CCU 11-20 16:43
PROVIDERS: ADMIT Family Medicine; ATTEND Family Medicine
PROC: 5A1945Z Respiratory Ventilation, 24-96 Consecutive Hours (ICD-10-PCS; principal; 2017-11-21)
PROC: 0BH18EZ Insertion of Endotracheal Airway into Trachea, Via Natural or Artificial Opening Endoscopic (ICD-10-PCS; 2017-11-21)
PROC: 3E033XZ Introduction of Vasopressor into Peripheral Vein, Percutaneous Approach (ICD-10-PCS; 2017-11-21)
PROC: 05HN33Z Insertion of Infusion Device into Left Internal Jugular Vein, Percutaneous Approach (ICD-10-PCS; 2017-11-22)
PROC: 009U3ZX Drainage of Spinal Canal, Percutaneous Approach, Diagnostic (ICD-10-PCS; 2017-11-22)
DX: C79.31 Secondary malignant neoplasm of brain (principal); A41.9 Sepsis, unspecified organism; G04.90 Encephalitis and encephalomyelitis, unspecified; G82.50 Quadriplegia, unspecified; G93.6 Cerebral edema; R65.21 Severe sepsis with septic shock; J96.90 Respiratory failure, unspecified, unspecified whether with hypoxia or hypercapnia; R40.20 Unspecified coma; I16.1 Hypertensive emergency; C23 Malignant neoplasm of gallbladder; G93.1 Anoxic brain damage, not elsewhere classified; N17.9 Acute kidney failure, unspecified; E87.0 Hyperosmolality and hypernatremia; N20.2 Calculus of kidney with calculus of ureter; N39.0 Urinary tract infection, site not specified; B96.20 Unspecified Escherichia coli [E. coli] as the cause of diseases classified elsewhere; B95.2 Enterococcus as the cause of diseases classified elsewhere; E11.65 Type 2 diabetes mellitus with hyperglycemia; E87.6 Hypokalemia; G43.909 Migraine, unspecified, not intractable, without status migrainosus; E66.9 Obesity, unspecified; Z86.718 Personal history of other venous thrombosis and embolism; Z88.0 Allergy status to penicillin; Z79.84 Long term (current) use of oral hypoglycemic drugs; Z79.01 Long term (current) use of anticoagulants; Z68.33 Body mass index [BMI] 33.0-33.9, adult